=== PATIENT | male | born 1990 | race Caucasian/White ===

== ENCOUNTER 2022-08-09 17:45 | Inpatient (IN) | payer OTHER, SELFPAY ==
[2022-08-09 18:00] VITALS: BP 131/84; PULSE 97; TEMP 36.2
--- NOTE | 2022-08-09 18:48 | PC.ADMIT ---
Pt is a 32 year old male transferring from at [facility] to [facility] for ECT treatments. Pt is COIVD negative. Pt has persistent depression, pt's mother in 2013 and has been depressed since. Pt was brought to [facility] secondary to being found unresponsive by his landlord in his apartment. Pt had intentionally OD on prescribed medications. Reports improved SI, doesn't want to hurt his family by killing himself. Pt transferred from [facility] for [place]CT [place] [facility] Pt was at [facility] for 38 days prior to arriving to . Pt is calm and cooperative with a flat/sad affect. Pt rates anxiety 8/10 and depression 7/10. Pt reports having chronic pain in his bilateral wrists, bilateral ankles, neck and back from playing contact sports growing up. Pt denies SI/HI/AH/VH at this time and can come to staff if feeling unsafe. Pt reports feeling safe on the unit. MD made aware of admission. Orders are placed, begin treatment plan and monitor for safety.
[2022-08-09] MEDS: Nortriptyline HCl 25 MG CAPSULE 50 MG PO (20:26)
[2022-08-09] MEDS: LORazepam 0.5 MG TABLET 1.5 MG PO (20:26)
[2022-08-09] MEDS: QUEtiapine Fumarate 200 MG TABLET PO (20:26)
[2022-08-09] MEDS: traZODone HCL 50 MG TABLET PO ×2 (20:30→21:41)
[2022-08-10 07:26] LABS: MANUAL DIFF FLAG NO
[2022-08-10 07:29] LABS: Basophils Percent Auto 0.4 % (0-2); Eosinophils Absolute Auto 0.2 X10*3/uL (0.0-0.4); Eosinophils Percent Auto 2.6 % (0-4); Hematocrit 43.8 % (42.0-52.0); Hemoglobin 14.5 g/dl (14.0-18.0); Imm Gran Abs Auto 0.03 X10*3/uL (0.00-0.03); Imm Gran Pct Auto 0.4 % (0.0-0.4); Lymphocytes Absolute Auto 1.8 X10*3/uL (1.2-4.9); Lymphocytes Percent Auto 25.1 % (20-40); Mean Corpuscular HGB Conc 33.1 g/dl (31.0-36.0); Mean Corpuscular Hemoglobin 28.7 pg (27.0-33.0); Mean Corpuscular Volume 86.7 fL (80.0-98.0); Mean Platelet Volume 8.4 fL (9.4-12.4); Monocytes Absolute Auto 0.7 X10*3/uL (0.1-1.2); Monocytes Percent Auto 10.1 % (2-11); Neutrophils Absolute Auto 4.5 x10*3/uL (2.0-8.3); Neutrophils Percent Auto 61.4 % (45-73); Platelet Count 236 X10*3/uL (160-400); Red Blood Count 5.05 X10*6/uL (4.60-5.80); Red Cell Distribution Width 13.5 % (11.0-16.0); White Blood Count 7.3 X10*3/uL (4.8-10.8)
[2022-08-10 07:44] LABS: Estimated Average Glucose 103 mg/dL; Hemoglobin A1c % 5.2 %
[2022-08-10 08:01] LABS: Alanine Aminotransferase 37 U/L (0-40); Alkaline Phosphatase 79 U/L (39-117); Anion Gap 13 (12-20); Aspartate Amino Transferase 32 U/L (5-37); Bilirubin Total 0.5 mg/dL (0.0-1.0); Blood Urea Nitrogen 13 mg/dL (9-16); Carbon Dioxide 25 mmol/L (22-29); Chloride 106 mmol/L (96-108); Cholesterol 212 mg/dL; Estimated Glomerular Filt Rate > 60; Glucose Fasting 85 mg/dL (60-99); HDL Cholesterol 37 mg/dL; LDL Cholesterol Calculated 141 mg/dl; Magnesium 2.1 mg/dL (1.6-2.6); Potassium 4.3 mmol/L (3.3-5.1); Sodium 140 mmol/L (135-145); Total Protein 6.4 g/dL (6.5-8.0); Triglycerides 171 mg/dL
[2022-08-10 08:32] LABS: Free T4 (Free Thyroxine) 0.82 ng/dL (0.71-1.85); Thyroid Stimulating Hormone 2.97 uIU/mL (0.32-4.0); Vitamin B12 331 pg/mL (200-900)
[2022-08-10] MEDS: LORazepam 0.5 MG TABLET 1.5 MG PO ×2 (08:45→21:31)
[2022-08-10] MEDS: QUEtiapine Fumarate 200 MG TABLET PO ×2 (08:45→21:32)
--- NOTE | 2022-08-10 08:54 | P.HPPS_ITS ---
HPI Date of Service: 08/10/22 Chief Complaint: Rec. Major Depression, Complex Bereavement Reacti Sources of Information: patient interviewed, chart reviewed and crisis/core team assessment reviewed HPI Subjective Notes: Pyle Warning and Conditional Voluntary Narrative: 32 yo male, transfer from [facility] for ECT. First [facility] admit reported. TO [facility] after an intentional overdose in a suicide attempt. Found by zaida, surrouned by empty pill bottles and a note- took approx 80 klonopin, 42 seroquel, 28 Ambien 37 Lamictal. CCU admit for intubation and stabilization. Reported to their team feeling depressed for a significant amount of time with participation in therapy and med trials without benefit. Identified prolonged bereavement over mother who in 2013. Also reported chronic pain. Pt on SSI since Oct 2021. He has not worked since 2019. Supports are an aunt and uncle who live in [place]. No friends. Hx of TMS without benefit. Identifies memory issues due to several concussions. Occasional THC use. Reports several medication trials which have not been too helpful at this time. Past Psychiatric History: IP: [facility] Transfer s/p suicide attempt Medical Evaluation Reviewed: Yes [facility] Medical History (Updated 08/11/22 @ 15:37 by Sandy Christian, LABORATORY MECH[employer]IC HELPER) Complicated bereavement Severe recurrent major depression Narrative: Hx of concussions Family History: Per [facility] record Social History: Per [facility] record Substance History: Per [facility] record Trauma History: Per [facility] record Diagnostics Vital Signs (24Hr): Vital Signs - 24 hr 08/09/22 18:00 Temperature 97.1 F Pulse Rate 97 Blood Pressure 131/84 Labs 08/10/22 07:04 08/10/22 07:04 Labs: Laboratory Results - last 48 hr 08/10/22 08/10/22 08/10/22 07:04 07:04 07:04 WBC 7.3 RBC 5.05 Hgb 14.5 Hct 43.8 MCV 86.7 MCH 28.7 MCHC 33.1 RDW 13.5 Plt Count 236 MPV 8.4 L Immature Gran % (Auto) 0.4 Neut % (Auto) 61.4 Lymph % (Auto) 25.1 Lamb % (Auto) 10.1 Eos % (Auto) 2.6 Baso % (Auto) 0.4 Lymph # (Auto) 1.8 Lamb # (Auto) 0.7 Eos # (Auto) 0.2 Baso # (Auto) 0.0 Abs Immat Gran (auto) 0.03 Absolute Neuts (auto) 4.5 Absolute Nucleated RBC 0.000 Nucleated RBC % (auto) 0.0 Sodium 140 Potassium 4.3 Chloride 106 Carbon Dioxide 25 Anion Gap 13 BUN 13 Creatinine 0.86 Estim Creat Clear Calc TNP Estimated GFR > 60 Fasting Glucose 85 Estimat Average Glucose 103 Hemoglobin A1c % 5.2 Calcium 9.0 Magnesium 2.1 Total Bilirubin 0.5 AST 32 ALT 37 Alkaline Phosphatase 79 Total Protein 6.4 L Albumin 4.0 Triglycerides 171 Cholesterol 212 LDL Cholesterol, Calc 141 HDL Cholesterol 37 Vitamin B12 331 Folate 9.0 TSH 2.97 Free T4 0.82 Meds/Allergies Meds Home Medications Medication Instructions Recorded Confirmed Type ibuprofen 600 mg PO Q6H PRN Pain 08/10/22 08/10/22 History lorazepam 0.5 mg tablet 1.5 mg PO BID 08/10/22 08/10/22 History nortriptyline 150 mg PO BEDTIME 08/10/22 08/10/22 History propranolol 20 mg tablet 20 mg PO DAILY 08/10/22 08/10/22 History propranolol 20 mg tablet 20 mg PO DAILY PRN Anxiety 08/10/22 08/10/22 History quetiapine 200 mg PO BID 08/10/22 08/10/22 History zolpidem 10 mg PO BEDTIME PRN Sleep 08/10/22 08/10/22 History Allergies Allergies Allergy/AdvReac Type Severity Reaction Status Date / Time No Known Allergies Allergy Verified 08/09/22 16:14 Mental Status Exam Mental Status Exam Patient Appearance: Fatigued Patient Orientation: Person, Place, Time and Situation Level of Consciousness: Alert Patient Behavior: Talkative and Cooperative Mood Description: Depressed Affect Description: Flat Patient Cognition Impaired: No Ability to Follow Directions: Good Speech Pattern: Spontaneous Speech Memory Description: Intact Hallucinations: None Delusions: Not Present Perceptual Disturbances: Derealization Thought Process: Rumination Thought Content: positive for Circumstantial and positive for Suicidal Ideation Depressive Symptoms: Increased Anxiety, Hopelessness, Unhappiness, Thoughts of /Suicide and Low Self Esteem Judgement: Fair Assessment & Plan Assessment & Plan (1) Severe recurrent major depression: Status: Acute Code(s): F33.2 - Major depressive disorder, recurrent severe without psychotic features (2) Complicated bereavement: Status: Acute Code(s): F43.21 - Adjustment disorder with depressed mood Plan 32 yo male, scheduled transfer from [facility] for ECT consult and treatment s/p suicide attempt with complex breavement issues. Plan: Diagnostics Continue current regime Collateral Contact Patient educated on: therapeutic strategies Informed Consent: understands Reason for continued inpatient stay Substantial Risk for: harm to self and rapid decompensation Statement Statement: I have reviewed the history and physical and performed a pertinent examination on my patient. No changes have occurred unless specified. If the History and Physical was not performed prior to admission, the Hospitalist's service will be consulted for completing the admission physical. Time Spent With Patient Time: Total time managing care of this patient today ____ minutes.
--- NOTE | 2022-08-10 09:00 | ECG_ITS ---
Test Reason : New Admit Blood Pressure : / mmHG Vent. Rate : 087 BPM Atrial Rate : 087 BPM P-R Int : 166 ms QRS Dur : 122 ms QT Int : 362 ms P-R-T Axes : 051 064 035 degrees QTc Int : 435 ms Normal sinus rhythm Non-specific intra-ventricular conduction delay Borderline ECG No previous ECGs available Referred By: Sandy Christian Electronically Signed By:Pancho Mo
[2022-08-10 09:08] VITALS: BP 147/91; PULSE 95; RESP 16; TEMP 36.8; O2SAT 95
--- NOTE | 2022-08-10 11:26 | P.CONHOSP_ITS ---
History of Present Illness Data of Consult Service Date: 08/10/22 Primary Care Provider: Unknown Physician HPI Reason for consult: Admission H&P Pt is a 32-year-old male with a PMH significant for anxiety, depression, and hx of concussions who is admitted to psychiatry for ECT treatment. Pt was originally admitted on 06/21/2022 to the ICU at [facility] for intubation and stabilization after being found unresponsive in his apartment by his landlord after an intentional overdose. Patient then was transferred on 07/02 to the inpatient psychiatric unit at [facility] and [place] [facility] [place]. Medical consult for admission H&P and ECT clearance. Pt denies a PMH of cerebral hemorrhage or stroke, CAD, space- occupying intracranial lesion, bleeding or otherwise unstable vascular aneurysm. No hx of seizure or severe pulmonary condition. Pt experienced concussions from playing lacrosse 10+ years ago, but denies any lingering effects such as headaches, vision changes, or memory loss. Pt with denies any past problems with anesthesia. EKG negative for acute ischemia or prolonged QTc. Pt denies chest pain/pressure, SOB, dizziness or lightheadedness. No abdominal pain, hematachezia, melena. Pt does complain of chronic pain in wrists, ankles, neck, and back. Labs reviewed, unremarkable. EKG showed sinus rhythm with a QTc of 435 and nonspecific intraventricular conduction and no evidence of ST elevations or depressions. There are no obvious contraindications to the planned procedure. Review of Systems Review of Systems: Chronic musculoskeletal pain Pt otherwise has no acute medical complaints Yes all other systems are reviewed and are negative [facility] Social History Household Members: None Housing: Homeless Patient Tobacco Use Status: Never used Tobacco Smoked in Last 30 Days: No Patient Interested in Nicotine Replacement: No Patient Given Instructions on How to Stop Smoking: No Use of substances other than those prescribed or required for medical reasons: No Have you been hit, kicked, punched, or otherwise hurt by someone within the past year? If so, by whom?: No Do you feel safe in your current relationship?: No Current Relationship Is there a partner from a previous relationship who is making you feel unsafe now?: No Are you made to feel afraid or neglected: No Advance Directives: No Advance Directives Information Provided: Yes Do you have thoughts of harming others: None Do you have a plan to hurt others: No Plan Recently lost weight without trying: No Nutrition Risks: No Nutritional Risk Poor oral hygiene: No Meds Allergies Allergy/AdvReac Type Severity Reaction Status Date / Time No Known Allergies Allergy Verified 08/09/22 16:14 Active Medications: Current Medications Acetaminophen (Acetaminophen 325 Mg Tablet) 650 mg PO Q6H PRN PRN Reason: Headache/Pain Mild Scale (1-3) Al Hydroxide/Mg Hydroxide (Magnesium Hydrox/Alum Hydrox 30 Ml Oral.Susp) 30 ml PO Q6H PRN PRN Reason: Heartburn/Nausea Hydroxyzine HCl (Hydroxyzine Hcl 25 Mg Tablet) 25 mg PO Q6H PRN PRN Reason: Anxiety Lorazepam (Lorazepam 0.5 Mg Tablet) 1.5 mg PO BID [facility] Last Admin: 08/10/22 08:45 Dose: 1.5 mg Magnesium Hydroxide (Milk Of Magnesia 30 Ml Oral.Susp) 30 ml PO DAILY PRN PRN Reason: Constipation Nortriptyline HCl (Nortriptyline Hcl 25 Mg Capsule) 50 mg PO BEDTIME [facility] Last Admin: 08/09/22 20:26 Dose: 50 mg Quetiapine Fumarate (Quetiapine Fumarate 200 Mg Tablet) 200 mg PO BID [facility] Last Admin: 08/10/22 08:45 Dose: 200 mg Trazodone HCl (Trazodone Hcl 50 Mg Tablet) 50 mg PO BEDTIME MRX1 PRN PRN Reason: Insomnia Last Admin: 08/09/22 21:41 Dose: 50 mg Home Medications Medication Instructions Recorded Confirmed Last Taken Type ibuprofen 600 mg PO Q6H PRN Pain 08/10/22 08/10/22 Unknown History lorazepam 0.5 mg tablet 1.5 mg PO BID 08/10/22 08/10/22 08/09/22 12:15 History nortriptyline 150 mg PO BEDTIME 08/10/22 08/10/22 08/08/22 19:24 History propranolol 20 mg tablet 20 mg PO DAILY 08/10/22 08/10/22 Unknown History propranolol 20 mg tablet 20 mg PO DAILY PRN Anxiety 08/10/22 08/10/22 Unknown History quetiapine 200 mg PO BID 08/10/22 08/10/22 08/09/22 16:06 History zolpidem 10 mg PO BEDTIME PRN Sleep 08/10/22 08/10/22 08/08/22 19:25 History Physical Exam Vital Signs and Narrative: Vital Signs: Last Vital Signs Temp 98.2 F 08/10/22 09:08 Pulse 95 08/10/22 09:08 Resp 16 08/10/22 09:08 BP 147/91 H 08/10/22 09:08 Pulse Ox 95 08/10/22 09:08 O2 Del Method Room Air 08/10/22 09:08 Constitutional: Alert, in no acute distress. Mental Status: Oriented to person, place and time. Eyes: Pupils are equal, round, and reactive to light. Ear, Nose, and Throat: Oropharynx clear, mucous membranes moist. Ears and nose without deformities. Trachea midline. Respiratory: Clear to auscultation bilaterally. No wheezing, rales, or rhonchi. Cardiovascular: S1, S2 regular. No murmurs, rubs, or gallops. Gastrointestinal: Abdomen soft, non-tender, non-distended. Normal bowel sounds. Neurologic: Cranial nerves II-XII are grossly intact bilaterally. No focal neurological deficits. Moves all extremities spontaneously. Skin: No rashes or lesions noted. Musculoskeletal: No cyanosis or clubbing. Extremities: No edema. Psychiatric: Normal mood and affect. Results Labs 08/10/22 07:04 08/10/22 07:04 Labs: Laboratory Results - last 24 hr 08/10/22 08/10/22 08/10/22 07:04 07:04 07:04 MCV 86.7 MCH 28.7 MCHC 33.1 RDW 13.5 Plt Count 236 MPV 8.4 L Immature Gran % (Auto) 0.4 Neut % (Auto) 61.4 Lymph % (Auto) 25.1 [place] % (Auto) 10.1 Eos % (Auto) 2.6 Baso % (Auto) 0.4 Lymph # (Auto) 1.8 [place] # (Auto) 0.7 Eos # (Auto) 0.2 Baso # (Auto) 0.0 Abs Immat Gran (auto) 0.03 Absolute Neuts (auto) 4.5 Absolute Nucleated RBC 0.000 Nucleated RBC % (auto) 0.0 Anion Gap 13 Estim Creat Clear Calc TNP Estimated GFR > 60 Fasting Glucose 85 Estimat Average Glucose 103 Hemoglobin A1c % 5.2 Calcium 9.0 Magnesium 2.1 Total Bilirubin 0.5 AST 32 ALT 37 Alkaline Phosphatase 79 Total Protein 6.4 L Albumin 4.0 Triglycerides 171 Cholesterol 212 LDL Cholesterol, Calc 141 HDL Cholesterol 37 Vitamin B12 331 Folate 9.0 TSH 2.97 Free T4 0.82 Assessment and Plan (1) Routine history and physical examination of adult: Status: Acute (2) Pre-op evaluation: Status: Acute Plan Pt is a 32-year-old male with a PMH significant for anxiety, depression, and hx of concussions who is admitted to psychiatry for ECT treatment. Pt was originally admitted on 06/21/2022 to the ICU at [facility] for intubation and stabilization after being found unresponsive in his apartment by his landlord after an intentional overdose. Patient then was transferred on 07/02 to the inpatient psychiatric unit at [facility] and [place] [facility] [place]. Medical consult for admission H&P and ECT rm arance. Mood disorder Plan as per psychiatry ECT Pt denies a PMH of cerebral hemorrhage or stroke, CAD, space-occupying intracranial lesion, bleeding or otherwise unstable vascular aneurysm. No hx of seizure or severe pulmonary condition. Pt experienced concussions from playing lacrosse 10+ years ago, but denies any lingering effects such as headaches, vision changes, or memory loss. Pt with denies any past problems with anesthesia. EKG negative for acute ischemia or prolonged QTc. There are no obvious contraindications for the planned procedure Chronic musculoskeletal pain Continue home analgesics Thank you for allowing us to participate in the care of this patient. Signing off at this time. Please let us know if there are any acute complaints or questions. Time Spent With Patient Time: Total time managing care of this patient today ____ minutes.
[2022-08-10 18:00] VITALS: BP 144/97; PULSE 100; RESP 20; TEMP 37.7; O2SAT 97
[2022-08-10] MEDS: Nortriptyline HCl 25 MG CAPSULE 50 MG PO (21:31)
[2022-08-10] MEDS: hydrOXYzine HCL 25 MG TABLET PO (21:32)
[2022-08-10] MEDS: Propranolol HCL 20 MG TABLET PO (21:35)
[2022-08-10] MEDS: traZODone HCL 50 MG TABLET PO (21:37)
[2022-08-10] MEDS: Zolpidem Tartrate 5 MG TABLET PO (21:37)
[2022-08-11 06:00] VITALS: BP 143/96; PULSE 80; RESP 18; O2SAT 98
[2022-08-11] MEDS: QUEtiapine Fumarate 200 MG TABLET PO ×2 (08:09→20:29)
[2022-08-11] MEDS: Propranolol HCL 20 MG TABLET PO ×2 (08:09→20:29)
[2022-08-11] MEDS: LORazepam 0.5 MG TABLET 1.5 MG PO ×2 (08:09→20:29)
[2022-08-11 18:00] VITALS: BP 128/75; PULSE 96; TEMP 36.6; O2SAT 96
--- NOTE | 2022-08-11 18:58 | HO.PSYCHPN ---
Subjective Subjective Date of Service: 08/11/22 Reason For Visit: Rec. Major Depression, Complex Bereavement Reacti Subjective Notes: Conditional Voluntary Interim History: Pt seen, reviewed with team. Settling in to the unit. Discussed with pt if he would be interested in reviewing ECT literature. He agreed, stating he had been given a significant amount of literature at [facility] prior to transfer. Currently no questions about the process. Regime is correct he reports, asks if he will have a treatment tomorrow and we discussed that he most likely will not have it that quickly. Medication Compliance: Yes Side effects from medications: No Attending Groups: No Review of Systems Acute medical concerns: No Medical Review of Systems: unchanged Mental Status Exam Mental Status Exam Patient Appearance: Fatigued Patient Orientation: Person, Place, Time and Situation Level of Consciousness: Alert Patient Behavior: Talkative and Cooperative Mood Description: Depressed Affect Description: Flat Patient Cognition Impaired: No Ability to Follow Directions: Good Speech Pattern: Spontaneous Speech Memory Description: Intact Hallucinations: None Delusions: Not Present Perceptual Disturbances: Derealization Thought Process: Rumination Thought Content: positive for Circumstantial and positive for Suicidal Ideation Depressive Symptoms: Increased Anxiety, Hopelessness, Unhappiness, Thoughts of /Suicide and Low Self Esteem Judgement: Fair Diagnostics Vital Signs (24Hr): Vital Signs - 24 hr 08/11/22 06:00 08/11/22 18:00 Temperature 97.9 F Pulse Rate 80 96 Respiratory Rate 18 Blood Pressure 143/96 H 128/75 Pulse Oximetry 98 96 Oxygen Delivery Method Room Air Room Air Labs 08/10/22 07:04 08/10/22 07:04 Labs: Laboratory Results - last 48 hr 08/10/22 08/10/22 08/10/22 07:04 07:04 07:04 WBC 7.3 RBC 5.05 Hgb 14.5 Hct 43.8 MCV 86.7 MCH 28.7 MCHC 33.1 RDW 13.5 Plt Count 236 MPV 8.4 L Immature Gran % (Auto) 0.4 Neut % (Auto) 61.4 Lymph % (Auto) 25.1 [place] % (Auto) 10.1 Eos % (Auto) 2.6 Baso % (Auto) 0.4 Lymph # (Auto) 1.8 [place] # (Auto) 0.7 Eos # (Auto) 0.2 Baso # (Auto) 0.0 Abs Immat Gran (auto) 0.03 Absolute Neuts (auto) 4.5 Absolute Nucleated RBC 0.000 Nucleated RBC % (auto) 0.0 Sodium 140 Potassium 4.3 Chloride 106 Carbon Dioxide 25 Anion Gap 13 BUN 13 Creatinine 0.86 Estim Creat Clear Calc TNP Estimated GFR > 60 Fasting Glucose 85 Estimat Average Glucose 103 Hemoglobin A1c % 5.2 Calcium 9.0 Magnesium 2.1 Total Bilirubin 0.5 AST 32 ALT 37 Alkaline Phosphatase 79 Total Protein 6.4 L Albumin 4.0 Triglycerides 171 Cholesterol 212 LDL Cholesterol, Calc 141 HDL Cholesterol 37 Vitamin B12 331 Folate 9.0 TSH 2.97 Free T4 0.82 Medications Medications Current Medications Acetaminophen (Acetaminophen 325 Mg Tablet) 650 mg PO Q6H PRN PRN Reason: Headache/Pain Mild Scale (1-3) Al Hydroxide/Mg Hydroxide (Magnesium Hydrox/Alum Hydrox 30 Ml Oral.Susp) 30 ml PO Q6H PRN PRN Reason: Heartburn/Nausea Hydroxyzine HCl (Hydroxyzine Hcl 25 Mg Tablet) 25 mg PO Q6H PRN PRN Reason: Anxiety Last Admin: 08/10/22 21:32 Dose: 25 mg Lorazepam (Lorazepam 0.5 Mg Tablet) 1.5 mg PO BID JUAN Last Admin: 08/11/22 08:09 Dose: 1.5 mg Magnesium Hydroxide (Milk Of Magnesia 30 Ml Oral.Susp) 30 ml PO DAILY PRN PRN Reason: Constipation Nortriptyline HCl (Nortriptyline Hcl 25 Mg Capsule) 150 mg PO BEDTIME [facility] Propranolol HCl (Propranolol Hcl 20 Mg Tablet) 20 mg PO DAILY PRN; Protocol PRN Reason: anxiety Propranolol HCl (Propranolol Hcl 20 Mg Tablet) 20 mg PO DAILY JUAN; Protocol Last Admin: 08/11/22 08:09 Dose: 20 mg Quetiapine Fumarate (Quetiapine Fumarate 200 Mg Tablet) 200 mg PO BID [facility] Last Admin: 08/11/22 08:09 Dose: 200 mg Trazodone HCl (Trazodone Hcl 50 Mg Tablet) 50 mg PO BEDTIME MRX1 PRN PRN Reason: Insomnia Last Admin: 08/10/22 21:37 Dose: 50 mg Zolpidem Tartrate (Zolpidem Tartrate 5 Mg Tablet) 5 mg PO BEDTIME PRN PRN Reason: Insomnia Last Admin: 08/10/22 21:37 Dose: 5 mg Allergies Allergies Allergy/AdvReac Type Severity Reaction Status Date / Time No Known Allergies Allergy Verified 08/09/22 16:14 Assessment & Plan Assessment & Plan (1) Severe recurrent major depression: Status: Acute Code(s): F33.2 - Major depressive disorder, recurrent severe without psychotic features (2) Complicated bereavement: Status: Acute Code(s): F43.21 - Adjustment disorder with depressed mood Plan 32 yo male, scheduled transfer from [facility] for ECT consult and treatment s/p suicide attempt with complex breavement issues. Plan: Diagnostics Continue current regime Collateral Contact 08/11/20- Continue regime, ECT Consultation 08/12. Patient educated on: therapeutic strategies Informed Consent: understands Reason for continued inpatient stay Substantial Risk for: rapid decompensation Time Spent With Patient Time: Total time managing care of this patient today ____ minutes.
[2022-08-11] MEDS: Nortriptyline HCl 25 MG CAPSULE 150 MG PO (20:29)
[2022-08-11] MEDS: Zolpidem Tartrate 5 MG TABLET PO (20:30)
[2022-08-11] MEDS: traZODone HCL 50 MG TABLET PO (20:30)
[2022-08-12 08:30] VITALS: BP 132/93; PULSE 90; RESP 16; TEMP 36.1; O2SAT 99
[2022-08-12] MEDS: QUEtiapine Fumarate 200 MG TABLET PO ×2 (08:32→20:31)
[2022-08-12] MEDS: LORazepam 0.5 MG TABLET 1.5 MG PO ×2 (08:32→20:31)
[2022-08-12] MEDS: Propranolol HCL 20 MG TABLET PO ×2 (08:32→20:38)
[2022-08-12 17:19] VITALS: BP 164/90; PULSE 97; TEMP 36.2
[2022-08-12] MEDS: Nortriptyline HCl 25 MG CAPSULE 150 MG PO (20:31)
[2022-08-12] MEDS: Zolpidem Tartrate 5 MG TABLET PO (20:32)
[2022-08-12] MEDS: traZODone HCL 50 MG TABLET PO (20:40)
--- NOTE | 2022-08-12 21:57 | HO.PSYCHPN ---
Subjective Subjective Date of Service: 08/12/22 Reason For Visit: Rec. Major Depression, Complex Bereavement Reacti Subjective Notes: Conditional Voluntary Guardianship: No Interim History: PT with long hx of depression tx resistant was able to give hx take in information regarding ect Medication Compliance: Yes Mental Status Exam Mental Status Exam Patient Appearance: Fatigued Patient Orientation: Person, Place, Time and Situation Level of Consciousness: Alert Patient Behavior: Talkative and Cooperative Mood Description: Constricted and Depressed Affect Description: Constricted, Depressed, Blunted and Flat Patient Cognition Impaired: No Ability to Follow Directions: Good Speech Pattern: Spontaneous Speech Memory Description: Intact Hallucinations: None Delusions: Not Present Perceptual Disturbances: Derealization Thought Process: Rumination Thought Content: positive for Circumstantial and positive for Suicidal Ideation Depressive Symptoms: Increased Anxiety, Hopelessness, Unhappiness, Thoughts of /Suicide and Low Self Esteem Judgement: Fair Diagnostics Vital Signs (24Hr): Vital Signs - 24 hr 08/12/22 08:30 08/12/22 17:19 Temperature 97 F 97.2 F Pulse Rate 90 97 Respiratory Rate 16 Blood Pressure 132/93 H 164/90 H Pulse Oximetry 99 Oxygen Delivery Method Room Air Labs 08/10/22 07:04 08/10/22 07:04 Medications Medications Current Medications Acetaminophen (Acetaminophen 325 Mg Tablet) 650 mg PO Q6H PRN PRN Reason: Headache/Pain Mild Scale (1-3) Al Hydroxide/Mg Hydroxide (Magnesium Hydrox/Alum Hydrox 30 Ml Oral.Susp) 30 ml PO Q6H PRN PRN Reason: Heartburn/Nausea Hydroxyzine HCl (Hydroxyzine Hcl 25 Mg Tablet) 25 mg PO Q6H PRN PRN Reason: Anxiety Last Admin: 08/10/22 21:32 Dose: 25 mg Lorazepam (Lorazepam 0.5 Mg Tablet) 1.5 mg PO BID [facility] Last Admin: 08/12/22 20:31 Dose: 1.5 mg Magnesium Hydroxide (Milk Of Magnesia 30 Ml Oral.Susp) 30 ml PO DAILY PRN PRN Reason: Constipation Nortriptyline HCl (Nortriptyline Hcl 25 Mg Capsule) 150 mg PO BEDTIME [facility] Last Admin: 08/12/22 20:31 Dose: 150 mg Propranolol HCl (Propranolol Hcl 20 Mg Tablet) 20 mg PO DAILY PRN; Protocol PRN Reason: anxiety Last Admin: 08/12/22 20:38 Dose: 20 mg Propranolol HCl (Propranolol Hcl 20 Mg Tablet) 20 mg PO DAILY JUAN; Protocol Last Admin: 08/12/22 08:32 Dose: 20 mg Quetiapine Fumarate (Quetiapine Fumarate 200 Mg Tablet) 200 mg PO BID [facility] Last Admin: 08/12/22 20:31 Dose: 200 mg Trazodone HCl (Trazodone Hcl 50 Mg Tablet) 50 mg PO BEDTIME MRX1 PRN PRN Reason: Insomnia Last Admin: 08/12/22 20:40 Dose: 50 mg Zolpidem Tartrate (Zolpidem Tartrate 5 Mg Tablet) 5 mg PO BEDTIME PRN PRN Reason: Insomnia Last Admin: 08/12/22 20:32 Dose: 5 mg Allergies Allergies Allergy/AdvReac Type Severity Reaction Status Date / Time No Known Allergies Allergy Verified 08/09/22 16:14 Assessment & Plan Assessment & Plan (1) Severe recurrent major depression: Status: Acute Code(s): F33.2 - Major depressive disorder, recurrent severe without psychotic features (2) Complicated bereavement: Status: Acute Code(s): F43.21 - Adjustment disorder with depressed mood Plan 32 yo male, scheduled transfer from [facility] for ECT consult and treatment s/p suicide attempt with complex breavement issues. Plan: Diagnostics Continue current regime Collateral Contact 08/12/22 cont enrrique vasquez reviwed ect scheduled for 08/14/22 s/p suicide attempt denies active si now Patient educated on: diagnosis, medication risk/benefits and ECT Informed Consent: understands Reason for continued inpatient stay Substantial Risk for: harm to self Time Spent With Patient Time: Total time managing care of this patient today ____ minutes.
[2022-08-13 08:05] VITALS: BP 134/98; PULSE 88; RESP 16; TEMP 36.4; O2SAT 96
[2022-08-13] MEDS: Propranolol HCL 20 MG TABLET PO ×2 (08:41→18:43)
[2022-08-13] MEDS: LORazepam 0.5 MG TABLET 1.5 MG PO ×2 (08:41→18:39)
[2022-08-13] MEDS: QUEtiapine Fumarate 200 MG TABLET PO ×2 (08:41→18:39)
--- NOTE | 2022-08-13 10:24 | P.PNPSI_ITS ---
Subjective Subjective Date of Service: 08/13/22 Reason For Visit: Rec. Major Depression, Complex Bereavement Reacti Interim History: met with pt; discussed with team; reviewed notes -pt reports continued depression but SI has diminished back to it's minimal baseline. Discussed ECT and pt is anxious but hopeful that it will helpful; discussed medications hx of failed trials (lithium, depakote, lamictal, SSRI's not does not think TCA's; not sure if MAOi's). -sleeping well Discussed some hx; lives in [place] w/ roommates, but thinks he's worn out his welcome so unlikely to return. Originally from [place]. depression since child; in therapy since childhood Likes current Therapist Mental Status Exam Mental Status Exam Narrative: Pt is alert and oriented; behavior is moderately cooperative, calm; patient is not in distress; dressed in casual attire, balding; adequate hygiene; mood is described as depressed and affect blunted; eye contact appropriate; Speech is normal rate, volume and prosody and not pressured; psychomotor retardation present; thought process is organized and goal directed; Thought content is on tx; mothers ; otherwise pertinent to relevant topics and without any delusional content, paranoid ideations or grandiosity; intermittent, passive SI/no HI. There is no evidence of perceptual disturbance. Patients insight and judgment are impaired. Diagnostics Vital Signs (24Hr): Vital Signs - 24 hr 08/12/22 17:19 08/13/22 08:05 Temperature 97.2 F 97.6 F Pulse Rate 97 88 Respiratory Rate 16 Blood Pressure 164/90 H 134/98 H Pulse Oximetry 96 Oxygen Delivery Method Room Air Labs 08/10/22 07:04 08/10/22 07:04 Medications Medications Current Medications Acetaminophen (Acetaminophen 325 Mg Tablet) 650 mg PO Q6H PRN PRN Reason: Headache/Pain Mild Scale (1-3) Al Hydroxide/Mg Hydroxide (Magnesium Hydrox/Alum Hydrox 30 Ml Oral.Susp) 30 ml PO Q6H PRN PRN Reason: Heartburn/Nausea Hydroxyzine HCl (Hydroxyzine Hcl 25 Mg Tablet) 25 mg PO Q6H PRN PRN Reason: Anxiety Last Admin: 08/10/22 21:32 Dose: 25 mg Lorazepam (Lorazepam 0.5 Mg Tablet) 1.5 mg PO BID JUAN Last Admin: 08/13/22 08:41 Dose: 1.5 mg Magnesium Hydroxide (Milk Of Magnesia 30 Ml Oral.Susp) 30 ml PO DAILY PRN PRN Reason: Constipation Nortriptyline HCl (Nortriptyline Hcl 25 Mg Capsule) 150 mg PO BEDTIME JUAN Last Admin: 08/12/22 20:31 Dose: 150 mg Propranolol HCl (Propranolol Hcl 20 Mg Tablet) 20 mg PO DAILY PRN; Protocol PRN Reason: anxiety Last Admin: 08/12/22 20:38 Dose: 20 mg Propranolol HCl (Propranolol Hcl 20 Mg Tablet) 20 mg PO DAILY JUAN; Protocol Last Admin: 08/13/22 08:41 Dose: 20 mg Quetiapine Fumarate (Quetiapine Fumarate 200 Mg Tablet) 200 mg PO BID JUAN Last Admin: 08/13/22 08:41 Dose: 200 mg Trazodone HCl (Trazodone Hcl 50 Mg Tablet) 50 mg PO BEDTIME MRX1 PRN PRN Reason: Insomnia Last Admin: 08/12/22 20:40 Dose: 50 mg Zolpidem Tartrate (Zolpidem Tartrate 5 Mg Tablet) 5 mg PO BEDTIME PRN PRN Reason: Insomnia Last Admin: 08/12/22 20:32 Dose: 5 mg Allergies Allergies Allergy/AdvReac Type Severity Reaction Status Date / Time No Known Allergies Allergy Verified 08/09/22 16:14 Assessment & Plan Assessment & Plan (1) Severe recurrent major depression: Status: Acute Code(s): F33.2 - Major depressive disorder, recurrent severe without psychotic features (2) Complicated bereavement: Status: Acute Code(s): F43.21 - Adjustment disorder with depressed mood Plan 32 yo male, scheduled transfer from [facility] for ECT consult and treatment s/p suicide attempt with complex breavement issues. Plan: Diagnostics Continue current regime HOSPITAL Course: 08/12/22 cont nortrip seroquel reviwed ect scheduled for 08/14/22 s/p suicide attempt denies active si now 08/13 pt cleared for ECT by hospitalist WILL; depressed but SI back to chronic, low level at baseline. ECT #1 pending for 08/14 NPO after midnight Patient educated on: diagnosis, medication risk/benefits and ECT Informed Consent: understands Reason for continued inpatient stay Substantial Risk for: harm to self Time Spent With Patient Time: Total time managing care of this patient today ____ minutes.
[2022-08-13 16:09] VITALS: BP 133/87; PULSE 103
[2022-08-13] MEDS: Nortriptyline HCl 25 MG CAPSULE 150 MG PO (18:38)
[2022-08-13] MEDS: Zolpidem Tartrate 5 MG TABLET PO (18:39)
[2022-08-13] MEDS: traZODone HCL 50 MG TABLET PO (18:43)
[2022-08-14] VITALS (9 sets, daily range): BP systolic 117–143; BP diastolic 73–97; PULSE 85–114; RESP 16–20; TEMP 36.2–36.8; O2SAT 93–99; BMI 35.9
--- NOTE | 2022-08-14 06:43 | P.CONAN_ITS ---
[facility] Active Problems Active Problems: All Active Problems (Updated 08/11/22 @ 15:37 by Sandy Christian APRN) Complicated bereavement (Acute) Severe recurrent major depression (Acute) Pre-op evaluation (Acute) Routine history and physical examination of adult (Acute) Past Medical History Medical History (Updated 08/11/22 @ 15:37 by Sandy Christian APRN) Complicated bereavement Severe recurrent major depression Family History Family history of problems with anesthesia: No Surgical History History of Problems with Anesthesia: No Social History Social History Household Members: None Housing: Homeless Patient Tobacco Use Status: Never used Tobacco service: No Sexual orientation: Straight/Heterosexual Meds Allergies Allergy/AdvReac Type Severity Reaction Status Date / Time No Known Allergies Allergy Verified 08/09/22 16:14 Active Medications: Current Medications Acetaminophen (Acetaminophen 325 Mg Tablet) 650 mg PO Q6H PRN PRN Reason: Headache/Pain Mild Scale (1-3) Al Hydroxide/Mg Hydroxide (Magnesium Hydrox/Alum Hydrox 30 Ml Oral.Susp) 30 ml PO Q6H PRN PRN Reason: Heartburn/Nausea Hydroxyzine HCl (Hydroxyzine Hcl 25 Mg Tablet) 25 mg PO Q6H PRN PRN Reason: Anxiety Last Admin: 08/10/22 21:32 Dose: 25 mg Lorazepam (Lorazepam 0.5 Mg Tablet) 1.5 mg PO BID [facility] Last Admin: 08/13/22 18:39 Dose: 1.5 mg Magnesium Hydroxide (Milk Of Magnesia 30 Ml Oral.Susp) 30 ml PO DAILY PRN PRN Reason: Constipation Nortriptyline HCl (Nortriptyline Hcl 25 Mg Capsule) 150 mg PO BEDTIME JUAN Last Admin: 08/13/22 18:38 Dose: 150 mg Propranolol HCl (Propranolol Hcl 20 Mg Tablet) 20 mg PO DAILY PRN; Protocol PRN Reason: anxiety Last Admin: 08/13/22 18:43 Dose: 20 mg Propranolol HCl (Propranolol Hcl 20 Mg Tablet) 20 mg PO DAILY JUAN; Protocol Last Admin: 08/13/22 08:41 Dose: 20 mg Quetiapine Fumarate (Quetiapine Fumarate 200 Mg Tablet) 200 mg PO BID JUAN Last Admin: 08/13/22 18:39 Dose: 200 mg Trazodone HCl (Trazodone Hcl 50 Mg Tablet) 50 mg PO BEDTIME MRX1 PRN PRN Reason: Insomnia Last Admin: 08/13/22 18:43 Dose: 50 mg Zolpidem Tartrate (Zolpidem Tartrate 5 Mg Tablet) 5 mg PO BEDTIME PRN PRN Reason: Insomnia Last Admin: 08/13/22 18:39 Dose: 5 mg Home Medications Medication Instructions Recorded Confirmed Last Taken Type ibuprofen 600 mg PO Q6H PRN Pain 08/10/22 08/10/22 Unknown History lorazepam 0.5 mg tablet 1.5 mg PO BID 08/10/22 08/10/22 08/09/22 12:15 History nortriptyline 150 mg PO BEDTIME 08/10/22 08/10/22 08/08/22 19:24 History propranolol 20 mg tablet 20 mg PO DAILY 08/10/22 08/10/22 Unknown History propranolol 20 mg tablet 20 mg PO DAILY PRN Anxiety 08/10/22 08/10/22 Unknown History quetiapine 200 mg PO BID 08/10/22 08/10/22 08/09/22 16:06 History zolpidem 10 mg PO BEDTIME PRN Sleep 08/10/22 08/10/22 08/08/22 19:25 History Exam Exam Date and Time: August 14, 2022 0643 Height,Weight and Vital Signs: Height 5 ft 10 in Weight 113.398 kg Last Vital Signs Temp 97.1 F 08/14/22 06:32 Pulse 91 08/14/22 06:32 Resp 20 08/14/22 06:32 BP 131/92 H 08/14/22 06:32 Pulse Ox 98 08/14/22 06:32 O2 Del Method Room Air 08/14/22 06:32 Pertinent Lab Results Pertinent Lab Results: Laboratory Tests 08/10/22 08/10/22 08/10/22 07:04 07:04 07:04 WBC 7.3 RBC 5.05 Hgb 14.5 Hct 43.8 MCV 86.7 MCH 28.7 MCHC 33.1 RDW 13.5 Plt Count 236 MPV 8.4 L Immature Gran % (Auto) 0.4 Neut % (Auto) 61.4 Lymph % (Auto) 25.1 [place] % (Auto) 10.1 Eos % (Auto) 2.6 Baso % (Auto) 0.4 Lymph # (Auto) 1.8 [place] # (Auto) 0.7 Eos # (Auto) 0.2 Baso # (Auto) 0.0 Abs Immat Gran (auto) 0.03 Absolute Neuts (auto) 4.5 Absolute Nucleated RBC 0.000 Nucleated RBC % (auto) 0.0 Sodium 140 Potassium 4.3 Chloride 106 Carbon Dioxide 25 Anion Gap 13 BUN 13 Creatinine 0.86 Estim Creat Clear Calc TNP Estimated GFR > 60 Fasting Glucose 85 Estimat Average Glucose 103 Hemoglobin A1c % 5.2 Calcium 9.0 Magnesium 2.1 Total Bilirubin 0.5 AST 32 ALT 37 Alkaline Phosphatase 79 Total Protein 6.4 L Albumin 4.0 Triglycerides 171 Cholesterol 212 LDL Cholesterol, Calc 141 HDL Cholesterol 37 Vitamin B12 331 Folate 9.0 TSH 2.97 Free T4 0.82 Airway Mallampati Class: II TM Dist: >3cm Neck ROM: Full Heart: rrr Lungs: cta Assessment and Plan Assessment Anesthesia Assessment: Anesthesia Plan Discussed and Chart Reviewed Final Anesthetic Review Family History of Problems with Anesthesia: No History of Problems with Anesthesia: No NPO: Yes ASA Class: III Final Preanesthetic Review: No Changes in Pt Med Stat, Meds/Allgs Chart Reviewed and Consent Obtained/Reviewed Patient Risk: Intermediate Procedure Risk: Intermediate Anesthetic Plan Anesthetic Plan: GA Disposition: Standard PACU
--- NOTE | 2022-08-14 07:10 | MHC.SHP ---
Pre-Procedural Eval Section A Date of Service: 08/14/22 The patient is an INPATIENT: Yes Changes since office visit: Yes Changes in Medication and Yes Patient answered all questions; No Cold of Flu in the past 2 weeks and No New Medical Problems Section B Chief Complaint: Rec. Major Depression, Complex Bereavement Reacti Allergies: Allergies Allergy/AdvReac Type Severity Reaction Status Date / Time No Known Allergies Allergy Verified 08/09/22 16:14 Plan I have reviewed the history and physical and performed a pertinent physical examination on my patient. No changes have occurred unless specified. Time Spent With Patient Time: Total time managing care of this patient today ____ minutes.
--- NOTE | 2022-08-14 07:11 | HO.ECTPROC ---
ECT Procedure Note Diagnosis/Treatment Date of Service: 08/14/22 Diagnosis: Major Depressive Disorder Current Treatment Number: 1 Treatment: Series Interval Clinical Notes: pt hopeful re ect given flumazenil pretx Time: Total time managing care of this patient today ____ minutes. ECT Settings Device: THYMATRON DGx Electrode Placement: Right Unilateral Program/Pulse Width: 0.50 Energy Percent: 100 Seizure Duration By EEG (in seconds): 67 Medications Administration General Anesthetic: Etomidate (14 plus 2) Muscle Relaxant: Succinylcholine (100) Ancillary Medications Analgesics: Torodol - Pre ECT (15) Anti-emetics: Zofran - Pre ECT (4) Miscillaneous Medications: Propofol (30 mg) and Flumazenil Airway Management Airway Management: Bag Mask Ventilation Treatment Recommendations Electrode Placement: Right Unilateral Program/Pulse Width: 0.50 Energy Percent: 100 Notes: hold ativan prior should not need flumazenil next tx Pt Tolerated Procedure w/o Issue: Yes
[2022-08-14] MEDS: QUEtiapine Fumarate 200 MG TABLET PO ×2 (08:30→20:01)
[2022-08-14] MEDS: Propranolol HCL 20 MG TABLET PO (08:30)
[2022-08-14] MEDS: LORazepam 0.5 MG TABLET 1.5 MG PO ×2 (08:30→20:01)
[2022-08-14] MEDS: Acetaminophen 325 MG TABLET 650 MG PO ×2 (08:30→16:21)
--- NOTE | 2022-08-14 10:16 | P.PNPSI_ITS ---
Subjective Subjective Date of Service: 08/14/22 Reason For Visit: Rec. Major Depression, Complex Bereavement Reacti Interim History: met with patient; discussed with team Patient had ECT today. He said it went well and only has a slight headache. Patient wants to continue. Patient shared that anxiety is a significant issue for him however he did not supply details. Discussed medication history and patient says he was only recently started on nortriptyline a few weeks ago. Patient says that he has been on Seroquel for years and he used to be on 800 mg total daily dose; he said it was lowered to 200 mg b.i.d. and he thinks this was for anxiety which he says helps. Patient was also started on clonazepam 1 mg t.i.d. few months ago; he is not sure why but the emergency room following overdose changed to Ativan. Discussed propranolol and he agrees to switch to long-acting. Diagnostics Vital Signs (24Hr): Vital Signs - 24 hr 08/13/22 16:09 08/14/22 06:22 08/14/22 06:22 Temperature 97.8 F 97.8 F Pulse Rate 103 H 85 85 Respiratory Rate 16 16 Blood Pressure 133/87 135/90 H 135/90 H Pulse Oximetry 97 97 Oxygen Delivery Method Room Air Oxygen Flow Rate 08/14/22 06:32 08/14/22 07:39 08/14/22 07:44 Temperature 97.1 F 98.1 F Pulse Rate 91 102 H 110 H Respiratory Rate 20 16 16 Blood Pressure 131/92 H 143/84 H 118/73 Pulse Oximetry 98 93 97 Oxygen Delivery Method Room Air Room Air Room Air Oxygen Flow Rate 08/14/22 07:49 08/14/22 07:54 08/14/22 08:09 Temperature 97.5 F Pulse Rate 111 H 114 H 87 Respiratory Rate 16 17 17 Blood Pressure 121/75 117/73 119/81 Pulse Oximetry 97 97 96 Oxygen Delivery Method Nasal Cannula Nasal Cannula Room Air Oxygen Flow Rate 2 2 08/14/22 08:34 Temperature 98.3 F Pulse Rate 104 H Respiratory Rate 18 Blood Pressure 126/97 H Pulse Oximetry 99 Oxygen Delivery Method Oxygen Flow Rate BMI result Body Mass Index 35.9 Labs 08/10/22 07:04 08/10/22 07:04 Medications Medications Current Medications Acetaminophen (Acetaminophen 325 Mg Tablet) 650 mg PO Q6H PRN PRN Reason: Headache/Pain Mild Scale (1-3) Last Admin: 08/14/22 08:30 Dose: 650 mg Al Hydroxide/Mg Hydroxide (Magnesium Hydrox/Alum Hydrox 30 Ml Oral.Susp) 30 ml PO Q6H PRN PRN Reason: Heartburn/Nausea Hydroxyzine HCl (Hydroxyzine Hcl 25 Mg Tablet) 25 mg PO Q6H PRN PRN Reason: Anxiety Last Admin: 08/10/22 21:32 Dose: 25 mg Lorazepam (Lorazepam 0.5 Mg Tablet) 1.5 mg PO BID JUAN Last Admin: 08/14/22 08:30 Dose: 1.5 mg Magnesium Hydroxide (Milk Of Magnesia 30 Ml Oral.Susp) 30 ml PO DAILY PRN PRN Reason: Constipation Nortriptyline HCl (Nortriptyline Hcl 25 Mg Capsule) 150 mg PO BEDTIME JUAN Last Admin: 08/13/22 18:38 Dose: 150 mg Propranolol HCl (Propranolol Hcl 20 Mg Tablet) 20 mg PO DAILY PRN; Protocol PRN Reason: anxiety Last Admin: 08/13/22 18:43 Dose: 20 mg Propranolol HCl (Propranolol Hcl 20 Mg Tablet) 20 mg PO DAILY JUAN; Protocol Last Admin: 08/14/22 08:30 Dose: 20 mg Quetiapine Fumarate (Quetiapine Fumarate 200 Mg Tablet) 200 mg PO BID [facility] Last Admin: 08/14/22 08:30 Dose: 200 mg Trazodone HCl (Trazodone Hcl 50 Mg Tablet) 50 mg PO BEDTIME MRX1 PRN PRN Reason: Insomnia Last Admin: 08/13/22 18:43 Dose: 50 mg Zolpidem Tartrate (Zolpidem Tartrate 5 Mg Tablet) 5 mg PO BEDTIME PRN PRN Reason: Insomnia Last Admin: 08/13/22 18:39 Dose: 5 mg Allergies Allergies Allergy/AdvReac Type Severity Reaction Status Date / Time No Known Allergies Allergy Verified 08/09/22 16:14 Assessment & Plan Assessment & Plan (1) Severe recurrent major depression: Status: Acute Code(s): F33.2 - Major depressive disorder, recurrent severe without psychotic features (2) Complicated bereavement: Status: Acute Code(s): F43.21 - Adjustment disorder with depressed mood Plan 32 yo male, scheduled transfer from [facility] for ECT consult and treatment s/p suicide attempt with complex breavement issues. Patient reports numerous medication trials over many years without much effect Plan: CV Q 15 minute checks CHANGE to Propranolol LA 60mg (and dc IR) Continue nortriptyline 150 mg q.h.s. Nortriptyline level pending Continue Seroquel 200 mg b.i.d.; patient says for anxiety Continue Ativan 1.5 mg b.i.d.; patient recently started on clonazepam 1 mg t.i.d. but it was switched in the ED just prior to this admission Ambien 5 mg q.h.s. HOSPITAL Course: 08/12/22 cont nortrip seroquel reviwed ect scheduled for 08/14/22 s/p suicide attempt denies active si now 08/13 pt cleared for ECT by hospitalist WILL; depressed but SI back to chronic, low level at baseline. 08/14 tolerating ECT; wants to continue. Discussed medication management and will continue current regimen for now other than switching to longer acting propranolol; no known history of MAO'I which could be a possible option; discussed hypertension which patient says he has a history of; will see if BP response to propranolol adjustment ECT #1 on 08/14 ECT #2 Pending on 08/16; NPO after midnight Patient educated on: diagnosis, medication risk/benefits, ECT and medical condition Informed Consent: understands Reason for continued inpatient stay Substantial Risk for: rapid decompensation Time Spent With Patient Time: Total time managing care of this patient today ____ minutes.
[2022-08-14] MEDS: Nortriptyline HCl 25 MG CAPSULE 150 MG PO (20:00)
[2022-08-14] MEDS: Zolpidem Tartrate 5 MG TABLET PO (20:01)
[2022-08-14] MEDS: traZODone HCL 50 MG TABLET PO (20:01)
[2022-08-15 07:00] VITALS: BMI 41.4
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
[2022-08-15 09:00] VITALS: BP 132/89; PULSE 118; RESP 18; TEMP 36.2; O2SAT 95
[2022-08-15] MEDS: Propranolol HCL LA 60 MG CAP.SA.24H PO (09:01)
[2022-08-15] MEDS: LORazepam 0.5 MG TABLET 1.5 MG PO (09:01)
[2022-08-15] MEDS: QUEtiapine Fumarate 200 MG TABLET PO ×2 (09:01→20:06)
[2022-08-15] MEDS: Milk of Magnesia 30 ML ORAL.SUSP PO (15:32)
[2022-08-15 16:14] LABS: Nortriptyline 102 mcg/L (50-150)
[2022-08-15 16:31] VITALS: BP 135/87; PULSE 92; TEMP 36.4
[2022-08-15] MEDS: Nortriptyline HCl 25 MG CAPSULE 150 MG PO (20:05)
[2022-08-15] MEDS: traZODone HCL 50 MG TABLET PO ×2 (20:05→22:30)
[2022-08-16] VITALS (10 sets, daily range): BP systolic 112–138; BP diastolic 75–97; PULSE 80–102; RESP 14–18; TEMP 36.4–37.2; O2SAT 94–96
--- NOTE | 2022-08-16 06:59 | HO.ANESPROP2 ---
[facility] Active Problems Active Problems: All Active Problems (Updated 08/15/22 @ 13:54 by Gerhard Jordan MD) Social anxiety disorder (Acute) Complicated bereavement (Acute) Severe recurrent major depression (Acute) Pre-op evaluation (Acute) Routine history and physical examination of adult (Acute) Past Medical History Medical History (Updated 08/15/22 @ 13:54 by Gerhard Jordan MD) Complicated bereavement Severe recurrent major depression Social anxiety disorder Family History Family history of problems with anesthesia: No Surgical History History of Problems with Anesthesia: No Social History Social History Household Members: None Housing: Homeless Patient Tobacco Use Status: Never used Tobacco service: No Sexual orientation: Straight/Heterosexual Meds Allergies Allergy/AdvReac Type Severity Reaction Status Date / Time No Known Allergies Allergy Verified 08/09/22 16:14 Active Medications: Current Medications Acetaminophen (Acetaminophen 325 Mg Tablet) 650 mg PO Q6H PRN PRN Reason: Headache/Pain Mild Scale (1-3) Last Admin: 08/14/22 16:21 Dose: 650 mg Al Hydroxide/Mg Hydroxide (Magnesium Hydrox/Alum Hydrox 30 Ml Oral.Susp) 30 ml PO Q6H PRN PRN Reason: Heartburn/Nausea Hydroxyzine HCl (Hydroxyzine Hcl 25 Mg Tablet) 25 mg PO Q6H PRN PRN Reason: Anxiety Last Admin: 08/10/22 21:32 Dose: 25 mg Lorazepam (Lorazepam 0.5 Mg Tablet) 1.5 mg PO BID JUAN Last Admin: 08/15/22 20:11 Dose: Not Given Magnesium Hydroxide (Milk Of Magnesia 30 Ml Oral.Susp) 30 ml PO DAILY PRN PRN Reason: Constipation Last Admin: 08/15/22 15:32 Dose: 30 ml Nortriptyline HCl (Nortriptyline Hcl 25 Mg Capsule) 150 mg PO BEDTIME JUAN Last Admin: 08/15/22 20:05 Dose: 150 mg Propranolol HCl (Propranolol Hcl La 60 Mg Cap.Sa.24h) 60 mg PO DAILY JUAN; Protocol Last Admin: 08/15/22 09:01 Dose: 60 mg Quetiapine Fumarate (Quetiapine Fumarate 200 Mg Tablet) 200 mg PO BID JUAN Last Admin: 08/15/22 20:06 Dose: 200 mg Trazodone HCl (Trazodone Hcl 50 Mg Tablet) 50 mg PO BEDTIME MRX1 PRN PRN Reason: Insomnia Last Admin: 08/15/22 22:30 Dose: 50 mg Zolpidem Tartrate (Zolpidem Tartrate 5 Mg Tablet) 5 mg PO BEDTIME PRN PRN Reason: Insomnia Last Admin: 08/14/22 20:01 Dose: 5 mg Home Medications Medication Instructions Recorded Confirmed Last Taken Type ibuprofen 600 mg PO Q6H PRN Pain 08/10/22 08/10/22 Unknown History lorazepam 0.5 mg tablet 1.5 mg PO BID 08/10/22 08/10/22 08/09/22 12:15 History nortriptyline 150 mg PO BEDTIME 08/10/22 08/10/22 08/08/22 19:24 History propranolol 20 mg tablet 20 mg PO DAILY 08/10/22 08/10/22 Unknown History propranolol 20 mg tablet 20 mg PO DAILY PRN Anxiety 08/10/22 08/10/22 Unknown History quetiapine 200 mg PO BID 08/10/22 08/10/22 08/09/22 16:06 History zolpidem 10 mg PO BEDTIME PRN Sleep 08/10/22 08/10/22 08/08/22 19:25 History Exam Exam Date and Time: August 16, 2022 0659 Height,Weight and Vital Signs: Height 5 ft 10 in Weight 130.8 kg Last Vital Signs Temp 98.2 F 08/16/22 06:40 Pulse 89 08/16/22 06:40 Resp 16 08/16/22 06:40 BP 112/76 08/16/22 06:40 Pulse Ox 94 08/16/22 06:40 O2 Del Method Room Air 08/16/22 06:40 O2 Flow Rate 2 08/14/22 07:54 Pertinent Lab Results Pertinent Lab Results: Laboratory Tests 08/10/22 08/10/22 08/10/22 07:04 07:04 07:04 WBC 7.3 RBC 5.05 Hgb 14.5 Hct 43.8 MCV 86.7 MCH 28.7 MCHC 33.1 RDW 13.5 Plt Count 236 MPV 8.4 L Immature Gran % (Auto) 0.4 Neut % (Auto) 61.4 Lymph % (Auto) 25.1 [place] % (Auto) 10.1 Eos % (Auto) 2.6 Baso % (Auto) 0.4 Lymph # (Auto) 1.8 [place] # (Auto) 0.7 Eos # (Auto) 0.2 Baso # (Auto) 0.0 Abs Immat Gran (auto) 0.03 Absolute Neuts (auto) 4.5 Absolute Nucleated RBC 0.000 Nucleated RBC % (auto) 0.0 Sodium 140 Potassium 4.3 Chloride 106 Carbon Dioxide 25 Anion Gap 13 BUN 13 Creatinine 0.86 Estim Creat Clear Calc TNP Estimated GFR > 60 Fasting Glucose 85 Estimat Average Glucose 103 Hemoglobin A1c % 5.2 Calcium 9.0 Magnesium 2.1 Total Bilirubin 0.5 AST 32 ALT 37 Alkaline Phosphatase 79 Total Protein 6.4 L Albumin 4.0 Triglycerides 171 Cholesterol 212 LDL Cholesterol, Calc 141 HDL Cholesterol 37 Vitamin B12 331 Folate 9.0 TSH 2.97 Free T4 0.82 Nortriptyline 08/10/22 07:04 WBC RBC Hgb Hct MCV MCH MCHC RDW Plt Count MPV Immature Gran % (Auto) Neut % (Auto) Lymph % (Auto) [place] % (Auto) Eos % (Auto) Baso % (Auto) Lymph # (Auto) [place] # (Auto) Eos # (Auto) Baso # (Auto) Abs Immat Gran (auto) Absolute Neuts (auto) Absolute Nucleated RBC Nucleated RBC % (auto) Sodium Potassium Chloride Carbon Dioxide Anion Gap BUN Creatinine Estim Creat Clear Calc Estimated GFR Fasting Glucose Estimat Average Glucose Hemoglobin A1c % Calcium Magnesium Total Bilirubin AST ALT Alkaline Phosphatase Total Protein Albumin Triglycerides Cholesterol LDL Cholesterol, Calc HDL Cholesterol Vitamin B12 Folate TSH Free T4 Nortriptyline 102 Airway Mallampati Class: II TM Dist: >3cm Neck ROM: Full Heart: rrr Lungs: cta Assessment and Plan Assessment Anesthesia Assessment: Anesthesia Plan Discussed and Chart Reviewed Final Anesthetic Review Family History of Problems with Anesthesia: No History of Problems with Anesthesia: No NPO: Yes ASA Class: III Final Preanesthetic Review: No Changes in Pt Med Stat, Meds/Allgs Chart Reviewed and Consent Obtained/Reviewed Patient Risk: Intermediate Procedure Risk: Intermediate Anesthetic Plan Anesthetic Plan: GA Disposition: Standard PACU
--- NOTE | 2022-08-16 07:02 | MHC.SHP ---
Pre-Procedural Eval Section A Date of Service: 08/16/22 The patient is an INPATIENT: No Changes since office visit: No Cold of Flu in the past 2 weeks, No New Medical Problems, No Changes in Medication and No Patient answered all questions The History & Physical has been completed within 30 days and I have reviewed it.: Yes Section B Chief Complaint: Rec. Major Depression, Complex Bereavement Reacti Allergies: Allergies Allergy/AdvReac Type Severity Reaction Status Date / Time No Known Allergies Allergy Verified 08/09/22 16:14 Plan I have reviewed the history and physical and performed a pertinent physical examination on my patient. No changes have occurred unless specified. Time Spent With Patient Time: Total time managing care of this patient today ____ minutes.
--- NOTE | 2022-08-16 08:04 | HO.ECTPROC ---
ECT Procedure Note Diagnosis/Treatment Date of Service: 08/16/22 Diagnosis: Major Depressive Disorder Previous ECT Date: 08/14/22 Current Treatment Number: 2 Treatment: Series Interval Clinical Notes: The patient reports dysphoria, no changes on his depression with the first procedure. He complained of headaches with the first ECT. We discussed options and agreed to lower energy to 95% Time: Total time managing care of this patient today __30__ minutes. ECT Settings Device: THYMATRON DGx Electrode Placement: Right Unilateral Program/Pulse Width: 0.50 Energy Percent: 95 Seizure Duration By EEG (in seconds): 38 By Motor Observation (in seconds): 38 Medications Administration General Anesthetic: Etomidate (16) Muscle Relaxant: Succinylcholine (100) Ancillary Medications Analgesics: Torodol - Pre ECT Anti-emetics: Zofran - Pre ECT Miscillaneous Medications: Propofol and Flumazenil Airway Management Airway Management: Bag Mask Ventilation Treatment Recommendations Electrode Placement: Right Unilateral Program/Pulse Width: 0.50 Energy Percent: 95 Notes: Patient had limited paralisis with Succinyl 100, probably he would need a higher dose for total paralization Pt Tolerated Procedure w/o Issue: Yes
[2022-08-16] MEDS: oxyCODONE HCl Immed Release 5 MG TABLET 10 MG PO (08:50)
[2022-08-16] MEDS: Acetaminophen 325 MG TABLET 650 MG PO ×2 (08:50→19:27)
--- NOTE | 2022-08-16 09:15 | P.PNPSI_ITS ---
Subjective Subjective Date of Service: 08/16/22 Reason For Visit: Rec. Major Depression, Complex Bereavement Reacti Interim History: Met with patient; discussed with team Patient had severe headache after ECT today. Dr. Asencio said that he woke up agitated. Due to headache he was given oxycodone 10 mg however this had no effect. Staff Sonographer tried Tylenol and aspirin however still no affect. Staff Sonographer then gave sumatriptan 25 mg which helped resolve headache and patient was able to res t. Patient did not feel up to 1 on 1 session Mental Status Exam Mental Status Exam Narrative: Pt is alert and oriented; behavior is cooperative, calm; patient is not in distress; dressed in hospital pants, casual shirt, balding; adequate hygiene; mood is described as depressed...anxious and affect constricted; eye contact appropriate; Speech is normal rate, volume and prosody and not pressured; psychomotor retardation present; thought process is organized and goal directed; Thought content is on tx; mothers ; otherwise pertinent to relevant topics and without any delusional content, paranoid ideations or grandiosity; intermittent, passive SI/no HI. There is no evidence of perceptual disturbance. Patients insight and judgment are impaired. Diagnostics Vital Signs (24Hr): Vital Signs - 24 hr 08/15/22 16:31 08/16/22 05:41 08/16/22 06:40 Temperature 97.6 F 97.6 F 98.2 F Pulse Rate 92 90 89 Respiratory Rate 16 16 Blood Pressure 135/87 133/90 H 112/76 Pulse Oximetry 96 94 Oxygen Delivery Method Room Air Oxygen Flow Rate 08/16/22 08:18 08/16/22 08:23 08/16/22 08:28 Temperature 99.0 F Pulse Rate 97 98 100 Respiratory Rate 14 14 16 Blood Pressure 138/97 H 134/90 H 130/90 H Pulse Oximetry 96 96 96 Oxygen Delivery Method Nasal Cannula with ETCO2 Nasal Cannula with ETCO2 Nasal Cannula with ETCO2 Oxygen Flow Rate 3 3 3 08/16/22 08:33 08/16/22 08:49 08/16/22 09:07 Temperature 98.0 F Pulse Rate 102 H 98 97 Respiratory Rate 17 18 17 Blood Pressure 131/92 H 127/87 127/84 Pulse Oximetry 94 95 95 Oxygen Delivery Method Room Air Room Air Room Air Oxygen Flow Rate BMI result Body Mass Index 41.4 Labs 08/10/22 07:04 08/10/22 07:04 Labs: Laboratory Results - last 48 hr 08/10/22 07:04 Nortriptyline 102 Medications Medications Current Medications Acetaminophen (Acetaminophen 325 Mg Tablet) 650 mg PO Q6H PRN PRN Reason: Headache/Pain Mild Scale (1-3) Last Admin: 08/16/22 08:50 Dose: 650 mg Al Hydroxide/Mg Hydroxide (Magnesium Hydrox/Alum Hydrox 30 Ml Oral.Susp) 30 ml PO Q6H PRN PRN Reason: Heartburn/Nausea Hydroxyzine HCl (Hydroxyzine Hcl 25 Mg Tablet) 25 mg PO Q6H PRN PRN Reason: Anxiety Last Admin: 08/10/22 21:32 Dose: 25 mg Lactated Ringer's (Lr) 1,000 mls @ 50 mls/hr IVCONT .Q20H JUAN Lorazepam (Lorazepam 0.5 Mg Tablet) 1.5 mg PO BID JUAN Last Admin: 08/15/22 20:11 Dose: Not Given Magnesium Hydroxide (Milk Of Magnesia 30 Ml Oral.Susp) 30 ml PO DAILY PRN PRN Reason: Constipation Last Admin: 08/15/22 15:32 Dose: 30 ml Nortriptyline HCl (Nortriptyline Hcl 25 Mg Capsule) 150 mg PO BEDTIME JUAN Last Admin: 08/15/22 20:05 Dose: 150 mg Propranolol HCl (Propranolol Hcl La 60 Mg Cap.Sa.24h) 60 mg PO DAILY JUAN; Protocol Last Admin: 08/15/22 09:01 Dose: 60 mg Quetiapine Fumarate (Quetiapine Fumarate 200 Mg Tablet) 200 mg PO BID JUAN Last Admin: 08/15/22 20:06 Dose: 200 mg Trazodone HCl (Trazodone Hcl 50 Mg Tablet) 50 mg PO BEDTIME MRX1 PRN PRN Reason: Insomnia Last Admin: 08/15/22 22:30 Dose: 50 mg Zolpidem Tartrate (Zolpidem Tartrate 5 Mg Tablet) 5 mg PO BEDTIME PRN PRN Reason: Insomnia Last Admin: 08/14/22 20:01 Dose: 5 mg Allergies Allergies Allergy/AdvReac Type Severity Reaction Status Date / Time No Known Allergies Allergy Verified 08/09/22 16:14 Assessment & Plan Assessment & Plan (1) Severe recurrent major depression: Status: Acute Code(s): F33.2 - Major depressive disorder, recurrent severe without psychotic features (2) Complicated bereavement: Status: Acute Code(s): F43.21 - Adjustment disorder with depressed mood (3) Social anxiety disorder: Status: Acute Code(s): F40.10 - Social phobia, unspecified Plan 32 yo male, scheduled transfer from [facility] for ECT consult and treatment s/p suicide attempt with complex breavement issues. Patient reports numerous medication trials over many years without much effect Plan: CV Q 15 minute checks ECT #1 on 08/14 ECT #2 on 08/16 ECT #3 PENDING on 08/21; NPO after midnight Continue Propranolol LA 60mg (and dc IR) Continue nortriptyline 150 mg q.h.s. -Nortriptyline level: 102 Continue Seroquel 200 mg b.i.d.; patient says for anxiety Continue Ativan 1.5 mg b.i.d.; patient recently started on clonazepam 1 mg t.i.d. but it was switched in the ED just prior to this admission Ambien 5 mg q.h.s. HOSPITAL Course: 08/12/22 cont nortrip seroquel reviwed ect scheduled for 08/14/22 s/p suicide attempt denies active si now 08/13 pt cleared for ECT by hospitalist WILL; depressed but SI back to chronic, low level at baseline. 08/14 tolerating ECT; wants to continue. Discussed medication management and will continue current regimen for now other than switching to longer acting propranolol; no known history of MAO'I which could be a possible option; discussed hypertension which patient says he has a history of; will see if BP response to propranolol adjustment 08/15 will add social anxiety order to diagnosis; interactions with parents growing up were emotionally traumatic have significantly effected his ability to have interpersonal relationships in his adult life. Started CBT exercise which resonate with patient. Waiting for nortriptyline level. BP a little better perhaps since starting long-acting propranolol; will leave for now 08/16 severe headache after ECT; sumatriptan 25 mg seem to help resolve Patient educated on: medication risk/benefits and ECT Informed Consent: understands Reason for continued inpatient stay Substantial Risk for: rapid decompensation Time Spent With Patient Time: Total time managing care of this patient today ____ minutes.
[2022-08-16] MEDS: LORazepam 0.5 MG TABLET 1.5 MG PO ×2 (09:24→19:24)
[2022-08-16] MEDS: Propranolol HCL LA 60 MG CAP.SA.24H PO (09:25)
[2022-08-16] MEDS: QUEtiapine Fumarate 200 MG TABLET PO ×2 (09:25→19:24)
[2022-08-16] MEDS: Acetaminophen 325 MG TABLET PO (09:34)
[2022-08-16] MEDS: Aspirin Enteric Coated 325 MG TABLET.DR PO (09:34)
[2022-08-16] MEDS: SUMAtriptan succinate 25 MG TABLET PO (10:38)
[2022-08-16] MEDS: Nortriptyline HCl 25 MG CAPSULE 150 MG PO (19:24)
[2022-08-16] MEDS: traZODone HCL 50 MG TABLET PO ×2 (19:24→23:02)
[2022-08-16] MEDS: Zolpidem Tartrate 5 MG TABLET PO (19:24)
[2022-08-17] MEDS: LORazepam 0.5 MG TABLET 1.5 MG PO ×2 (08:23→20:04)
[2022-08-17] MEDS: Propranolol HCL LA 60 MG CAP.SA.24H PO (08:23)
[2022-08-17] MEDS: QUEtiapine Fumarate 200 MG TABLET PO ×2 (08:23→20:04)
[2022-08-17 08:26] VITALS: BP 133/92; PULSE 82; RESP 18; TEMP 36.4; O2SAT 98
--- NOTE | 2022-08-17 10:57 | HO.PSYCHPN ---
Subjective Subjective Date of Service: 08/17/22 Reason For Visit: Rec. Major Depression, Complex Bereavement Reacti Interim History: Met with patient; discussed with team patient reported headache is gone post yesterday's ECT. Patient reported no change in mood yet and education provided about usual ECT course of treatment and expectations. Denies SI. Hopeful about ECT helping. Review of Systems Review of Systems Chronic musculoskeletal pain Pt otherwise has no acute medical complaints Yes all other systems are reviewed and are negative Psychiatric: Reports depression, Reports hopelessness, Reports irritability, Reports anhedonia and Reports suicidal ideation Mental Status Exam Mental Status Exam Narrative: Pt is alert and oriented; behavior is cooperative, calm; patient is not in distress; dressed in hospital pants, casual shirt, balding; adequate hygiene; mood is described as depressed...anxious and affect constricted; eye contact appropriate; Speech is normal rate, volume and prosody and not pressured; psychomotor retardation present; thought process is organized and goal directed; Thought content is on tx; mothers ; otherwise pertinent to relevant topics and without any delusional content, paranoid ideations or grandiosity; intermittent, passive SI/no HI. There is no evidence of perceptual disturbance. Patients insight and judgment are impaired. Patient Appearance: Fatigued Patient Orientation: Person, Place, Time and Situation Level of Consciousness: Alert Patient Behavior: Talkative and Cooperative Mood Description: Constricted and Depressed Affect Description: Constricted, Depressed, Blunted and Flat Patient Cognition Impaired: No Ability to Follow Directions: Good Speech Pattern: Spontaneous Speech Memory Description: Intact Diagnostics Vital Signs (24Hr): Vital Signs - 24 hr 08/16/22 19:38 08/17/22 08:26 Temperature 97.6 F Pulse Rate 80 82 Respiratory Rate 18 Blood Pressure 130/75 133/92 H Pulse Oximetry 98 Oxygen Delivery Method Room Air BMI result Body Mass Index 41.4 Labs 08/10/22 07:04 08/10/22 07:04 Labs: Laboratory Results - last 48 hr 08/10/22 07:04 Nortriptyline 102 Medications Medications Current Medications Acetaminophen (Acetaminophen 325 Mg Tablet) 650 mg PO Q6H PRN PRN Reason: Headache/Pain Mild Scale (1-3) Last Admin: 08/16/22 19:27 Dose: 650 mg Al Hydroxide/Mg Hydroxide (Magnesium Hydrox/Alum Hydrox 30 Ml Oral.Susp) 30 ml PO Q6H PRN PRN Reason: Heartburn/Nausea Hydroxyzine HCl (Hydroxyzine Hcl 25 Mg Tablet) 25 mg PO Q6H PRN PRN Reason: Anxiety Last Admin: 08/10/22 21:32 Dose: 25 mg Lorazepam (Lorazepam 0.5 Mg Tablet) 1.5 mg PO BID [facility] Last Admin: 08/17/22 08:23 Dose: 1.5 mg Magnesium Hydroxide (Milk Of Magnesia 30 Ml Oral.Susp) 30 ml PO DAILY PRN PRN Reason: Constipation Last Admin: 08/15/22 15:32 Dose: 30 ml Nortriptyline HCl (Nortriptyline Hcl 25 Mg Capsule) 150 mg PO BEDTIME JUAN Last Admin: 08/16/22 19:24 Dose: 150 mg Propranolol HCl (Propranolol Hcl La 60 Mg Cap.Sa.24h) 60 mg PO DAILY [facility]; Protocol Last Admin: 08/17/22 08:23 Dose: 60 mg Quetiapine Fumarate (Quetiapine Fumarate 200 Mg Tablet) 200 mg PO BID [facility] Last Admin: 08/17/22 08:23 Dose: 200 mg Trazodone HCl (Trazodone Hcl 50 Mg Tablet) 50 mg PO BEDTIME MRX1 PRN PRN Reason: Insomnia Last Admin: 08/16/22 23:02 Dose: 50 mg Zolpidem Tartrate (Zolpidem Tartrate 5 Mg Tablet) 5 mg PO BEDTIME PRN PRN Reason: Insomnia Last Admin: 08/16/22 19:24 Dose: 5 mg Allergies Allergies Allergy/AdvReac Type Severity Reaction Status Date / Time No Known Allergies Allergy Verified 08/09/22 16:14 Assessment & Plan Assessment & Plan (1) Severe recurrent major depression: Status: Acute Code(s): F33.2 - Major depressive disorder, recurrent severe without psychotic features (2) Complicated bereavement: Status: Acute Code(s): F43.21 - Adjustment disorder with depressed mood (3) Social anxiety disorder: Status: Acute Code(s): F40.10 - Social phobia, unspecified Plan 32 yo male, scheduled transfer from [facility] for ECT consult and treatment s/p suicide attempt with complex breavement issues. Patient reports numerous medication trials over many years without much effect Plan: CV Q 15 minute checks ECT #1 on 08/14 ECT #2 on 08/16 ECT #3 PENDING on 08/21; NPO after midnight Continue Propranolol LA 60mg (and dc IR) Continue nortriptyline 150 mg q.h.s. -Nortriptyline level: 102 Continue Seroquel 200 mg b.i.d.; patient says for anxiety Continue Ativan 1.5 mg b.i.d.; patient recently started on clonazepam 1 mg t.i.d. but it was switched in the ED just prior to this admission Ambien 5 mg q.h.s. HOSPITAL Course: 08/12/22 cont nortrip seroquel reviwed ect scheduled for 08/14/22 s/p suicide attempt denies active si now 08/13 pt cleared for ECT by hospitalist WILL; depressed but SI back to chronic, low level at baseline. 08/14 tolerating ECT; wants to continue. Discussed medication management and will continue current regimen for now other than switching to longer acting propranolol; no known history of MAO'I which could be a possible option; discussed hypertension which patient says he has a history of; will see if BP response to propranolol adjustment 08/15 will add social anxiety order to diagnosis; interactions with parents growing up were emotionally traumatic have significantly effected his ability to have interpersonal relationships in his adult life. Started CBT exercise which resonate with patient. Waiting for nortriptyline level. BP a little better perhaps since starting long-acting propranolol; will leave for now 08/16 severe headache after ECT; sumatriptan 25 mg seem to help resolve 08/17: Headache resolved. Continue current plan. Patient educated on: ECT Reason for continued inpatient stay Substantial Risk for: harm to self and rapid decompensation Time Spent With Patient Time: Total time managing care of this patient today ____ minutes.
[2022-08-17 18:48] VITALS: BP 140/84; PULSE 88; TEMP 36.6
[2022-08-17] MEDS: Nortriptyline HCl 25 MG CAPSULE 150 MG PO (20:03)
[2022-08-17] MEDS: Zolpidem Tartrate 5 MG TABLET PO (20:04)
[2022-08-17] MEDS: traZODone HCL 50 MG TABLET PO (20:04)
[2022-08-18] MEDS: QUEtiapine Fumarate 200 MG TABLET PO ×2 (09:18→20:09)
[2022-08-18] MEDS: Propranolol HCL LA 60 MG CAP.SA.24H PO (09:18)
[2022-08-18] MEDS: LORazepam 0.5 MG TABLET 1.5 MG PO ×2 (09:18→20:08)
[2022-08-18 09:20] VITALS: BP 137/82; PULSE 104; RESP 16; TEMP 36.4; O2SAT 97
[2022-08-18 15:58] VITALS: BP 130/83; PULSE 80; TEMP 36.3
--- NOTE | 2022-08-18 18:23 | P.PNPSI_ITS ---
Subjective Subjective Date of Service: 08/18/22 Reason For Visit: Rec. Major Depression, Complex Bereavement Reacti Interim History: Met with patient; discussed with team. Continues with depression and anxiety. Some increase in unit and milieu engagement. He is more visible. Showered. Appetite and sleep are good. No headaches. Patient reported no change in mood yet and education provided about usual ECT course of treatment and expectations. Denies SI. Hopeful about ECT helping. Review of Systems Review of Systems Chronic musculoskeletal pain Pt otherwise has no acute medical complaints Yes all other systems are reviewed and are negative Psychiatric: Reports depression, Reports hopelessness, Reports irritability, Reports anhedonia and Reports suicidal ideation Mental Status Exam Mental Status Exam Narrative: Pt is alert and oriented; behavior is cooperative, calm; patient is not in distress; dressed in hospital pants, casual shirt, balding; adequate hygiene; mood is described as depressed...anxious and affect constricted; eye contact appropriate; Speech is normal rate, volume and prosody and not pressured; psychomotor retardation present; thought process is organized and goal directed; Thought content is on tx; mothers ; otherwise pertinent to relevant topics and without any delusional content, paranoid ideations or grandiosity; intermittent, passive SI/no HI. There is no evidence of perceptual disturbance. Patients insight and judgment are impaired. Patient Appearance: Fatigued Patient Orientation: Person, Place, Time and Situation Level of Consciousness: Alert Patient Behavior: Talkative and Cooperative Mood Description: Constricted and Depressed Affect Description: Constricted, Depressed, Blunted and Flat Patient Cognition Impaired: No Ability to Follow Directions: Good Speech Pattern: Spontaneous Speech Memory Description: Intact Diagnostics Vital Signs (24Hr): Vital Signs - 24 hr 08/17/22 18:48 08/18/22 09:20 08/18/22 15:58 Temperature 97.8 F 97.6 F 97.4 F Pulse Rate 88 104 H 80 Respiratory Rate 16 Blood Pressure 140/84 H 137/82 130/83 Pulse Oximetry 97 Oxygen Delivery Method Room Air BMI result Body Mass Index 41.4 Labs 08/10/22 07:04 08/10/22 07:04 Medications Medications Current Medications Acetaminophen (Acetaminophen 325 Mg Tablet) 650 mg PO Q6H PRN PRN Reason: Headache/Pain Mild Scale (1-3) Last Admin: 08/16/22 19:27 Dose: 650 mg Al Hydroxide/Mg Hydroxide (Magnesium Hydrox/Alum Hydrox 30 Ml Oral.Susp) 30 ml PO Q6H PRN PRN Reason: Heartburn/Nausea Hydroxyzine HCl (Hydroxyzine Hcl 25 Mg Tablet) 25 mg PO Q6H PRN PRN Reason: Anxiety Last Admin: 08/10/22 21:32 Dose: 25 mg Lorazepam (Lorazepam 0.5 Mg Tablet) 1.5 mg PO BID [facility] Last Admin: 08/18/22 09:18 Dose: 1.5 mg Magnesium Hydroxide (Milk Of Magnesia 30 Ml Oral.Susp) 30 ml PO DAILY PRN PRN Reason: Constipation Last Admin: 08/15/22 15:32 Dose: 30 ml Nortriptyline HCl (Nortriptyline Hcl 25 Mg Capsule) 150 mg PO BEDTIME [facility]UAN Last Admin: 08/17/22 20:03 Dose: 150 mg Propranolol HCl (Propranolol Hcl La 60 Mg Cap.Sa.24h) 60 mg PO DAILY [facility]; Protocol Last Admin: 08/18/22 09:18 Dose: 60 mg Quetiapine Fumarate (Quetiapine Fumarate 200 Mg Tablet) 200 mg PO BID [facility] Last Admin: 08/18/22 09:18 Dose: 200 mg Trazodone HCl (Trazodone Hcl 50 Mg Tablet) 50 mg PO BEDTIME MRX1 PRN PRN Reason: Insomnia Last Admin: 08/17/22 20:04 Dose: 50 mg Zolpidem Tartrate (Zolpidem Tartrate 5 Mg Tablet) 5 mg PO BEDTIME PRN PRN Reason: Insomnia Last Admin: 08/17/22 20:04 Dose: 5 mg Allergies Allergies Allergy/AdvReac Type Severity Reaction Status Date / Time No Known Allergies Allergy Verified 08/09/22 16:14 Assessment & Plan Assessment & Plan (1) Severe recurrent major depression: Status: Acute Code(s): F33.2 - Major depressive disorder, recurrent severe without psychotic features (2) Complicated bereavement: Status: Acute Code(s): F43.21 - Adjustment disorder with depressed mood (3) Social anxiety disorder: Status: Acute Code(s): F40.10 - Social phobia, unspecified Plan 32 yo male, scheduled transfer from [facility] for ECT consult and treatment s/p suicide attempt with complex breavement issues. Patient reports numerous medication trials over many years without much effect Plan: CV Q 15 minute checks ECT #1 on 08/14 ECT #2 on 08/16 ECT #3 PENDING on 08/21; NPO after midnight Continue Propranolol LA 60mg (and dc IR) Continue nortriptyline 150 mg q.h.s. -Nortriptyline level: 102 Continue Seroquel 200 mg b.i.d.; patient says for anxiety Continue Ativan 1.5 mg b.i.d.; patient recently started on clonazepam 1 mg t.i.d. but it was switched in the ED just prior to this admission Ambien 5 mg q.h.s. HOSPITAL Course: 08/12/22 cont nortrip seroquel reviwed ect scheduled for 08/14/22 s/p suicide attempt denies active si now 08/13 pt cleared for ECT by hospitalist WILL; depressed but SI back to chronic, low level at baseline. 08/14 tolerating ECT; wants to continue. Discussed medication management and will continue current regimen for now other than switching to longer acting propranolol; no known history of MAO'I which could be a possible option; discussed hypertension which patient says he has a history of; will see if BP response to propranolol adjustment 08/15 will add social anxiety order to diagnosis; interactions with parents growing up were emotionally traumatic have significantly effected his ability to have interpersonal relationships in his adult life. Started CBT exercise which resonate with patient. Waiting for nortriptyline level. BP a little better perhaps since starting long-acting propranolol; will leave for now 08/16 severe headache after ECT; sumatriptan 25 mg seem to help resolve 08/17: Headache resolved. Continue current plan. 08/18: ECT #3 on 08/21/22 Reason for continued inpatient stay Substantial Risk for: harm to self and rapid decompensation Time Spent With Patient Time: Total time managing care of this patient today ____ minutes.
[2022-08-18] MEDS: Nortriptyline HCl 25 MG CAPSULE 150 MG PO (20:08)
[2022-08-18] MEDS: traZODone HCL 50 MG TABLET PO (20:08)
[2022-08-18] MEDS: Zolpidem Tartrate 5 MG TABLET PO (20:09)
[2022-08-19] MEDS: QUEtiapine Fumarate 200 MG TABLET PO ×2 (09:13→20:20)
[2022-08-19] MEDS: LORazepam 0.5 MG TABLET 1.5 MG PO ×2 (09:13→20:20)
[2022-08-19] MEDS: Propranolol HCL LA 60 MG CAP.SA.24H PO (09:13)
[2022-08-19 09:15] VITALS: BP 137/90; PULSE 105; RESP 16; TEMP 36.1; O2SAT 95
--- NOTE | 2022-08-19 09:56 | P.PNPSI_ITS ---
Subjective Subjective Date of Service: 08/19/22 Reason For Visit: Rec. Major Depression, Complex Bereavement Reacti Interim History: Met with patient; discussed with team. Continues with depression and anxiety. Some increase in milieu engagement but says groups and listening to others is triggering for hime. .Slept better. Appetite and sleep are good. No headaches. Patient will have ECT 08/21/22. He slept well which is a change for him. Denies SI. Hopeful about ECT helping. Review of Systems Review of Systems Chronic musculoskeletal pain Pt otherwise has no acute medical complaints Yes all other systems are reviewed and are negative Psychiatric: Reports depression, Reports hopelessness, Reports irritability, Reports anhedonia and Reports suicidal ideation Mental Status Exam Mental Status Exam Narrative: Pt is alert and oriented; behavior is cooperative, calm; patient is not in distress; dressed in hospital pants, casual shirt, balding; adequate hygiene; mood is described as depressed...anxious and affect constricted; eye contact appropriate; Speech is normal rate, volume and prosody and not pressured; psychomotor retardation present; thought process is organized and goal directed; Thought content is on tx; mothers ; otherwise pertinent to relevant topics and without any delusional content, paranoid ideations or grandiosity; intermittent, passive SI/no HI. There is no evidence of perceptual disturbance. Patients insight and judgment are impaired. Patient Appearance: Fatigued Patient Orientation: Person, Place, Time and Situation Level of Consciousness: Alert Patient Behavior: Talkative and Cooperative Mood Description: Constricted and Depressed Affect Description: Constricted, Depressed, Blunted and Flat Patient Cognition Impaired: No Ability to Follow Directions: Good Speech Pattern: Spontaneous Speech Memory Description: Intact Diagnostics Vital Signs (24Hr): Vital Signs - 24 hr 08/18/22 15:58 08/19/22 09:15 Temperature 97.4 F 97.0 F Pulse Rate 80 105 H Respiratory Rate 16 Blood Pressure 130/83 137/90 H Pulse Oximetry 95 Oxygen Delivery Method Room Air BMI result Body Mass Index 41.4 Labs 08/10/22 07:04 08/10/22 07:04 Medications Medications Current Medications Acetaminophen (Acetaminophen 325 Mg Tablet) 650 mg PO Q6H PRN PRN Reason: Headache/Pain Mild Scale (1-3) Last Admin: 08/16/22 19:27 Dose: 650 mg Al Hydroxide/Mg Hydroxide (Magnesium Hydrox/Alum Hydrox 30 Ml Oral.Susp) 30 ml PO Q6H PRN PRN Reason: Heartburn/Nausea Hydroxyzine HCl (Hydroxyzine Hcl 25 Mg Tablet) 25 mg PO Q6H PRN PRN Reason: Anxiety Last Admin: 08/10/22 21:32 Dose: 25 mg Lorazepam (Lorazepam 0.5 Mg Tablet) 1.5 mg PO BID [facility] Last Admin: 08/19/22 09:13 Dose: 1.5 mg Magnesium Hydroxide (Milk Of Magnesia 30 Ml Oral.Susp) 30 ml PO DAILY PRN PRN Reason: Constipation Last Admin: 08/15/22 15:32 Dose: 30 ml Nortriptyline HCl (Nortriptyline Hcl 25 Mg Capsule) 150 mg PO BEDTIME [facility]UAN Last Admin: 08/18/22 20:08 Dose: 150 mg Propranolol HCl (Propranolol Hcl La 60 Mg Cap.Sa.24h) 60 mg PO DAILY [facility]; Protocol Last Admin: 08/19/22 09:13 Dose: 60 mg Quetiapine Fumarate (Quetiapine Fumarate 200 Mg Tablet) 200 mg PO BID [facility] Last Admin: 08/19/22 09:13 Dose: 200 mg Trazodone HCl (Trazodone Hcl 50 Mg Tablet) 50 mg PO BEDTIME MRX1 PRN PRN Reason: Insomnia Last Admin: 08/18/22 20:08 Dose: 50 mg Zolpidem Tartrate (Zolpidem Tartrate 5 Mg Tablet) 5 mg PO BEDTIME PRN PRN Reason: Insomnia Last Admin: 08/18/22 20:09 Dose: 5 mg Allergies Allergies Allergy/AdvReac Type Severity Reaction Status Date / Time No Known Allergies Allergy Verified 08/09/22 16:14 Assessment & Plan Assessment & Plan (1) Severe recurrent major depression: Status: Acute Code(s): F33.2 - Major depressive disorder, recurrent severe without psychotic features (2) Complicated bereavement: Status: Acute Code(s): F43.21 - Adjustment disorder with depressed mood (3) Social anxiety disorder: Status: Acute Code(s): F40.10 - Social phobia, unspecified Plan 32 yo male, scheduled transfer from [facility] for ECT consult and treatment s/p suicide attempt with complex breavement issues. Patient reports numerous medication trials over many years without much effect Plan: CV Q 15 minute checks ECT #1 on 08/14 ECT #2 on 08/16 ECT #3 PENDING on 08/21; NPO after midnight Continue Propranolol LA 60mg (and dc IR) Continue nortriptyline 150 mg q.h.s. -Nortriptyline level: 102 Continue Seroquel 200 mg b.i.d.; patient says for anxiety Continue Ativan 1.5 mg b.i.d.; patient recently started on clonazepam 1 mg t.i.d. but it was switched in the ED just prior to this admission Ambien 5 mg q.h.s. HOSPITAL Course: 08/12/22 cont nortrip seroquel reviwed ect scheduled for 08/14/22 s/p suicide attempt denies active si now 08/13 pt cleared for ECT by hospitalist WILL; depressed but SI back to chronic, low level at baseline. 08/14 tolerating ECT; wants to continue. Discussed medication management and will continue current regimen for now other than switching to longer acting propranolol; no known history of MAO'I which could be a possible option; discussed hypertension which patient says he has a history of; will see if BP response to propranolol adjustment 08/15 will add social anxiety order to diagnosis; interactions with parents growing up were emotionally traumatic have significantly effected his ability to have interpersonal relationships in his adult life. Started CBT exercise which resonate with patient. Waiting for nortriptyline level. BP a little better perhaps since starting long-acting propranolol; will leave for now 08/16 severe headache after ECT; sumatriptan 25 mg seem to help resolve 08/17: Headache resolved. Continue current plan. 08/18: ECT #3 on 08/21/2208/19: ECT #3 on 08/21/22 Reason for continued inpatient stay Substantial Risk for: harm to self Time Spent With Patient Time: Total time managing care of this patient today ____ minutes.
[2022-08-19 18:12] VITALS: BP 133/87; PULSE 92; TEMP 36.3
[2022-08-19] MEDS: Nortriptyline HCl 25 MG CAPSULE 150 MG PO (20:20)
[2022-08-19] MEDS: traZODone HCL 50 MG TABLET PO (20:21)
[2022-08-19] MEDS: Zolpidem Tartrate 5 MG TABLET PO (20:21)
[2022-08-20 08:10] VITALS: BP 133/86; PULSE 92; RESP 16; TEMP 37.1; O2SAT 96
[2022-08-20] MEDS: Propranolol HCL LA 60 MG CAP.SA.24H PO (08:17)
[2022-08-20] MEDS: LORazepam 0.5 MG TABLET 1.5 MG PO ×2 (08:17→18:26)
[2022-08-20] MEDS: QUEtiapine Fumarate 200 MG TABLET PO ×2 (08:17→18:25)
--- NOTE | 2022-08-20 10:13 | P.PNPSI_ITS ---
Subjective Subjective Date of Service: 08/20/22 Reason For Visit: Rec. Major Depression, Complex Bereavement Reacti Interim History: Met with patient; discussed with team Patient reports depression remains about the same as does anxiety. He remains focused on ECT as a treatment despite headache. Briefly discussed CBT exercise and patient says he has not thought about it much but remains open to continuing. Discussed medication and patient asked if propranolol can be increased to which pattern chart writer agreed. Discussed nortriptyline; level is therapeutic so will leave as is Boot Maker communicated with providers that administer ECT who will prophylactically administer medication to prevent headache. Mental Status Exam Mental Status Exam Narrative: Pt is alert and oriented; behavior is cooperative, calm; patient is not in distress; dressed in hospital pants, casual shirt, balding; adequate hygiene; mood is described as depressed...anxious and affect constricted; eye contact appropriate; Speech is normal rate, volume and prosody and not pressured; psychomotor retardation present; thought process is organized and goal directed; Thought content is on tx; mothers ; otherwise pertinent to relevant topics and without any delusional content, paranoid ideations or grandiosity; intermittent, passive SI/no HI. There is no evidence of perceptual disturbance. Patients insight and judgment are impaired. Diagnostics Vital Signs (24Hr): Vital Signs - 24 hr 08/19/22 18:12 08/20/22 08:10 Temperature 97.4 F 98.7 F Pulse Rate 92 92 Respiratory Rate 16 Blood Pressure 133/87 133/86 Pulse Oximetry 96 Oxygen Delivery Method Room Air BMI result Body Mass Index 41.4 Labs 08/10/22 07:04 08/10/22 07:04 Medications Medications Current Medications Acetaminophen (Acetaminophen 325 Mg Tablet) 650 mg PO Q6H PRN PRN Reason: Headache/Pain Mild Scale (1-3) Last Admin: 08/16/22 19:27 Dose: 650 mg Al Hydroxide/Mg Hydroxide (Magnesium Hydrox/Alum Hydrox 30 Ml Oral.Susp) 30 ml PO Q6H PRN PRN Reason: Heartburn/Nausea Hydroxyzine HCl (Hydroxyzine Hcl 25 Mg Tablet) 25 mg PO Q6H PRN PRN Reason: Anxiety Last Admin: 08/10/22 21:32 Dose: 25 mg Lorazepam (Lorazepam 0.5 Mg Tablet) 1.5 mg PO BID [facility] Last Admin: 08/20/22 08:17 Dose: 1.5 mg Magnesium Hydroxide (Milk Of Magnesia 30 Ml Oral.Susp) 30 ml PO DAILY PRN PRN Reason: Constipation Last Admin: 08/15/22 15:32 Dose: 30 ml Nortriptyline HCl (Nortriptyline Hcl 25 Mg Capsule) 150 mg PO BEDTIME JUAN Last Admin: 08/19/22 20:20 Dose: 150 mg Propranolol HCl (Propranolol Hcl La 60 Mg Cap.Sa.24h) 60 mg PO DAILY [facility]; Protocol Last Admin: 08/20/22 08:17 Dose: 60 mg Quetiapine Fumarate (Quetiapine Fumarate 200 Mg Tablet) 200 mg PO BID [facility] Last Admin: 08/20/22 08:17 Dose: 200 mg Trazodone HCl (Trazodone Hcl 50 Mg Tablet) 50 mg PO BEDTIME MRX1 PRN PRN Reason: Insomnia Last Admin: 08/19/22 20:21 Dose: 50 mg Zolpidem Tartrate (Zolpidem Tartrate 5 Mg Tablet) 5 mg PO BEDTIME PRN PRN Reason: Insomnia Last Admin: 08/19/22 20:21 Dose: 5 mg Allergies Allergies Allergy/AdvReac Type Severity Reaction Status Date / Time No Known Allergies Allergy Verified 08/09/22 16:14 Assessment & Plan Assessment & Plan (1) Severe recurrent major depression: Status: Acute Code(s): F33.2 - Major depressive disorder, recurrent severe without psychotic features (2) Complicated bereavement: Status: Acute Code(s): F43.21 - Adjustment disorder with depressed mood (3) Social anxiety disorder: Status: Acute Code(s): F40.10 - Social phobia, unspecified Plan 32 yo male, scheduled transfer from [facility] for ECT consult and treatment s/p suicide attempt with complex breavement issues. Patient reports numerous medication trials over many years without much effect Plan: CV Q 15 minute checks ECT #1 on 08/14 ECT #2 on 08/16 ECT #3 PENDING on 08/21; NPO after midnight Increased to Propranolol LA 80mg (and dc IR) Continue nortriptyline 150 mg q.h.s.; -Nortriptyline level therapeutic: 102 Continue Seroquel 200 mg b.i.d.; patient says for anxiety Continue Ativan 1.5 mg b.i.d.; patient recently started on clonazepam 1 mg t.i.d. but it was switched in the ED just prior to this admission Ambien 5 mg q.h.s. HOSPITAL Course: 08/12/22 cont enrrique vasquez reviwed ect scheduled for 08/14/22 s/p suicide attempt denies active si now 08/13 pt cleared for ECT by hospitalist WILL; depressed but SI back to chronic, low level at baseline. 08/14 tolerating ECT; wants to continue. Discussed medication management and will continue current regimen for now other than switching to longer acting propranolol; no known history of MAO'I which could be a possible option; discussed hypertension which patient says he has a history of; will see if BP response to propranolol adjustment 08/15 will add social anxiety order to diagnosis; interactions with parents growing up were emotionally traumatic have significantly effected his ability to have interpersonal relationships in his adult life. Started CBT exercise which resonate with patient. Waiting for nortriptyline level. BP a little better perhaps since starting long-acting propranolol; will leave for now 08/16 severe headache after ECT; sumatriptan 25 mg seem to help resolve 08/17: Headache resolved. Continue current plan. 08/18: ECT #3 on 08/21/2208/19: ECT #3 on 08/21/2208/20 remains depressed and anxious; will increase propranolol; continue with ECT Patient educated on: diagnosis, medication risk/benefits, ECT and therapeutic strategies Informed Consent: understands Reason for continued inpatient stay Substantial Risk for: harm to self and rapid decompensation Time Spent With Patient Time: Total time managing care of this patient today ____ minutes.
[2022-08-20 15:57] VITALS: BP 132/87; PULSE 84
[2022-08-20] MEDS: traZODone HCL 50 MG TABLET PO (18:25)
[2022-08-20] MEDS: Zolpidem Tartrate 5 MG TABLET PO (18:25)
[2022-08-20] MEDS: Nortriptyline HCl 25 MG CAPSULE 150 MG PO (18:25)
[2022-08-21] VITALS (9 sets, daily range): BP systolic 123–149; BP diastolic 84–99; PULSE 78–107; RESP 16–18; TEMP 36.2–36.9; O2SAT 92–98
--- NOTE | 2022-08-21 08:07 | MHC.SHP ---
Pre-Procedural Eval Section A Date of Service: 08/21/22 The patient is an INPATIENT: Yes Changes since office visit: Yes Changes in Medication and Yes Patient answered all questions; No Cold of Flu in the past 2 weeks and No New Medical Problems The History & Physical has been completed within 30 days and I have reviewed it.: Yes Section B Chief Complaint: Rec. Major Depression, Complex Bereavement Reacti Allergies: Allergies Allergy/AdvReac Type Severity Reaction Status Date / Time No Known Allergies Allergy Verified 08/09/22 16:14 Plan I have reviewed the history and physical and performed a pertinent physical examination on my patient. No changes have occurred unless specified. Time Spent With Patient Time: Total time managing care of this patient today ____ minutes.
--- NOTE | 2022-08-21 08:12 | HO.ECTPROC ---
ECT Procedure Note Diagnosis/Treatment Date of Service: 08/21/22 Diagnosis: Major Depressive Disorder Previous ECT Date: 08/14/22 Current Treatment Number: 3 Treatment: Series Interval Clinical Notes: continued depression use lma Time: Total time managing care of this patient today ____ minutes. ECT Settings Device: THYMATRON DGx Electrode Placement: Right Unilateral Program/Pulse Width: 0.50 Energy Percent: 100 Seizure Duration By EEG (in seconds): 97 Medications Administration General Anesthetic: Etomidate (16) Muscle Relaxant: Succinylcholine (100) Ancillary Medications Analgesics: Torodol - Pre ECT Anti-emetics: Zofran - Pre ECT Miscillaneous Medications: Propofol and Flumazenil Airway Management Airway Management: LMA Treatment Recommendations Electrode Placement: Right Unilateral Program/Pulse Width: 0.25 Energy Percent: 100 Notes: had confusion agitation lower nortrip avoid flumazenil Pt Tolerated Procedure w/o Issue: No
--- NOTE | 2022-08-21 08:14 | HO.ANESPROP2 ---
FORMERLY [facility], [facility] Active Problems Active Problems: All Active Problems (Updated 08/15/22 @ 13:54 by Gerhard Jordan MD) Social anxiety disorder (Acute) Complicated bereavement (Acute) Severe recurrent major depression (Acute) Pre-op evaluation (Acute) Routine history and physical examination of adult (Acute) Past Medical History Medical History (Updated 08/15/22 @ 13:54 by Gerhard Jordan MD) Complicated bereavement Severe recurrent major depression Social anxiety disorder Family History Family history of problems with anesthesia: No Surgical History History of Problems with Anesthesia: No Social History Social History Household Members: None Housing: Homeless Patient Tobacco Use Status: Never used Tobacco service: No Sexual orientation: Straight/Heterosexual Meds Allergies Allergy/AdvReac Type Severity Reaction Status Date / Time No Known Allergies Allergy Verified 08/09/22 16:14 Active Medications: Current Medications Acetaminophen (Acetaminophen 325 Mg Tablet) 650 mg PO Q6H PRN PRN Reason: Headache/Pain Mild Scale (1-3) Last Admin: 08/16/22 19:27 Dose: 650 mg Al Hydroxide/Mg Hydroxide (Magnesium Hydrox/Alum Hydrox 30 Ml Oral.Susp) 30 ml PO Q6H PRN PRN Reason: Heartburn/Nausea Hydroxyzine HCl (Hydroxyzine Hcl 25 Mg Tablet) 25 mg PO Q6H PRN PRN Reason: Anxiety Last Admin: 08/10/22 21:32 Dose: 25 mg Lactated Ringer's (Lr) 1,000 mls @ 50 mls/hr IVCONT .Q20H JUAN Lactated Ringer's (Lr) 1,000 mls @ 50 mls/hr IVCONT .Q20H JUAN Lorazepam (Lorazepam 0.5 Mg Tablet) 1.5 mg PO BID JUAN Last Admin: 08/20/22 18:26 Dose: 1.5 mg Magnesium Hydroxide (Milk Of Magnesia 30 Ml Oral.Susp) 30 ml PO DAILY PRN PRN Reason: Constipation Last Admin: 08/15/22 15:32 Dose: 30 ml Nortriptyline HCl (Nortriptyline Hcl 25 Mg Capsule) 150 mg PO BEDTIME JUAN Last Admin: 08/20/22 18:25 Dose: 150 mg Propranolol HCl (Propranolol Hcl La 80 Mg Cap.Sa.24h) 80 mg PO DAILY JUAN; Protocol Quetiapine Fumarate (Quetiapine Fumarate 200 Mg Tablet) 200 mg PO BID JUAN Last Admin: 08/20/22 18:25 Dose: 200 mg Sumatriptan Succinate (Sumatriptan Succinate 25 Mg Tablet) 25 mg PO DAILY PRN PRN Reason: severe headache Trazodone HCl (Trazodone Hcl 50 Mg Tablet) 50 mg PO BEDTIME MRX1 PRN PRN Reason: Insomnia Last Admin: 08/20/22 18:25 Dose: 50 mg Zolpidem Tartrate (Zolpidem Tartrate 5 Mg Tablet) 5 mg PO BEDTIME PRN PRN Reason: Insomnia Last Admin: 08/20/22 18:25 Dose: 5 mg Home Medications Medication Instructions Recorded Confirmed Last Taken Type ibuprofen 600 mg PO Q6H PRN Pain 08/10/22 08/10/22 Unknown History lorazepam 0.5 mg tablet 1.5 mg PO BID 08/10/22 08/10/22 08/09/22 12:15 History nortriptyline 150 mg PO BEDTIME 08/10/22 08/10/22 08/08/22 19:24 History propranolol 20 mg tablet 20 mg PO DAILY 08/10/22 08/10/22 Unknown History propranolol 20 mg tablet 20 mg PO DAILY PRN Anxiety 08/10/22 08/10/22 Unknown History quetiapine 200 mg PO BID 08/10/22 08/10/22 08/09/22 16:06 History zolpidem 10 mg PO BEDTIME PRN Sleep 08/10/22 08/10/22 08/08/22 19:25 History Exam Exam Date and Time: August 21, 2022 0814 Height,Weight and Vital Signs: Height 5 ft 10 in Weight 130.8 kg Last Vital Signs Temp 98.1 F 08/21/22 08:10 Pulse 83 08/21/22 08:10 Resp 16 08/21/22 08:10 BP 188/99 H 08/21/22 08:10 Pulse Ox 98 08/21/22 08:10 O2 Del Method Nasal Cannula 08/21/22 08:10 O2 Flow Rate 2 08/21/22 08:10 Pertinent Lab Results Pertinent Lab Results: Laboratory Tests 08/10/22 08/10/22 08/10/22 07:04 07:04 07:04 WBC 7.3 RBC 5.05 Hgb 14.5 Hct 43.8 MCV 86.7 MCH 28.7 MCHC 33.1 RDW 13.5 Plt Count 236 MPV 8.4 L Immature Gran % (Auto) 0.4 Neut % (Auto) 61.4 Lymph % (Auto) 25.1 [place] % (Auto) 10.1 Eos % (Auto) 2.6 Baso % (Auto) 0.4 Lymph # (Auto) 1.8 [place] # (Auto) 0.7 Eos # (Auto) 0.2 Baso # (Auto) 0.0 Abs Immat Gran (auto) 0.03 Absolute Neuts (auto) 4.5 Absolute Nucleated RBC 0.000 Nucleated RBC % (auto) 0.0 Sodium 140 Potassium 4.3 Chloride 106 Carbon Dioxide 25 Anion Gap 13 BUN 13 Creatinine 0.86 Estim Creat Clear Calc TNP Estimated GFR > 60 Fasting Glucose 85 Estimat Average Glucose 103 Hemoglobin A1c % 5.2 Calcium 9.0 Magnesium 2.1 Total Bilirubin 0.5 AST 32 ALT 37 Alkaline Phosphatase 79 Total Protein 6.4 L Albumin 4.0 Triglycerides 171 Cholesterol 212 LDL Cholesterol, Calc 141 HDL Cholesterol 37 Vitamin B12 331 Folate 9.0 TSH 2.97 Free T4 0.82 Nortriptyline 08/10/22 07:04 WBC RBC Hgb Hct MCV MCH MCHC RDW Plt Count MPV Immature Gran % (Auto) Neut % (Auto) Lymph % (Auto) [place] % (Auto) Eos % (Auto) Baso % (Auto) Lymph # (Auto) [place] # (Auto) Eos # (Auto) Baso # (Auto) Abs Immat Gran (auto) Absolute Neuts (auto) Absolute Nucleated RBC Nucleated RBC % (auto) Sodium Potassium Chloride Carbon Dioxide Anion Gap BUN Creatinine Estim Creat Clear Calc Estimated GFR Fasting Glucose Estimat Average Glucose Hemoglobin A1c % Calcium Magnesium Total Bilirubin AST ALT Alkaline Phosphatase Total Protein Albumin Triglycerides Cholesterol LDL Cholesterol, Calc HDL Cholesterol Vitamin B12 Folate TSH Free T4 Nortriptyline 102 Airway Mallampati Class: III TM Dist: >3cm Neck ROM: Full Heart: rrr Lungs: cta Assessment and Plan Assessment Anesthesia Assessment: Anesthesia Plan Discussed and Chart Reviewed Final Anesthetic Review Family History of Problems with Anesthesia: No History of Problems with Anesthesia: No NPO: Yes ASA Class: III Final Preanesthetic Review: No Changes in Pt Med Stat, Meds/Allgs Chart Reviewed and Consent Obtained/Reviewed Patient Risk: Intermediate Procedure Risk: Intermediate Anesthetic Plan Anesthetic Plan: GA Disposition: Standard PACU
[2022-08-21] MEDS: oxyCODONE HCl Immed Release 5 MG TABLET PO (09:40)
[2022-08-21] MEDS: Acetaminophen 325 MG TABLET 650 MG PO ×2 (09:40→17:03)
--- NOTE | 2022-08-21 09:44 | P.PNPSI_ITS ---
Subjective Subjective Date of Service: 08/21/22 Reason For Visit: Rec. Major Depression, Complex Bereavement Reacti Interim History: Met with patient; discussed with team Patient reports feeling out of it today after ECT; discussed with Dr. Terrell who was also present and thought perhaps nortriptyline could be a contributing factor and all agreed to lower it. Patient reports continued depression and anxiety but is still hopeful ECT will work. Does not feel up to discussing CBT at the moment but would like to do it on days when he is not having ECT. Mental Status Exam Mental Status Exam Narrative: Pt is alert and oriented; behavior is cooperative, calm; patient is not in distr ess; dressed in hospital pants, casual shirt, balding; adequate hygiene; mood is described as depressed...anxious and affect constricted; eye contact appropriate; Speech is normal rate, volume and prosody and not pressured; psychomotor retardation present; thought process is organized and goal directed; Thought content is on tx; mothers ; otherwise pertinent to relevant topics and without any delusional content, paranoid ideations or grandiosity; intermittent, passive SI/no HI. There is no evidence of perceptual disturbance. Patients insight and judgment are impaired. Diagnostics Vital Signs (24Hr): Vital Signs - 24 hr 08/20/22 15:57 08/21/22 06:14 08/21/22 06:38 Temperature 97.6 F 98.4 F Pulse Rate 84 78 90 Respiratory Rate 18 17 Blood Pressure 132/87 136/84 127/96 H Pulse Oximetry 98 94 Oxygen Delivery Method Room Air Oxygen Flow Rate 08/21/22 08:45 08/21/22 08:50 08/21/22 08:55 Temperature 97.5 F Pulse Rate 100 103 H 107 H Respiratory Rate 16 16 17 Blood Pressure 134/85 149/99 H 123/96 H Pulse Oximetry 94 92 94 Oxygen Delivery Method Nasal Cannula with ETCO2 Room Air Room Air Oxygen Flow Rate 3 08/21/22 09:00 08/21/22 09:15 Temperature 97.5 F Pulse Rate 106 H 102 H Respiratory Rate 16 16 Blood Pressure 128/92 H 136/91 H Pulse Oximetry 94 94 Oxygen Delivery Method Room Air Room Air Oxygen Flow Rate BMI result Body Mass Index 41.4 Labs 08/10/22 07:04 08/10/22 07:04 Medications Medications Current Medications Acetaminophen (Acetaminophen 325 Mg Tablet) 650 mg PO Q6H PRN PRN Reason: Headache/Pain Mild Scale (1-3) Last Admin: 08/21/22 09:40 Dose: 650 mg Al Hydroxide/Mg Hydroxide (Magnesium Hydrox/Alum Hydrox 30 Ml Oral.Susp) 30 ml PO Q6H PRN PRN Reason: Heartburn/Nausea Hydroxyzine HCl (Hydroxyzine Hcl 25 Mg Tablet) 25 mg PO Q6H PRN PRN Reason: Anxiety Last Admin: 08/10/22 21:32 Dose: 25 mg Lactated Ringer's (Lr) 1,000 mls @ 50 mls/hr IVCONT .Q20H JUAN Lactated Ringer's (Lr) 1,000 mls @ 50 mls/hr IVCONT .Q20H JUAN Lorazepam (Lorazepam 1 Mg Tablet) 1 mg PO BID JUAN Magnesium Hydroxide (Milk Of Magnesia 30 Ml Oral.Susp) 30 ml PO DAILY PRN PRN Reason: Constipation Last Admin: 08/15/22 15:32 Dose: 30 ml Nortriptyline HCl (Nortriptyline Hcl 25 Mg Capsule) 150 mg PO BEDTIME JUAN Last Admin: 08/20/22 18:25 Dose: 150 mg Propranolol HCl (Propranolol Hcl La 80 Mg Cap.Sa.24h) 80 mg PO DAILY JUAN; Protocol Quetiapine Fumarate (Quetiapine Fumarate 200 Mg Tablet) 200 mg PO BID JUAN Last Admin: 08/20/22 18:25 Dose: 200 mg Sumatriptan Succinate (Sumatriptan Succinate 25 Mg Tablet) 25 mg PO DAILY PRN PRN Reason: severe headache Trazodone HCl (Trazodone Hcl 50 Mg Tablet) 50 mg PO BEDTIME MRX1 PRN PRN Reason: Insomnia Last Admin: 08/20/22 18:25 Dose: 50 mg Zolpidem Tartrate (Zolpidem Tartrate 5 Mg Tablet) 5 mg PO BEDTIME PRN PRN Reason: Insomnia Last Admin: 08/20/22 18:25 Dose: 5 mg Allergies Allergies Allergy/AdvReac Type Severity Reaction Status Date / Time No Known Allergies Allergy Verified 08/09/22 16:14 Assessment & Plan Assessment & Plan (1) Severe recurrent major depression: Status: Acute Code(s): F33.2 - Major depressive disorder, recurrent severe without psychotic features (2) Complicated bereavement: Status: Acute Code(s): F43.21 - Adjustment disorder with depressed mood (3) Social anxiety disorder: Status: Acute Code(s): F40.10 - Social phobia, unspecified Plan 32 yo male, scheduled transfer from [facility] for ECT consult and treatment s/p suicide attempt with complex breavement issues. Patient reports numerous medication trials over many years without much effect Plan: CV Q 15 minute checks ECT #1 on 08/14 ECT #2 on 08/16 ECT #3 on 08/21; ECT #4 PENDING 07/23 NPO after midnight Increased to Propranolol LA 80mg (and dc IR) LOWERING to nortriptyline 100 mg q.h.s. out of some concern that medication could interfere with ECT side effects; (at 150mg, -Nortriptyline level therapeutic: 102) Continue Seroquel 200 mg b.i.d.; patient says for anxiety Continue Ativan 1.5 mg b.i.d.; patient recently started on clonazepam 1 mg t.i.d. but it was switched in the ED just prior to this admission Ambien 5 mg q.h.s. HOSPITAL Course: 08/12/22 cont nortrip seroquel reviwed ect scheduled for 08/14/22 s/p suicide attempt denies active si now 08/13 pt cleared for ECT by hospitalist WILL; depressed but SI back to chronic, low level at baseline. 08/14 tolerating ECT; wants to continue. Discussed medication management and will continue current regimen for now other than switching to longer acting propranolol; no known history of MAO'I which could be a possible option; discussed hypertension which patient says he has a history of; will see if BP response to propranolol adjustment 08/15 will add social anxiety order to diagnosis; interactions with parents growing up were emotionally traumatic have significantly effected his ability to have interpersonal relationships in his adult life. Started CBT exercise which resonate with patient. Waiting for nortriptyline level. BP a little better perhaps since starting long-acting propranolol; will leave for now 08/16 severe headache after ECT; sumatriptan 25 mg seem to help resolve 08/17: Headache resolved. Continue current plan. 08/18: ECT #3 on 08/21/2208/19: ECT #3 on 08/21/2208/20 remains depressed and anxious; will increase propranolol; continue with ECT Patient educated on: diagnosis, medication risk/benefits and ECT Informed Consent: understands Reason for continued inpatient stay Substantial Risk for: rapid decompensation and med/psych decompensation Time Spent With Patient Time: Total time managing care of this patient today ____ minutes.
[2022-08-21] MEDS: Propranolol HCL LA 80 MG CAP.SA.24H PO (10:00)
[2022-08-21] MEDS: LORazepam 1 MG TABLET PO ×2 (10:00→20:23)
[2022-08-21] MEDS: QUEtiapine Fumarate 200 MG TABLET PO ×2 (10:00→20:23)
[2022-08-21] MEDS: Milk of Magnesia 30 ML ORAL.SUSP PO (14:12)
[2022-08-21] MEDS: Nortriptyline HCl 25 MG CAPSULE 100 MG PO (20:22)
[2022-08-21] MEDS: traZODone HCL 50 MG TABLET PO (20:23)
[2022-08-21] MEDS: Zolpidem Tartrate 5 MG TABLET PO (20:23)
[2022-08-21] MEDS: SUMAtriptan succinate 25 MG TABLET PO (20:25)
[2022-08-22 07:00] VITALS: BMI 41.6
[2022-08-22 09:10] VITALS: BP 141/89; PULSE 110; RESP 18; TEMP 36.2; O2SAT 95
[2022-08-22] MEDS: QUEtiapine Fumarate 200 MG TABLET PO ×2 (09:13→20:06)
[2022-08-22] MEDS: Propranolol HCL LA 80 MG CAP.SA.24H PO (09:13)
[2022-08-22] MEDS: LORazepam 1 MG TABLET PO ×2 (09:13→20:06)
--- NOTE | 2022-08-22 09:32 | HO.PSYCHPN ---
Subjective Subjective Date of Service: 08/22/22 Reason For Visit: Rec. Major Depression, Complex Bereavement Reacti Interim History: Met with patient; discussed with team Patient says he remains the same with depression and anxiety. He says he has continues to avoid people due to anxiety. Shared about how he wanted to have a shower today and had to push himself through his anxiety in order to get access and ask a nurse. Patient assumes that he comes across awkwardly. [employer] and patient engaged in CBT exercise and patient said he will work on homework. Mental Status Exam Mental Status Exam Narrative: Pt is alert and oriented; behavior is cooperative, calm; patient is not in distress; dressed in casual attire, balding; adequate hygiene; mood is described as saying and affect little constricted eye contact appropriate; Speech is normal rate, volume and prosody and not pressured; psychomotor retardation present; thought process is organized and goal directed; Thought content is on tx; mothers ; otherwise pertinent to relevant topics and without any delusional content, paranoid ideations or grandiosity; intermittent, passive SI/no HI. There is no evidence of perceptual disturbance. Patients insight and judgment are impaired. Diagnostics Vital Signs (24Hr): Vital Signs - 24 hr 08/21/22 09:48 08/21/22 18:52 08/22/22 09:10 Temperature 97.6 F 97.2 F 97.2 F Pulse Rate 91 90 110 H Respiratory Rate 18 Blood Pressure 129/91 H 134/87 141/89 H Pulse Oximetry 96 95 Oxygen Delivery Method Room Air BMI result Body Mass Index 41.4 Labs 08/10/22 07:04 08/10/22 07:04 Medications Medications Current Medications Acetaminophen (Acetaminophen 325 Mg Tablet) 650 mg PO Q6H PRN PRN Reason: Headache/Pain Mild Scale (1-3) Last Admin: 08/21/22 17:03 Dose: 650 mg Al Hydroxide/Mg Hydroxide (Magnesium Hydrox/Alum Hydrox 30 Ml Oral.Susp) 30 ml PO Q6H PRN PRN Reason: Heartburn/Nausea Hydroxyzine HCl (Hydroxyzine Hcl 25 Mg Tablet) 25 mg PO Q6H PRN PRN Reason: Anxiety Last Admin: 08/10/22 21:32 Dose: 25 mg Lorazepam (Lorazepam 1 Mg Tablet) 1 mg PO BID JUAN Last Admin: 08/22/22 09:13 Dose: 1 mg Magnesium Hydroxide (Milk Of Magnesia 30 Ml Oral.Susp) 30 ml PO DAILY PRN PRN Reason: Constipation Last Admin: 08/21/22 14:12 Dose: 30 ml Nortriptyline HCl (Nortriptyline Hcl 25 Mg Capsule) 100 mg PO BEDTIME JUAN Last Admin: 08/21/22 20:22 Dose: 100 mg Propranolol HCl (Propranolol Hcl La 80 Mg Cap.Sa.24h) 80 mg PO DAILY JUAN; Protocol Last Admin: 08/22/22 09:13 Dose: 80 mg Quetiapine Fumarate (Quetiapine Fumarate 200 Mg Tablet) 200 mg PO BID JUAN Last Admin: 08/22/22 09:13 Dose: 200 mg Sumatriptan Succinate (Sumatriptan Succinate 25 Mg Tablet) 25 mg PO DAILY PRN PRN Reason: severe headache Last Admin: 08/21/22 20:25 Dose: 25 mg Trazodone HCl (Trazodone Hcl 50 Mg Tablet) 50 mg PO BEDTIME MRX1 PRN PRN Reason: Insomnia Last Admin: 08/21/22 20:23 Dose: 50 mg Zolpidem Tartrate (Zolpidem Tartrate 5 Mg Tablet) 5 mg PO BEDTIME PRN PRN Reason: Insomnia Last Admin: 08/21/22 20:23 Dose: 5 mg Allergies Allergies Allergy/AdvReac Type Severity Reaction Status Date / Time No Known Allergies Allergy Verified 08/09/22 16:14 Assessment & Plan Assessment & Plan (1) Severe recurrent major depression: Status: Acute Code(s): F33.2 - Major depressive disorder, recurrent severe without psychotic features (2) Complicated bereavement: Status: Acute Code(s): F43.21 - Adjustment disorder with depressed mood (3) Social anxiety disorder: Status: Acute Code(s): F40.10 - Social phobia, unspecified Plan 32 yo male, scheduled transfer from [facility] for ECT consult and treatment s/p suicide attempt with complex breavement issues. Patient reports numerous medication trials over many years without much effect Plan: CV Q 15 minute checks ECT #1 on 08/14 ECT #2 on 08/16 ECT #3 on 08/21; ECT #4 PENDING 08/23 NPO after midnight Increased to Propranolol LA 80mg (and dc IR) LOWERING to nortriptyline 100 mg q.h.s. out of some concern that medication could interfere with ECT side effects; (at 150mg, -Nortriptyline level therapeutic: 102) Continue Seroquel 200 mg b.i.d.; patient says for anxiety Continue Ativan 1.5 mg b.i.d.; patient recently started on clonazepam 1 mg t.i.d. but it was switched in the ED just prior to this admission Ambien 5 mg q.h.s. HOSPITAL Course: 08/12/22 cont nortrip seroquel reviwed ect scheduled for 08/14/22 s/p suicide attempt denies active si now 08/13 pt cleared for ECT by hospitalist WILL; depressed but SI back to chronic, low level at baseline. 08/14 tolerating ECT; wants to continue. Discussed medication management and will continue current regimen for now other than switching to longer acting propranolol; no known history of MAO'I which could be a possible option; discussed hypertension which patient says he has a history of; will see if BP response to propranolol adjustment 08/15 will add social anxiety order to diagnosis; interactions with parents growing up were emotionally traumatic have significantly effected his ability to have interpersonal relationships in his adult life. Started CBT exercise which resonate with patient. Waiting for nortriptyline level. BP a little better perhaps since starting long-acting propranolol; will leave for now 08/16 severe headache after ECT; sumatriptan 25 mg seem to help resolve 08/17: Headache resolved. Continue current plan. 08/18: ECT #3 on 08/21/2208/19: ECT #3 on 08/21/2208/20 remains depressed and anxious; will increase propranolol; continue with ECT 08/22 depressed, anxious; continue with treatment plan; patient hypertensive. He is ambivalent about starting antihypertensive medication but will inquire further Patient educated on: diagnosis, medication risk/benefits and therapeutic strategies Informed Consent: understands Reason for continued inpatient stay Substantial Risk for: inability to function Time Spent With Patient Time: Total time managing care of this patient today ____ minutes.
[2022-08-22 17:10] VITALS: BP 122/71; PULSE 80; TEMP 36.3
[2022-08-22] MEDS: traZODone HCL 50 MG TABLET PO (20:04)
[2022-08-22] MEDS: Nortriptyline HCl 25 MG CAPSULE 100 MG PO (20:04)
[2022-08-22] MEDS: Zolpidem Tartrate 5 MG TABLET PO (20:06)
[2022-08-23] VITALS (11 sets, daily range): BP systolic 114–148; BP diastolic 79–107; PULSE 81–117; RESP 12–92; TEMP 36.3–37.1; O2SAT 91–97
--- NOTE | 2022-08-23 07:54 | MHC.SHP ---
Pre-Procedural Eval Section A Date of Service: 08/23/22 The patient is an INPATIENT: Yes Changes since office visit: Yes New Medical Problems, Yes Changes in Medication and Yes Patient answered all questions; No Cold of Flu in the past 2 weeks The History & Physical has been completed within 30 days and I have reviewed it.: Yes Section B Chief Complaint: Rec. Major Depression, Complex Bereavement Reacti Allergies: Allergies Allergy/AdvReac Type Severity Reaction Status Date / Time No Known Allergies Allergy Verified 08/09/22 16:14 Plan I have reviewed the history and physical and performed a pertinent physical examination on my patient. No changes have occurred unless specified. Time Spent With Patient Time: Total time managing care of this patient today ____ minutes.
--- NOTE | 2022-08-23 07:56 | HO.ECTPROC ---
ECT Procedure Note Diagnosis/Treatment Date of Service: 08/23/22 Diagnosis: Major Depressive Disorder Previous ECT Date: 08/21/22 Current Treatment Number: 4 Treatment: Series Interval Clinical Notes: no improvement to this point Time: Total time managing care of this patient today ____ minutes. ECT Settings Device: THYMATRON DGx Program/Pulse Width: 0.25 Energy Percent: 100 Seizure Duration By EEG (in seconds): 59 Medications Administration General Anesthetic: Etomidate (16) Muscle Relaxant: Succinylcholine (120) Ancillary Medications Analgesics: Torodol - Pre ECT Anti-emetics: Zofran - Pre ECT Cardiovascular Medications: Glycopyrrolate Miscillaneous Medications: Propofol and Midazolam (2) Airway Management Airway Management: LMA Treatment Recommendations Program/Pulse Width: 0.25 Energy Percent: 60 Notes: still had post op agitation nortrip lowered versed given post op Pt Tolerated Procedure w/o Issue: Yes
--- NOTE | 2022-08-23 08:56 | P.CONAN_ITS ---
REPLACED BY [facility] Active Problems Active Problems: All Active Problems (Updated 08/15/22 @ 13:54 by Gerhard Jordan MD) Social anxiety disorder (Acute) Complicated bereavement (Acute) Severe recurrent major depression (Acute) Pre-op evaluation (Acute) Routine history and physical examination of adult (Acute) Past Medical History Medical History Complicated bereavement Severe recurrent major depression Social anxiety disorder Family History Family history of problems with anesthesia: No Surgical History History of Problems with Anesthesia: No Social History Social History Household Members: None Housing: Homeless Patient Tobacco Use Status: Never used Tobacco service: No Sexual orientation: Straight/Heterosexual Meds Allergies Allergy/AdvReac Type Severity Reaction Status Date / Time No Known Allergies Allergy Verified 08/09/22 16:14 Active Medications: Current Medications Acetaminophen (Acetaminophen 325 Mg Tablet) 650 mg PO Q6H PRN PRN Reason: Headache/Pain Mild Scale (1-3) Last Admin: 08/21/22 17:03 Dose: 650 mg Al Hydroxide/Mg Hydroxide (Magnesium Hydrox/Alum Hydrox 30 Ml Oral.Susp) 30 ml PO Q6H PRN PRN Reason: Heartburn/Nausea Hydroxyzine HCl (Hydroxyzine Hcl 25 Mg Tablet) 25 mg PO Q6H PRN PRN Reason: Anxiety Last Admin: 08/10/22 21:32 Dose: 25 mg Lorazepam (Lorazepam 1 Mg Tablet) 1 mg PO BID JUAN Last Admin: 08/22/22 20:06 Dose: 1 mg Magnesium Hydroxide (Milk Of Magnesia 30 Ml Oral.Susp) 30 ml PO DAILY PRN PRN Reason: Constipation Last Admin: 08/21/22 14:12 Dose: 30 ml Nortriptyline HCl (Nortriptyline Hcl 25 Mg Capsule) 100 mg PO BEDTIME JUAN Last Admin: 08/22/22 20:04 Dose: 100 mg Propranolol HCl (Propranolol Hcl La 80 Mg Cap.Sa.24h) 80 mg PO DAILY JUAN; Protocol Last Admin: 08/22/22 09:13 Dose: 80 mg Quetiapine Fumarate (Quetiapine Fumarate 200 Mg Tablet) 200 mg PO BID JUAN Last Admin: 08/22/22 20:06 Dose: 200 mg Sumatriptan Succinate (Sumatriptan Succinate 25 Mg Tablet) 25 mg PO DAILY PRN PRN Reason: severe headache Last Admin: 08/21/22 20:25 Dose: 25 mg Trazodone HCl (Trazodone Hcl 50 Mg Tablet) 50 mg PO BEDTIME MRX1 PRN PRN Reason: Insomnia Last Admin: 08/22/22 20:04 Dose: 50 mg Zolpidem Tartrate (Zolpidem Tartrate 5 Mg Tablet) 5 mg PO BEDTIME PRN PRN Reason: Insomnia Last Admin: 08/22/22 20:06 Dose: 5 mg Home Medications Medication Instructions Recorded Confirmed Last Taken Type ibuprofen 600 mg PO Q6H PRN Pain 08/10/22 08/10/22 Unknown History lorazepam 0.5 mg tablet 1.5 mg PO BID 08/10/22 08/10/22 08/09/22 12:15 History nortriptyline 150 mg PO BEDTIME 08/10/22 08/10/22 08/08/22 19:24 History propranolol 20 mg tablet 20 mg PO DAILY 08/10/22 08/10/22 Unknown History propranolol 20 mg tablet 20 mg PO DAILY PRN Anxiety 08/10/22 08/10/22 Unknown History quetiapine 200 mg PO BID 08/10/22 08/10/22 08/09/22 16:06 History zolpidem 10 mg PO BEDTIME PRN Sleep 08/10/22 08/10/22 08/08/22 19:25 History Exam Exam Date and Time: August 23, 2022 0856 Height,Weight and Vital Signs: Height 5 ft 10 in Weight 131.4 kg Last Vital Signs Temp 98.1 F 08/23/22 08:22 Pulse 110 H 08/23/22 08:52 Resp 16 08/23/22 08:52 BP 114/87 08/23/22 08:52 Pulse Ox 95 08/23/22 08:52 O2 Del Method Room Air 08/23/22 08:52 O2 Flow Rate 2 08/23/22 08:27 Pertinent Lab Results Pertinent Lab Results: Laboratory Tests 08/10/22 08/10/22 08/10/22 07:04 07:04 07:04 WBC 7.3 RBC 5.05 Hgb 14.5 Hct 43.8 MCV 86.7 MCH 28.7 MCHC 33.1 RDW 13.5 Plt Count 236 MPV 8.4 L Immature Gran % (Auto) 0.4 Neut % (Auto) 61.4 Lymph % (Auto) 25.1 Humphreys % (Auto) 10.1 Eos % (Auto) 2.6 Baso % (Auto) 0.4 Lymph # (Auto) 1.8 Humphreys # (Auto) 0.7 Eos # (Auto) 0.2 Baso # (Auto) 0.0 Abs Immat Gran (auto) 0.03 Absolute Neuts (auto) 4.5 Absolute Nucleated RBC 0.000 Nucleated RBC % (auto) 0.0 Sodium 140 Potassium 4.3 Chloride 106 Carbon Dioxide 25 Anion Gap 13 BUN 13 Creatinine 0.86 Estim Creat Clear Calc TNP Estimated GFR > 60 Fasting Glucose 85 Estimat Average Glucose 103 Hemoglobin A1c % 5.2 Calcium 9.0 Magnesium 2.1 Total Bilirubin 0.5 AST 32 ALT 37 Alkaline Phosphatase 79 Total Protein 6.4 L Albumin 4.0 Triglycerides 171 Cholesterol 212 LDL Cholesterol, Calc 141 HDL Cholesterol 37 Vitamin B12 331 Folate 9.0 TSH 2.97 Free T4 0.82 Nortriptyline 08/10/22 07:04 WBC RBC Hgb Hct MCV MCH MCHC RDW Plt Count MPV Immature Gran % (Auto) Neut % (Auto) Lymph % (Auto) Humphreys % (Auto) Eos % (Auto) Baso % (Auto) Lymph # (Auto) Humphreys # (Auto) Eos # (Auto) Baso # (Auto) Abs Immat Gran (auto) Absolute Neuts (auto) Absolute Nucleated RBC Nucleated RBC % (auto) Sodium Potassium Chloride Carbon Dioxide Anion Gap BUN Creatinine Estim Creat Clear Calc Estimated GFR Fasting Glucose Estimat Average Glucose Hemoglobin A1c % Calcium Magnesium Total Bilirubin AST ALT Alkaline Phosphatase Total Protein Albumin Triglycerides Cholesterol LDL Cholesterol, Calc HDL Cholesterol Vitamin B12 Folate TSH Free T4 Nortriptyline 102 Airway Mallampati Class: III TM Dist: >3cm Neck ROM: Full Heart: RRR Lungs: CTA Assessment and Plan Final Anesthetic Review Family History of Problems with Anesthesia: No History of Problems with Anesthesia: No NPO: Yes ASA Class: III Final Preanesthetic Review: Meds/Allgs Chart Reviewed, Consent Obtained/Reviewed and Anes Risks/Benef Reviewed Patient Risk: Intermediate Procedure Risk: Low Anesthetic Plan Anesthetic Plan: GA Disposition: Standard PACU
--- NOTE | 2022-08-23 08:58 | HO.POSTANES ---
Post Anesthesia Evaluation Post Anesthesia Evaluation Date of Service: 08/23/22 Vital Signs: Vital Signs Temp Pulse Resp BP Pulse Ox O2 Del Method O2 Flow Rate 08/23/22 08:52 110 H 16 114/87 95 Room Air 08/23/22 08:37 108 H 92 H 134/81 92 Room Air 08/23/22 08:32 108 H 16 91 L Room Air 08/23/22 08:27 117 H 16 148/107 H 95 Nasal Cannula 2 08/23/22 08:22 98.1 F 109 H 16 126/85 93 Room Air 08/23/22 06:46 97.5 F 91 12 130/84 94 Room Air 08/23/22 05:56 98.7 F 96 18 123/79 97 08/23/22 05:45 98.7 F 96 18 123/79 97 Room Air Anesthesia: General LMA and General Mental Status: Awake Pain Control: Satisfactory Nausea/Vomiting: None Hydration: Adequate Anesthesia-Related Issues: No Anes. Related Issues
[2022-08-23] MEDS: oxyCODONE HCl Immed Release 5 MG TABLET PO (09:16)
[2022-08-23] MEDS: Propranolol HCL LA 80 MG CAP.SA.24H PO (10:02)
[2022-08-23] MEDS: QUEtiapine Fumarate 200 MG TABLET PO ×2 (10:02→19:35)
[2022-08-23] MEDS: LORazepam 1 MG TABLET PO ×2 (10:02→19:35)
--- NOTE | 2022-08-23 10:32 | HO.PSYCHPN ---
Subjective Subjective Date of Service: 08/23/22 Reason For Visit: Rec. Major Depression, Complex Bereavement Reacti Interim History: met with patient; discussed with team remains depressed; headache post ECT today and feeling out of it... so did not want to engage much. [employer] inquired about CBT homework; pt said he did not do it...and said i just wasted the day away. He says he'll work on it over next few days. AGrees to increase Inderal Mental Status Exam Mental Status Exam Narrative: Pt is alert and oriented; behavior is cooperative, calm; dressed in casual attire, balding; adequate hygiene; mood is described as out of it and affect little constricted eye contact appropriate; Speech is normal rate, volume and prosody and not pressured; psychomotor retardation present; thought process is organized and goal directed; Thought content is on tx; mothers ; otherwise pertinent to relevant topics and without any delusional content, paranoid ideations or grandiosity; intermittent, passive SI/no HI. There is no evidence of perceptual disturbance. Patients insight and judgment are impaired. Diagnostics Vital Signs (24Hr): Vital Signs - 24 hr 08/22/22 17:10 08/23/22 05:45 08/23/22 05:56 Temperature 97.3 F 98.7 F 98.7 F Pulse Rate 80 96 96 Respiratory Rate 18 18 Blood Pressure 122/71 123/79 123/79 Pulse Oximetry 97 97 Oxygen Delivery Method Room Air Oxygen Flow Rate 08/23/22 06:46 08/23/22 08:22 08/23/22 08:27 Temperature 97.5 F 98.1 F Pulse Rate 91 109 H 117 H Respiratory Rate 12 16 16 Blood Pressure 130/84 126/85 148/107 H Pulse Oximetry 94 93 95 Oxygen Delivery Method Room Air Room Air Nasal Cannula Oxygen Flow Rate 2 08/23/22 08:32 08/23/22 08:37 08/23/22 08:52 Temperature Pulse Rate 108 H 108 H 110 H Respiratory Rate 16 92 H 16 Blood Pressure 134/81 114/87 Pulse Oximetry 91 L 92 95 Oxygen Delivery Method Room Air Room Air Room Air Oxygen Flow Rate 08/23/22 09:07 08/23/22 09:36 Temperature 98.1 F 97.6 F Pulse Rate 100 98 Respiratory Rate 16 16 Blood Pressure 132/93 H 145/92 H Pulse Oximetry 94 94 Oxygen Delivery Method Room Air Oxygen Flow Rate BMI result Body Mass Index 41.6 Labs 08/10/22 07:04 08/10/22 07:04 Medications Medications Current Medications Acetaminophen (Acetaminophen 325 Mg Tablet) 650 mg PO Q6H PRN PRN Reason: Headache/Pain Mild Scale (1-3) Last Admin: 08/21/22 17:03 Dose: 650 mg Al Hydroxide/Mg Hydroxide (Magnesium Hydrox/Alum Hydrox 30 Ml Oral.Susp) 30 ml PO Q6H PRN PRN Reason: Heartburn/Nausea Hydroxyzine HCl (Hydroxyzine Hcl 25 Mg Tablet) 25 mg PO Q6H PRN PRN Reason: Anxiety Last Admin: 08/10/22 21:32 Dose: 25 mg Lorazepam (Lorazepam 1 Mg Tablet) 1 mg PO BID JUAN Last Admin: 08/23/22 10:02 Dose: 1 mg Magnesium Hydroxide (Milk Of Magnesia 30 Ml Oral.Susp) 30 ml PO DAILY PRN PRN Reason: Constipation Last Admin: 08/21/22 14:12 Dose: 30 ml Nortriptyline HCl (Nortriptyline Hcl 25 Mg Capsule) 100 mg PO BEDTIME JUAN Last Admin: 08/22/22 20:04 Dose: 100 mg Propranolol HCl (Propranolol Hcl La 80 Mg Cap.Sa.24h) 80 mg PO DAILY JUAN; Protocol Last Admin: 08/23/22 10:02 Dose: 80 mg Quetiapine Fumarate (Quetiapine Fumarate 200 Mg Tablet) 200 mg PO BID JUAN Last Admin: 08/23/22 10:02 Dose: 200 mg Sumatriptan Succinate (Sumatriptan Succinate 25 Mg Tablet) 25 mg PO DAILY PRN PRN Reason: severe headache Last Admin: 08/21/22 20:25 Dose: 25 mg Trazodone HCl (Trazodone Hcl 50 Mg Tablet) 50 mg PO BEDTIME MRX1 PRN PRN Reason: Insomnia Last Admin: 08/22/22 20:04 Dose: 50 mg Zolpidem Tartrate (Zolpidem Tartrate 5 Mg Tablet) 5 mg PO BEDTIME PRN PRN Reason: Insomnia Last Admin: 08/22/22 20:06 Dose: 5 mg Allergies Allergies Allergy/AdvReac Type Severity Reaction Status Date / Time No Known Allergies Allergy Verified 08/09/22 16:14 Assessment & Plan Assessment & Plan (1) Severe recurrent major depression: Status: Acute Code(s): F33.2 - Major depressive disorder, recurrent severe without psychotic features (2) Complicated bereavement: Status: Acute Code(s): F43.21 - Adjustment disorder with depressed mood (3) Social anxiety disorder: Status: Acute Code(s): F40.10 - Social phobia, unspecified Plan 32 yo male, scheduled transfer from [facility] for ECT consult and treatment s/p suicide attempt with complex breavement issues. Patient reports numerous medication trials over many years without much effect Plan: CV Q 15 minute checks ECT #1 on 08/14 ECT #2 on 08/16 ECT #3 on 08/21; ECT #4 on 08/23 ECT #5 PENDING 08/26 -NPO after midnight Increased to Propranolol LA 120mg (and dc IR); pt still anxious and also w/ HTN LOWERed to nortriptyline 100 mg q.h.s. out of some concern that medication could interfere with ECT side effects; (at 150mg, -Nortriptyline level therapeutic: 102) Continue Seroquel 200 mg b.i.d.; patient says for anxiety Continue Ativan 1.5 mg b.i.d.; patient recently started on clonazepam 1 mg t.i.d. but it was switched in the ED just prior to this admission Ambien 5 mg q.h.s. HOSPITAL Course: 08/12/22 cont nortrip seroquel reviwed ect scheduled for 08/14/22 s/p suicide attempt denies active si now 08/13 pt cleared for ECT by hospitalist WILL; depressed but SI back to chronic, low level at baseline. 08/14 tolerating ECT; wants to continue. Discussed medication management and will continue current regimen for now other than switching to longer acting propranolol; no known history of MAO'I which could be a possible option; discussed hypertension which patient says he has a history of; will see if BP response to propranolol adjustment 08/15 will add social anxiety order to diagnosis; interactions with parents growing up were emotionally traumatic have significantly effected his ability to have interpersonal relationships in his adult life. Started CBT exercise which resonate with patient. Waiting for nortriptyline level. BP a little better perhaps since starting long-acting propranolol; will leave for now 08/16 severe headache after ECT; sumatriptan 25 mg seem to help resolve 08/17: Headache resolved. Continue current plan. 08/18: ECT #3 on 08/21/2208/19: ECT #3 on 08/21/2208/20 remains depressed and anxious; will increase propranolol; continue with ECT 08/22 depressed, anxious; continue with treatment plan; patient hypertensive. He is ambivalent about starting antihypertensive medication but will inquire further 08/23 continue tx plan Patient educated on: diagnosis, medication risk/benefits and therapeutic strategies Informed Consent: understands Reason for continued inpatient stay Substantial Risk for: rapid decompensation Time Spent With Patient Time: Total time managing care of this patient today ____ minutes.
[2022-08-23] MEDS: SUMAtriptan succinate 25 MG TABLET PO ×2 (13:49→18:00)
[2022-08-23] MEDS: Nortriptyline HCl 25 MG CAPSULE 50 MG PO (19:35)
[2022-08-23] MEDS: traZODone HCL 50 MG TABLET PO (19:35)
[2022-08-23] MEDS: Zolpidem Tartrate 5 MG TABLET PO (19:35)
[2022-08-24 08:20] VITALS: BP 136/87; PULSE 98; RESP 18; TEMP 36.4; O2SAT 95
[2022-08-24] MEDS: LORazepam 1 MG TABLET PO ×2 (08:40→21:58)
[2022-08-24] MEDS: QUEtiapine Fumarate 200 MG TABLET PO ×2 (08:40→21:58)
[2022-08-24] MEDS: Propranolol HCL LA 60 MG CAP.SA.24H 120 MG PO (08:40)
--- NOTE | 2022-08-24 16:58 | P.PNPSI_ITS ---
Subjective Subjective Date of Service: 08/24/22 Reason For Visit: Rec. Major Depression, Complex Bereavement Reacti Subjective Notes: Conditional Voluntary Interim History: met with patient; reviewed chart; continues feeling depressed; c/o headache post ECT and tired; low energy; laying in bed; did not want to engage much. denies other c/os Medication Compliance: Yes Side effects from medications: No Attending Groups: No Review of Systems Acute medical concerns: No Medical Review of Systems: unchanged Review of Systems Review of Systems Chronic musculoskeletal pain Pt otherwise has no acute medical complaints Yes all other systems are reviewed and are negative Psychiatric: Reports depression, Reports hopelessness, Reports irritability, Reports anhedonia and Reports suicidal ideation Mental Status Exam Mental Status Exam Narrative: Pt is alert and oriented; behavior is cooperative, calm; dressed in casual attire, adequate hygiene; mood is described as tired and affect constricted, minimal eye contact; Speech is normal rate, volume and prosody and not pressured; psychomotor retardation present; thought process is organized and goal directed; Thought content is on tx; mothers ; otherwise pertinent to relevant topics and without any delusional content, paranoid ideations or grandiosity; intermittent, passive SI/no HI. There is no evidence of perceptual disturbance. Patients insight and judgment are impaired. Patient Appearance: Fatigued Patient Orientation: Person, Place, Time and Situation Level of Consciousness: Alert Patient Behavior: Talkative and Cooperative Mood Description: Constricted and Depressed Affect Description: Constricted, Depressed, Blunted and Flat Patient Cognition Impaired: No Ability to Follow Directions: Good Speech Pattern: Spontaneous Speech Memory Description: Intact Diagnostics Vital Signs (24Hr): Vital Signs - 24 hr 08/23/22 18:24 08/24/22 08:20 Temperature 97.3 F 97.6 F Pulse Rate 81 98 Respiratory Rate 18 Blood Pressure 130/81 136/87 Pulse Oximetry 95 Oxygen Delivery Method Room Air BMI result Body Mass Index 41.6 Labs 08/10/22 07:04 08/10/22 07:04 Medications Medications Current Medications Acetaminophen (Acetaminophen 325 Mg Tablet) 650 mg PO Q6H PRN PRN Reason: Headache/Pain Mild Scale (1-3) Last Admin: 08/21/22 17:03 Dose: 650 mg Al Hydroxide/Mg Hydroxide (Magnesium Hydrox/Alum Hydrox 30 Ml Oral.Susp) 30 ml PO Q6H PRN PRN Reason: Heartburn/Nausea Hydroxyzine HCl (Hydroxyzine Hcl 25 Mg Tablet) 25 mg PO Q6H PRN PRN Reason: Anxiety Last Admin: 08/10/22 21:32 Dose: 25 mg Lorazepam (Lorazepam 1 Mg Tablet) 1 mg PO BID [facility] Last Admin: 08/24/22 08:40 Dose: 1 mg Magnesium Hydroxide (Milk Of Magnesia 30 Ml Oral.Susp) 30 ml PO DAILY PRN PRN Reason: Constipation Last Admin: 08/21/22 14:12 Dose: 30 ml Nortriptyline HCl (Nortriptyline Hcl 25 Mg Capsule) 50 mg PO BEDTIME JUAN Last Admin: 08/23/22 19:35 Dose: 50 mg Propranolol HCl (Propranolol Hcl La 60 Mg Cap.Sa.24h) 120 mg PO DAILY [facility]; Protocol Last Admin: 08/24/22 08:40 Dose: 120 mg Quetiapine Fumarate (Quetiapine Fumarate 200 Mg Tablet) 200 mg PO BID [facility] Last Admin: 08/24/22 08:40 Dose: 200 mg Sumatriptan Succinate (Sumatriptan Succinate 25 Mg Tablet) 25 mg PO DAILY PRN PRN Reason: severe headache Last Admin: 08/23/22 18:00 Dose: 25 mg Trazodone HCl (Trazodone Hcl 50 Mg Tablet) 50 mg PO BEDTIME MRX1 PRN PRN Reason: Insomnia Last Admin: 08/23/22 19:35 Dose: 50 mg Allergies Allergies Allergy/AdvReac Type Severity Reaction Status Date / Time No Known Allergies Allergy Verified 08/09/22 16:14 Assessment & Plan Assessment & Plan (1) Severe recurrent major depression: Status: Acute Code(s): F33.2 - Major depressive disorder, recurrent severe without psychotic features (2) Complicated bereavement: Status: Acute Code(s): F43.21 - Adjustment disorder with depressed mood (3) Social anxiety disorder: Status: Acute Code(s): F40.10 - Social phobia, unspecified Plan 32 yo male, scheduled transfer from [facility] for ECT consult and treatment s/p suicide attempt with complex breavement issues. Patient reports numerous medication trials over many years without much effect Plan: CV Q 15 minute checks ECT #1 on 08/14 ECT #2 on 08/16 ECT #3 on 08/21; ECT #4 on 08/23 ECT #5 PENDING 08/26 -NPO after midnight Increased to Propranolol LA 120mg (and dc IR); pt still anxious and also w/ HTN LOWERed to nortriptyline 100 mg q.h.s. out of some concern that medication could interfere with ECT side effects; (at 150mg, -Nortriptyline level therapeutic: 102) Continue Seroquel 200 mg b.i.d.; patient says for anxiety Continue Ativan 1.5 mg b.i.d.; patient recently started on clonazepam 1 mg t.i.d. but it was switched in the ED just prior to this admission Ambien 5 mg q.h.s. HOSPITAL Course: 08/12/22 cont nortrip seroquel reviwed ect scheduled for 08/14/22 s/p suicide attempt denies active si now 08/13 pt cleared for ECT by hospitalist WILL; depressed but SI back to chronic, low level at baseline. 08/14 tolerating ECT; wants to continue. Discussed medication management and wi ll continue current regimen for now other than switching to longer acting propranolol; no known history of MAO'I which could be a possible option; discussed hypertension which patient says he has a history of; will see if BP response to propranolol adjustment 08/15 will add social anxiety order to diagnosis; interactions with parents growing up were emotionally traumatic have significantly effected his ability to have interpersonal relationships in his adult life. Started CBT exercise which resonate with patient. Waiting for nortriptyline level. BP a little better perhaps since starting long-acting propranolol; will leave for now 08/16 severe headache after ECT; sumatriptan 25 mg seem to help resolve 08/17: Headache resolved. Continue current plan. 08/18: ECT #3 on 08/21/2208/19: ECT #3 on 08/21/2208/20 remains depressed and anxious; will increase propranolol; continue with ECT 08/22 depressed, anxious; continue with treatment plan; patient hypertensive. He is ambivalent about starting antihypertensive medication but will inquire further 08/23 continue tx plan 08/24 continue treatment plan Reason for continued inpatient stay Substantial Risk for: harm to self, inability to function and rapid decompensation Time Spent With Patient Time: Total time managing care of this patient today ____ minutes.
[2022-08-24 18:00] VITALS: BP 139/96; PULSE 80; RESP 18; TEMP 36.4; O2SAT 96
[2022-08-24] MEDS: Nortriptyline HCl 25 MG CAPSULE 50 MG PO (21:58)
[2022-08-24] MEDS: traZODone HCL 50 MG TABLET PO (21:58)
[2022-08-25 08:20] VITALS: BP 130/80; PULSE 84; RESP 18; TEMP 36.6; O2SAT 96
[2022-08-25] MEDS: QUEtiapine Fumarate 200 MG TABLET PO ×2 (08:34→22:09)
[2022-08-25] MEDS: Propranolol HCL LA 60 MG CAP.SA.24H 120 MG PO (08:34)
[2022-08-25] MEDS: LORazepam 1 MG TABLET PO ×2 (08:34→22:09)
--- NOTE | 2022-08-25 11:34 | P.PNPSI_ITS ---
Subjective Subjective Date of Service: 08/25/22 Reason For Visit: Rec. Major Depression, Complex Bereavement Reacti Subjective Notes: Conditional Voluntary Interim History: continues feeling depressed; out of bed and in common area today; c/o tired; low energy; Medication Compliance: Yes Side effects from medications: No Attending Groups: Yes Review of Systems Acute medical concerns: No Medical Review of Systems: unchanged Review of Systems Review of Systems Chronic musculoskeletal pain Pt otherwise has no acute medical complaints Yes all other systems are reviewed and are negative Psychiatric: Reports depression, Reports hopelessness, Reports irritability, Reports anhedonia and Reports suicidal ideation Mental Status Exam Mental Status Exam Narrative: Pt is alert and oriented; behavior is cooperative, calm; dressed in casual attire, adequate hygiene; mood is described as tired and affect constricted, minimal eye contact; Speech is normal rate, volume and prosody and not pressured; psychomotor retardation present; thought process is organized and goal directed; Thought content is on tx; mothers ; otherwise pertinent to relevant topics and without any delusional content, paranoid ideations or gra ndiosity; intermittent, passive SI/no HI. There is no evidence of perceptual disturbance. Patients insight and judgment are impaired. Patient Appearance: Fatigued Patient Orientation: Person, Place, Time and Situation Level of Consciousness: Alert Patient Behavior: Talkative and Cooperative Mood Description: Constricted and Depressed Affect Description: Constricted, Depressed, Blunted and Flat Patient Cognition Impaired: No Ability to Follow Directions: Good Speech Pattern: Spontaneous Speech Memory Description: Intact Diagnostics Vital Signs (24Hr): Vital Signs - 24 hr 08/24/22 18:00 08/25/22 08:20 Temperature 97.6 F 97.9 F Pulse Rate 80 84 Respiratory Rate 18 18 Blood Pressure 139/96 H 130/80 Pulse Oximetry 96 96 Oxygen Delivery Method Room Air Room Air BMI result Body Mass Index 41.6 Labs 08/10/22 07:04 08/10/22 07:04 Medications Medications Current Medications Acetaminophen (Acetaminophen 325 Mg Tablet) 650 mg PO Q6H PRN PRN Reason: Headache/Pain Mild Scale (1-3) Last Admin: 08/21/22 17:03 Dose: 650 mg Al Hydroxide/Mg Hydroxide (Magnesium Hydrox/Alum Hydrox 30 Ml Oral.Susp) 30 ml PO Q6H PRN PRN Reason: Heartburn/Nausea Hydroxyzine HCl (Hydroxyzine Hcl 25 Mg Tablet) 25 mg PO Q6H PRN PRN Reason: Anxiety Last Admin: 08/10/22 21:32 Dose: 25 mg Lorazepam (Lorazepam 1 Mg Tablet) 1 mg PO BID JUAN Last Admin: 08/25/22 08:34 Dose: 1 mg Magnesium Hydroxide (Milk Of Magnesia 30 Ml Oral.Susp) 30 ml PO DAILY PRN PRN Reason: Constipation Last Admin: 08/21/22 14:12 Dose: 30 ml Nortriptyline HCl (Nortriptyline Hcl 25 Mg Capsule) 50 mg PO BEDTIME JUAN Last Admin: 08/24/22 21:58 Dose: 50 mg Propranolol HCl (Propranolol Hcl La 60 Mg Cap.Sa.24h) 120 mg PO DAILY JUAN; Protocol Last Admin: 08/25/22 08:34 Dose: 120 mg Quetiapine Fumarate (Quetiapine Fumarate 200 Mg Tablet) 200 mg PO BID JUAN Last Admin: 08/25/22 08:34 Dose: 200 mg Sumatriptan Succinate (Sumatriptan Succinate 25 Mg Tablet) 25 mg PO DAILY PRN PRN Reason: severe headache Last Admin: 08/23/22 18:00 Dose: 25 mg Trazodone HCl (Trazodone Hcl 50 Mg Tablet) 50 mg PO BEDTIME MRX1 PRN PRN Reason: Insomnia Last Admin: 08/24/22 21:58 Dose: 50 mg Allergies Allergies Allergy/AdvReac Type Severity Reaction Status Date / Time No Known Allergies Allergy Verified 08/09/22 16:14 Assessment & Plan Assessment & Plan (1) Severe recurrent major depression: Status: Acute Code(s): F33.2 - Major depressive disorder, recurrent severe without psychotic features (2) Complicated bereavement: Status: Acute Code(s): F43.21 - Adjustment disorder with depressed mood (3) Social anxiety disorder: Status: Acute Code(s): F40.10 - Social phobia, unspecified Plan 32 yo male, scheduled transfer from [facility] for ECT consult and treatment s/p suicide attempt with complex breavement issues. Patient reports numerous medication trials over many years without much effect Plan: CV Q 15 minute checks ECT #1 on 08/14 ECT #2 on 08/16 ECT #3 on 08/21; ECT #4 on 08/23 ECT #5 PENDING 08/26 -NPO after midnight Increased to Propranolol LA 120mg (and dc IR); pt still anxious and also w/ HTN LOWERed to nortriptyline 100 mg q.h.s. out of some concern that medication could interfere with ECT side effects; (at 150mg, -Nortriptyline level therapeutic: 102) Continue Seroquel 200 mg b.i.d.; patient says for anxiety Continue Ativan 1.5 mg b.i.d.; patient recently started on clonazepam 1 mg t.i.d. but it was switched in the ED just prior to this admission Ambien 5 mg q.h.s. HOSPITAL Course: 08/12/22 cont nortrip seroquel reviwed ect scheduled for 08/14/22 s/p suicide attempt denies active si now 08/13 pt cleared for ECT by hospitalist WILL; depressed but SI back to chronic, low level at baseline. 08/14 tolerating ECT; wants to continue. Discussed medication management and will continue current regimen for now other than switching to longer acting propranolol; no known history of MAO'I which could be a possible option; discussed hypertension which patient says he has a history of; will see if BP response to propranolol adjustment 08/15 will add social anxiety order to diagnosis; interactions with parents growing up were emotionally traumatic have significantly effected his ability to have interpersonal relationships in his adult life. Started CBT exercise which resonate with patient. Waiting for nortriptyline level. BP a little better perhaps since starting long-acting propranolol; will leave for now 08/16 severe headache after ECT; sumatriptan 25 mg seem to help resolve 08/17: Headache resolved. Continue current plan. 08/18: ECT #3 on 08/21/2208/19: ECT #3 on 08/21/2208/20 remains depressed and anxious; will increase propranolol; continue with ECT 08/22 depressed, anxious; continue with treatment plan; patient hypertensive. He is ambivalent about starting antihypertensive medication but will inquire further 08/23 continue tx plan 08/24 continue treatment plan 08/25 continue treatment plan Reason for continued inpatient stay Substantial Risk for: harm to self, inability to function and rapid decompensation Time Spent With Patient Time: Total time managing care of this patient today ____ minutes.
[2022-08-25 18:00] VITALS: BP 144/92; PULSE 83; RESP 18; TEMP 37.4; O2SAT 96
[2022-08-25] MEDS: traZODone HCL 50 MG TABLET PO (22:09)
[2022-08-26] VITALS (11 sets, daily range): BP systolic 115–149; BP diastolic 75–91; PULSE 82–94; RESP 11–18; TEMP 36–36.6; O2SAT 94–99
--- NOTE | 2022-08-26 06:59 | HO.ECTPROC ---
ECT Procedure Note Diagnosis/Treatment Date of Service: 08/26/22 Diagnosis: Major Depressive Disorder Previous ECT Date: 08/23/22 Current Treatment Number: 5 Treatment: Series Interval Clinical Notes: The patient reported mild headache with the last ECT. He reports some improvement of dysphoria. He took a few minutes to fall sleep with Etomidate. Usually, he awakes agitated so Propofol is given before he awakes. He received Propofol 30, then 30 and 40, very restless when he was awaking, trying to climb off the bed. Time: Total time managing care of this patient today __45__ minutes. ECT Settings Device: THYMATRON DGx Electrode Placement: Right Unilateral Program/Pulse Width: 0.25 Energy Percent: 100 Seizure Duration By EEG (in seconds): 59 By Motor Observation (in seconds): 51 Medications Administration General Anesthetic: Etomidate (16) Muscle Relaxant: Succinylcholine (120) Ancillary Medications Analgesics: Torodol - Pre ECT Anti-emetics: Zofran - Pre ECT Cardiovascular Medications: Glycopyrrolate Miscillaneous Medications: Propofol (30 mg, later 30 mg and 40 mg) and Midazolam (2 mg post ECT) Airway Management Airway Management: LMA Treatment Recommendations No Changes Recommended: No change Notes: Patient woke up slightly agitated so Propofol and Midazolam was given. When he awakes from Propofol, he usuallly is OK. He received a total of Propofol 100 mg (30, 30 and 40) Pt Tolerated Procedure w/o Issue: Yes
--- NOTE | 2022-08-26 07:01 | MHC.SHP ---
Pre-Procedural Eval Section A Date of Service: 08/26/22 The patient is an INPATIENT: Yes Changes since office visit: No Cold of Flu in the past 2 weeks, No New Medical Problems, No Changes in Medication and No Patient answered all questions The History & Physical has been completed within 30 days and I have reviewed it.: Yes Section B Chief Complaint: Rec. Major Depression, Complex Bereavement Reacti Allergies: Allergies Allergy/AdvReac Type Severity Reaction Status Date / Time No Known Allergies Allergy Verified 08/09/22 16:14 Plan I have reviewed the history and physical and performed a pertinent physical examination on my patient. No changes have occurred unless specified. Time Spent With Patient Time: Total time managing care of this patient today ____ minutes.
[2022-08-26] MEDS: Acetaminophen 325 MG TABLET 650 MG PO (08:03)
[2022-08-26] MEDS: oxyCODONE HCl Immed Release 5 MG TABLET PO (08:03)
--- NOTE | 2022-08-26 08:09 | P.CONAN_ITS ---
HPI - Anesthesia Eval Consult details Narrative: 32 yo male patient for ECT. H/o waking up agitated post ECT PMFSH Active Problems Active Problems: All Active Problems (Updated 08/15/22 @ 13:54 by Gerhard Jordan MD) Social anxiety disorder (Acute) Complicated bereavement (Acute) Severe recurrent major depression (Acute) Pre-op evaluation (Acute) Routine history and physical examination of adult (Acute) Past Medical History Medical History Complicated bereavement Severe recurrent major depression Social anxiety disorder Family History Family history of problems with anesthesia: No Surgical History History of Problems with Anesthesia: No Social History Social History Household Members: None Housing: Homeless Patient Tobacco Use Status: Never used Tobacco service: No Sexual orientation: Straight/Heterosexual Meds Allergies Allergy/AdvReac Type Severity Reaction Status Date / Time No Known Allergies Allergy Verified 08/09/22 16:14 Active Medications: Current Medications Acetaminophen (Acetaminophen 325 Mg Tablet) 650 mg PO Q6H PRN PRN Reason: Headache/Pain Mild Scale (1-3) Last Admin: 08/26/22 08:03 Dose: 650 mg Al Hydroxide/Mg Hydroxide (Magnesium Hydrox/Alum Hydrox 30 Ml Oral.Susp) 30 ml PO Q6H PRN PRN Reason: Heartburn/Nausea Hydroxyzine HCl (Hydroxyzine Hcl 25 Mg Tablet) 25 mg PO Q6H PRN PRN Reason: Anxiety Last Admin: 08/10/22 21:32 Dose: 25 mg Lorazepam (Lorazepam 1 Mg Tablet) 1 mg PO BID [facility] Last Admin: 08/25/22 22:09 Dose: 1 mg Magnesium Hydroxide (Milk Of Magnesia 30 Ml Oral.Susp) 30 ml PO DAILY PRN PRN Reason: Constipation Last Admin: 08/21/22 14:12 Dose: 30 ml Propranolol HCl (Propranolol Hcl La 60 Mg Cap.Sa.24h) 120 mg PO DAILY [facility]; Protocol Last Admin: 08/25/22 08:34 Dose: 120 mg Quetiapine Fumarate (Quetiapine Fumarate 200 Mg Tablet) 200 mg PO BID [facility] Last Admin: 08/25/22 22:09 Dose: 200 mg Sumatriptan Succinate (Sumatriptan Succinate 25 Mg Tablet) 25 mg PO DAILY PRN PRN Reason: severe headache Last Admin: 08/23/22 18:00 Dose: 25 mg Trazodone HCl (Trazodone Hcl 50 Mg Tablet) 50 mg PO BEDTIME MRX1 PRN PRN Reason: Insomnia Last Admin: 08/25/22 22:09 Dose: 50 mg Home Medications Medication Instructions Recorded Confirmed Last Taken Type ibuprofen 600 mg PO Q6H PRN Pain 08/10/22 08/10/22 Unknown History lorazepam 0.5 mg tablet 1.5 mg PO BID 08/10/22 08/10/22 08/09/22 12:15 History nortriptyline 150 mg PO BEDTIME 08/10/22 08/10/22 08/08/22 19:24 History propranolol 20 mg tablet 20 mg PO DAILY 08/10/22 08/10/22 Unknown History propranolol 20 mg tablet 20 mg PO DAILY PRN Anxiety 08/10/22 08/10/22 Unknown History quetiapine 200 mg PO BID 08/10/22 08/10/22 08/09/22 16:06 History zolpidem 10 mg PO BEDTIME PRN Sleep 08/10/22 08/10/22 08/08/22 19:25 History Exam Exam Date and Time: August 26, 2022 0809 Height,Weight and Vital Signs: Height 5 ft 10 in Weight 131.4 kg Vital Signs Temp 97.4 F 08/26/22 06:35 Pulse 87 08/26/22 06:35 Resp 16 08/26/22 06:35 BP 136/91 H 08/26/22 06:35 Pulse Ox 94 08/26/22 06:35 O2 Del Method Room Air 08/26/22 06:35 O2 Flow Rate 21% 08/26/22 06:35 Pertinent Lab Results Pertinent Lab Results: Laboratory Tests 08/10/22 08/10/22 08/10/22 07:04 07:04 07:04 WBC 7.3 RBC 5.05 Hgb 14.5 Hct 43.8 MCV 86.7 MCH 28.7 MCHC 33.1 RDW 13.5 Plt Count 236 MPV 8.4 L Immature Gran % (Auto) 0.4 Neut % (Auto) 61.4 Lymph % (Auto) 25.1 [place] % (Auto) 10.1 Eos % (Auto) 2.6 Baso % (Auto) 0.4 Lymph # (Auto) 1.8 [place] # (Auto) 0.7 Eos # (Auto) 0.2 Baso # (Auto) 0.0 Abs Immat Gran (auto) 0.03 Absolute Neuts (auto) 4.5 Absolute Nucleated RBC 0.000 Nucleated RBC % (auto) 0.0 Sodium 140 Potassium 4.3 Chloride 106 Carbon Dioxide 25 Anion Gap 13 BUN 13 Creatinine 0.86 Estim Creat Clear Calc TNP Estimated GFR > 60 Fasting Glucose 85 Estimat Average Glucose 103 Hemoglobin A1c % 5.2 Calcium 9.0 Magnesium 2.1 Total Bilirubin 0.5 AST 32 ALT 37 Alkaline Phosphatase 79 Total Protein 6.4 L Albumin 4.0 Triglycerides 171 Cholesterol 212 LDL Cholesterol, Calc 141 HDL Cholesterol 37 Vitamin B12 331 Folate 9.0 TSH 2.97 Free T4 0.82 Nortriptyline 08/10/22 07:04 WBC RBC Hgb Hct MCV MCH MCHC RDW Plt Count MPV Immature Gran % (Auto) Neut % (Auto) Lymph % (Auto) [place] % (Auto) Eos % (Auto) Baso % (Auto) Lymph # (Auto) [place] # (Auto) Eos # (Auto) Baso # (Auto) Abs Immat Gran (auto) Absolute Neuts (auto) Absolute Nucleated RBC Nucleated RBC % (auto) Sodium Potassium Chloride Carbon Dioxide Anion Gap BUN Creatinine Estim Creat Clear Calc Estimated GFR Fasting Glucose Estimat Average Glucose Hemoglobin A1c % Calcium Magnesium Total Bilirubin AST ALT Alkaline Phosphatase Total Protein Albumin Triglycerides Cholesterol LDL Cholesterol, Calc HDL Cholesterol Vitamin B12 Folate TSH Free T4 Nortriptyline 102 Airway Mallampati Class: III TM Dist: >3cm Neck ROM: Full Loose/Missing/Broken Teeth: No Heart: RRR Lungs: CTAB Assessment and Plan Assessment Anesthesia Assessment: Anesthesia Plan Discussed and Chart Reviewed Final Anesthetic Review Family History of Problems with Anesthesia: No History of Problems with Anesthesia: No NPO: Yes ASA Class: III Final Preanesthetic Review: No Changes in Pt Med Stat, Meds/Allgs Chart Reviewed, Consent Obtained/Reviewed and Anes Risks/Benef Reviewed Patient Risk: Intermediate Procedure Risk: Intermediate Assessment/Block/Sedation in SS: Assess/Block/Sedation-SS Anesthetic Plan Anesthetic Plan: GA Disposition: Standard PACU and Inp. Admit - Standard Bed
[2022-08-26] MEDS: QUEtiapine Fumarate 200 MG TABLET PO ×2 (08:39→20:34)
[2022-08-26] MEDS: Propranolol HCL LA 60 MG CAP.SA.24H 120 MG PO (08:39)
[2022-08-26] MEDS: LORazepam 1 MG TABLET PO ×2 (08:40→20:35)
--- NOTE | 2022-08-26 10:48 | HO.PSYCHPN ---
Subjective Subjective Date of Service: 08/26/22 Reason For Visit: Rec. Major Depression, Complex Bereavement Reacti Interim History: met w/ patient; discussed with team pt reports continued depression and anxiety; did not do CBT homework. Discussed reasons and pt explained tired of trying; he says he wishes the past did not have such an effect on him. Despite the effort it takes, patient said that he forces himself to shower because it is more anxiety provoking to think that he will come across as a smelly person than it is to push himself to bathe. Discussed the possibilities of the fear of trying to yadav his depression/face his past being greater than the relative comfort of continued depression. Patient said he would consider these things and also expressed the realization that he should expect to get better unless he is going to also engage, saying that he has been sitting around hoping the ECT would do all the work Mental Status Exam Mental Status Exam Narrative: Pt is alert and oriented; behavior is cooperative, calm; dressed in casual attire, balding; adequate hygiene; mood is described as depressed/anxious...tired of trying and affect little constricted eye contact appropriate; Speech is normal rate, volume and prosody and not pressured; psychomotor retardation present; thought process is organized and goal directed; Thought content is on the past, on tx, mothers ; otherwise pertinent to relevant topics and without any delusional content, paranoid ideations or grandiosity; intermittent, passive SI/no HI. There is no evidence of perceptual disturbance. Patients insight and judgment are impaired. Diagnostics Vital Signs (24Hr): Vital Signs - 24 hr 08/25/22 18:00 08/26/22 06:00 08/26/22 06:35 Temperature 99.3 F 97.3 F 97.4 F Pulse Rate 83 94 87 Respiratory Rate 18 16 16 Blood Pressure 144/92 H 138/82 136/91 H Pulse Oximetry 96 96 94 Oxygen Delivery Method Room Air Room Air Oxygen Flow Rate 08/26/22 07:41 08/26/22 07:46 08/26/22 07:51 Temperature 97.9 F Pulse Rate 91 92 93 Respiratory Rate 15 16 14 Blood Pressure 149/84 H 142/75 H 149/75 H Pulse Oximetry 97 97 98 Oxygen Delivery Method Nasal Cannula Nasal Cannula Nasal Cannula Oxygen Flow Rate 2 2 2 08/26/22 07:56 08/26/22 08:11 08/26/22 08:26 Temperature 97.3 F 96.8 F Pulse Rate 86 86 87 Respiratory Rate 11 L 16 18 Blood Pressure 149/75 H 115/83 135/84 Pulse Oximetry 98 94 99 Oxygen Delivery Method Nasal Cannula Room Air Oxygen Flow Rate 2 08/26/22 08:27 08/26/22 08:37 08/26/22 08:37 Temperature 96.8 F 96.8 F Pulse Rate 87 87 Respiratory Rate 18 18 Blood Pressure 135/84 135/84 Pulse Oximetry 99 97 99 Oxygen Delivery Method Room Air Room Air Room Air Oxygen Flow Rate 08/26/22 08:37 Temperature 96.8 F Pulse Rate 87 Respiratory Rate 18 Blood Pressure 135/84 Pulse Oximetry 99 Oxygen Delivery Method Room Air Oxygen Flow Rate BMI result Body Mass Index 41.6 Labs 08/10/22 07:04 08/10/22 07:04 Medications Medications Current Medications Acetaminophen (Acetaminophen 325 Mg Tablet) 650 mg PO Q6H PRN PRN Reason: Headache/Pain Mild Scale (1-3) Last Admin: 08/26/22 08:03 Dose: 650 mg Acetaminophen (Acetaminophen 325 Mg Tablet) 650 mg PO ONCE PRN PRN Reason: Pain, Mild (Pain Scale 1-3) Al Hydroxide/Mg Hydroxide (Magnesium Hydrox/Alum Hydrox 30 Ml Oral.Susp) 30 ml PO Q6H PRN PRN Reason: Heartburn/Nausea Hydroxyzine HCl (Hydroxyzine Hcl 25 Mg Tablet) 25 mg PO Q6H PRN PRN Reason: Anxiety Last Admin: 08/10/22 21:32 Dose: 25 mg Lorazepam (Lorazepam 1 Mg Tablet) 1 mg PO BID [facility]UAN Last Admin: 08/26/22 08:40 Dose: 1 mg Magnesium Hydroxide (Milk Of Magnesia 30 Ml Oral.Susp) 30 ml PO DAILY PRN PRN Reason: Constipation Last Admin: 08/21/22 14:12 Dose: 30 ml Ondansetron HCl (Ondansetron Hcl 4 Mg/2 Ml Vial) 4 mg IVPUSH ONCE PRN PRN Reason: Nausea and Vomiting Oxycodone HCl (Oxycodone Hcl Immed Release 5 Mg Tablet) 5 mg PO ONCE PRN PRN Reason: Pain, Severe (Pain Scale 7-10) Propranolol HCl (Propranolol Hcl La 60 Mg Cap.Sa.24h) 120 mg PO DAILY JUAN; Protocol Last Admin: 08/26/22 08:39 Dose: 120 mg Quetiapine Fumarate (Quetiapine Fumarate 200 Mg Tablet) 200 mg PO BID [facility]UAN Last Admin: 08/26/22 08:39 Dose: 200 mg Sumatriptan Succinate (Sumatriptan Succinate 25 Mg Tablet) 25 mg PO DAILY PRN PRN Reason: severe headache Last Admin: 08/23/22 18:00 Dose: 25 mg Trazodone HCl (Trazodone Hcl 50 Mg Tablet) 50 mg PO BEDTIME MRX1 PRN PRN Reason: Insomnia Last Admin: 08/25/22 22:09 Dose: 50 mg Allergies Allergies Allergy/AdvReac Type Severity Reaction Status Date / Time No Known Allergies Allergy Verified 08/09/22 16:14 Assessment & Plan Assessment & Plan (1) Severe recurrent major depression: Status: Acute Code(s): F33.2 - Major depressive disorder, recurrent severe without psychotic features (2) Complicated bereavement: Status: Acute Code(s): F43.21 - Adjustment disorder with depressed mood (3) Social anxiety disorder: Status: Acute Code(s): F40.10 - Social phobia, unspecified Plan 32 yo male, scheduled transfer from [facility] for ECT consult and treatment s/p suicide attempt with complex breavement issues. Patient reports numerous medication trials over many years without much effect Plan: CV Q 15 minute checks ECT #1 on 08/14 ECT #2 on 08/16 ECT #3 on 08/21; ECT #4 on 08/23 ECT #5 on 08/26 ECT #6 PENDING 08/28 -NPO after midnight Increased to Propranolol LA 120mg (and dc IR); pt still anxious and also w/ HTN LOWERed to nortriptyline 100 mg q.h.s. out of some concern that medication could interfere with ECT side effects; (at 150mg, -Nortriptyline level therapeutic: 102) Continue Seroquel 200 mg b.i.d.; patient says for anxiety Continue Ativan 1.5 mg b.i.d.; patient recently started on clonazepam 1 mg t.i.d. but it was switched in the ED just prior to this admission Ambien 5 mg q.h.s. HOSPITAL Course: 08/12/22 cont nortrip seroquel reviwed ect scheduled for 08/14/22 s/p suicide attempt denies active si now 08/13 pt cleared for ECT by hospitalist WILL; depressed but SI back to chronic, low level at baseline. 08/14 tolerating ECT; wants to continue. Discussed medication management and will continue current regimen for now other than switching to longer acting propranolol; no known history of MAO'I which could be a possible option; discussed hypertension which patient says he has a history of; will see if BP response to propranolol adjustment 08/15 will add social anxiety order to diagnosis; interactions with parents growing up were emotionally traumatic have significantly effected his ability to have interpersonal relationships in his adult life. Started CBT exercise which resonate with patient. Waiting for nortriptyline level. BP a little better perhaps since starting long-acting propranolol; will leave for now 08/16 severe headache after ECT; sumatriptan 25 mg seem to help resolve 08/17: Headache resolved. Continue current plan. 08/18: ECT #3 on 08/21/2208/19: ECT #3 on 08/21/2208/20 remains depressed and anxious; will increase propranolol; continue with ECT 08/22 depressed, anxious; continue with treatment plan; patient hypertensive. He is ambivalent about starting antihypertensive medication but will inquire further 08/23 continue tx plan 08/24 continue treatment plan 08/25 continue treatment plan 08/26 patient remains depressed and anxious; discussed that in order to overcome depression patient has to engage in treatment; that remaining passive, expecting ECT to do all the work is likely part of the problem. Patient seems to agree and consider the reasons he is avoiding engagement. Patient educated on: diagnosis, medication risk/benefits, ECT and therapeutic strategies Informed Consent: understands and further education needed Reason for continued inpatient stay Substantial Risk for: rapid decompensation and med/psych decompensation Time Spent With Patient Time: Total time managing care of this patient today ____ minutes.
[2022-08-26] MEDS: traZODone HCL 50 MG TABLET PO (20:34)
[2022-08-26] MEDS: Nortriptyline HCl 25 MG CAPSULE 50 MG PO (20:34)
[2022-08-26] MEDS: Zolpidem Tartrate 5 MG TABLET PO (20:34)
[2022-08-27 06:00] VITALS: BP 129/86; PULSE 89; RESP 16; TEMP 36.6; O2SAT 94
[2022-08-27] MEDS: Propranolol HCL LA 60 MG CAP.SA.24H 120 MG PO (08:04)
[2022-08-27] MEDS: LORazepam 1 MG TABLET PO ×2 (08:04→20:16)
[2022-08-27] MEDS: QUEtiapine Fumarate 200 MG TABLET PO ×2 (08:04→20:16)
--- NOTE | 2022-08-27 10:29 | P.PNPSI_ITS ---
Subjective Subjective Date of Service: 08/27/22 Reason For Visit: Rec. Major Depression, Complex Bereavement Reacti Subjective Notes: Conditional Voluntary Interim History: Patient flat somewhat isolative no clear improvement continues to be rigid in thinking in a way that accentuates any negative denies active self-harm per remains constricted hopeless helpless difficulty seeing clear future or ambition discussed changing ECT techniques to bilateral Medication Compliance: Yes Attending Groups: Intermittent Mental Status Exam Mental Status Exam Patient Appearance: Fatigued Patient Orientation: Person, Place, Time and Situation Level of Consciousness: Alert Patient Behavior: Talkative and Cooperative Mood Description: Constricted and Depressed Affect Description: Constricted, Depressed, Blunted and Flat Patient Cognition Impaired: No Ability to Follow Directions: Good Speech Pattern: Spontaneous Speech Memory Description: Intact Thought Content: positive for Poverty of Content Depressive Symptoms: Increased Anxiety, Diff. Making Decisions, Hopelessness, Isolating-Friends/Family and Thoughts of /Suicide Abnormal Motor Activity Signs and Symptoms: Psychomotor Retardation Judgement: Fair Diagnostics Vital Signs (24Hr): Vital Signs - 24 hr 08/26/22 18:57 08/27/22 06:00 Temperature 97.7 F 98 F Pulse Rate 82 89 Respiratory Rate 16 Blood Pressure 130/81 129/86 Pulse Oximetry 94 Oxygen Delivery Method Room Air BMI result Body Mass Index 41.6 Labs 08/10/22 07:04 08/10/22 07:04 Medications Medications Current Medications Acetaminophen (Acetaminophen 325 Mg Tablet) 650 mg PO Q6H PRN PRN Reason: Headache/Pain Mild Scale (1-3) Last Admin: 08/26/22 08:03 Dose: 650 mg Acetaminophen (Acetaminophen 325 Mg Tablet) 650 mg PO ONCE PRN PRN Reason: Pain, Mild (Pain Scale 1-3) Al Hydroxide/Mg Hydroxide (Magnesium Hydrox/Alum Hydrox 30 Ml Oral.Susp) 30 ml PO Q6H PRN PRN Reason: Heartburn/Nausea Hydroxyzine HCl (Hydroxyzine Hcl 25 Mg Tablet) 25 mg PO Q6H PRN PRN Reason: Anxiety Last Admin: 08/10/22 21:32 Dose: 25 mg Lorazepam (Lorazepam 1 Mg Tablet) 1 mg PO BID JUAN Last Admin: 08/27/22 08:04 Dose: 1 mg Magnesium Hydroxide (Milk Of Magnesia 30 Ml Oral.Susp) 30 ml PO DAILY PRN PRN Reason: Constipation Last Admin: 08/21/22 14:12 Dose: 30 ml Nortriptyline HCl (Nortriptyline Hcl 25 Mg Capsule) 50 mg PO BEDTIME JUAN Last Admin: 08/26/22 20:34 Dose: 50 mg Oxycodone HCl (Oxycodone Hcl Immed Release 5 Mg Tablet) 5 mg PO ONCE PRN PRN Reason: Pain, Severe (Pain Scale 7-10) Propranolol HCl (Propranolol Hcl La 60 Mg Cap.Sa.24h) 120 mg PO DAILY JUAN; Pr otocol Last Admin: 08/27/22 08:04 Dose: 120 mg Quetiapine Fumarate (Quetiapine Fumarate 200 Mg Tablet) 200 mg PO BID JUAN Last Admin: 08/27/22 08:04 Dose: 200 mg Sumatriptan Succinate (Sumatriptan Succinate 25 Mg Tablet) 25 mg PO DAILY PRN PRN Reason: severe headache Last Admin: 08/23/22 18:00 Dose: 25 mg Trazodone HCl (Trazodone Hcl 50 Mg Tablet) 50 mg PO BEDTIME MRX1 PRN PRN Reason: Insomnia Last Admin: 08/26/22 20:34 Dose: 50 mg Zolpidem Tartrate (Zolpidem Tartrate 5 Mg Tablet) 5 mg PO BEDTIME PRN PRN Reason: Insomnia Last Admin: 08/26/22 20:34 Dose: 5 mg Allergies Allergies Allergy/AdvReac Type Severity Reaction Status Date / Time No Known Allergies Allergy Verified 08/09/22 16:14 Assessment & Plan Assessment & Plan (1) Severe recurrent major depression: Status: Acute Code(s): F33.2 - Major depressive disorder, recurrent severe without psychotic features (2) Complicated bereavement: Status: Acute Code(s): F43.21 - Adjustment disorder with depressed mood (3) Social anxiety disorder: Status: Acute Code(s): F40.10 - Social phobia, unspecified Plan 32 yo male, scheduled transfer from [facility] for ECT consult and treatment s/p suicide attempt with complex breavement issues. Patient reports numerous medication trials over many years without much effect Plan: CV Q 15 minute checks ECT #1 on 08/14 ECT #2 on 08/16 ECT #3 on 08/21; ECT #4 on 08/23 ECT #5 on 08/26 ECT #6 PENDING 08/28 -NPO after midnight Increased to Propranolol LA 120mg (and dc IR); pt still anxious and also w/ HTN LOWERed to nortriptyline 100 mg q.h.s. out of some concern that medication could interfere with ECT side effects; (at 150mg, -Nortriptyline level therapeutic: 102) Continue Seroquel 200 mg b.i.d.; patient says for anxiety Continue Ativan 1.5 mg b.i.d.; patient recently started on clonazepam 1 mg t.i.d. but it was switched in the ED just prior to this admission Ambien 5 mg q.h.s. HOSPITAL Course: 08/12/22 cont nortrip seroquel reviwed ect scheduled for 08/14/22 s/p suicide attempt denies active si now 08/13 pt cleared for ECT by hospitalist WILL; depressed but SI back to chronic, low level at baseline. 08/14 tolerating ECT; wants to continue. Discussed medication management and will continue current regimen for now other than switching to longer acting propranolol; no known history of MAO'I which could be a possible option; discussed hypertension which patient says he has a history of; will see if BP response to propranolol adjustment 08/15 will add social anxiety order to diagnosis; interactions with parents growing up were emotionally traumatic have significantly effected his ability to have interpersonal relationships in his adult life. Started CBT exercise which resonate with patient. Waiting for nortriptyline level. BP a little better perhaps since starting long-acting propranolol; will leave for now 08/16 severe headache after ECT; sumatriptan 25 mg seem to help resolve 08/17: Headache resolved. Continue current plan. 08/18: ECT #3 on 08/21/2208/19: ECT #3 on 08/21/2208/20 remains depressed and anxious; will increase propranolol; continue with ECT 08/22 depressed, anxious; continue with treatment plan; patient hypertensive. He is ambivalent about starting antihypertensive medication but will inquire further 08/23 continue tx plan 08/24 continue treatment plan 08/25 continue treatment plan 08/26 patient remains depressed and anxious; discussed that in order to overcome depression patient has to engage in treatment; that remaining passive, expecting ECT to do all the work is likely part of the problem. Patient seems to agree and consider the reasons he is avoiding engagement. 08/27/2022 Patient would benefit from clear cognitive behavioral strategies. Change ECT to bilateral would consider MAO I Denies active self-harm Reason for continued inpatient stay Substantial Risk for: harm to self and rapid decompensation Time Spent With Patient Time: Total time managing care of this patient today ____ minutes.
[2022-08-27 16:30] VITALS: BP 134/89; PULSE 74; TEMP 36.2
[2022-08-27] MEDS: Zolpidem Tartrate 5 MG TABLET PO (20:16)
[2022-08-27] MEDS: traZODone HCL 50 MG TABLET PO (20:16)
[2022-08-27] MEDS: Nortriptyline HCl 25 MG CAPSULE 50 MG PO (20:17)
[2022-08-28] VITALS (9 sets, daily range): BP systolic 116–143; BP diastolic 68–98; PULSE 8–108; RESP 12–18; TEMP 36.4–36.8; O2SAT 92–99
--- NOTE | 2022-08-28 07:02 | MHC.SHP ---
Pre-Procedural Eval Section A Date of Service: 08/28/22 The patient is an INPATIENT: Yes Changes since office visit: No Cold of Flu in the past 2 weeks, No New Medical Problems, No Changes in Medication and No Patient answered all questions The History & Physical has been completed within 30 days and I have reviewed it.: Yes Section B Chief Complaint: Rec. Major Depression, Complex Bereavement Reacti Allergies: Allergies Allergy/AdvReac Type Severity Reaction Status Date / Time No Known Allergies Allergy Verified 08/09/22 16:14 Plan I have reviewed the history and physical and performed a pertinent physical examination on my patient. No changes have occurred unless specified. Time Spent With Patient Time: Total time managing care of this patient today ____ minutes.
--- NOTE | 2022-08-28 07:02 | HO.ECTPROC ---
ECT Procedure Note Diagnosis/Treatment Date of Service: 08/28/22 Diagnosis: Major Depressive Disorder Previous ECT Date: 08/26/22 Current Treatment Number: 6 Treatment: Series Interval Clinical Notes: The patient reported no satinder ges on his mood yet. Still, he had a headache after the procedure even though that I gave him Oxycodone 5 mg after the procedure; I increased Oxycodone to 10 mg post seizure for headache. We have not used Flumazenil. Usually, he wakes up agitated but easily managed. Time: Total time managing care of this patient today _30___ minutes. ECT Settings Device: THYMATRON DGx Electrode Placement: Right Unilateral Program/Pulse Width: 0.25 Energy Percent: 90 Seizure Duration By EEG (in seconds): 59 By Motor Observation (in seconds): 58 Medications Administration General Anesthetic: Etomidate (16) Muscle Relaxant: Succinylcholine (120) Ancillary Medications Analgesics: Torodol - Pre ECT Anti-emetics: Zofran - Pre ECT Miscillaneous Medications: Propofol, Midazolam and Other (Oxycodone 10 mg po when awaken) Airway Management Airway Management: LMA Treatment Recommendations Electrode Placement: Right Unilateral Program/Pulse Width: 0.25 Energy Percent: 80 Notes: The patient has usually seizures over 50s, he did a good seizure with 90%, probably, he would do better with 80% with less headaches and agitation. Pt Tolerated Procedure w/o Issue: Yes
--- NOTE | 2022-08-28 07:43 | P.CONAN_ITS ---
[facility] Active Problems Active Problems: All Active Problems (Updated 08/15/22 @ 13:54 by Gerhard Jordan MD) Social anxiety disorder (Acute) Complicated bereavement (Acute) Severe recurrent major depression (Acute) Pre-op evaluation (Acute) Routine history and physical examination of adult (Acute) Past Medical History Medical History Complicated bereavement Severe recurrent major depression Social anxiety disorder Family History Family history of problems with anesthesia: No Surgical History History of Problems with Anesthesia: No Social History Social History Household Members: None Housing: Homeless Patient Tobacco Use Status: Never used Tobacco service: No Sexual orientation: Straight/Heterosexual Meds Allergies Allergy/AdvReac Type Severity Reaction Status Date / Time No Known Allergies Allergy Verified 08/09/22 16:14 Active Medications: Current Medications Acetaminophen (Acetaminophen 325 Mg Tablet) 650 mg PO Q6H PRN PRN Reason: Headache/Pain Mild Scale (1-3) Last Admin: 08/26/22 08:03 Dose: 650 mg Acetaminophen (Acetaminophen 325 Mg Tablet) 650 mg PO ONCE PRN PRN Reason: Pain, Mild (Pain Scale 1-3) Al Hydroxide/Mg Hydroxide (Magnesium Hydrox/Alum Hydrox 30 Ml Oral.Susp) 30 ml PO Q6H PRN PRN Reason: Heartburn/Nausea Hydroxyzine HCl (Hydroxyzine Hcl 25 Mg Tablet) 25 mg PO Q6H PRN PRN Reason: Anxiety Last Admin: 08/10/22 21:32 Dose: 25 mg Lactated Ringer's (Lr) 1,000 mls @ 50 mls/hr IVCONT .Q20H JUAN Lorazepam (Lorazepam 1 Mg Tablet) 1 mg PO BID JUAN Last Admin: 08/27/22 20:16 Dose: 1 mg Magnesium Hydroxide (Milk Of Magnesia 30 Ml Oral.Susp) 30 ml PO DAILY PRN PRN Reason: Constipation Last Admin: 08/21/22 14:12 Dose: 30 ml Nortriptyline HCl (Nortriptyline Hcl 25 Mg Capsule) 50 mg PO BEDTIME JUAN Last Admin: 08/27/22 20:17 Dose: 50 mg Oxycodone HCl (Oxycodone Hcl Immed Release 5 Mg Tablet) 5 mg PO ONCE PRN PRN Reason: Pain, Severe (Pain Scale 7-10) Propranolol HCl (Propranolol Hcl La 60 Mg Cap.Sa.24h) 120 mg PO DAILY JUAN; Protocol Last Admin: 08/27/22 08:04 Dose: 120 mg Quetiapine Fumarate (Quetiapine Fumarate 200 Mg Tablet) 200 mg PO BID JUAN Last Admin: 08/27/22 20:16 Dose: 200 mg Sumatriptan Succinate (Sumatriptan Succinate 25 Mg Tablet) 25 mg PO DAILY PRN PRN Reason: severe headache Last Admin: 08/23/22 18:00 Dose: 25 mg Trazodone HCl (Trazodone Hcl 50 Mg Tablet) 50 mg PO BEDTIME MRX1 PRN PRN Reason: Insomnia Last Admin: 08/27/22 20:16 Dose: 50 mg Zolpidem Tartrate (Zolpidem Tartrate 5 Mg Tablet) 5 mg PO BEDTIME PRN PRN Reason: Insomnia Last Admin: 08/27/22 20:16 Dose: 5 mg Home Medications Medication Instructions Recorded Confirmed Last Taken Type ibuprofen 600 mg PO Q6H PRN Pain 08/10/22 08/10/22 Unknown History lorazepam 0.5 mg tablet 1.5 mg PO BID 08/10/22 08/10/22 08/09/22 12:15 History nortriptyline 150 mg PO BEDTIME 08/10/22 08/10/22 08/08/22 19:24 History propranolol 20 mg tablet 20 mg PO DAILY 08/10/22 08/10/22 Unknown History propranolol 20 mg tablet 20 mg PO DAILY PRN Anxiety 08/10/22 08/10/22 Unknown History quetiapine 200 mg PO BID 08/10/22 08/10/22 08/09/22 16:06 History zolpidem 10 mg PO BEDTIME PRN Sleep 08/10/22 08/10/22 08/08/22 19:25 History Exam Exam Date and Time: August 28, 2022 0743 Height,Weight and Vital Signs: Height 5 ft 10 in Weight 131.4 kg Last Vital Signs Temp 98.3 F 08/28/22 07:38 Pulse 96 08/28/22 07:38 Resp 16 08/28/22 07:38 BP 143/98 H 08/28/22 07:38 Pulse Ox 92 08/28/22 07:38 O2 Del Method Room Air 08/28/22 07:38 O2 Flow Rate 2 08/26/22 07:56 Pertinent Lab Results Pertinent Lab Results: Laboratory Tests 08/10/22 08/10/22 08/10/22 07:04 07:04 07:04 WBC 7.3 RBC 5.05 Hgb 14.5 Hct 43.8 MCV 86.7 MCH 28.7 MCHC 33.1 RDW 13.5 Plt Count 236 MPV 8.4 L Immature Gran % (Auto) 0.4 Neut % (Auto) 61.4 Lymph % (Auto) 25.1 [place] % (Auto) 10.1 Eos % (Auto) 2.6 Baso % (Auto) 0.4 Lymph # (Auto) 1.8 [place] # (Auto) 0.7 Eos # (Auto) 0.2 Baso # (Auto) 0.0 Abs Immat Gran (auto) 0.03 Absolute Neuts (auto) 4.5 Absolute Nucleated RBC 0.000 Nucleated RBC % (auto) 0.0 Sodium 140 Potassium 4.3 Chloride 106 Carbon Dioxide 25 Anion Gap 13 BUN 13 Creatinine 0.86 Estim Creat Clear Calc TNP Estimated GFR > 60 Fasting Glucose 85 Estimat Average Glucose 103 Hemoglobin A1c % 5.2 Calcium 9.0 Magnesium 2.1 Total Bilirubin 0.5 AST 32 ALT 37 Alkaline Phosphatase 79 Total Protein 6.4 L Albumin 4.0 Triglycerides 171 Cholesterol 212 LDL Cholesterol, Calc 141 HDL Cholesterol 37 Vitamin B12 331 Folate 9.0 TSH 2.97 Free T4 0.82 Nortriptyline 08/10/22 07:04 WBC RBC Hgb Hct MCV MCH MCHC RDW Plt Count MPV Immature Gran % (Auto) Neut % (Auto) Lymph % (Auto) [place] % (Auto) Eos % (Auto) Baso % (Auto) Lymph # (Auto) [place] # (Auto) Eos # (Auto) Baso # (Auto) Abs Immat Gran (auto) Absolute Neuts (auto) Absolute Nucleated RBC Nucleated RBC % (auto) Sodium Potassium Chloride Carbon Dioxide Anion Gap BUN Creatinine Estim Creat Clear Calc Estimated GFR Fasting Glucose Estimat Average Glucose Hemoglobin A1c % Calcium Magnesium Total Bilirubin AST ALT Alkaline Phosphatase Total Protein Albumin Triglycerides Cholesterol LDL Cholesterol, Calc HDL Cholesterol Vitamin B12 Folate TSH Free T4 Nortriptyline 102 Airway Mallampati Class: III TM Dist: >3cm Neck ROM: Full Heart: rrr Lungs: cta Assessment and Plan Assessment Anesthesia Assessment: Anesthesia Plan Discussed and Chart Reviewed Final Anesthetic Review Family History of Problems with Anesthesia: No History of Problems with Anesthesia: No NPO: Yes ASA Class: III Final Preanesthetic Review: No Changes in Pt Med Stat, Meds/Allgs Chart Reviewed and Consent Obtained/Reviewed Patient Risk: Intermediate Procedure Risk: Intermediate Anesthetic Plan Anesthetic Plan: GA Disposition: Standard PACU
[2022-08-28] MEDS: oxyCODONE HCl Immed Release 5 MG TABLET 10 MG PO (07:59)
[2022-08-28] MEDS: Propranolol HCL LA 60 MG CAP.SA.24H 120 MG PO (08:37)
[2022-08-28] MEDS: QUEtiapine Fumarate 200 MG TABLET PO ×2 (08:38→19:27)
[2022-08-28] MEDS: LORazepam 1 MG TABLET PO ×2 (08:38→19:27)
--- NOTE | 2022-08-28 17:13 | HO.PSYCHPN ---
Subjective Subjective Date of Service: 08/28/22 Reason For Visit: Rec. Major Depression, Complex Bereavement Reacti Subjective Notes: Conditional Voluntary Interim History: Patient remains depressed and flat had ECT 6. Had not been changed to bilateral by Dr. Gonzáles secondary to concerns regarding postop delirium Mental Status Exam Mental Status Exam Patient Appearance: Fatigued Patient Orientation: Person, Place, Time and Situation Level of Consciousness: Alert Patient Behavior: Talkative and Cooperative Mood Description: Constricted and Depressed Affect Description: Constricted, Depressed, Blunted and Flat Patient Cognition Impaired: No Ability to Follow Directions: Good Speech Pattern: Spontaneous Speech Memory Description: Intact Thought Content: positive for Poverty of Content Depressive Symptoms: Increased Anxiety, Diff. Making Decisions, Hopelessness, Isolating-Friends/Family and Thoughts of /Suicide Abnormal Motor Activity Signs and Symptoms: Psychomotor Retardation Judgement: Fair Diagnostics Vital Signs (24Hr): Vital Signs - 24 hr 08/28/22 06:14 08/28/22 06:30 08/28/22 07:38 Temperature 98.1 F 97.5 F 98.3 F Pulse Rate 86 8 L 96 Respiratory Rate 18 16 16 Blood Pressure 132/85 130/96 H 143/98 H Pulse Oximetry 99 95 92 Oxygen Delivery Method Room Air Room Air Oxygen Flow Rate 08/28/22 07:43 08/28/22 07:48 08/28/22 07:53 Temperature Pulse Rate 108 H 89 92 Respiratory Rate 16 17 12 Blood Pressure 116/84 125/78 122/68 Pulse Oximetry 94 96 98 Oxygen Delivery Method Nasal Cannula Nasal Cannula Nasal Cannula Oxygen Flow Rate 2 2 2 08/28/22 08:08 08/28/22 08:35 Temperature 98.3 F 97.8 F Pulse Rate 89 81 Respiratory Rate 16 16 Blood Pressure 123/81 131/97 H Pulse Oximetry 95 94 Oxygen Delivery Method Oxygen Flow Rate BMI result Body Mass Index 41.6 Labs 08/10/22 07:04 08/10/22 07:04 Medications Medications Current Medications Acetaminophen (Acetaminophen 325 Mg Tablet) 650 mg PO Q6H PRN PRN Reason: Headache/Pain Mild Scale (1-3) Last Admin: 08/26/22 08:03 Dose: 650 mg Acetaminophen (Acetaminophen 325 Mg Tablet) 650 mg PO ONCE PRN PRN Reason: Pain, Mild (Pain Scale 1-3) Al Hydroxide/Mg Hydroxide (Magnesium Hydrox/Alum Hydrox 30 Ml Oral.Susp) 30 ml PO Q6H PRN PRN Reason: Heartburn/Nausea Hydroxyzine HCl (Hydroxyzine Hcl 25 Mg Tablet) 25 mg PO Q6H PRN PRN Reason: Anxiety Last Admin: 08/10/22 21:32 Dose: 25 mg Lorazepam (Lorazepam 1 Mg Tablet) 1 mg PO BID JUAN Last Admin: 08/28/22 08:38 Dose: 1 mg Magnesium Hydroxide (Milk Of Magnesia 30 Ml Oral.Susp) 30 ml PO DAILY PRN PRN Reason: Constipation Last Admin: 08/21/22 14:12 Dose: 30 ml Nortriptyline HCl (Nortriptyline Hcl 25 Mg Capsule) 50 mg PO BEDTIME JUAN Last Admin: 08/27/22 20:17 Dose: 50 mg Oxycodone HCl (Oxycodone Hcl Immed Release 5 Mg Tablet) 5 mg PO ONCE PRN PRN Reason: Pain, Severe (Pain Scale 7-10) Propranolol HCl (Propranolol Hcl La 60 Mg Cap.Sa.24h) 120 mg PO DAILY [facility]; Protocol Last Admin: 08/28/22 08:37 Dose: 120 mg Quetiapine Fumarate (Quetiapine Fumarate 200 Mg Tablet) 200 mg PO BID [facility] Last Admin: 08/28/22 08:38 Dose: 200 mg Sumatriptan Succinate (Sumatriptan Succinate 25 Mg Tablet) 25 mg PO DAILY PRN PRN Reason: severe headache Last Admin: 08/23/22 18:00 Dose: 25 mg Trazodone HCl (Trazodone Hcl 50 Mg Tablet) 50 mg PO BEDTIME MRX1 PRN PRN Reason: Insomnia Last Admin: 08/27/22 20:16 Dose: 50 mg Zolpidem Tartrate (Zolpidem Tartrate 5 Mg Tablet) 5 mg PO BEDTIME PRN PRN Reason: Insomnia Last Admin: 08/27/22 20:16 Dose: 5 mg Allergies Allergies Allergy/AdvReac Type Severity Reaction Status Date / Time No Known Allergies Allergy Verified 08/09/22 16:14 Assessment & Plan Assessment & Plan (1) Severe recurrent major depression: Status: Acute Code(s): F33.2 - Major depressive disorder, recurrent severe without psychotic features (2) Complicated bereavement: Status: Acute Code(s): F43.21 - Adjustment disorder with depressed mood (3) Social anxiety disorder: Status: Acute Code(s): F40.10 - Social phobia, unspecified Plan 32 yo male, scheduled transfer from [facility] for ECT consult and treatment s/p suicide attempt with complex breavement issues. Patient reports numerous medication trials over many years without much effect Plan: CV Q 15 minute checks ECT #1 on 08/14 ECT #2 on 08/16 ECT #3 on 08/21; ECT #4 on 08/23 ECT #5 on 08/26 ECT #6 PENDING 08/28 -NPO after midnight Increased to Propranolol LA 120mg (and dc IR); pt still anxious and also w/ HTN LOWERed to nortriptyline 100 mg q.h.s. out of some concern that medication could interfere with ECT side effects; (at 150mg, -Nortriptyline level therapeutic: 102) Continue Seroquel 200 mg b.i.d.; patient says for anxiety Continue Ativan 1.5 mg b.i.d.; patient recently started on clonazepam 1 mg t.i.d. but it was switched in the ED just prior to this admission Ambien 5 mg q.h.s. HOSPITAL Course: 08/12/22 cont nortrip seroquel reviwed ect scheduled for 08/14/22 s/p suicide attempt denies active si now 08/13 pt cleared for ECT by hospitalist WILL; depressed but SI back to chronic, low level at baseline. 08/14 tolerating ECT; wants to continue. Discussed medication management and will continue current regimen for now other than switching to longer acting propranolol; no known history of MAO'I which could be a possible option; discussed hypertension which patient says he has a history of; will see if BP response to propranolol adjustment 08/15 will add social anxiety order to diagnosis; interactions with parents growing up were emotionally traumatic have significantly effected his ability to have interpersonal relationships in his adult life. Started CBT exercise which resonate with patient. Waiting for nortriptyline level. BP a little better perhaps since starting long-acting propranolol; will leave for now 08/16 severe headache after ECT; sumatriptan 25 mg seem to help resolve 08/17: Headache resolved. Continue current plan. 08/18: ECT #3 on 08/21/2208/19: ECT #3 on 08/21/2208/20 remains depressed and anxious; will increase propranolol; continue with ECT 08/22 depressed, anxious; continue with treatment plan; patient hypertensive. He is ambivalent about starting antihypertensive medication but will inquire further 08/23 continue tx plan 08/24 continue treatment plan 08/25 continue treatment plan 08/26 patient remains depressed and anxious; discussed that in order to overcome depression patient has to engage in treatment; that remaining passive, expecting ECT to do all the work is likely part of the problem. Patient seems to agree and consider the reasons he is avoiding engagement. 08/27/2022 Patient would benefit from clear cognitive behavioral strategies. Change ECT to bilateral would consider MAO I Denies active self-harm 08/28/2022 Will change to bifrontal or right temporal left frontal next treatment would benefit from more active engagement in behavioral activation and CBT strategies. Might benefit from alternative to Seroquel such as Abilify Rexulti is something that tending to be somewhat more stimulating and might augment nortriptyline with Trintellix Reason for continued inpatient stay Substantial Risk for: harm to self Time Spent With Patient Time: Total time managing care of this patient today ____ minutes.
[2022-08-28] MEDS: Acetaminophen 325 MG TABLET 650 MG PO (17:54)
[2022-08-28] MEDS: Nortriptyline HCl 25 MG CAPSULE 50 MG PO (19:27)
[2022-08-28] MEDS: Zolpidem Tartrate 5 MG TABLET PO (20:01)
[2022-08-28] MEDS: traZODone HCL 50 MG TABLET PO (20:01)
[2022-08-29 07:00] VITALS: BMI 41.3
[2022-08-29 08:20] VITALS: BP 133/66; PULSE 98; RESP 18; TEMP 36.3; O2SAT 95
[2022-08-29] MEDS: Propranolol HCL LA 60 MG CAP.SA.24H 120 MG PO (08:48)
[2022-08-29] MEDS: LORazepam 1 MG TABLET PO ×2 (08:48→21:03)
[2022-08-29] MEDS: QUEtiapine Fumarate 200 MG TABLET PO ×2 (08:49→21:04)
[2022-08-29] MEDS: Acetaminophen 325 MG TABLET 650 MG PO ×2 (08:51→21:04)
--- NOTE | 2022-08-29 10:41 | HO.PSYCHPN ---
Subjective Subjective Date of Service: 08/29/22 Reason For Visit: Rec. Major Depression, Complex Bereavement Reacti Interim History: met with pt; discussed with team; reviewed notes pt says he's the same; no change in depression or anxiety. Has not done any CBT exercises. Pt says he just did not want to; does not want to think about that stuff. Pt agrees that being depressed is more comfortable rather than discussing issues that bother him. Pt agrees he needs to make a decision on what is worse, the depression or facing unpleasant thoughts. Mental Status Exam Mental Status Exam Narrative: Pt is alert and oriented; behavior is cooperative, calm; dressed in casual attire, balding; adequate hygiene; mood is described as depressed/anxious...tired of trying and affect little constricted eye contact appropriate; Speech is normal rate, volume and prosody and not pressured; psychomotor retardation present; thought process is organized and goal directed; Thought content is on the past, on tx, mothers ; otherwise pertinent to relevant topics and without any delusional content, paranoid ideations or grandiosity; intermittent, passive SI/no HI. There is no evidence of perceptual disturbance. Patients insight and judgment are impaired. Diagnostics Vital Signs (24Hr): Vital Signs - 24 hr 08/28/22 18:00 08/29/22 08:20 Temperature 97.6 F 97.3 F Pulse Rate 82 98 Respiratory Rate 16 18 Blood Pressure 128/81 133/66 Pulse Oximetry 98 95 Oxygen Delivery Method Room Air Room Air BMI result Body Mass Index 41.6 Labs 08/10/22 07:04 08/10/22 07:04 Medications Medications Current Medications Acetaminophen (Acetaminophen 325 Mg Tablet) 650 mg PO Q6H PRN PRN Reason: Headache/Pain Mild Scale (1-3) Last Admin: 08/29/22 08:51 Dose: 650 mg Acetaminophen (Acetaminophen 325 Mg Tablet) 650 mg PO ONCE PRN PRN Reason: Pain, Mild (Pain Scale 1-3) Al Hydroxide/Mg Hydroxide (Magnesium Hydrox/Alum Hydrox 30 Ml Oral.Susp) 30 ml PO Q6H PRN PRN Reason: Heartburn/Nausea Hydroxyzine HCl (Hydroxyzine Hcl 25 Mg Tablet) 25 mg PO Q6H PRN PRN Reason: Anxiety Last Admin: 08/10/22 21:32 Dose: 25 mg Lorazepam (Lorazepam 1 Mg Tablet) 1 mg PO BID [facility] Last Admin: 08/29/22 08:48 Dose: 1 mg Magnesium Hydroxide (Milk Of Magnesia 30 Ml Oral.Susp) 30 ml PO DAILY PRN PRN Reason: Constipation Last Admin: 08/21/22 14:12 Dose: 30 ml Nortriptyline HCl (Nortriptyline Hcl 25 Mg Capsule) 50 mg PO BEDTIME [facility] Last Admin: 08/28/22 19:27 Dose: 50 mg Oxycodone HCl (Oxycodone Hcl Immed Release 5 Mg Tablet) 5 mg PO ONCE PRN PRN Reason: Pain, Severe (Pain Scale 7-10) Propranolol HCl (Propranolol Hcl La 60 Mg Cap.Sa.24h) 120 mg PO DAILY [facility]; Protocol Last Admin: 08/29/22 08:48 Dose: 120 mg Quetiapine Fumarate (Quetiapine Fumarate 200 Mg Tablet) 200 mg PO BID [facility] Last Admin: 08/29/22 08:49 Dose: 200 mg Sumatriptan Succinate (Sumatriptan Succinate 25 Mg Tablet) 25 mg PO DAILY PRN PRN Reason: severe headache Last Admin: 08/23/22 18:00 Dose: 25 mg Trazodone HCl (Trazodone Hcl 50 Mg Tablet) 50 mg PO BEDTIME MRX1 PRN PRN Reason: Insomnia Last Admin: 08/28/22 20:01 Dose: 50 mg Zolpidem Tartrate (Zolpidem Tartrate 5 Mg Tablet) 5 mg PO BEDTIME PRN PRN Reason: Insomnia Last Admin: 08/28/22 20:01 Dose: 5 mg Allergies Allergies Allergy/AdvReac Type Severity Reaction Status Date / Time No Known Allergies Allergy Verified 08/09/22 16:14 Assessment & Plan Assessment & Plan (1) Severe recurrent major depression: Status: Acute Code(s): F33.2 - Major depressive disorder, recurrent severe without psychotic features (2) Complicated bereavement: Status: Acute Code(s): F43.21 - Adjustment disorder with depressed mood (3) Social anxiety disorder: Status: Acute Code(s): F40.10 - Social phobia, unspecified Plan 32 yo male, scheduled transfer from [facility] for ECT consult and treatment s/p suicide attempt with complex breavement issues. Patient reports numerous medication trials over many years without much effect Plan: CV Q 15 minute checks ECT #1 on 08/14 ECT #2 on 08/16 ECT #3 on 08/21; ECT #4 on 08/23 ECT #5 on 08/26 ECT #6 on 08/28 ECT #7 PENDING 08/30 -NPO after midnight Increased to Propranolol LA 120mg (and dc IR); pt still anxious and also w/ HTN LOWERed to nortriptyline 100 mg q.h.s. out of some concern that medication could interfere with ECT side effects; (at 150mg, -Nortriptyline level therapeutic: 102) Continue Seroquel 200 mg b.i.d.; patient says for anxiety Continue Ativan 1.5 mg b.i.d.; patient recently started on clonazepam 1 mg t.i.d. but it was switched in the ED just prior to this admission Ambien 5 mg q.h.s. HOSPITAL Course: 08/12/22 cont nortrip seroquel reviwed ect scheduled for 08/14/22 s/p suicide attempt denies active si now 08/13 pt cleared for ECT by hospitalist WILL; depressed but SI back to chronic, low level at baseline. 08/14 tolerating ECT; wants to continue. Discussed medication management and will continue current regimen for now other than switching to longer acting propranolol; no known history of MAO'I which could be a possible option; discussed hypertension which patient says he has a history of; will see if BP response to propranolol adjustment 08/15 will add social anxiety order to diagnosis; interactions with parents growing up were emotionally traumatic have significantly effected his ability to have interpersonal relationships in his adult life. Started CBT exercise which resonate with patient. Waiting for nortriptyline level. BP a little better perhaps since starting long-acting propranolol; will leave for now 08/16 severe headache after ECT; sumatriptan 25 mg seem to help resolve 08/17: Headache resolved. Continue current plan. 08/18: ECT #3 on 08/21/2208/19: ECT #3 on 08/21/2208/20 remains depressed and anxious; will increase propranolol; continue with ECT 08/22 depressed, anxious; continue with treatment plan; patient hypertensive. He is ambivalent about starting antihypertensive medication but will inquire further 08/23 continue tx plan 08/24 continue treatment plan 08/25 continue treatment plan 08/26 patient remains depressed and anxious; discussed that in order to overcome depression patient has to engage in treatment; that remaining passive, expecting ECT to do all the work is likely part of the problem. Patient seems to agree and consider the reasons he is avoiding engagement. 08/27/2022 Patient would benefit from clear cognitive behavioral strategies. Change ECT to bilateral would consider MAO I Denies active self-harm Patient educated on: diagnosis, ECT and therapeutic strategies Informed Consent: understands Reason for continued inpatient stay Substantial Risk for: med/psych decompensation Time Spent With Patient Time: Total time managing care of this patient today ____ minutes.
[2022-08-29 19:03] VITALS: BP 135/84; PULSE 75; RESP 18; TEMP 36.6; O2SAT 98
[2022-08-29] MEDS: Nortriptyline HCl 25 MG CAPSULE 50 MG PO (21:03)
[2022-08-29] MEDS: traZODone HCL 50 MG TABLET PO (21:04)
[2022-08-29] MEDS: hydrOXYzine HCL 25 MG TABLET PO (21:04)
[2022-08-29] MEDS: Zolpidem Tartrate 5 MG TABLET PO (21:04)
[2022-08-30] VITALS (11 sets, daily range): BP systolic 119–137; BP diastolic 75–95; PULSE 76–110; RESP 15–18; TEMP 34.8–36.9; O2SAT 93–97
--- NOTE | 2022-08-30 07:03 | HO.ANESPROP2 ---
[facility] Active Problems Active Problems: All Active Problems (Updated 08/15/22 @ 13:54 by Gerhard Jordan MD) Routine history and physical examination of adult (Acute) Pre-op evaluation (Acute) Social anxiety disorder (Acute) Complicated bereavement (Acute) Severe recurrent major depression (Acute) Past Medical History Medical History Complicated bereavement Severe recurrent major depression Social anxiety disorder Family History Family history of problems with anesthesia: No Surgical History Surgical History (Updated 08/30/22 @ 06:47 by Anisha Bui RN) H/O wrist surgery History of ankle surgery History of Problems with Anesthesia: No Social History Social History Household Members: None Housing: Homeless Patient Tobacco Use Status: Never used Tobacco service: No Sexual orientation: Straight/Heterosexual Meds Allergies Allergy/AdvReac Type Severity Reaction Status Date / Time No Known Allergies Allergy Verified 08/09/22 16:14 Active Medications: Current Medications Acetaminophen (Acetaminophen 325 Mg Tablet) 650 mg PO Q6H PRN PRN Reason: Headache/Pain Mild Scale (1-3) Last Admin: 08/29/22 21:04 Dose: 650 mg Acetaminophen (Acetaminophen 325 Mg Tablet) 650 mg PO ONCE PRN PRN Reason: Pain, Mild (Pain Scale 1-3) Al Hydroxide/Mg Hydroxide (Magnesium Hydrox/Alum Hydrox 30 Ml Oral.Susp) 30 ml PO Q6H PRN PRN Reason: Heartburn/Nausea Hydroxyzine HCl (Hydroxyzine Hcl 25 Mg Tablet) 25 mg PO Q6H PRN PRN Reason: Anxiety Last Admin: 08/29/22 21:04 Dose: 25 mg Lorazepam (Lorazepam 1 Mg Tablet) 1 mg PO BID [facility] Last Admin: 08/29/22 21:03 Dose: 1 mg Magnesium Hydroxide (Milk Of Magnesia 30 Ml Oral.Susp) 30 ml PO DAILY PRN PRN Reason: Constipation Last Admin: 08/21/22 14:12 Dose: 30 ml Nortriptyline HCl (Nortriptyline Hcl 25 Mg Capsule) 50 mg PO BEDTIME [facility] Last Admin: 08/29/22 21:03 Dose: 50 mg Oxycodone HCl (Oxycodone Hcl Immed Release 5 Mg Tablet) 5 mg PO ONCE PRN PRN Reason: Pain, Severe (Pain Scale 7-10) Propranolol HCl (Propranolol Hcl La 60 Mg Cap.Sa.24h) 120 mg PO DAILY [facility]; Protocol Last Admin: 08/29/22 08:48 Dose: 120 mg Quetiapine Fumarate (Quetiapine Fumarate 200 Mg Tablet) 200 mg PO BID [facility] Last Admin: 08/29/22 21:04 Dose: 200 mg Sumatriptan Succinate (Sumatriptan Succinate 25 Mg Tablet) 25 mg PO DAILY PRN PRN Reason: severe headache Last Admin: 08/23/22 18:00 Dose: 25 mg Trazodone HCl (Trazodone Hcl 50 Mg Tablet) 50 mg PO BEDTIME MRX1 PRN PRN Reason: Insomnia Last Admin: 08/29/22 21:04 Dose: 50 mg Zolpidem Tartrate (Zolpidem Tartrate 5 Mg Tablet) 5 mg PO BEDTIME PRN PRN Reason: Insomnia Last Admin: 08/29/22 21:04 Dose: 5 mg Home Medications Medication Instructions Recorded Confirmed Last Taken Type ibuprofen 600 mg PO Q6H PRN Pain 08/10/22 08/10/22 Unknown History lorazepam 0.5 mg tablet 1.5 mg PO BID 08/10/22 08/10/22 08/09/22 12:15 History nortriptyline 150 mg PO BEDTIME 08/10/22 08/10/22 08/08/22 19:24 History propranolol 20 mg tablet 20 mg PO DAILY 08/10/22 08/10/22 Unknown History propranolol 20 mg tablet 20 mg PO DAILY PRN Anxiety 08/10/22 08/10/22 Unknown History quetiapine 200 mg PO BID 08/10/22 08/10/22 08/09/22 16:06 History zolpidem 10 mg PO BEDTIME PRN Sleep 08/10/22 08/10/22 08/08/22 19:25 History Exam Exam Date and Time: August 30, 2022702 Height,Weight and Vital Signs: Height 5 ft 10 in Weight 130.7 kg Last Vital Signs Temp 97.1 F 08/30/22 06:48 Pulse 87 08/30/22 06:48 Resp 16 08/30/22 06:48 BP 124/87 08/30/22 06:48 Pulse Ox 93 08/30/22 06:48 O2 Del Method Room Air 08/30/22 06:48 O2 Flow Rate 2 08/28/22 07:53 Pertinent Lab Results Pertinent Lab Results: Laboratory Tests 08/10/22 08/10/22 08/10/22 07:04 07:04 07:04 WBC 7.3 RBC 5.05 Hgb 14.5 Hct 43.8 MCV 86.7 MCH 28.7 MCHC 33.1 RDW 13.5 Plt Count 236 MPV 8.4 L Immature Gran % (Auto) 0.4 Neut % (Auto) 61.4 Lymph % (Auto) 25.1 [place] % (Auto) 10.1 Eos % (Auto) 2.6 Baso % (Auto) 0.4 Lymph # (Auto) 1.8 [place] # (Auto) 0.7 Eos # (Auto) 0.2 Baso # (Auto) 0.0 Abs Immat Gran (auto) 0.03 Absolute Neuts (auto) 4.5 Absolute Nucleated RBC 0.000 Nucleated RBC % (auto) 0.0 Sodium 140 Potassium 4.3 Chloride 106 Carbon Dioxide 25 Anion Gap 13 BUN 13 Creatinine 0.86 Estim Creat Clear Calc TNP Estimated GFR > 60 Fasting Glucose 85 Estimat Average Glucose 103 Hemoglobin A1c % 5.2 Calcium 9.0 Magnesium 2.1 Total Bilirubin 0.5 AST 32 ALT 37 Alkaline Phosphatase 79 Total Protein 6.4 L Albumin 4.0 Triglycerides 171 Cholesterol 212 LDL Cholesterol, Calc 141 HDL Cholesterol 37 Vitamin B12 331 Folate 9.0 TSH 2.97 Free T4 0.82 Nortriptyline 08/10/22 07:04 WBC RBC Hgb Hct MCV MCH MCHC RDW Plt Count MPV Immature Gran % (Auto) Neut % (Auto) Lymph % (Auto) [place] % (Auto) Eos % (Auto) Baso % (Auto) Lymph # (Auto) [place] # (Auto) Eos # (Auto) Baso # (Auto) Abs Immat Gran (auto) Absolute Neuts (auto) Absolute Nucleated RBC Nucleated RBC % (auto) Sodium Potassium Chloride Carbon Dioxide Anion Gap BUN Creatinine Estim Creat Clear Calc Estimated GFR Fasting Glucose Estimat Average Glucose Hemoglobin A1c % Calcium Magnesium Total Bilirubin AST ALT Alkaline Phosphatase Total Protein Albumin Triglycerides Cholesterol LDL Cholesterol, Calc HDL Cholesterol Vitamin B12 Folate TSH Free T4 Nortriptyline 102 Airway Mallampati Class: III TM Dist: >3cm Neck ROM: Full Heart: rrr Lungs: cta Assessment and Plan Assessment Anesthesia Assessment: Anesthesia Plan Discussed and Chart Reviewed Final Anesthetic Review Family History of Problems with Anesthesia: No History of Problems with Anesthesia: No NPO: Yes ASA Class: III Final Preanesthetic Review: No Changes in Pt Med Stat, Meds/Allgs Chart Reviewed and Consent Obtained/Reviewed Patient Risk: Intermediate Procedure Risk: Intermediate Anesthetic Plan Anesthetic Plan: GA Disposition: Standard PACU
--- NOTE | 2022-08-30 07:11 | MHC.SHP ---
Pre-Procedural Eval Section A Date of Service: 08/30/22 The patient is an INPATIENT: Yes Changes since office visit: Yes Patient answered all questions; No Cold of Flu in the past 2 weeks, No New Medical Problems and No Changes in Medication The History & Physical has been completed within 30 days and I have reviewed it.: Yes Section B Chief Complaint: Rec. Major Depression, Complex Bereavement Reacti Allergies: Allergies Allergy/AdvReac Type Severity Reaction Status Date / Time No Known Allergies Allergy Verified 08/09/22 16:14 Plan I have reviewed the history and physical and performed a pertinent physical examination on my patient. No changes have occurred unless specified. Time Spent With Patient Time: Total time managing care of this patient today ____ minutes.
[2022-08-30] MEDS: Lactated Ringers 1,000 ML 50 ML IVCONT (07:13)
[2022-08-30] MEDS: oxyCODONE HCl Immed Release 5 MG TABLET PO ×2 (07:30→08:55)
[2022-08-30] MEDS: Haloperidol Lactate 5 MG/ML VIAL IM (08:24)
--- NOTE | 2022-08-30 08:35 | HO.ECTPROC ---
ECT Procedure Note Diagnosis/Treatment Date of Service: 08/30/22 Current Treatment Number: 6 Interval Clinical Notes: pt to this point not changed agreeable to try alternative technique understands could have more cognitive s/e Time: Total time managing care of this patient today ____ minutes. ECT Settings Device: THYMATRON DGx Electrode Placement: Rt temporal/ Lt frontal Program/Pulse Width: 0.25 Energy Percent: 90 Seizure Duration By EEG (in seconds): 72 Medications Administration General Anesthetic: Etomidate (16) Muscle Relaxant: Succinylcholine (100) Ancillary Medications Cardiovascular Medications: Glycopyrrolate Miscillaneous Medications: Propofol (30), Midazolam (2) and Haldol (5) Airway Management Airway Management: LMA Treatment Recommendations Electrode Placement: Rt temporal/ Lt frontal Program/Pulse Width: 0.25 Energy Percent: 60 Notes: pt changed to rtlf did better with haldol 5 mg iv post would give 2.5 immediate post monitor response to change in technique
[2022-08-30] MEDS: Acetaminophen 325 MG TABLET 650 MG PO ×2 (08:55→17:24)
--- NOTE | 2022-08-30 10:46 | P.PNPSI_ITS ---
Subjective Subjective Date of Service: 08/30/22 Reason For Visit: Rec. Major Depression, Complex Bereavement Reacti Interim History: Met with patient; discussed with team patient reports new change in mood or anxiety however has been a little more animated. Said he agrees to start going to groups. Agreed to discontinue nortriptyline at a possible interference with ECT and agrees to start Viibryd Mental Status Exam Mental Status Exam Narrative: Pt is alert and oriented; behavior is cooperative, calm; dressed in casual attire, balding; adequate hygiene; mood is described as depre ssed/anxious...tired of trying and affect little constricted eye contact appropriate; Speech is normal rate, volume and prosody and not pressured; psychomotor retardation present; thought process is organized and goal directed; Thought content is on the past, on tx, mothers ; otherwise pertinent to relevant topics and without any delusional content, paranoid ideations or grandiosity; intermittent, passive SI/no HI. There is no evidence of perceptual disturbance. Patients insight and judgment are impaired. Diagnostics Vital Signs (24Hr): Vital Signs - 24 hr 08/29/22 19:03 08/30/22 06:00 08/30/22 06:00 Temperature 97.9 F 98.5 F 98.5 F Pulse Rate 75 88 88 Respiratory Rate 18 16 Blood Pressure 135/84 125/86 125/86 Pulse Oximetry 98 97 Oxygen Delivery Method Room Air Room Air Oxygen Flow Rate 08/30/22 06:48 08/30/22 08:33 08/30/22 08:38 Temperature 97.1 F 98.3 F Pulse Rate 87 90 94 Respiratory Rate 16 16 16 Blood Pressure 124/87 119/78 122/81 Pulse Oximetry 93 94 95 Oxygen Delivery Method Room Air Nasal Cannula with ETCO2 Nasal Cannula with ETCO2 Oxygen Flow Rate 2 2 08/30/22 08:42 08/30/22 08:48 08/30/22 09:03 Temperature 97.4 F Pulse Rate 95 76 91 Respiratory Rate 15 16 17 Blood Pressure 122/75 119/79 136/95 H Pulse Oximetry 97 97 94 Oxygen Delivery Method Nasal Cannula with ETCO2 Room Air Room Air Oxygen Flow Rate 2 08/30/22 07:02 08/30/22 09:43 Temperature 97.6 F Pulse Rate 77 Respiratory Rate 18 Blood Pressure 134/87 Pulse Oximetry 95 95 Oxygen Delivery Method Room Air Room Air Oxygen Flow Rate BMI result Body Mass Index 41.3 Labs 08/10/22 07:04 08/10/22 07:04 Medications Medications Current Medications Acetaminophen (Acetaminophen 325 Mg Tablet) 650 mg PO Q6H PRN PRN Reason: Headache/Pain Mild Scale (1-3) Last Admin: 08/29/22 21:04 Dose: 650 mg Al Hydroxide/Mg Hydroxide (Magnesium Hydrox/Alum Hydrox 30 Ml Oral.Susp) 30 ml PO Q6H PRN PRN Reason: Heartburn/Nausea Hydroxyzine HCl (Hydroxyzine Hcl 25 Mg Tablet) 25 mg PO Q6H PRN PRN Reason: Anxiety Last Admin: 08/29/22 21:04 Dose: 25 mg Lorazepam (Lorazepam 1 Mg Tablet) 1 mg PO BID [facility] Last Admin: 08/29/22 21:03 Dose: 1 mg Magnesium Hydroxide (Milk Of Magnesia 30 Ml Oral.Susp) 30 ml PO DAILY PRN PRN Reason: Constipation Last Admin: 08/21/22 14:12 Dose: 30 ml Nortriptyline HCl (Nortriptyline Hcl 25 Mg Capsule) 50 mg PO BEDTIME [facility] Last Admin: 08/29/22 21:03 Dose: 50 mg Propranolol HCl (Propranolol Hcl La 60 Mg Cap.Sa.24h) 120 mg PO DAILY [facility]; Protocol Last Admin: 08/29/22 08:48 Dose: 120 mg Quetiapine Fumarate (Quetiapine Fumarate 200 Mg Tablet) 200 mg PO BID [facility] Last Admin: 08/29/22 21:04 Dose: 200 mg Sumatriptan Succinate (Sumatriptan Succinate 25 Mg Tablet) 25 mg PO DAILY PRN PRN Reason: severe headache Last Admin: 08/23/22 18:00 Dose: 25 mg Trazodone HCl (Trazodone Hcl 50 Mg Tablet) 50 mg PO BEDTIME MRX1 PRN PRN Reason: Insomnia Last Admin: 08/29/22 21:04 Dose: 50 mg Zolpidem Tartrate (Zolpidem Tartrate 5 Mg Tablet) 5 mg PO BEDTIME PRN PRN Reason: Insomnia Last Admin: 08/29/22 21:04 Dose: 5 mg Allergies Allergies Allergy/AdvReac Type Severity Reaction Status Date / Time No Known Allergies Allergy Verified 08/09/22 16:14 Assessment & Plan Assessment & Plan (1) Severe recurrent major depression: Status: Acute Code(s): F33.2 - Major depressive disorder, recurrent severe without psychotic features (2) Complicated bereavement: Status: Acute Code(s): F43.21 - Adjustment disorder with depressed mood (3) Social anxiety disorder: Status: Acute Code(s): F40.10 - Social phobia, unspecified Plan 32 yo male, scheduled transfer from [facility] for ECT consult and treatment s/p suicide attempt with complex breavement issues. Patient reports numerous medication trials over many years without much effect Plan: CV Q 15 minute checks ECT #1 on 08/14 ECT #2 on 08/16 ECT #3 on 08/21; ECT #4 on 08/23 ECT #5 on 08/26 ECT #6 on 08/28 ECT #7 on 08/30 ECT #8 on 09/02 -NPO after midnight START Viibryd 10mg daily Increased to Propranolol LA 120mg (and dc IR); pt still anxious and also w/ HTN DC nortriptyline out of some concern that medication could interfere with ECT side effects; (at 150mg, -Nortriptyline level therapeutic: 102) Continue Seroquel 200 mg b.i.d.; patient says for anxiety Continue Ativan 1.5 mg b.i.d.; patient recently started on clonazepam 1 mg t.i.d. but it was switched in the ED just prior to this admission Ambien 5 mg q.h.s. [facility]OSPITAL Course: 08/12/22 cont nortrip seroquel reviwed ect scheduled for 08/14/22 s/p suicide attempt denies active si now 08/13 pt cleared for ECT by hospitalist WILL; depressed but SI back to chronic, low level at baseline. 08/14 tolerating ECT; wants to continue. Discussed medication management and will continue current regimen for now other than switching to longer acting propranolol; no known history of MAO'I which could be a possible option; discussed hypertension which patient says he has a history of; will see if BP response to propranolol adjustment 08/15 will add social anxiety order to diagnosis; interactions with parents growing up were emotionally traumatic have significantly effected his ability to have interpersonal relationships in his adult life. Started CBT exercise which resonate with patient. Waiting for nortriptyline level. BP a little better perhaps since starting long-acting propranolol; will leave for now 08/16 severe headache after ECT; sumatriptan 25 mg seem to help resolve 08/17: Headache resolved. Continue current plan. 08/18: ECT #3 on 08/21/2208/19: ECT #3 on 08/21/2208/20 remains depressed and anxious; will increase propranolol; continue with ECT 08/22 depressed, anxious; continue with treatment plan; patient hypertensive. He is ambivalent about starting antihypertensive medication but will inquire further 08/23 continue tx plan 08/24 continue treatment plan 08/25 continue treatment plan 08/26 patient remains depressed and anxious; discussed that in order to overcome depression patient has to engage in treatment; that remaining passive, expecting ECT to do all the work is likely part of the problem. Patient seems to agree and consider the reasons he is avoiding engagement. 08/27/2022 Patient would benefit from clear cognitive behavioral strategies. Change ECT to bilateral would consider MAO I Denies active self-harm 08/30 reports still depressed; mostly isolating however patient agrees to start pu sh himself to attend groups; starting Viibryd and discontinue nortriptyline Patient educated on: diagnosis and medication risk/benefits Informed Consent: understands Reason for continued inpatient stay Substantial Risk for: rapid decompensation Time Spent With Patient Time: Total time managing care of this patient today ____ minutes.
[2022-08-30] MEDS: LORazepam 1 MG TABLET PO ×2 (11:12→20:12)
[2022-08-30] MEDS: QUEtiapine Fumarate 200 MG TABLET PO ×2 (11:13→20:11)
[2022-08-30] MEDS: Propranolol HCL LA 60 MG CAP.SA.24H 120 MG PO (11:13)
[2022-08-30] MEDS: traZODone HCL 50 MG TABLET PO (20:11)
[2022-08-30] MEDS: Zolpidem Tartrate 5 MG TABLET PO (20:11)
[2022-08-31 08:36] VITALS: BP 135/93; PULSE 86; RESP 16; TEMP 36.7; O2SAT 95
[2022-08-31] MEDS: Vilazodone HCL 10 MG TABLET PO (08:52)
[2022-08-31] MEDS: LORazepam 1 MG TABLET PO ×2 (08:52→20:01)
[2022-08-31] MEDS: QUEtiapine Fumarate 200 MG TABLET PO ×2 (08:52→20:01)
[2022-08-31] MEDS: Propranolol HCL LA 60 MG CAP.SA.24H 120 MG PO (08:52)
--- NOTE | 2022-08-31 15:19 | HO.PSYCHPN ---
Subjective Subjective Date of Service: 08/31/22 Reason For Visit: Rec. Major Depression, Complex Bereavement Reacti Interim History: Met with patient; discussed with team Remains unchanged. No improvement in mood with ECT yet. One BL treatment so far. #8 (#2 BL) Friday. No cognitive side effects reported. No side effects with Viibryd. A little more milieu engagement. Denies active SI or intent. Denies AVH. Review of Systems Review of Systems Chronic musculoskeletal pain Pt otherwise has no acute medical complaints Yes all other systems are reviewed and are negative Psychiatric: Reports depression, Reports hopelessness, Reports irritability, Reports anhedonia and Reports suicidal ideation Mental Status Exam Mental Status Exam Narrative: Pt is alert and oriented; behavior is cooperative, calm; dressed in casual attire, balding; adequate hygiene; mood is described as depressed/anxious...tired of trying and affect little constricted eye contact appropriate; Speech is normal rate, volume and prosody and not pressured; psychomotor retardation present; thought process is organized and goal directed; Thought content is on the past, on tx, mothers ; otherwise pertinent to relevant topics and without any delusional content, paranoid ideations or grandiosity; intermittent, passive SI/no HI. There is no evidence of perceptual disturbance. Patients insight and judgment are impaired. Patient Appearance: Fatigued Patient Orientation: Person, Place, Time and Situation Level of Consciousness: Alert Patient Behavior: Talkative and Cooperative Mood Description: Constricted and Depressed Affect Description: Constricted, Depressed, Blunted and Flat Patient Cognition Impaired: No Ability to Follow Directions: Good Speech Pattern: Spontaneous Speech Memory Description: Intact Diagnostics Vital Signs (24Hr): Vital Signs - 24 hr 08/30/22 17:25 08/31/22 08:36 Temperature 94.6 F L 98.1 F Pulse Rate 110 H 86 Respiratory Rate 16 Blood Pressure 137/77 135/93 H Pulse Oximetry 95 Oxygen Delivery Method Room Air BMI result Body Mass Index 41.3 Labs 08/10/22 07:04 08/10/22 07:04 Medications Medications Current Medications Acetaminophen (Acetaminophen 325 Mg Tablet) 650 mg PO Q6H PRN PRN Reason: Headache/Pain Mild Scale (1-3) Last Admin: 08/30/22 17:24 Dose: 650 mg Al Hydroxide/Mg Hydroxide (Magnesium Hydrox/Alum Hydrox 30 Ml Oral.Susp) 30 ml PO Q6H PRN PRN Reason: Heartburn/Nausea Hydroxyzine HCl (Hydroxyzine Hcl 25 Mg Tablet) 25 mg PO Q6H PRN PRN Reason: Anxiety Last Admin: 08/29/22 21:04 Dose: 25 mg Magnesium Hydroxide (Milk Of Magnesia 30 Ml Oral.Susp) 30 ml PO DAILY PRN PRN Reason: Constipation Last Admin: 08/21/22 14:12 Dose: 30 ml Propranolol HCl (Propranolol Hcl La 60 Mg Cap.Sa.24h) 120 mg PO DAILY [facility]; Protocol Last Admin: 08/31/22 08:52 Dose: 120 mg Quetiapine Fumarate (Quetiapine Fumarate 200 Mg Tablet) 200 mg PO BID [facility] Last Admin: 08/31/22 08:52 Dose: 200 mg Sumatriptan Succinate (Sumatriptan Succinate 25 Mg Tablet) 25 mg PO DAILY PRN PRN Reason: severe headache Last Admin: 08/23/22 18:00 Dose: 25 mg Trazodone HCl (Trazodone Hcl 50 Mg Tablet) 50 mg PO BEDTIME MRX1 PRN PRN Reason: Insomnia Last Admin: 08/30/22 20:11 Dose: 50 mg Vilazodone HCl (Vilazodone Hcl 10 Mg Tablet) 10 mg PO DAILY [facility] Last Admin: 08/31/22 08:52 Dose: 10 mg Zolpidem Tartrate (Zolpidem Tartrate 5 Mg Tablet) 5 mg PO BEDTIME PRN PRN Reason: Insomnia Last Admin: 08/30/22 20:11 Dose: 5 mg Allergies Allergies Allergy/AdvReac Type Severity Reaction Status Date / Time No Known Allergies Allergy Verified 08/09/22 16:14 Assessment & Plan Assessment & Plan (1) Severe recurrent major depression: Status: Acute Code(s): F33.2 - Major depressive disorder, recurrent severe without psychotic features (2) Complicated bereavement: Status: Acute Code(s): F43.21 - Adjustment disorder with depressed mood (3) Social anxiety disorder: Status: Acute Code(s): F40.10 - Social phobia, unspecified Plan 32 yo male, scheduled transfer from [facility] for ECT consult and treatment s/p suicide attempt with complex breavement issues. Patient reports numerous medication trials over many years without much effect Plan: CV Q 15 minute checks ECT #1 on 08/14 ECT #2 on 5/26 ECT #3 on 08/21; ECT #4 on 08/23 ECT #5 on 08/26 ECT #6 on 08/28 ECT #7 on 08/30 ECT #8 on 09/02 -NPO after midnight START Viibryd 10mg daily Increased to Propranolol LA 120mg (and dc IR); pt still anxious and also w/ HTN DC nortriptyline out of some concern that medication could interfere with ECT side effects; (at 150mg, -Nortriptyline level therapeutic: 102) Continue Seroquel 200 mg b.i.d.; patient says for anxiety Continue Ativan 1.5 mg b.i.d.; patient recently started on clonazepam 1 mg t.i.d. but it was switched in the ED just prior to this admission Ambien 5 mg q.h.s. HOSPITAL Course: 08/12/22 cont nortrip seroquel reviwed ect scheduled for 08/14/22 s/p suicide attempt denies active si now 08/13 pt cleared for ECT by hospitalist WILL; depressed but SI back to chronic, low level at baseline. 08/14 tolerating ECT; wants to continue. Discussed medication management and will continue current regimen for now other than switching to longer acting propranolol; no known history of MAO'I which could be a possible option; discussed hypertension which patient says he has a history of; will see if BP response to propranolol adjustment 08/15 will add social anxiety order to diagnosis; interactions with parents growing up were emotionally traumatic have significantly effected his ability to have interpersonal relationships in his adult life. Started CBT exercise which resonate with patient. Waiting for nortriptyline level. BP a little better perhaps since starting long-acting propranolol; will leave for now 08/16 severe headache after ECT; sumatriptan 25 mg seem to help resolve 08/17: Headache resolved. Continue current plan. 08/18: ECT #3 on 08/21/2208/19: ECT #3 on 08/21/2208/20 remains depressed and anxious; will increase propranolol; continue with ECT 08/22 depressed, anxious; continue with treatment plan; patient hypertensive. He is ambivalent about starting antihypertensive medication but will inquire further 08/23 continue tx plan 08/24 continue treatment plan 08/25 continue treatment plan 08/26 patient remains depressed and anxious; discussed that in order to overcome depression patient has to engage in treatment; that remaining passive, expecting ECT to do all the work is likely part of the problem. Patient seems to agree and consider the reasons he is avoiding engagement. 08/27/2022 Patient would benefit from clear cognitive behavioral strategies. Change ECT to bilateral would consider MAO I Denies active self-harm 08/30 reports still depressed; mostly isolating however patient agrees to start push himself to attend groups; starting Viibryd and discontinue nortriptyline 08/31: Continue current tx plan. Reason for continued inpatient stay Substantial Risk for: harm to self, inability to function and rapid decompensation Time Spent With Patient Time: Total time managing care of this patient today ____ minutes.
[2022-08-31 18:01] VITALS: BP 121/84; PULSE 83; TEMP 36.4
[2022-08-31] MEDS: traZODone HCL 50 MG TABLET PO (20:01)
[2022-08-31] MEDS: Zolpidem Tartrate 5 MG TABLET PO (20:01)
[2022-09-01 08:16] VITALS: BP 146/92; PULSE 91; RESP 16; TEMP 36.3; O2SAT 96
[2022-09-01] MEDS: Propranolol HCL LA 60 MG CAP.SA.24H 120 MG PO (09:04)
[2022-09-01] MEDS: QUEtiapine Fumarate 200 MG TABLET PO ×2 (09:04→20:27)
[2022-09-01] MEDS: LORazepam 1 MG TABLET PO ×2 (09:05→20:27)
[2022-09-01] MEDS: Vilazodone HCL 10 MG TABLET PO (09:05)
[2022-09-01 16:13] VITALS: BP 127/83; PULSE 85; TEMP 36.1
--- NOTE | 2022-09-01 19:51 | P.PNPSI_ITS ---
Subjective Subjective Date of Service: 09/01/22 Reason For Visit: Rec. Major Depression, Complex Bereavement Reacti Interim History: Met with patient; discussed with team Remains unchanged. No improvement in mood with ECT yet. One BL treatment so far. Treatment #8 (#2 BL) on 09/02. No cognitive side effects reported. No side effects with Viibryd. A little more milieu engagement. Denies active SI or intent. Denies AVH. Review of Systems Review of Systems Chronic musculoskeletal pain Pt otherwise has no acute medical complaints Yes all other systems are reviewed and are negative Psychiatric: Reports depression, Reports hopelessness, Reports irritability, Reports anhedonia and Reports suicidal ideation Mental Status Exam Mental Status Exam Narrative: Pt is alert and oriented; behavior is cooperative, calm; dressed in casual attire, balding; adequate hygiene; mood is described as depressed/anxious...tired of trying and affect little constricted eye contact appropriate; Speech is normal rate, volume and prosody and not pressured; psychomotor retardation present; thought process is organized and goal directed; Thought content is on the past, on tx, mothers ; otherwise pertinent to relevant topics and without any delusional content, paranoid ideations or grandiosity; intermittent, passive SI/no HI. There is no evidence of perceptual disturbance. Patients insight and judgment are impaired. Patient Appearance: Fatigued Patient Orientation: Person, Place, Time and Situation Level of Consciousness: Alert Patient Behavior: Talkative and Cooperative Mood Description: Constricted and Depressed Affect Description: Constricted, Depressed, Blunted and Flat Patient Cognition Impaired: No Ability to Follow Directions: Good Speech Pattern: Spontaneous Speech Memory Description: Intact Diagnostics Vital Signs (24Hr): Vital Signs - 24 hr 09/01/22 08:16 09/01/22 16:13 Temperature 97.4 F 97 F Pulse Rate 91 85 Respiratory Rate 16 Blood Pressure 146/92 H 127/83 Pulse Oximetry 96 Oxygen Delivery Method Room Air BMI result Body Mass Index 41.3 Labs 08/10/22 07:04 08/10/22 07:04 Medications Medications Current Medications Acetaminophen (Acetaminophen 325 Mg Tablet) 650 mg PO Q6H PRN PRN Reason: Headache/Pain Mild Scale (1-3) Last Admin: 08/30/22 17:24 Dose: 650 mg Al Hydroxide/Mg Hydroxide (Magnesium Hydrox/Alum Hydrox 30 Ml Oral.Susp) 30 ml PO Q6H PRN PRN Reason: Heartburn/Nausea Hydroxyzine HCl (Hydroxyzine Hcl 25 Mg Tablet) 25 mg PO Q6H PRN PRN Reason: Anxiety Last Admin: 08/29/22 21:04 Dose: 25 mg Lorazepam (Lorazepam 1 Mg Tablet) 1 mg PO BID [facility] Last Admin: 09/01/22 09:05 Dose: 1 mg Magnesium Hydroxide (Milk Of Magnesia 30 Ml Oral.Susp) 30 ml PO DAILY PRN PRN Reason: Constipation Last Admin: 08/21/22 14:12 Dose: 30 ml Propranolol HCl (Propranolol Hcl La 60 Mg Cap.Sa.24h) 120 mg PO DAILY [facility]; Protocol Last Admin: 09/01/22 09:04 Dose: 120 mg Quetiapine Fumarate (Quetiapine Fumarate 200 Mg Tablet) 200 mg PO BID [facility] Last Admin: 09/01/22 09:04 Dose: 200 mg Sumatriptan Succinate (Sumatriptan Succinate 25 Mg Tablet) 25 mg PO DAILY PRN PRN Reason: severe headache Last Admin: 08/23/22 18:00 Dose: 25 mg Trazodone HCl (Trazodone Hcl 50 Mg Tablet) 50 mg PO BEDTIME MRX1 PRN PRN Reason: Insomnia Last Admin: 08/31/22 20:01 Dose: 50 mg Vilazodone HCl (Vilazodone Hcl 10 Mg Tablet) 10 mg PO DAILY [facility] Last Admin: 09/01/22 09:05 Dose: 10 mg Zolpidem Tartrate (Zolpidem Tartrate 5 Mg Tablet) 5 mg PO BEDTIME PRN PRN Reason: Insomnia Allergies Allergies Allergy/AdvReac Type Severity Reaction Status Date / Time No Known Allergies Allergy Verified 08/09/22 16:14 Assessment & Plan Assessment & Plan (1) Severe recurrent major depression: Status: Acute Code(s): F33.2 - Major depressive disorder, recurrent severe without psychotic features (2) Complicated bereavement: Status: Acute Code(s): F43.21 - Adjustment disorder with depressed mood (3) Social anxiety disorder: Status: Acute Code(s): F40.10 - Social phobia, unspecified Plan 32 yo male, scheduled transfer from [facility] for ECT consult and treatment s/p suicide attempt with complex breavement issues. Patient reports numerous medication trials over many years without much effect Plan: CV Q 15 minute checks ECT #1 on 08/14 ECT #2 on 08/16 ECT #3 on 08/21; ECT #4 on 08/23 ECT #5 on 08/26 ECT #6 on 08/28 ECT #7 on 08/30 ECT #8 on 09/02 -NPO after midnight START Viibryd 10mg daily Increased to Propranolol LA 120mg (and dc IR); pt still anxious and also w/ HTN DC nortriptyline out of some concern that medication could interfere with ECT side effects; (at 150mg, -Nortriptyline level therapeutic: 102) Continue Seroquel 200 mg b.i.d.; patient says for anxiety Continue Ativan 1.5 mg b.i.d.; patient recently started on clonazepam 1 mg t.i.d. but it was switched in the ED just prior to this admission Ambien 5 mg q.h.s. HOSPITAL Course: 08/12/22 cont nortrip seroquel reviwed ect scheduled for 08/14/22 s/p suicide attempt denies active si now 08/13 pt cleared for ECT by hospitalist WILL; depressed but SI back to chronic, low level at baseline. 08/14 tolerating ECT; wants to continue. Discussed medication management and will continue current regimen for now other than switching to longer acting propranolol; no known history of MAO'I which could be a possible option; disc ussed hypertension which patient says he has a history of; will see if BP response to propranolol adjustment 08/15 will add social anxiety order to diagnosis; interactions with parents growing up were emotionally traumatic have significantly effected his ability to have interpersonal relationships in his adult life. Started CBT exercise which resonate with patient. Waiting for nortriptyline level. BP a little better perhaps since starting long-acting propranolol; will leave for now 08/16 severe headache after ECT; sumatriptan 25 mg seem to help resolve 08/17: Headache resolved. Continue current plan. 08/18: ECT #3 on 08/21/2208/19: ECT #3 on 08/21/2208/20 remains depressed and anxious; will increase propranolol; continue with ECT 08/22 depressed, anxious; continue with treatment plan; patient hypertensive. He is ambivalent about starting antihypertensive medication but will inquire further 08/23 continue tx plan 08/24 continue treatment plan 08/25 continue treatment plan 08/26 patient remains depressed and anxious; discussed that in order to overcome depression patient has to engage in treatment; that remaining passive, expecting ECT to do all the work is likely part of the problem. Patient seems to agree and consider the reasons he is avoiding engagement. 08/27/2022 Patient would benefit from clear cognitive behavioral strategies. Change ECT to bilateral would consider MAO I Denies active self-harm 08/30 reports still depressed; mostly isolating however patient agrees to start push himself to attend groups; starting Viibryd and discontinue nortriptyline 08/31: Continue current tx plan. 09/01: ECT #8 (#2 BL) tomorrow. Reason for continued inpatient stay Substantial Risk for: harm to self and rapid decompensation Time Spent With Patient Time: Total time managing care of this patient today ____ minutes.
[2022-09-01] MEDS: Zolpidem Tartrate 5 MG TABLET PO (20:27)
[2022-09-01] MEDS: traZODone HCL 50 MG TABLET PO (20:27)
[2022-09-02] VITALS (10 sets, daily range): BP systolic 119–157; BP diastolic 10–99; PULSE 86–104; RESP 13–18; TEMP 36.1–36.6; O2SAT 93–97
--- NOTE | 2022-09-02 07:06 | MHC.SHP ---
Pre-Procedural Eval Section A Date of Service: 09/02/22 The patient is an INPATIENT: Yes Changes since office visit: Yes Cold of Flu in the past 2 weeks, Yes New Medical Problems, Yes Changes in Medication and Yes Patient answered all questions The History & Physical has been completed within 30 days and I have reviewed it.: Yes Section B Chief Complaint: Rec. Major Depression, Complex Bereavement Reacti Allergies: Allergies Allergy/AdvReac Type Severity Reaction Status Date / Time No Known Allergies Allergy Verified 08/09/22 16:14 Plan I have reviewed the history and physical and performed a pertinent physical examination on my patient. No changes have occurred unless specified. Time Spent With Patient Time: Total time managing care of this patient today ____ minutes.
--- NOTE | 2022-09-02 08:34 | P.PNPSI_ITS ---
Subjective Subjective Date of Service: 09/02/22 Reason For Visit: Rec. Major Depression, Complex Bereavement Reacti Interim History: Met with patient; discussed with team ECT did not happen this morning since for some reason anesthesia was unable to sedate him; talked with Dr. Terrell about this who thinks this is an anomaly and that ECT will be able to proceed as usual Patient reports that he is the same however he is with much brighter affect than on admission and has been going to groups. He says he does not like the groups because he is anxious but attends because jingle writer asked him to. He agrees that pushing himself to do things that make him anxious is more likely to help his mood than staying in the room by himself. Patient agrees to re-engage with CBT exercises and will note some of the anxious thoughts he has during groups. Agrees to increase Viibryd dose. Patient says that once in a while he will have a suicidal thought but laughs saying they are absurd and gives an example that once when he did not feel like going to a group he though maybe he'd kill himse lf which he immediately thought was ridiculous and denies any real intent. Mental Status Exam Mental Status Exam Narrative: Pt is alert and oriented; behavior is cooperative, calm; dressed in casual a ttire, balding; adequate hygiene; mood is described as same but affect more relaxed and naturally expressive; eye contact appropriate; Speech is normal rate, volume and prosody and not pressured; some psychomotor retardation present; thought process is organized and goal directed; Thought content is on treatment; otherwise pertinent to relevant topics and without any delusional content, paranoid ideations or grandiosity; intermittent, passive SI/no HI. There is no evidence of perceptual disturbance. Patients insight and judgment are impaired but improving Diagnostics Vital Signs (24Hr): Vital Signs - 24 hr 09/01/22 16:13 09/02/22 05:16 09/02/22 05:27 Temperature 97 F 97 F 97.0 F Pulse Rate 85 93 93 Respiratory Rate 18 18 Blood Pressure 127/83 128/91 H 128/91 H Pulse Oximetry 93 93 Oxygen Delivery Method Room Air 09/02/22 06:18 Temperature Pulse Rate 95 Respiratory Rate 16 Blood Pressure 137/93 H Pulse Oximetry 94 Oxygen Delivery Method Room Air BMI result Body Mass Index 41.3 Labs 08/10/22 07:04 08/10/22 07:04 Medications Medications Current Medications Acetaminophen (Acetaminophen 325 Mg Tablet) 650 mg PO Q6H PRN PRN Reason: Headache/Pain Mild Scale (1-3) Last Admin: 08/30/22 17:24 Dose: 650 mg Al Hydroxide/Mg Hydroxide (Magnesium Hydrox/Alum Hydrox 30 Ml Oral.Susp) 30 ml PO Q6H PRN PRN Reason: Heartburn/Nausea Hydroxyzine HCl (Hydroxyzine Hcl 25 Mg Tablet) 25 mg PO Q6H PRN PRN Reason: Anxiety Last Admin: 08/29/22 21:04 Dose: 25 mg Lorazepam (Lorazepam 1 Mg Tablet) 1 mg PO BID [facility] Last Admin: 09/01/22 20:27 Dose: 1 mg Magnesium Hydroxide (Milk Of Magnesia 30 Ml Oral.Susp) 30 ml PO DAILY PRN PRN Reason: Constipation Last Admin: 08/21/22 14:12 Dose: 30 ml Propranolol HCl (Propranolol Hcl La 60 Mg Cap.Sa.24h) 120 mg PO DAILY [facility]; Protocol Last Admin: 09/01/22 09:04 Dose: 120 mg Quetiapine Fumarate (Quetiapine Fumarate 200 Mg Tablet) 200 mg PO BID [facility] Last Admin: 09/01/22 20:27 Dose: 200 mg Sumatriptan Succinate (Sumatriptan Succinate 25 Mg Tablet) 25 mg PO DAILY PRN PRN Reason: severe headache Last Admin: 08/23/22 18:00 Dose: 25 mg Trazodone HCl (Trazodone Hcl 50 Mg Tablet) 50 mg PO BEDTIME MRX1 PRN PRN Reason: Insomnia Last Admin: 09/01/22 20:27 Dose: 50 mg Vilazodone HCl (Vilazodone Hcl 10 Mg Tablet) 10 mg PO DAILY [facility] Last Admin: 09/01/22 09:05 Dose: 10 mg Zolpidem Tartrate (Zolpidem Tartrate 5 Mg Tablet) 5 mg PO BEDTIME PRN PRN Reason: Insomnia Last Admin: 09/01/22 20:27 Dose: 5 mg Allergies Allergies Allergy/AdvReac Type Severity Reaction Status Date / Time No Known Allergies Allergy Verified 08/09/22 16:14 Assessment & Plan Assessment & Plan (1) Severe recurrent major depression: Status: Acute Code(s): F33.2 - Major depressive disorder, recurrent severe without psychotic features (2) Complicated bereavement: Status: Acute Code(s): F43.21 - Adjustment disorder with depressed mood (3) Social anxiety disorder: Status: Acute Code(s): F40.10 - Social phobia, unspecified Plan 32 yo male, scheduled transfer from [facility] for ECT consult and treatment s/p suicide attempt with complex breavement issues. Patient reports numerous medication trials over many years without much effect Plan: CV Q 15 minute checks ECT #1 on 08/14 ECT #2 on 08/16 ECT #3 on 08/21; ECT #4 on 08/23 ECT #5 on 08/26 ECT #6 on 08/28 ECT #7 on 08/30 (NO ECT on 09/02) ECT #8 on 09/04 -NPO after midnight INCREASE to Viibryd 20mg daily Increased to Propranolol LA 120mg (and dc IR); pt still anxious and also w/ HTN DC nortriptyline out of some concern that medication could interfere with ECT side effects; (at 150mg, -Nortriptyline level therapeutic: 102) Continue Seroquel 200 mg b.i.d.; patient says for anxiety Continue Ativan 1.5 mg b.i.d.; patient recently started on clonazepam 1 mg t.i.d. but it was switched in the ED just prior to this admission Ambien 5 mg q.h.s. HOSPITAL Course: 08/12/22 cont nortrip seroquel reviwed ect scheduled for 08/14/22 s/p suicide attempt denies active si now 08/13 pt cleared for ECT by hospitalist WILL; depressed but SI back to chronic, low level at baseline. 08/14 tolerating ECT; wants to continue. Discussed medication management and will continue current regimen for now other than switching to longer acting propranolol; no known history of MAO'I which could be a possible option; discussed hypertension which patient says he has a history of; will see if BP response to propranolol adjustment 08/15 will add social anxiety order to diagnosis; interactions with parents growing up were emotionally traumatic have significantly effected his ability to have interpersonal relationships in his adult life. Started CBT exercise which resonate with patient. Waiting for nortriptyline level. BP a little better p erhaps since starting long-acting propranolol; will leave for now 08/16 severe headache after ECT; sumatriptan 25 mg seem to help resolve 08/17: Headache resolved. Continue current plan. 08/18: ECT #3 on 08/21/2208/19: ECT #3 on 08/21/2208/20 remains depressed and anxious; will increase propranolol; continue with ECT 08/22 depressed, anxious; continue with treatment plan; patient hypertensive. He is ambivalent about starting antihypertensive medication but will inquire further 08/23 continue tx plan 08/24 continue treatment plan 08/25 continue treatment plan 08/26 patient remains depressed and anxious; discussed that in order to overcome depression patient has to engage in treatment; that remaining passive, expecting ECT to do all the work is likely part of the problem. Patient seems to agree and consider the reasons he is avoiding engagement. 08/27/2022 Patient would benefit from clear cognitive behavioral strategies. Change ECT to bilateral would consider MAO I Denies active self-harm 08/30 reports still depressed; mostly isolating however patient agrees to start push himself to attend groups; starting Viibryd and discontinue nortriptyline 08/31: Continue current tx plan. 09/01: ECT #8 (#2 BL) tomorrow. 09/02 ECT did not happen today for unknown anesthesia reasons; patient reports he is the same however affect is noticeably brighter more relapse next and naturally expressive. Patient is now attending groups. Increasing Viibryd Patient educated on: diagnosis, medication risk/benefits and therapeutic strategies Informed Consent: understands and further education needed Reason for continued inpatient stay Substantial Risk for: rapid decompensation Time Spent With Patient Time: Total time managing care of this patient today ____ minutes.
[2022-09-02] MEDS: Propranolol HCL LA 60 MG CAP.SA.24H 120 MG PO (09:55)
[2022-09-02] MEDS: QUEtiapine Fumarate 200 MG TABLET PO ×2 (09:55→18:53)
[2022-09-02] MEDS: Vilazodone HCL 10 MG TABLET PO (09:56)
[2022-09-02] MEDS: LORazepam 1 MG TABLET PO ×2 (09:56→18:53)
[2022-09-02] MEDS: Zolpidem Tartrate 5 MG TABLET PO (18:53)
[2022-09-02] MEDS: traZODone HCL 50 MG TABLET PO (18:53)
[2022-09-02] MEDS: Acetaminophen 325 MG TABLET 650 MG PO (18:56)
[2022-09-03 09:15] VITALS: BP 153/101; PULSE 86; RESP 16; TEMP 36.1; O2SAT 96
[2022-09-03] MEDS: QUEtiapine Fumarate 200 MG TABLET PO ×2 (09:21→20:28)
[2022-09-03] MEDS: Vilazodone HCL 20 MG TABLET PO (09:21)
[2022-09-03] MEDS: Propranolol HCL LA 60 MG CAP.SA.24H 120 MG PO (09:21)
[2022-09-03] MEDS: LORazepam 1 MG TABLET PO ×2 (09:22→20:29)
[2022-09-03] MEDS: Acetaminophen 325 MG TABLET 650 MG PO (09:36)
--- NOTE | 2022-09-03 14:34 | P.PNPSI_ITS ---
Subjective Subjective Date of Service: 09/03/22 Reason For Visit: Rec. Major Depression, Complex Bereavement Reacti Interim History: met with patient; discussed with team pt continues to say he's the same. 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 He's not sure if he agrees but said he likes the idea that he beat anesthesia the other day. 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 Mental Status Exam Mental Status Exam Narrative: Pt is alert and oriented; behavior is cooperative, calm; dressed in casual attire, balding; adequate hygiene; mood is described as same but affect more relaxed and naturally expressive; eye contact appropriate; Speech is normal rate, volume and prosody and not pressured; some psychomotor retardation present; thought process is organized and goal directed; Thought content is on treatment; otherwise pertinent to relevant topics and without any delusional content, paranoid ideations or grandiosity; intermittent, passive SI/no HI. There is no evidence of perceptual disturbance. Patients insight and judgment are impaired but improving Diagnostics Vital Signs (24Hr): Vital Signs - 24 hr 09/02/22 16:05 09/03/22 09:15 Temperature 97 F Pulse Rate 86 86 Respiratory Rate 16 Blood Pressure 119/56 L 153/101 H Pulse Oximetry 96 Oxygen Delivery Method Room Air BMI result Body Mass Index 41.3 Labs 08/10/22 07:04 08/10/22 07:04 Medications Medications Current Medications Acetaminophen (Acetaminophen 325 Mg Tablet) 650 mg PO Q6H PRN PRN Reason: Headache/Pain Mild Scale (1-3) Last Admin: 09/03/22 09:36 Dose: 650 mg Al Hydroxide/Mg Hydroxide (Magnesium Hydrox/Alum Hydrox 30 Ml Oral.Susp) 30 ml PO Q6H PRN PRN Reason: Heartburn/Nausea Hydroxyzine HCl (Hydroxyzine Hcl 25 Mg Tablet) 25 mg PO Q6H PRN PRN Reason: Anxiety Last Admin: 08/29/22 21:04 Dose: 25 mg Lorazepam (Lorazepam 1 Mg Tablet) 1 mg PO BID JUAN Last Admin: 09/03/22 09:22 Dose: 1 mg Magnesium Hydroxide (Milk Of Magnesia 30 Ml Oral.Susp) 30 ml PO DAILY PRN PRN Reason: Constipation Last Admin: 08/21/22 14:12 Dose: 30 ml Propranolol HCl (Propranolol Hcl La 60 Mg Cap.Sa.24h) 120 mg PO DAILY JUAN; Protocol Last Admin: 09/03/22 09:21 Dose: 120 mg Quetiapine Fumarate (Quetiapine Fumarate 200 Mg Tablet) 200 mg PO BID JUAN Last Admin: 09/03/22 09:21 Dose: 200 mg Sumatriptan Succinate (Sumatriptan Succinate 25 Mg Tablet) 25 mg PO DAILY PRN PRN Reason: severe headache Last Admin: 08/23/22 18:00 Dose: 25 mg Trazodone HCl (Trazodone Hcl 50 Mg Tablet) 50 mg PO BEDTIME MRX1 PRN PRN Reason: Insomnia Last Admin: 09/02/22 18:53 Dose: 50 mg Vilazodone HCl (Vilazodone Hcl 20 Mg Tablet) 20 mg PO DAILY JUAN Last Admin: 09/03/22 09:21 Dose: 20 mg Zolpidem Tartrate (Zolpidem Tartrate 5 Mg Tablet) 5 mg PO BEDTIME PRN PRN Reason: Insomnia Last Admin: 09/02/22 18:53 Dose: 5 mg Allergies Allergies Allergy/AdvReac Type Severity Reaction Status Date / Time No Known Allergies Allergy Verified 08/09/22 16:14 Assessment & Plan Assessment & Plan (1) Severe recurrent major depression: Status: Acute Code(s): F33.2 - Major depressive disorder, recurrent severe without psychotic features (2) Complicated bereavement: Status: Acute Code(s): F43.21 - Adjustment disorder with depressed mood (3) Social anxiety disorder: Status: Acute Code(s): F40.10 - Social phobia, unspecified Plan 32 yo male, scheduled transfer from [facility] for ECT consult and treatment s/p suicide attempt with complex breavement issues. Patient reports numerous medication trials over many years without much effect Plan: CV Q 15 minute checks ECT #1 on 08/14 ECT #2 on 08/16 ECT #3 on 08/21; ECT #4 on 08/23 ECT #5 on 08/26 ECT #6 on 08/28 ECT #7 on 08/30 (NO ECT on 09/02) ECT #8 on 09/04 -NPO after midnight Continue Viibryd 20mg daily Continue Propranolol LA 120mg (and dc IR); pt still anxious and also w/ HTN DC nortriptyline out of some concern that medication could interfere with ECT side effects; (at 150mg, -Nortriptyline level therapeutic: 102) Continue Seroquel 200 mg b.i.d.; patient says for anxiety Continue Ativan 1.5 mg b.i.d.; patient recently started on clonazepam 1 mg t.i.d. but it was switched in the ED just prior to this admission Ambien 5 mg q.h.s. HOSPITAL Course: 08/12/22 cont nortrip seroquel reviwed ect scheduled for 08/14/22 s/p suicide attempt denies active si now 08/13 pt cleared for ECT by hospitalist WILL; depressed but SI back to chronic, low level at baseline. 08/14 tolerating ECT; wants to continue. Discussed medication management and will continue current regimen for now other than switching to longer acting propranolol; no known history of MAO'I which could be a possible option; discussed hypertension which patient says he has a history of; will see if BP response to propranolol adjustment 08/15 will add social anxiety order to diagnosis; interactions with parents growing up were emotionally traumatic have significantly effected his ability to have interpersonal relationships in his adult life. Started CBT exercise which resonate with patient. Waiting for nortriptyline level. BP a little better perhaps since starting long-acting propranolol; will leave for now 08/16 severe headache after ECT; sumatriptan 25 mg seem to help resolve 08/17: Headache resolved. Continue current plan. 08/18: ECT #3 on 08/21/2208/19: ECT #3 on 08/21/2208/20 remains depressed and anxious; will increase propranolol; continue with ECT 08/22 depressed, anxious; continue with treatment plan; patient hypertensive. He is ambivalent about starting antihypertensive medication but will inquire further 08/23 continue tx plan 08/24 continue treatment plan 08/25 continue treatment plan 08/26 patient remains depressed and anxious; discussed that in order to overcome depression patient has to engage in treatment; that remaining passive, expecting ECT to do all the work is likely part of the problem. Patient seems to agree and consider the reasons he is avoiding engagement. 08/27/2022 Patient would benefit from clear cognitive behavioral strategies. Change ECT to bilateral would consider MAO I Denies active self-harm 08/30 reports still depressed; mostly isolating however patient agrees to start push himself to attend groups; starting Viibryd and discontinue nortriptyline 08/31: Continue current tx plan. 09/01: ECT #8 (#2 BL) tomorrow. 09/02 ECT did not happen today for unknown anesthesia reasons; patient reports he is the same however affect is noticeably brighter more relapse next and naturally expressive. Patient is now attending groups. Increasing Viibryd 09/03 continue tx plan Patient educated on: diagnosis, ECT and therapeutic strategies Informed Consent: understands Reason for continued inpatient stay Substantial Risk for: med/psych decompensation Time Spent With Patient Time: Total time managing care of this patient today ____ minutes.
[2022-09-03 18:00] VITALS: BP 128/86; PULSE 95; RESP 16; TEMP 36.4; O2SAT 96
[2022-09-03] MEDS: Zolpidem Tartrate 5 MG TABLET PO (20:42)
[2022-09-03] MEDS: traZODone HCL 50 MG TABLET PO (20:42)
[2022-09-04] VITALS (11 sets, daily range): BP systolic 108–139; BP diastolic 66–94; PULSE 64–92; RESP 12–20; TEMP 36.5–37.2; O2SAT 93–97
--- NOTE | 2022-09-04 08:17 | P.CONAN_ITS ---
[facility] Active Problems Active Problems: All Active Problems (Updated 08/15/22 @ 13:54 by Gerhard Jordan MD) Routine history and physical examination of adult (Acute) Pre-op evaluation (Acute) Social anxiety disorder (Acute) Complicated bereavement (Acute) Severe recurrent major depression (Acute) Past Medical History Medical History Complicated bereavement Severe recurrent major depression Social anxiety disorder Family History Family history of problems with anesthesia: No Surgical History Surgical History (Updated 08/30/22 @ 06:47 by Anisha Bui RN) H/O wrist surgery History of ankle surgery History of Problems with Anesthesia: No Social History Social History Household Members: None Housing: Homeless Patient Tobacco Use Status: Never used Tobacco service: No Sexual orientation: Straight/Heterosexual Meds Allergies Allergy/AdvReac Type Severity Reaction Status Date / Time No Known Allergies Allergy Verified 08/09/22 16:14 Active Medications: Current Medications Acetaminophen (Acetaminophen 325 Mg Tablet) 650 mg PO Q6H PRN PRN Reason: Headache/Pain Mild Scale (1-3) Last Admin: 09/03/22 09:36 Dose: 650 mg Al Hydroxide/Mg Hydroxide (Magnesium Hydrox/Alum Hydrox 30 Ml Oral.Susp) 30 ml PO Q6H PRN PRN Reason: Heartburn/Nausea Hydroxyzine HCl (Hydroxyzine Hcl 25 Mg Tablet) 25 mg PO Q6H PRN PRN Reason: Anxiety Last Admin: 08/29/22 21:04 Dose: 25 mg Lorazepam (Lorazepam 1 Mg Tablet) 1 mg PO BID JUAN Last Admin: 09/03/22 20:29 Dose: 1 mg Magnesium Hydroxide (Milk Of Magnesia 30 Ml Oral.Susp) 30 ml PO DAILY PRN PRN Reason: Constipation Last Admin: 08/21/22 14:12 Dose: 30 ml Propranolol HCl (Propranolol Hcl La 60 Mg Cap.Sa.24h) 120 mg PO DAILY JUAN; Protocol Last Admin: 09/03/22 09:21 Dose: 120 mg Quetiapine Fumarate (Quetiapine Fumarate 200 Mg Tablet) 200 mg PO BID [facility] Last Admin: 09/03/22 20:28 Dose: 200 mg Sumatriptan Succinate (Sumatriptan Succinate 25 Mg Tablet) 25 mg PO DAILY PRN PRN Reason: severe headache Last Admin: 08/23/22 18:00 Dose: 25 mg Trazodone HCl (Trazodone Hcl 50 Mg Tablet) 50 mg PO BEDTIME MRX1 PRN PRN Reason: Insomnia Last Admin: 09/03/22 20:42 Dose: 50 mg Vilazodone HCl (Vilazodone Hcl 20 Mg Tablet) 20 mg PO DAILY JUAN Last Admin: 09/03/22 09:21 Dose: 20 mg Zolpidem Tartrate (Zolpidem Tartrate 5 Mg Tablet) 5 mg PO BEDTIME PRN PRN Reason: Insomnia Last Admin: 09/03/22 20:42 Dose: 5 mg Home Medications Medication Instructions Recorded Confirmed Last Taken Type ibuprofen 600 mg PO Q6H PRN Pain 08/10/22 08/10/22 Unknown History lorazepam 0.5 mg tablet 1.5 mg PO BID 08/10/22 08/10/22 08/09/22 12:15 History nortriptyline 150 mg PO BEDTIME 08/10/22 08/10/22 08/08/22 19:24 History propranolol 20 mg tablet 20 mg PO DAILY 08/10/22 08/10/22 Unknown History propranolol 20 mg tablet 20 mg PO DAILY PRN Anxiety 08/10/22 08/10/22 Unknown History quetiapine 200 mg PO BID 08/10/22 08/10/22 08/09/22 16:06 History zolpidem 10 mg PO BEDTIME PRN Sleep 08/10/22 08/10/22 08/08/22 19:25 History Exam Exam Date and Time: September 04, 2022 0817 Height,Weight and Vital Signs: Height 5 ft 10 in Weight 130.7 kg Last Vital Signs Temp 97.7 F 09/04/22 06:41 Pulse 87 09/04/22 06:41 Resp 20 09/04/22 06:41 BP 139/93 H 09/04/22 06:41 Pulse Ox 95 09/04/22 06:41 O2 Del Method Room Air 09/04/22 06:41 O2 Flow Rate 2 08/30/22 08:42 Pertinent Lab Results Pertinent Lab Results: Laboratory Tests 08/10/22 08/10/22 08/10/22 07:04 07:04 07:04 WBC 7.3 RBC 5.05 Hgb 14.5 Hct 43.8 MCV 86.7 MCH 28.7 MCHC 33.1 RDW 13.5 Plt Count 236 MPV 8.4 L Immature Gran % (Auto) 0.4 Neut % (Auto) 61.4 Lymph % (Auto) 25.1 Ferry % (Auto) 10.1 Eos % (Auto) 2.6 Baso % (Auto) 0.4 Lymph # (Auto) 1.8 Ferry # (Auto) 0.7 Eos # (Auto) 0.2 Baso # (Auto) 0.0 Abs Immat Gran (auto) 0.03 Absolute Neuts (auto) 4.5 Absolute Nucleated RBC 0.000 Nucleated RBC % (auto) 0.0 Sodium 140 Potassium 4.3 Chloride 106 Carbon Dioxide 25 Anion Gap 13 BUN 13 Creatinine 0.86 Estim Creat Clear Calc TNP Estimated GFR > 60 Fasting Glucose 85 Estimat Average Glucose 103 Hemoglobin A1c % 5.2 Calcium 9.0 Magnesium 2.1 Total Bilirubin 0.5 AST 32 ALT 37 Alkaline Phosphatase 79 Total Protein 6.4 L Albumin 4.0 Triglycerides 171 Cholesterol 212 LDL Cholesterol, Calc 141 HDL Cholesterol 37 Vitamin B12 331 Folate 9.0 TSH 2.97 Free T4 0.82 Nortriptyline 08/10/22 07:04 WBC RBC Hgb Hct MCV MCH MCHC RDW Plt Count MPV Immature Gran % (Auto) Neut % (Auto) Lymph % (Auto) Ferry % (Auto) Eos % (Auto) Baso % (Auto) Lymph # (Auto) Ferry # (Auto) Eos # (Auto) Baso # (Auto) Abs Immat Gran (auto) Absolute Neuts (auto) Absolute Nucleated RBC Nucleated RBC % (auto) Sodium Potassium Chloride Carbon Dioxide Anion Gap BUN Creatinine Estim Creat Clear Calc Estimated GFR Fasting Glucose Estimat Average Glucose Hemoglobin A1c % Calcium Magnesium Total Bilirubin AST ALT Alkaline Phosphatase Total Protein Albumin Triglycerides Cholesterol LDL Cholesterol, Calc HDL Cholesterol Vitamin B12 Folate TSH Free T4 Nortriptyline 102 Airway Mallampati Class: II TM Dist: >3cm Neck ROM: Full Heart: rrr Lungs: cta Assessment and Plan Assessment Anesthesia Assessment: Anesthesia Plan Discussed and Chart Reviewed Final Anesthetic Review Family History of Problems with Anesthesia: No History of Problems with Anesthesia: No NPO: Yes ASA Class: III Final Preanesthetic Review: No Changes in Pt Med Stat, Meds/Allgs Chart Reviewed and Consent Obtained/Reviewed Patient Risk: Intermediate Procedure Risk: Intermediate Anesthetic Plan Anesthetic Plan: GA Disposition: Standard PACU
--- NOTE | 2022-09-04 08:56 | MHC.SHP ---
Pre-Procedural Eval Section A Date of Service: 09/04/22 The patient is an INPATIENT: Yes Changes since office visit: Yes Changes in Medication and Yes Patient answered all questions; No Cold of Flu in the past 2 weeks and No New Medical Problems The History & Physical has been completed within 30 days and I have reviewed it.: Yes Section B Chief Complaint: Rec. Major Depression, Complex Bereavement Reacti Allergies: Allergies Allergy/AdvReac Type Severity Reaction Status Date / Time No Known Allergies Allergy Verified 08/09/22 16:14 Plan I have reviewed the history and physical and performed a pertinent physical examination on my patient. No changes have occurred unless specified. Time Spent With Patient Time: Total time managing care of this patient today ____ minutes.
[2022-09-04] MEDS: LORazepam 1 MG TABLET PO ×3 (10:05→19:37)
[2022-09-04] MEDS: Vilazodone HCL 20 MG TABLET PO (10:05)
[2022-09-04] MEDS: Propranolol HCL LA 60 MG CAP.SA.24H 120 MG PO (10:05)
[2022-09-04] MEDS: QUEtiapine Fumarate 200 MG TABLET PO ×2 (10:08→19:38)
--- NOTE | 2022-09-04 11:37 | P.PNPSI_ITS ---
Subjective Subjective Date of Service: 09/04/22 Reason For Visit: Rec. Major Depression, Complex Bereavement Reacti Interim History: Met with patient; discussed with team Patient said he felt really weird today after ECT and just wanted to rest Mental Status Exam Mental Status Exam Narrative: Pt is alert and oriented; behavior is cooperative, calm; dressed in casual attire, balding; adequate hygiene; mood is described as wierd affect congruent; eye contact appropriate; Speech is normal rate, volume and prosody and not pressured; some psychomotor retardation present; thought process is organized and goal directed; Thought content is on treatment; otherwise pertinent to relevant topics and without any delusional content, paranoid ideations or grandiosity; intermittent, passive SI/no HI. There is no evidence of perceptual disturbance. Patients insight and judgment are impaired but improving Diagnostics Vital Signs (24Hr): Vital Signs - 24 hr 09/03/22 18:00 09/04/22 05:49 09/04/22 05:51 Temperature 97.6 F 97.8 F 97.8 F Pulse Rate 95 70 70 Respiratory Rate 16 18 18 Blood Pressure 128/86 132/88 132/88 Pulse Oximetry 96 97 97 Oxygen Delivery Method Room Air Room Air Oxygen Flow Rate 09/04/22 06:41 09/04/22 09:06 09/04/22 09:11 Temperature 97.7 F 98.2 F Pulse Rate 87 90 92 Respiratory Rate 20 19 16 Blood Pressure 139/93 H 121/76 122/78 Pulse Oximetry 95 93 94 Oxygen Delivery Method Room Air Nasal Cannula Nasal Cannula Oxygen Flow Rate 3 2 09/04/22 09:16 09/04/22 09:21 09/04/22 09:36 Temperature 98.2 F Pulse Rate 89 90 88 Respiratory Rate 19 16 12 Blood Pressure 137/94 H 112/77 121/74 Pulse Oximetry 95 95 95 Oxygen Delivery Method Nasal Cannula Room Air Room Air Oxygen Flow Rate 2 09/04/22 09:50 09/04/22 10:11 Temperature 98.2 F 97.7 F Pulse Rate 83 64 Respiratory Rate 16 16 Blood Pressure 108/66 122/84 Pulse Oximetry 96 95 Oxygen Delivery Method Room Air Oxygen Flow Rate BMI result Body Mass Index 41.3 Labs 08/10/22 07:04 08/10/22 07:04 Medications Medications Current Medications Acetaminophen (Acetaminophen 325 Mg Tablet) 650 mg PO Q6H PRN PRN Reason: Headache/Pain Mild Scale (1-3) Last Admin: 09/03/22 09:36 Dose: 650 mg Al Hydroxide/Mg Hydroxide (Magnesium Hydrox/Alum Hydrox 30 Ml Oral.Susp) 30 ml PO Q6H PRN PRN Reason: Heartburn/Nausea Hydroxyzine HCl (Hydroxyzine Hcl 25 Mg Tablet) 25 mg PO Q6H PRN PRN Reason: Anxiety Last Admin: 08/29/22 21:04 Dose: 25 mg Lorazepam (Lorazepam 1 Mg Tablet) 1 mg PO BID [facility] Last Admin: 09/04/22 10:05 Dose: 1 mg Magnesium Hydroxide (Milk Of Magnesia 30 Ml Oral.Susp) 30 ml PO DAILY PRN PRN Reason: Constipation Last Admin: 08/21/22 14:12 Dose: 30 ml Propranolol HCl (Propranolol Hcl La 60 Mg Cap.Sa.24h) 120 mg PO DAILY [facility]; Protocol Last Admin: 09/04/22 10:05 Dose: 120 mg Quetiapine Fumarate (Quetiapine Fumarate 200 Mg Tablet) 200 mg PO BID [facility] Last Admin: 09/04/22 10:08 Dose: 200 mg Sumatriptan Succinate (Sumatriptan Succinate 25 Mg Tablet) 25 mg PO DAILY PRN PRN Reason: severe headache Last Admin: 08/23/22 18:00 Dose: 25 mg Trazodone HCl (Trazodone Hcl 50 Mg Tablet) 50 mg PO BEDTIME MRX1 PRN PRN Reason: Insomnia Last Admin: 09/03/22 20:42 Dose: 50 mg Vilazodone HCl (Vilazodone Hcl 20 Mg Tablet) 20 mg PO DAILY [facility] Last Admin: 09/04/22 10:05 Dose: 20 mg Zolpidem Tartrate (Zolpidem Tartrate 5 Mg Tablet) 5 mg PO BEDTIME PRN PRN Reason: Insomnia Last Admin: 09/03/22 20:42 Dose: 5 mg Allergies Allergies Allergy/AdvReac Type Severity Reaction Status Date / Time No Known Allergies Allergy Verified 08/09/22 16:14 Assessment & Plan Assessment & Plan (1) Severe recurrent major depression: Status: Acute Code(s): F33.2 - Major depressive disorder, recurrent severe without psychotic features (2) Complicated bereavement: Status: Acute Code(s): F43.21 - Adjustment disorder with depressed mood (3) Social anxiety disorder: Status: Acute Code(s): F40.10 - Social phobia, unspecified Plan 32 yo male, scheduled transfer from [facility] [place] for ECT consult and treatment s/p suicide attempt with complex breavement issues. Patient reports numerous medication trials over many years without much effect Plan: CV Q 15 minute checks ECT #1 on 08/14 ECT #2 on 08/16 ECT #3 on 08/21; ECT #4 on 08/23 ECT #5 on 08/26 ECT #6 on 08/28 ECT #7 on 08/30 (NO ECT on 09/02) ECT #8 on 09/04 -NPO after midnight Continue Viibryd 20mg daily Continue Propranolol LA 120mg (and dc IR); pt still anxious and also w/ HTN DC nortriptyline out of some concern that medication could interfere with ECT side effects; (at 150mg, -Nortriptyline level therapeutic: 102) Continue Seroquel 200 mg b.i.d.; patient says for anxiety Continue Ativan 1.5 mg b.i.d.; patient recently started on clonazepam 1 mg t.i.d. but it was switched in the ED just prior to this admission Ambien 5 mg q.h.s. HOSPITAL Course: 08/12/22 cont nortrip seroquel reviwed ect scheduled for 08/14/22 s/p suicide attempt denies active si now 08/13 pt cleared for ECT by hospitalist WILL; depressed but SI back to chronic, low level at baseline. 08/14 tolerating ECT; wants to continue. Discussed medication management and will continue current regimen for now other than switching to longer acting propranolol; no known history of MAO'I which could be a possible option; discussed hypertension which patient says he has a history of; will see if BP response to propranolol adjustment 08/15 will add social anxiety order to diagnosis; interactions with parents growing up were emotionally traumatic have significantly effected his ability to have interpersonal relationships in his adult life. Started CBT exercise which resonate with patient. Waiting for nortriptyline level. BP a little better perhaps since starting long-acting propranolol; will leave for now 08/16 severe headache after ECT; sumatriptan 25 mg seem to help resolve 08/17: Headache resolved. Continue current plan. 08/18: ECT #3 on 08/21/2208/19: ECT #3 on 08/21/2208/20 remains depressed and anxious; will increase propranolol; continue with ECT 08/22 depressed, anxious; continue with treatment plan; patient hypertensive. He is ambivalent about starting antihypertensive medication but will inquire further 08/23 continue tx plan 08/24 continue treatment plan 08/25 continue treatment plan 08/26 patient remains depressed and anxious; discussed that in order to overcome depression patient has to engage in treatment; that remaining passive, expecting ECT to do all the work is likely part of the problem. Patient seems to agree and consider the reasons he is avoiding engagement. 08/27/2022 Patient would benefit from clear cognitive behavioral strategies. Change ECT to bilateral would consider MAO I Denies active self-harm 08/30 reports still depressed; mostly isolating however patient agrees to start push himself to attend groups; starting Viibryd and discontinue nortriptyline 08/31: Continue current tx plan. 09/01: ECT #8 (#2 BL) tomorrow. 09/02 ECT did not happen today for unknown anesthesia reasons; patient reports he is the same however affect is noticeably brighter more relapse next and naturally expressive. Patient is now attending groups. Increasing Viibryd 09/03 continue tx plan 09/04 continue plan Patient educated on: diagnosis and ECT Informed Consent: understands Reason for continued inpatient stay Substantial Risk for: rapid decompensation Time Spent With Patient Time: Total time managing care of this patient today ____ minutes.
[2022-09-04] MEDS: traZODone HCL 50 MG TABLET PO (19:38)
[2022-09-04] MEDS: Zolpidem Tartrate 5 MG TABLET PO (19:38)
--- NOTE | 2022-09-04 23:15 | HO.ECTPROC ---
ECT Procedure Note Diagnosis/Treatment Date of Service: 09/06/22 Diagnosis: Major Depressive Disorder Current Treatment Number: 7 Treatment: Series Interval Clinical Notes: pt had last ect cabceled change to brevital Time: Total time managing care of this patient today ____ minutes. ECT Settings Device: THYMATRON DGx Electrode Placement: Rt temporal/ Lt frontal Program/Pulse Width: 0.50 Energy Percent: 100 Seizure Duration By EEG (in seconds): 52 Medications Administration General Anesthetic: Methohexital (150) Muscle Relaxant: Succinylcholine Ancillary Medications Cardiovascular Medications: Glycopyrrolate Miscillaneous Medications: Propofol Airway Management Airway Management: LMA Treatment Recommendations No Changes Recommended: No change Notes: haldol given 5 mg iv post better with brevital
[2022-09-05 09:30] VITALS: BP 161/100; PULSE 105; RESP 16; TEMP 36.3; O2SAT 95
[2022-09-05] MEDS: Propranolol HCL LA 60 MG CAP.SA.24H 120 MG PO (09:42)
[2022-09-05] MEDS: Vilazodone HCL 20 MG TABLET PO (09:42)
[2022-09-05] MEDS: LORazepam 1 MG TABLET PO ×2 (09:42→18:52)
[2022-09-05] MEDS: QUEtiapine Fumarate 200 MG TABLET PO ×2 (09:42→18:52)
--- NOTE | 2022-09-05 09:58 | HO.PSYCHPN ---
Subjective Subjective Date of Service: 09/05/22 Reason For Visit: Rec. Major Depression, Complex Bereavement Reacti Interim History: Met with patient; discussed with team Patient reports that he went to groups today; said they were boring. Math Interventionist noted that this was a distinct change from his previous feelings about group which he said he used to hate and that it felt torturous to sit there. Patient agreed that this is improvement that his anxiety in this area is a little less intense than it was before; patient expressed hope that if his anxiety could already be a little less, that with time, therapy it could continue to lessen. Math Interventionist and patient discussed CBT work and exposure therapy, and how placing yourself and uncomfortable position allows oneself to learn that they can survive this uncomfortable situation. Discussed some of patient's social anxiety and he shared that he is constantly worried that people are looking at him or think that he is acting odd or weird; he says intellectually he knows they are probably not thinking about him at all but he can not help imagine this. Also he says he just feels so uncomfortable in his own skin that he assumes he is presenting in an odd way. That said patient was able to identify four people in his life with whom he feels comfortable with, able to relax and be himself, 1 of which is his outpatient therapist. Discussed patient's depression and how he presents to typewriter assembler and staff as being within improved mood, more present, more willing to engage, with much more natural and spontaneous expressions and speech; patient was glad to hear this and agrees it is likely true. Discussed how he ECT targets depression but that anxiety will likely have to be worked out in therapy and with medication. Patient agrees to continue titrating both propranolol and Viibryd. Mental Status Exam Mental Status Exam Narrative: Pt is alert and oriented; behavior is cooperative, calm; dressed in casual attire, balding; adequate hygiene; mood is described as same but affect more relaxed and naturally expressive; eye contact appropriate; Speech is normal rate, volume and prosody and not pressured; some psychomotor retardation present; thought process is organized and goal directed; Thought content is on treatment; otherwise pertinent to relevant topics and without any delusional content, paranoid ideations or grandiosity; no SI/no HI. There is no evidence of perceptual disturbance. Patients insight and judgment are impaired but improving Diagnostics Vital Signs (24Hr): Vital Signs - 24 hr 09/04/22 10:11 09/04/22 19:35 Temperature 97.7 F 98.9 F Pulse Rate 64 79 Respiratory Rate 16 Blood Pressure 122/84 121/71 Pulse Oximetry 95 BMI result Body Mass Index 41.3 Labs 08/10/22 07:04 08/10/22 07:04 Medications Medications Current Medications Acetaminophen (Acetaminophen 325 Mg Tablet) 650 mg PO Q6H PRN PRN Reason: Headache/Pain Mild Scale (1-3) Last Admin: 09/03/22 09:36 Dose: 650 mg Al Hydroxide/Mg Hydroxide (Magnesium Hydrox/Alum Hydrox 30 Ml Oral.Susp) 30 ml PO Q6H PRN PRN Reason: Heartburn/Nausea Hydroxyzine HCl (Hydroxyzine Hcl 25 Mg Tablet) 25 mg PO Q6H PRN PRN Reason: Anxiety Last Admin: 08/29/22 21:04 Dose: 25 mg Lorazepam (Lorazepam 1 Mg Tablet) 1 mg PO BID [facility] Last Admin: 09/05/22 09:42 Dose: 1 mg Magnesium Hydroxide (Milk Of Magnesia 30 Ml Oral.Susp) 30 ml PO DAILY PRN PRN Reason: Constipation Last Admin: 08/21/22 14:12 Dose: 30 ml Propranolol HCl (Propranolol Hcl La 60 Mg Cap.Sa.24h) 120 mg PO DAILY [facility]; Protocol Last Admin: 09/05/22 09:42 Dose: 120 mg Quetiapine Fumarate (Quetiapine Fumarate 200 Mg Tablet) 200 mg PO BID [facility] Last Admin: 09/05/22 09:42 Dose: 200 mg Sumatriptan Succinate (Sumatriptan Succinate 25 Mg Tablet) 25 mg PO DAILY PRN PRN Reason: severe headache Last Admin: 08/23/22 18:00 Dose: 25 mg Trazodone HCl (Trazodone Hcl 50 Mg Tablet) 50 mg PO BEDTIME MRX1 PRN PRN Reason: Insomnia Last Admin: 09/04/22 19:38 Dose: 50 mg Vilazodone HCl (Vilazodone Hcl 20 Mg Tablet) 20 mg PO DAILY [facility] Last Admin: 09/05/22 09:42 Dose: 20 mg Zolpidem Tartrate (Zolpidem Tartrate 5 Mg Tablet) 5 mg PO BEDTIME PRN PRN Reason: Insomnia Last Admin: 09/04/22 19:38 Dose: 5 mg Allergies Allergies Allergy/AdvReac Type Severity Reaction Status Date / Time No Known Allergies Allergy Verified 08/09/22 16:14 Assessment & Plan Assessment & Plan (1) Severe recurrent major depression: Status: Acute Code(s): F33.2 - Major depressive disorder, recurrent severe without psychotic features (2) Complicated bereavement: Status: Acute Code(s): F43.21 - Adjustment disorder with depressed mood (3) Social anxiety disorder: Status: Acute Code(s): F40.10 - Social phobia, unspecified Plan 32 yo male, scheduled transfer from [facility] for ECT consult and treatment s/p suicide attempt with complex breavement issues. Patient reports numerous medication trials over many years without much effect Plan: CV Q 15 minute checks ECT #1 on 08/14 ECT #2 on 08/16 ECT #3 on 08/21; ECT #4 on 08/23 ECT #5 on 08/26 ECT #6 on 08/28 ECT #7 on 08/30 (NO ECT on 09/02) ECT #8 on 09/04 ECT #9 on 09/06 -NPO after midnight Continue Viibryd 20mg daily Continue Propranolol LA 120mg (and dc IR); pt still anxious and also w/ HTN DC nortriptyline out of some concern that medication could interfere with ECT side effects; (at 150mg, -Nortriptyline level therapeutic: 102) Continue Seroquel 200 mg b.i.d.; patient says for anxiety Continue Ativan 1.5 mg b.i.d.; patient recently started on clonazepam 1 mg t.i.d. but it was switched in the ED just prior to this admission Ambien 5 mg q.h.s. HOSPITAL Course: 08/12/22 cont nortrip seroquel reviwed ect scheduled for 08/14/22 s/p suicide attempt denies active si now 08/13 pt cleared for ECT by hospitalist WILL; depressed but SI back to chronic, low level at baseline. 08/14 tolerating ECT; wants to continue. Discussed medication management and will continue current regimen for now other than switching to longer acting propranolol; no known history of MAO'I which could be a possible option; discussed hypertension which patient says he has a history of; will see if BP response to propranolol adjustment 08/15 will add social anxiety order to diagnosis; interactions with parents growing up were emotionally traumatic have significantly effected his ability to have interpersonal relationships in his adult life. Started CBT exercise which resonate with patient. Waiting for nortriptyline level. BP a little better perhaps since starting long-acting propranolol; will leave for now 08/16 severe headache after ECT; sumatriptan 25 mg seem to help resolve 08/17: Headache resolved. Continue current plan. 08/18: ECT #3 on 08/21/2208/19: ECT #3 on 08/21/2208/20 remains depressed and anxious; will increase propranolol; continue with ECT 08/22 depressed, anxious; continue with treatment plan; patient hypertensive. He is ambivalent about starting antihypertensive medication but will inquire further 08/23 continue tx plan 08/24 continue treatment plan 08/25 continue treatment plan 08/26 patient remains depressed and anxious; discussed that in order to overcome depression patient has to engage in treatment; that remaining passive, expecting ECT to do all the work is likely part of the problem. Patient seems to agree and consider the reasons he is avoiding engagement. 08/27/2022 Patient would benefit from clear cognitive behavioral strategies. Change ECT to bilateral would consider MAO I Denies active self-harm 08/30 reports still depressed; mostly isolating however patient agrees to start push himself to attend groups; starting Viibryd and discontinue nortriptyline 08/31: Continue current tx plan. 09/01: ECT #8 (#2 BL) tomorrow. 09/02 ECT did not happen today for unknown anesthesia reasons; patient reports he is the same however affect is noticeably brighter more relapse next and naturally expressive. Patient is now attending groups. Increasing Viibryd 09/03 continue tx plan 09/04 continue plan 09/05 patient continues to incrementally improve with slightly less depression and less intense anxiety; affect is noticeably brighter. Patient getting more open about his life and more willing to fully engage in treatment. Patient has been going to groups and through this experiences realizing that despite feeling anxious, he is able to tolerate it and his anxiety is decreasing. Will likely increase Viibryd however he has been on 20 mg for only 3 days so will give it another couple days. May consider increasing propranolol; patient's blood pressure/heart rate is mostly within normal limits but could probably tolerate increased dose. Will consider -otherwise continue with ECT Patient educated on: diagnosis, medication risk/benefits and therapeutic strategies Informed Consent: understands Reason for continued inpatient stay Substantial Risk for: med/psych decompensation Time Spent With Patient Time: Total time managing care of this patient today ____ minutes.
[2022-09-05 11:12] VITALS: BP 139/95; RESP 104
[2022-09-05 15:49] VITALS: BP 139/76; PULSE 87; TEMP 36.6
[2022-09-05] MEDS: traZODone HCL 50 MG TABLET PO (18:52)
[2022-09-05] MEDS: Zolpidem Tartrate 5 MG TABLET PO (18:52)
[2022-09-06] VITALS (11 sets, daily range): BP systolic 109–150; BP diastolic 56–101; PULSE 71–92; RESP 12–18; TEMP 35.5–37.2; O2SAT 90–96
--- NOTE | 2022-09-06 08:17 | MHC.SHP ---
Pre-Procedural Eval Section A Date of Service: 09/06/22 Changes since office visit: Yes Changes in Medication and Yes Patient answered all questions; No Cold of Flu in the past 2 weeks and No New Medical Problems The History & Physical has been completed within 30 days and I have reviewed it.: Yes Section B Chief Complaint: Rec. Major Depression, Complex Bereavement Reacti Allergies: Allergies Allergy/AdvReac Type Severity Reaction Status Date / Time No Known Allergies Allergy Verified 08/09/22 16:14 Plan I have reviewed the history and physical and performed a pertinent physical examination on my patient. No changes have occurred unless specified. Time Spent With Patient Time: Total time managing care of this patient today ____ minutes.
--- NOTE | 2022-09-06 10:18 | P.CONAN_ITS ---
FORMERLY [facility], [facility] Active Problems Active Problems: All Active Problems (Updated 08/15/22 @ 13:54 by Gerhard Jordan MD) Routine history and physical examination of adult (Acute) Pre-op evaluation (Acute) Social anxiety disorder (Acute) Complicated bereavement (Acute) Severe recurrent major depression (Acute) Past Medical History Medical History Complicated bereavement Severe recurrent major depression Social anxiety disorder Family History Family history of problems with anesthesia: No Surgical History Surgical History (Updated 08/30/22 @ 06:47 by Anisha Bui RN) H/O wrist surgery History of ankle surgery History of Problems with Anesthesia: No Social History Social History Household Members: None Housing: Homeless Patient Tobacco Use Status: Never used Tobacco service: No Sexual orientation: Straight/Heterosexual Meds Allergies Allergy/AdvReac Type Severity Reaction Status Date / Time No Known Allergies Allergy Verified 08/09/22 16:14 Active Medications: Current Medications Acetaminophen (Acetaminophen 325 Mg Tablet) 650 mg PO Q6H PRN PRN Reason: Headache/Pain Mild Scale (1-3) Last Admin: 09/03/22 09:36 Dose: 650 mg Al Hydroxide/Mg Hydroxide (Magnesium Hydrox/Alum Hydrox 30 Ml Oral.Susp) 30 ml PO Q6H PRN PRN Reason: Heartburn/Nausea Hydroxyzine HCl (Hydroxyzine Hcl 25 Mg Tablet) 25 mg PO Q6H PRN PRN Reason: Anxiety Last Admin: 08/29/22 21:04 Dose: 25 mg Lactated Ringer's (Lr) 1,000 mls @ 50 mls/hr IVCONT .Q20H [facility] Lorazepam (Lorazepam 1 Mg Tablet) 1 mg PO BID [facility] Last Admin: 09/05/22 18:52 Dose: 1 mg Magnesium Hydroxide (Milk Of Magnesia 30 Ml Oral.Susp) 30 ml PO DAILY PRN PRN Reason: Constipation Last Admin: 08/21/22 14:12 Dose: 30 ml Propranolol HCl (Propranolol Hcl La 60 Mg Cap.Sa.24h) 120 mg PO DAILY [facility]; Protocol Last Admin: 09/05/22 09:42 Dose: 120 mg Quetiapine Fumarate (Quetiapine Fumarate 200 Mg Tablet) 200 mg PO BID [facility] Last Admin: 09/05/22 18:52 Dose: 200 mg Sumatriptan Succinate (Sumatriptan Succinate 25 Mg Tablet) 25 mg PO DAILY PRN PRN Reason: severe headache Last Admin: 08/23/22 18:00 Dose: 25 mg Trazodone HCl (Trazodone Hcl 50 Mg Tablet) 50 mg PO BEDTIME MRX1 PRN PRN Reason: Insomnia Last Admin: 09/05/22 18:52 Dose: 50 mg Vilazodone HCl (Vilazodone Hcl 20 Mg Tablet) 20 mg PO DAILY [facility] Last Admin: 09/05/22 09:42 Dose: 20 mg Zolpidem Tartrate (Zolpidem Tartrate 5 Mg Tablet) 5 mg PO BEDTIME PRN PRN Reason: Insomnia Last Admin: 09/05/22 18:52 Dose: 5 mg Home Medications Medication Instructions Recorded Confirmed Last Taken Type ibuprofen 600 mg PO Q6H PRN Pain 08/10/22 08/10/22 Unknown History lorazepam 0.5 mg tablet 1.5 mg PO BID 08/10/22 08/10/22 08/09/22 12:15 History nortriptyline 150 mg PO BEDTIME 08/10/22 08/10/22 08/08/22 19:24 History propranolol 20 mg tablet 20 mg PO DAILY 08/10/22 08/10/22 Unknown History propranolol 20 mg tablet 20 mg PO DAILY PRN Anxiety 08/10/22 08/10/22 Unknown History quetiapine 200 mg PO BID 08/10/22 08/10/22 08/09/22 16:06 History zolpidem 10 mg PO BEDTIME PRN Sleep 08/10/22 08/10/22 08/08/22 19:25 History Exam Exam Date and Time: September 06, 2022 1018 Height,Weight and Vital Signs: Height 5 ft 10 in Weight 130.7 kg Last Vital Signs Temp 97.3 F 09/06/22 08:27 Pulse 74 09/06/22 08:27 Resp 17 09/06/22 08:27 BP 150/101 H 09/06/22 08:27 Pulse Ox 95 09/06/22 08:27 O2 Del Method Room Air 09/06/22 08:27 O2 Flow Rate 2 09/04/22 09:16 Pertinent Lab Results Pertinent Lab Results: Laboratory Tests 08/10/22 08/10/22 08/10/22 07:04 07:04 07:04 WBC 7.3 RBC 5.05 Hgb 14.5 Hct 43.8 MCV 86.7 MCH 28.7 MCHC 33.1 RDW 13.5 Plt Count 236 MPV 8.4 L Immature Gran % (Auto) 0.4 Neut % (Auto) 61.4 Lymph % (Auto) 25.1 Morris % (Auto) 10.1 Eos % (Auto) 2.6 Baso % (Auto) 0.4 Lymph # (Auto) 1.8 Morris # (Auto) 0.7 Eos # (Auto) 0.2 Baso # (Auto) 0.0 Abs Immat Gran (auto) 0.03 Absolute Neuts (auto) 4.5 Absolute Nucleated RBC 0.000 Nucleated RBC % (auto) 0.0 Sodium 140 Potassium 4.3 Chloride 106 Carbon Dioxide 25 Anion Gap 13 BUN 13 Creatinine 0.86 Estim Creat Clear Calc TNP Estimated GFR > 60 Fasting Glucose 85 Estimat Average Glucose 103 Hemoglobin A1c % 5.2 Calcium 9.0 Magnesium 2.1 Total Bilirubin 0.5 AST 32 ALT 37 Alkaline Phosphatase 79 Total Protein 6.4 L Albumin 4.0 Triglycerides 171 Cholesterol 212 LDL Cholesterol, Calc 141 HDL Cholesterol 37 Vitamin B12 331 Folate 9.0 TSH 2.97 Free T4 0.82 Nortriptyline 08/10/22 07:04 WBC RBC Hgb Hct MCV MCH MCHC RDW Plt Count MPV Immature Gran % (Auto) Neut % (Auto) Lymph % (Auto) Morris % (Auto) Eos % (Auto) Baso % (Auto) Lymph # (Auto) Morris # (Auto) Eos # (Auto) Baso # (Auto) Abs Immat Gran (auto) Absolute Neuts (auto) Absolute Nucleated RBC Nucleated RBC % (auto) Sodium Potassium Chloride Carbon Dioxide Anion Gap BUN Creatinine Estim Creat Clear Calc Estimated GFR Fasting Glucose Estimat Average Glucose Hemoglobin A1c % Calcium Magnesium Total Bilirubin AST ALT Alkaline Phosphatase Total Protein Albumin Triglycerides Cholesterol LDL Cholesterol, Calc HDL Cholesterol Vitamin B12 Folate TSH Free T4 Nortriptyline 102 Airway Mallampati Class: III TM Dist: >3cm Neck ROM: Full Heart: rrr Lungs: cta Assessment and Plan Assessment Anesthesia Assessment: Anesthesia Plan Discussed and Chart Reviewed Final Anesthetic Review Family History of Problems with Anesthesia: No History of Problems with Anesthesia: No NPO: Yes ASA Class: III Final Preanesthetic Review: No Changes in Pt Med Stat, Meds/Allgs Chart Reviewed and Consent Obtained/Reviewed Patient Risk: Intermediate Procedure Risk: Intermediate Anesthetic Plan Anesthetic Plan: GA Disposition: Standard PACU
--- NOTE | 2022-09-06 10:28 | P.PNPSI_ITS ---
Subjective Subjective Date of Service: 09/06/22 Reason For Visit: Rec. Major Depression, Complex Bereavement Reacti Interim History: Briefly Met with patient; discussed with team Patient reports feeling very tired out of sorts following ECT today. Did not want to discuss or talk much; agrees to increasing Viibryd Mental Status Exam Mental Status Exam Narrative: Pt is alert and oriented; behavior is cooperative, calm; dressed in casual attire, balding; adequate hygiene; mood is described as tired but affect more relaxed and naturally expressive; eye contact appropriate; Speech is normal rate, volume and prosody and not pressured; some psychomotor retardation present; thought process is organized and goal directed; Thought content is on treatment; otherwise pertinent to relevant topics and without any delusional content, paranoid ideations or grandiosity; no SI/no HI. There is no evidence of perceptual disturbance. Patients insight and judgment are impaired but improving Diagnostics Vital Signs (24Hr): Vital Signs - 24 hr 09/05/22 11:12 09/05/22 15:49 09/06/22 05:58 Temperature 98 F 98.1 F Pulse Rate 87 79 Respiratory Rate 104 H 16 Blood Pressure 139/95 H 139/76 149/93 H Pulse Oximetry 96 Oxygen Delivery Method Room Air 09/06/22 06:10 09/06/22 08:27 Temperature 98.1 F 97.3 F Pulse Rate 79 74 Respiratory Rate 16 17 Blood Pressure 149/93 H 150/101 H Pulse Oximetry 96 95 Oxygen Delivery Method Room Air BMI result Body Mass Index 41.3 Labs 08/10/22 07:04 08/10/22 07:04 Medications Medications Current Medications Acetaminophen (Acetaminophen 325 Mg Tablet) 650 mg PO Q6H PRN PRN Reason: Headache/Pain Mild Scale (1-3) Last Admin: 09/03/22 09:36 Dose: 650 mg Al Hydroxide/Mg Hydroxide (Magnesium Hydrox/Alum Hydrox 30 Ml Oral.Susp) 30 ml PO Q6H PRN PRN Reason: Heartburn/Nausea Hydroxyzine HCl (Hydroxyzine Hcl 25 Mg Tablet) 25 mg PO Q6H PRN PRN Reason: Anxiety Last Admin: 08/29/22 21:04 Dose: 25 mg Lactated Ringer's (Lr) 1,000 mls @ 50 mls/hr IVCONT .Q20H [facility] Lactated Ringer's (Lr) 1,000 mls @ 50 mls/hr IVCONT .Q20H [facility] Lorazepam (Lorazepam 1 Mg Tablet) 1 mg PO BID [facility] Last Admin: 09/05/22 18:52 Dose: 1 mg Magnesium Hydroxide (Milk Of Magnesia 30 Ml Oral.Susp) 30 ml PO DAILY PRN PRN Reason: Constipation Last Admin: 08/21/22 14:12 Dose: 30 ml Propranolol HCl (Propranolol Hcl La 60 Mg Cap.Sa.24h) 120 mg PO DAILY [facility]; Protocol Last Admin: 09/05/22 09:42 Dose: 120 mg Quetiapine Fumarate (Quetiapine Fumarate 200 Mg Tablet) 200 mg PO BID [facility] Last Admin: 09/05/22 18:52 Dose: 200 mg Sumatriptan Succinate (Sumatriptan Succinate 25 Mg Tablet) 25 mg PO DAILY PRN PRN Reason: severe headache Last Admin: 08/23/22 18:00 Dose: 25 mg Trazodone HCl (Trazodone Hcl 50 Mg Tablet) 50 mg PO BEDTIME MRX1 PRN PRN Reason: Insomnia Last Admin: 09/05/22 18:52 Dose: 50 mg Vilazodone HCl (Vilazodone Hcl 20 Mg Tablet) 20 mg PO DAILY [facility] Last Admin: 09/05/22 09:42 Dose: 20 mg Zolpidem Tartrate (Zolpidem Tartrate 5 Mg Tablet) 5 mg PO BEDTIME PRN PRN Reason: Insomnia Last Admin: 09/05/22 18:52 Dose: 5 mg Allergies Allergies Allergy/AdvReac Type Severity Reaction Status Date / Time No Known Allergies Allergy Verified 08/09/22 16:14 Assessment & Plan Assessment & Plan (1) Severe recurrent major depression: Status: Acute Code(s): F33.2 - Major depressive disorder, recurrent severe without psychotic features (2) Complicated bereavement: Status: Acute Code(s): F43.21 - Adjustment disorder with depressed mood (3) Social anxiety disorder: Status: Acute Code(s): F40.10 - Social phobia, unspecified Plan 32 yo male, scheduled transfer from [facility] for ECT consult and treatment s/p suicide attempt with complex breavement issues. Patient reports numerous medication trials over many years without much effect Plan: CV Q 15 minute checks ECT #1 on 08/14 ECT #2 on 08/16 ECT #3 on 08/21; ECT #4 on 08/23 ECT #5 on 08/26 ECT #6 on 08/28 ECT #7 on 08/30 (NO ECT on 09/02) ECT #8 on 09/04 ECT #9 on 09/06 -NPO after midnight Continue Viibryd 20mg daily; will increase Continue Propranolol LA 120mg (and dc IR); pt still anxious and also w/ HTN DC nortriptyline out of some concern that medication could interfere with ECT side effects; (at 150mg, -Nortriptyline level therapeutic: 102) Continue Seroquel 200 mg b.i.d.; patient says for anxiety Continue Ativan 1.5 mg b.i.d.; patient recently started on clonazepam 1 mg t.i.d. but it was switched in the ED just prior to this admission Ambien 5 mg q.h.s. HOSPITAL Course: 08/12/22 cont nortrip seroquel reviwed ect scheduled for 08/14/22 s/p suicide attempt denies active si now 08/13 pt cleared for ECT by hospitalist WILL; depressed but SI back to chronic, low level at baseline. 08/14 tolerating ECT; wants to continue. Discussed medication management and will continue current regimen for now other than switching to longer acting propranolol; no known history of MAO'I which could be a possible option; discussed hypertension which patient says he has a history of; will see if BP r esponse to propranolol adjustment 08/15 will add social anxiety order to diagnosis; interactions with parents growing up were emotionally traumatic have significantly effected his ability to have interpersonal relationships in his adult life. Started CBT exercise which resonate with patient. Waiting for nortriptyline level. BP a little better perhaps since starting long-acting propranolol; will leave for now 08/16 severe headache after ECT; sumatriptan 25 mg seem to help resolve 08/17: Headache resolved. Continue current plan. 08/18: ECT #3 on 08/21/2208/19: ECT #3 on 08/21/2208/20 remains depressed and anxious; will increase propranolol; continue with ECT 08/22 depressed, anxious; continue with treatment plan; patient hypertensive. He is ambivalent about starting antihypertensive medication but will inquire further 08/23 continue tx plan 08/24 continue treatment plan 08/25 continue treatment plan 08/26 patient remains depressed and anxious; discussed that in order to overcome depression patient has to engage in treatment; that remaining passive, expecting ECT to do all the work is likely part of the problem. Patient seems to agree and consider the reasons he is avoiding engagement. 08/27/2022 Patient would benefit from clear cognitive behavioral strategies. Change ECT to bilateral would consider MAO I Denies active self-harm 08/30 reports still depressed; mostly isolating however patient agrees to start push himself to attend groups; starting Viibryd and discontinue nortriptyline 08/31: Continue current tx plan. 09/01: ECT #8 (#2 BL) tomorrow. 09/02 ECT did not happen today for unknown anesthesia reasons; patient reports he is the same however affect is noticeably brighter more relapse next and naturally expressive. Patient is now attending groups. Increasing Viibryd 09/03 continue tx plan 09/04 continue plan 09/05 patient continues to incrementally improve with slightly less depression and less intense anxiety; affect is noticeably brighter. Patient getting more open about his life and more willing to fully engage in treatment. Patient has been going to groups and through this experiences realizing that despite feeling anxious, he is able to tolerate it and his anxiety is decreasing. Will likely increase Viibryd however he has been on 20 mg for only 3 days so will give it another couple days. May consider increasing propranolol; patient's blood pressure/heart rate is mostly within normal limits but could probably tolerate increased dose. Will consider -otherwise continue with ECT 09/06 will increase Viibryid Patient educated on: diagnosis, medication risk/benefits and ECT Informed Consent: understands Reason for continued inpatient stay Substantial Risk for: med/psych decompensation Time Spent With Patient Time: Total time managing care of this patient today ____ minutes.
--- NOTE | 2022-09-06 11:04 | HO.ECTPROC ---
ECT Procedure Note Diagnosis/Treatment Date of Service: 09/06/22 Previous ECT Date: 09/04/22 Current Treatment Number: 8 Treatment: Series Interval Clinical Notes: some inc range affect noted will give ingrid post Time: Total time managing care of this patient today _35___ minutes. ECT Settings Device: THYMATRON DGx Electrode Placement: Rt temporal/ Lt frontal Program/Pulse Width: 0.50 Energy Percent: 100 Seizure Duration By EEG (in seconds): 38 Medications Administration General Anesthetic: Methohexital (150) Muscle Relaxant: Succinylcholine (120) Ancillary Medications Cardiovascular Medications: Glycopyrrolate (pre) Miscillaneous Medications: Midazolam (2) and Haldol (2.5) Airway Management Airway Management: LMA Treatment Recommendations No Changes Recommended: No change Notes: 10 oxycodone er given pre tx Pt Tolerated Procedure w/o Issue: Yes
[2022-09-06] MEDS: oxyCODONE HCl ER 10 MG TAB.ER.12H PO (11:59)
[2022-09-06] MEDS: Acetaminophen 325 MG TABLET 650 MG PO (12:00)
[2022-09-06] MEDS: LORazepam 1 MG TABLET PO ×2 (12:37→18:53)
[2022-09-06] MEDS: clonazePAM 1 MG TABLET PO (12:37)
[2022-09-06] MEDS: Vilazodone HCL 20 MG TABLET PO (12:37)
[2022-09-06] MEDS: QUEtiapine Fumarate 200 MG TABLET PO ×2 (12:37→18:52)
[2022-09-06] MEDS: Propranolol HCL LA 60 MG CAP.SA.24H 120 MG PO (12:40)
[2022-09-06] MEDS: traZODone HCL 50 MG TABLET PO (18:53)
[2022-09-07 08:50] VITALS: BP 135/78; PULSE 88; RESP 16; TEMP 37.2; O2SAT 95
[2022-09-07] MEDS: QUEtiapine Fumarate 200 MG TABLET PO ×2 (08:56→20:19)
[2022-09-07] MEDS: Vilazodone HCL 20 MG TABLET PO (08:56)
[2022-09-07] MEDS: Propranolol HCL LA 60 MG CAP.SA.24H 120 MG PO (08:56)
[2022-09-07] MEDS: LORazepam 1 MG TABLET PO ×2 (08:56→20:19)
--- NOTE | 2022-09-07 09:58 | HO.PSYCHPN ---
Subjective Subjective Date of Service: 09/07/22 Reason For Visit: Rec. Major Depression, Complex Bereavement Reacti Interim History: met with patient; discussed with team Patient says he does not feel much different but appreciates that staff finds him to be much more expressive, engaged. Agrees to increase Viibryd. Agrees to continue with ECT on Friday Mental Status Exam Mental Status Exam Narrative: Pt is alert and oriented; behavior is cooperative, calm; dressed in casual attire, balding; adequate hygiene; mood is described as same but affect more relaxed and naturally expressive; eye contact appropriate; Speech is normal rate, volume and prosody and not pressured; some psychomotor retardation present; thought process is organized and goal directed; Thought content is on treatment; otherwise pertinent to relevant topics and without any delusional content, paranoid ideations or grandiosity; no SI/no HI. There is no evidence of perceptual disturbance. Patients insight and judgment are impaired but improving and adequate Diagnostics Vital Signs (24Hr): Vital Signs - 24 hr 09/06/22 11:19 09/06/22 11:24 09/06/22 11:29 Temperature 99 F Pulse Rate 89 85 75 Respiratory Rate 16 14 13 Blood Pressure 135/58 L 119/74 109/73 Pulse Oximetry 90 L 91 L 91 L Oxygen Delivery Method Nasal Cannula with ETCO2 Nasal Cannula with ETCO2 Nasal Cannula with ETCO2 Oxygen Flow Rate 6 6 3 09/06/22 11:34 09/06/22 11:52 09/06/22 12:07 Temperature 97.5 F Pulse Rate 82 83 92 Respiratory Rate 12 13 16 Blood Pressure 114/58 L 114/59 L 127/89 Pulse Oximetry 92 94 94 Oxygen Delivery Method Nasal Cannula with ETCO2 Nasal Cannula with ETCO2 Room Air Oxygen Flow Rate 3 3 09/06/22 12:32 09/06/22 16:20 09/07/22 08:50 Temperature 97.3 F 96 F L 98.9 F Pulse Rate 71 88 88 Respiratory Rate 18 16 Blood Pressure 133/91 H 110/56 L 135/78 Pulse Oximetry 96 95 Oxygen Delivery Method Room Air Oxygen Flow Rate BMI result Body Mass Index 41.3 Labs 08/10/22 07:04 08/10/22 07:04 Medications Medications Current Medications Acetaminophen (Acetaminophen 325 Mg Tablet) 650 mg PO Q6H PRN PRN Reason: Headache/Pain Mild Scale (1-3) Last Admin: 09/06/22 12:00 Dose: 650 mg Al Hydroxide/Mg Hydroxide (Magnesium Hydrox/Alum Hydrox 30 Ml Oral.Susp) 30 ml PO Q6H PRN PRN Reason: Heartburn/Nausea Hydroxyzine HCl (Hydroxyzine Hcl 25 Mg Tablet) 25 mg PO Q6H PRN PRN Reason: Anxiety Last Admin: 08/29/22 21:04 Dose: 25 mg Lorazepam (Lorazepam 1 Mg Tablet) 1 mg PO BID [facility] Last Admin: 09/07/22 08:56 Dose: 1 mg Magnesium Hydroxide (Milk Of Magnesia 30 Ml Oral.Susp) 30 ml PO DAILY PRN PRN Reason: Constipation Last Admin: 08/21/22 14:12 Dose: 30 ml Oxycodone HCl (Oxycodone Hcl Immed Release 5 Mg Tablet) 5 mg PO Q6H PRN PRN Reason: Pain, Moderate(Pain Scale 4-6) Stop: 09/07/22 23:59 Propranolol HCl (Propranolol Hcl La 60 Mg Cap.Sa.24h) 120 mg PO DAILY [facility]; Protocol Last Admin: 09/07/22 08:56 Dose: 120 mg Quetiapine Fumarate (Quetiapine Fumarate 200 Mg Tablet) 200 mg PO BID [facility] Last Admin: 09/07/22 08:56 Dose: 200 mg Sumatriptan Succinate (Sumatriptan Succinate 25 Mg Tablet) 25 mg PO DAILY PRN PRN Reason: severe headache Last Admin: 08/23/22 18:00 Dose: 25 mg Trazodone HCl (Trazodone Hcl 50 Mg Tablet) 50 mg PO BEDTIME MRX1 PRN PRN Reason: Insomnia Last Admin: 09/06/22 18:53 Dose: 50 mg Vilazodone HCl (Vilazodone Hcl 20 Mg Tablet) 20 mg PO DAILY [facility] Last Admin: 09/07/22 08:56 Dose: 20 mg Allergies Allergies Allergy/AdvReac Type Severity Reaction Status Date / Time No Known Allergies Allergy Verified 08/09/22 16:14 Assessment & Plan Assessment & Plan (1) Severe recurrent major depression: Status: Acute Code(s): F33.2 - Major depressive disorder, recurrent severe without psychotic features (2) Complicated bereavement: Status: Acute Code(s): F43.21 - Adjustment disorder with depressed mood (3) Social anxiety disorder: Status: Acute Code(s): F40.10 - Social phobia, unspecified Plan 32 yo male, scheduled transfer from [facility] for ECT consult and treatment s/p suicide attempt with complex breavement issues. Patient reports numerous medication trials over many years without much effect Plan: CV Q 15 minute checks INCREASE TO Viibryd 40mg daily; Continue Propranolol LA 120mg (and dc IR); pt still anxious and also w/ HTN DC nortriptyline out of some concern that medication could interfere with ECT side effects; (at 150mg, -Nortriptyline level therapeutic: 102) Continue Seroquel 200 mg b.i.d.; patient says for anxiety Continue Ativan 1.5 mg b.i.d.; patient recently started on clonazepam 1 mg t.i.d. but it was switched in the ED just prior to this admission Ambien 5 mg q.h.s. ECT #1 on 08/14 ECT #2 on 08/16 ECT #3 on 08/21; ECT #4 on 08/23 ECT #5 on 08/26 ECT #6 on 08/28 ECT #7 on 08/30 (NO ECT on 09/02) ECT #8 on 09/04 ECT #9 on 09/06 ECT #10 PENDING 09/09 -NPO after midnight HOSPITAL Course: 08/12/22 cont nortrip seroquel reviwed ect scheduled for 08/14/22 s/p suicide attempt denies active si now 08/13 pt cleared for ECT by hospitalist WILL; depressed but SI back to chronic, low level at baseline. 08/14 tolerating ECT; wants to continue. Discussed medication management and will continue current regimen for now other than switching to longer acting propranolol; no known history of MAO'I which could be a possible option; discussed hypertension which patient says he has a history of; will see if BP response to propranolol adjustment 08/15 will add social anxiety order to diagnosis; interactions with parents growing up were emotionally traumatic have significantly effected his ability to have interpersonal relationships in his adult life. Started CBT exercise which resonate with patient. Waiting for nortriptyline level. BP a little better perhaps since starting long-acting propranolol; will leave for now 08/16 severe headache after ECT; sumatriptan 25 mg seem to help resolve 08/17: Headache resolved. Continue current plan. 5/28: ECT #3 on 08/21/2208/19: ECT #3 on 08/21/2208/20 remains depressed and anxious; will increase propranolol; continue with ECT 08/22 depressed, anxious; continue with treatment plan; patient hypertensive. He is ambivalent about starting antihypertensive medication but will inquire further 08/23 continue tx plan 08/24 continue treatment plan 08/25 continue treatment plan 08/26 patient remains depressed and anxious; discussed that in order to overcome depression patient has to engage in treatment; that remaining passive, expecting ECT to do all the work is likely part of the problem. Patient seems to agree and consider the reasons he is avoiding engagement. 08/27/2022 Patient would benefit from clear cognitive behavioral strategies. Change ECT to bilateral would consider MAO I Denies active self-harm 08/30 reports still depressed; mostly isolating however patient agrees to start push himself to attend groups; starting Viibryd and discontinue nortriptyline 08/31: Continue current tx plan. 09/01: ECT #8 (#2 BL) tomorrow. 09/02 ECT did not happen today for unknown anesthesia reasons; patient reports he is the same however affect is noticeably brighter more relapse next and naturally expressive. Patient is now attending groups. Increasing Viibryd 09/03 continue tx plan 09/04 continue plan 09/05 patient continues to incrementally improve with slightly less depression and less intense anxiety; affect is noticeably brighter. Patient getting more open about his life and more willing to fully engage in treatment. Patient has been going to groups and through this experiences realizing that despite feeling anxious, he is able to tolerate it and his anxiety is decreasing. Will likely increase Viibryd however he has been on 20 mg for only 3 days so will give it another couple days. May consider increasing propranolol; patient's blood pressure/heart rate is mostly within normal limits but could probably tolerate increased dose. Will consider -otherwise continue with ECT 09/06 will increase Viibryid; 09/07 increased Viibryd to 40 mg; continue with ECT on Friday -given that a significant component of patient's struggles are due to anxiety, not addressed by ECT, it remains likely that ECT and medication will only partially improve symptoms; a significant part of patient's ongoing treatment likely remains best addressed by consistent outpatient therapy. Discussed this with patient who agrees Patient educated on: diagnosis, medication risk/benefits and ECT Informed Consent: understands Reason for continued inpatient stay Substantial Risk for: med/psych decompensation Time Spent With Patient Time: Total time managing care of this patient today ____ minutes.
[2022-09-07 18:00] VITALS: BP 137/86; PULSE 77; RESP 18; TEMP 36; O2SAT 95
[2022-09-07] MEDS: traZODone HCL 50 MG TABLET PO (20:19)
[2022-09-07] MEDS: Zolpidem Tartrate 5 MG TABLET PO (20:19)
[2022-09-08 08:05] VITALS: BP 135/93; PULSE 77; RESP 16; TEMP 36.3; O2SAT 94
[2022-09-08] MEDS: QUEtiapine Fumarate 200 MG TABLET PO ×2 (08:09→20:19)
[2022-09-08] MEDS: Vilazodone HCL 40 MG TABLET PO (08:09)
[2022-09-08] MEDS: Propranolol HCL LA 60 MG CAP.SA.24H 120 MG PO (08:09)
[2022-09-08] MEDS: LORazepam 1 MG TABLET PO ×2 (08:09→20:18)
[2022-09-08] MEDS: Acetaminophen 325 MG TABLET 650 MG PO (08:13)
--- NOTE | 2022-09-08 12:11 | HO.PSYCHPN ---
Subjective Subjective Date of Service: 09/08/22 Reason For Visit: Rec. Major Depression, Complex Bereavement Reacti Interim History: met w/ patient; discussed with team pt says he's the same however is in fact more engaged and discussed literature with investigative writer No problems with increasing Viibryd Mental Status Exam Mental Status Exam Narrative: Pt is alert and oriented; behavior is cooperative, calm; dressed in casual attire, balding; adequate hygiene; mood is described as same but affect more relaxed and naturally expressive; eye contact appropriate; Speech is normal rate, volume and prosody and not pressured; some psychomotor retardation present; thought process is organized and goal directed; Thought content is on treatment; otherwise pertinent to relevant topics and without any delusional content, paranoid ideations or grandiosity; no SI/no HI. There is no evidence of perceptual disturbance. Patients insight and judgment are impaired but improving and adequate Diagnostics Vital Signs (24Hr): Vital Signs - 24 hr 09/07/22 18:00 09/08/22 08:05 Temperature 96.8 F 97.4 F Pulse Rate 77 77 Respiratory Rate 18 16 Blood Pressure 137/86 135/93 H Pulse Oximetry 95 94 Oxygen Delivery Method Room Air Room Air BMI result Body Mass Index 41.3 Labs 08/10/22 07:04 08/10/22 07:04 Medications Medications Current Medications Acetaminophen (Acetaminophen 325 Mg Tablet) 650 mg PO Q6H PRN PRN Reason: Headache/Pain Mild Scale (1-3) Last Admin: 09/08/22 08:13 Dose: 650 mg Al Hydroxide/Mg Hydroxide (Magnesium Hydrox/Alum Hydrox 30 Ml Oral.Susp) 30 ml PO Q6H PRN PRN Reason: Heartburn/Nausea Hydroxyzine HCl (Hydroxyzine Hcl 25 Mg Tablet) 25 mg PO Q6H PRN PRN Reason: Anxiety Last Admin: 08/29/22 21:04 Dose: 25 mg Lorazepam (Lorazepam 1 Mg Tablet) 1 mg PO BID [facility] Last Admin: 09/08/22 08:09 Dose: 1 mg Magnesium Hydroxide (Milk Of Magnesia 30 Ml Oral.Susp) 30 ml PO DAILY PRN PRN Reason: Constipation Last Admin: 08/21/22 14:12 Dose: 30 ml Propranolol HCl (Propranolol Hcl La 60 Mg Cap.Sa.24h) 120 mg PO DAILY [facility]; Protocol Last Admin: 09/08/22 08:09 Dose: 120 mg Quetiapine Fumarate (Quetiapine Fumarate 200 Mg Tablet) 200 mg PO BID [facility] Last Admin: 09/08/22 08:09 Dose: 200 mg Sumatriptan Succinate (Sumatriptan Succinate 25 Mg Tablet) 25 mg PO DAILY PRN PRN Reason: severe headache Last Admin: 08/23/22 18:00 Dose: 25 mg Trazodone HCl (Trazodone Hcl 50 Mg Tablet) 50 mg PO BEDTIME MRX1 PRN PRN Reason: Insomnia Last Admin: 09/07/22 20:19 Dose: 50 mg Vilazodone HCl (Vilazodone Hcl 40 Mg Tablet) 40 mg PO DAILY [facility] Last Admin: 09/08/22 08:09 Dose: 40 mg Zolpidem Tartrate (Zolpidem Tartrate 5 Mg Tablet) 5 mg PO BEDTIME PRN PRN Reason: Insomnia Last Admin: 09/07/22 20:19 Dose: 5 mg Allergies Allergies Allergy/AdvReac Type Severity Reaction Status Date / Time No Known Allergies Allergy Verified 08/09/22 16:14 Assessment & Plan Assessment & Plan (1) Severe recurrent major depression: Status: Acute Code(s): F33.2 - Major depressive disorder, recurrent severe without psychotic features (2) Complicated bereavement: Status: Acute Code(s): F43.21 - Adjustment disorder with depressed mood (3) Social anxiety disorder: Status: Acute Code(s): F40.10 - Social phobia, unspecified Plan 32 yo male, scheduled transfer from [facility] for ECT consult and treatment s/p suicide attempt with complex breavement issues. Patient reports numerous medication trials over many years without much effect Plan: CV Q 15 minute checks INCREASE TO Viibryd 40mg daily; Continue Propranolol LA 120mg (and dc IR); pt still anxious and also w/ HTN DC nortriptyline out of some concern that medication could interfere with ECT side effects; (at 150mg, -Nortriptyline level therapeutic: 102) Continue Seroquel 200 mg b.i.d.; patient says for anxiety Continue Ativan 1.5 mg b.i.d.; patient recently started on clonazepam 1 mg t.i.d. but it was switched in the ED just prior to this admission Ambien 5 mg q.h.s. ECT #1 on 08/14 ECT #2 on 08/16 ECT #3 on 08/21; ECT #4 on 08/23 ECT #5 on 08/26 ECT #6 on 08/28 ECT #7 on 08/30 (NO ECT on 09/02) ECT #8 on 09/04 ECT #9 on 09/06 ECT #10 PENDING 09/09 -NPO after midnight HOSPITAL Course: 08/12/22 cont nortrip seroquel reviwed ect scheduled for 08/14/22 s/p suicide attempt denies active si now 08/13 pt cleared for ECT by hospitalist WILL; depressed but SI back to chronic, low level at baseline. 08/14 tolerating ECT; wants to continue. Discussed medication management and will continue current regimen for now other than switching to longer acting propranolol; no known history of MAO'I which could be a possible option; discussed hypertension which patient says he has a history of; will see if BP response to propranolol adjustment 08/15 will add social anxiety order to diagnosis; interactions with parents growing up were emotionally traumatic have significantly effected his ability to have interpersonal relationships in his adult life. Started CBT exercise which resonate with patient. Waiting for nortriptyline level. BP a little better perhaps since starting long-acting propranolol; will leave for now 08/16 severe headache after ECT; sumatriptan 25 mg seem to help resolve 08/17: Headache resolved. Continue current plan. 08/18: ECT #3 on 08/21/2208/19: ECT #3 on 08/21/2208/20 remains depressed and anxious; will increase propranolol; continue with ECT 08/22 depressed, anxious; continue with treatment plan; patient hypertensive. He is ambivalent about starting antihypertensive medication but will inquire further 08/23 continue tx plan 08/24 continue treatment plan 08/25 continue treatment plan 08/26 patient remains depressed and anxious; discussed that in order to overcome depression patient has to engage in treatment; that remaining passive, expecting ECT to do all the work is likely part of the problem. Patient seems to agree and consider the reasons he is avoiding engagement. 08/27/2022 Patient would benefit from clear cognitive behavioral strategies. Change ECT to bilateral would consider MAO I Denies active self-harm 08/30 reports still depressed; mostly isolating however patient agrees to start push himself to attend groups; starting Viibryd and discontinue nortriptyline 08/31: Continue current tx plan. 09/01: ECT #8 (#2 BL) tomorrow. 09/02 ECT did not happen today for unknown anesthesia reasons; patient reports he is the same however affect is noticeably brighter more relapse next and naturally expressive. Patient is now attending groups. Increasing Viibryd 09/03 continue tx plan 09/04 continue plan 09/05 patient continues to incrementally improve with slightly less depression and less intense anxiety; affect is noticeably brighter. Patient getting more open about his life and more willing to fully engage in treatment. Patient has been going to groups and through this experiences realizing that despite feeling anxious, he is able to tolerate it and his anxiety is decreasing. Will likely increase Viibryd however he has been on 20 mg for only 3 days so will give it another couple days. May consider increasing propranolol; patient's blood pressure/heart rate is mostly within normal limits but could probably tolerate increased dose. Will consider -otherwise continue with ECT 09/06 will increase Viibryid; 09/07 increased Viibryd to 40 mg; continue with ECT on Friday -given that a significant component of patient's struggles are due to anxiety, not addressed by ECT, it remains likely that ECT and medication will only partially improve symptoms; a significant part of patient's ongoing treatment likely remains best addressed by consistent outpatient therapy. Discussed this with patient who agrees 09/08 Viibryd increased to 40 mg; continue with plan for ECT tomorrow. Patient is in fact improved though he seems to be the last person to recognize it. Patient educated on: diagnosis, medication risk/benefits, ECT and therapeutic strategies Informed Consent: understands Reason for continued inpatient stay Substantial Risk for: med/psych decompensation Time Spent With Patient Time: Total time managing care of this patient today ____ minutes.
[2022-09-08 16:05] VITALS: BP 128/81; PULSE 74; RESP 16; TEMP 37.1; O2SAT 98
[2022-09-08] MEDS: Zolpidem Tartrate 5 MG TABLET PO (20:18)
[2022-09-08] MEDS: traZODone HCL 50 MG TABLET PO (20:18)
[2022-09-09] VITALS (11 sets, daily range): BP systolic 95–144; BP diastolic 53–94; PULSE 60–92; RESP 12–18; TEMP 36.2–37.3; O2SAT 90–96
--- NOTE | 2022-09-09 07:06 | P.CONAN_ITS ---
[facility] Active Problems Active Problems: All Active Problems (Updated 08/15/22 @ 13:54 by Gerhard Jordan MD) Routine history and physical examination of adult (Acute) Pre-op evaluation (Acute) Social anxiety disorder (Acute) Complicated bereavement (Acute) Severe recurrent major depression (Acute) Past Medical History Medical History Complicated bereavement Severe recurrent major depression Social anxiety disorder Family History Family history of problems with anesthesia: No Surgical History Surgical History (Updated 08/30/22 @ 06:47 by Anisha Bui RN) H/O wrist surgery History of ankle surgery History of Problems with Anesthesia: No Social History Social History Household Members: None Housing: Homeless Patient Tobacco Use Status: Never used Tobacco service: No Sexual orientation: Straight/Heterosexual Meds Allergies Allergy/AdvReac Type Severity Reaction Status Date / Time No Known Allergies Allergy Verified 08/09/22 16:14 Active Medications: Current Medications Acetaminophen (Acetaminophen 325 Mg Tablet) 650 mg PO Q6H PRN PRN Reason: Headache/Pain Mild Scale (1-3) Last Admin: 09/08/22 08:13 Dose: 650 mg Al Hydroxide/Mg Hydroxide (Magnesium Hydrox/Alum Hydrox 30 Ml Oral.Susp) 30 ml PO Q6H PRN PRN Reason: Heartburn/Nausea Hydroxyzine HCl (Hydroxyzine Hcl 25 Mg Tablet) 25 mg PO Q6H PRN PRN Reason: Anxiety Last Admin: 08/29/22 21:04 Dose: 25 mg Lorazepam (Lorazepam 1 Mg Tablet) 1 mg PO BID [facility] Last Admin: 09/08/22 20:18 Dose: 1 mg Magnesium Hydroxide (Milk Of Magnesia 30 Ml Oral.Susp) 30 ml PO DAILY PRN PRN Reason: Constipation Last Admin: 08/21/22 14:12 Dose: 30 ml Propranolol HCl (Propranolol Hcl La 60 Mg Cap.Sa.24h) 120 mg PO DAILY [facility]; Protocol Last Admin: 09/08/22 08:09 Dose: 120 mg Quetiapine Fumarate (Quetiapine Fumarate 200 Mg Tablet) 200 mg PO BID [facility] Last Admin: 09/08/22 20:19 Dose: 200 mg Sumatriptan Succinate (Sumatriptan Succinate 25 Mg Tablet) 25 mg PO DAILY PRN PRN Reason: severe headache Last Admin: 08/23/22 18:00 Dose: 25 mg Trazodone HCl (Trazodone Hcl 50 Mg Tablet) 50 mg PO BEDTIME MRX1 PRN PRN Reason: Insomnia Last Admin: 09/08/22 20:18 Dose: 50 mg Vilazodone HCl (Vilazodone Hcl 40 Mg Tablet) 40 mg PO DAILY [facility] Last Admin: 09/08/22 08:09 Dose: 40 mg Zolpidem Tartrate (Zolpidem Tartrate 5 Mg Tablet) 5 mg PO BEDTIME PRN PRN Reason: Insomnia Last Admin: 09/08/22 20:18 Dose: 5 mg Home Medications Medication Instructions Recorded Confirmed Last Taken Type ibuprofen 600 mg PO Q6H PRN Pain 08/10/22 08/10/22 Unknown History lorazepam 0.5 mg tablet 1.5 mg PO BID 08/10/22 08/10/22 08/09/22 12:15 History nortriptyline 150 mg PO BEDTIME 08/10/22 08/10/22 08/08/22 19:24 History propranolol 20 mg tablet 20 mg PO DAILY 08/10/22 08/10/22 Unknown History propranolol 20 mg tablet 20 mg PO DAILY PRN Anxiety 08/10/22 08/10/22 Unknown History quetiapine 200 mg PO BID 08/10/22 08/10/22 08/09/22 16:06 History zolpidem 10 mg PO BEDTIME PRN Sleep 08/10/22 08/10/22 08/08/22 19:25 History Exam Exam Date and Time: September 09, 2022 0706 Height,Weight and Vital Signs: Height 5 ft 10 in Weight 130.7 kg Last Vital Signs Temp 97.4 F 09/09/22 06:46 Pulse 79 09/09/22 06:46 Resp 14 09/09/22 06:46 BP 144/94 H 09/09/22 06:46 Pulse Ox 96 09/09/22 06:46 O2 Del Method Room Air 09/09/22 06:46 O2 Flow Rate 3 09/06/22 11:52 Pertinent Lab Results Pertinent Lab Results: Laboratory Tests 08/10/22 08/10/22 08/10/22 07:04 07:04 07:04 WBC 7.3 RBC 5.05 Hgb 14.5 Hct 43.8 MCV 86.7 MCH 28.7 MCHC 33.1 RDW 13.5 Plt Count 236 MPV 8.4 L Immature Gran % (Auto) 0.4 Neut % (Auto) 61.4 Lymph % (Auto) 25.1 [place] % (Auto) 10.1 Eos % (Auto) 2.6 Baso % (Auto) 0.4 Lymph # (Auto) 1.8 [place] # (Auto) 0.7 Eos # (Auto) 0.2 Baso # (Auto) 0.0 Abs Immat Gran (auto) 0.03 Absolute Neuts (auto) 4.5 Absolute Nucleated RBC 0.000 Nucleated RBC % (auto) 0.0 Sodium 140 Potassium 4.3 Chloride 106 Carbon Dioxide 25 Anion Gap 13 BUN 13 Creatinine 0.86 Estim Creat Clear Calc TNP Estimated GFR > 60 Fasting Glucose 85 Estimat Average Glucose 103 Hemoglobin A1c % 5.2 Calcium 9.0 Magnesium 2.1 Total Bilirubin 0.5 AST 32 ALT 37 Alkaline Phosphatase 79 Total Protein 6.4 L Albumin 4.0 Triglycerides 171 Cholesterol 212 LDL Cholesterol, Calc 141 HDL Cholesterol 37 Vitamin B12 331 Folate 9.0 TSH 2.97 Free T4 0.82 Nortriptyline 08/10/22 07:04 WBC RBC Hgb Hct MCV MCH MCHC RDW Plt Count MPV Immature Gran % (Auto) Neut % (Auto) Lymph % (Auto) [place] % (Auto) Eos % (Auto) Baso % (Auto) Lymph # (Auto) [place] # (Auto) Eos # (Auto) Baso # (Auto) Abs Immat Gran (auto) Absolute Neuts (auto) Absolute Nucleated RBC Nucleated RBC % (auto) Sodium Potassium Chloride Carbon Dioxide Anion Gap BUN Creatinine Estim Creat Clear Calc Estimated GFR Fasting Glucose Estimat Average Glucose Hemoglobin A1c % Calcium Magnesium Total Bilirubin AST ALT Alkaline Phosphatase Total Protein Albumin Triglycerides Cholesterol LDL Cholesterol, Calc HDL Cholesterol Vitamin B12 Folate TSH Free T4 Nortriptyline 102 Airway Mallampati Class: III TM Dist: >3cm Neck ROM: Full Heart: rrr Lungs: cta Assessment and Plan Assessment Anesthesia Assessment: Anesthesia Plan Discussed and Chart Reviewed Final Anesthetic Review Family History of Problems with Anesthesia: No History of Problems with Anesthesia: No NPO: Yes ASA Class: III Final Preanesthetic Review: No Changes in Pt Med Stat, Meds/Allgs Chart Reviewed and Consent Obtained/Reviewed Patient Risk: Intermediate Procedure Risk: Intermediate Anesthetic Plan Anesthetic Plan: GA Disposition: Standard PACU
--- NOTE | 2022-09-09 07:09 | MHC.SHP ---
Pre-Procedural Eval Section A Date of Service: 09/09/22 The patient is an INPATIENT: Yes Changes since office visit: No Cold of Flu in the past 2 weeks, No New Medical Problems, No Changes in Medication and No Patient answered all questions The History & Physical has been completed within 30 days and I have reviewed it.: Yes Section B Chief Complaint: Rec. Major Depression, Complex Bereavement Reacti Allergies: Allergies Allergy/AdvReac Type Severity Reaction Status Date / Time No Known Allergies Allergy Verified 08/09/22 16:14 Plan I have reviewed the history and physical and performed a pertinent physical examination on my patient. No changes have occurred unless specified. Time Spent With Patient Time: Total time managing care of this patient today ____ minutes.
--- NOTE | 2022-09-09 07:10 | HO.ECTPROC ---
ECT Procedure Note Diagnosis/Treatment Date of Service: 09/09/22 Diagnosis: Major Depressive Disorder Previous ECT Date: 09/06/22 Current Treatment Number: 9 Treatment: Series Interval Clinical Notes: The patient reported no major improvement on his depression. Calm and cooperative on pre-procedure assessment. Time: Total time managing care of this patient today _30___ minutes. ECT Settings Device: THYMATRON DGx Electrode Placement: Rt temporal/ Lt frontal Program/Pulse Width: 0.50 Energy Percent: 100 Seizure Duration By EEG (in seconds): 35 By Motor Observation (in seconds): 31 Medications Administration General Anesthetic: Methohexital (150) Muscle Relaxant: Succinylcholine (120) Ancillary Medications Analgesics: Torodol - Pre ECT Anti-emetics: Zofran - Pre ECT Miscillaneous Medications: Midazolam (2) and Haldol (2.5) Airway Management Airway Management: LMA Treatment Recommendations No Changes Recommended: No change Pt Tolerated Procedure w/o Issue: Yes
[2022-09-09] MEDS: QUEtiapine Fumarate 200 MG TABLET PO ×2 (09:36→18:47)
[2022-09-09] MEDS: Propranolol HCL LA 60 MG CAP.SA.24H 120 MG PO (09:37)
[2022-09-09] MEDS: LORazepam 1 MG TABLET PO ×2 (09:37→18:47)
[2022-09-09] MEDS: Vilazodone HCL 40 MG TABLET PO (09:37)
--- NOTE | 2022-09-09 09:41 | P.PNPSI_ITS ---
Subjective Subjective Date of Service: 09/09/22 Reason For Visit: Rec. Major Depression, Complex Bereavement Reacti Interim History: Met with patient; discussed with team Patient reports that he is still open to getting ECT but wants to think about it. Initially he said he does not feel any better but then agrees he possibly feels somewhat better, but that it is hard to tell since he was expecting more. Patient says he just can not tell really. Necktie Stitcher again shared behaviors that have changed and patient agrees that change in this area has occurred, it is just that he does not feel better. He denies any suicidality at all. Mental Status Exam Mental Status Exam Narrative: Pt is alert and oriented; behavior is cooperative, calm; dressed in casual attire, balding; adequate hygiene; mood is described as same but affect more relaxed and naturally expressive; eye contact appropriate; Speech is normal rate, volume and prosody and not pressured; some psychomotor retardation p resent; thought process is organized and goal directed; Thought content is on treatment; otherwise pertinent to relevant topics and without any delusional content, paranoid ideations or grandiosity; no SI/no HI. There is no evidence of perceptual disturbance. Patients insight and judgment are impaired but improving and adequate Diagnostics Vital Signs (24Hr): Vital Signs - 24 hr 09/08/22 16:05 09/09/22 06:23 09/09/22 06:46 Temperature 98.7 F 97.3 F 97.4 F Pulse Rate 74 88 79 Respiratory Rate 16 17 14 Blood Pressure 128/81 132/92 H 144/94 H Pulse Oximetry 98 96 96 Oxygen Delivery Method Room Air Room Air Oxygen Flow Rate 09/09/22 08:21 09/09/22 08:26 09/09/22 08:31 Temperature 99.1 F Pulse Rate 85 92 87 Respiratory Rate 16 15 12 Blood Pressure 95/53 L 107/69 113/71 Pulse Oximetry 92 90 L 93 Oxygen Delivery Method Nasal Cannula with ETCO2 Nasal Cannula with ETCO2 Nasal Cannula Oxygen Flow Rate 5 5 3 09/09/22 08:36 09/09/22 08:51 09/09/22 09:06 Temperature 97.7 F Pulse Rate 82 69 60 Respiratory Rate 15 15 12 Blood Pressure 135/74 120/63 126/72 Pulse Oximetry 93 94 95 Oxygen Delivery Method Nasal Cannula Nasal Cannula Room Air Oxygen Flow Rate 3 2 BMI result Body Mass Index 41.3 Labs 08/10/22 07:04 08/10/22 07:04 Medications Medications Current Medications Acetaminophen (Acetaminophen 325 Mg Tablet) 650 mg PO Q6H PRN PRN Reason: Headache/Pain Mild Scale (1-3) Last Admin: 09/08/22 08:13 Dose: 650 mg Al Hydroxide/Mg Hydroxide (Magnesium Hydrox/Alum Hydrox 30 Ml Oral.Susp) 30 ml PO Q6H PRN PRN Reason: Heartburn/Nausea Hydroxyzine HCl (Hydroxyzine Hcl 25 Mg Tablet) 25 mg PO Q6H PRN PRN Reason: Anxiety Last Admin: 08/29/22 21:04 Dose: 25 mg Lorazepam (Lorazepam 1 Mg Tablet) 1 mg PO BID [facility] Last Admin: 09/09/22 09:37 Dose: 1 mg Magnesium Hydroxide (Milk Of Magnesia 30 Ml Oral.Susp) 30 ml PO DAILY PRN PRN Reason: Constipation Last Admin: 08/21/22 14:12 Dose: 30 ml Propranolol HCl (Propranolol Hcl La 60 Mg Cap.Sa.24h) 120 mg PO DAILY [facility]; Protocol Last Admin: 09/09/22 09:37 Dose: 120 mg Quetiapine Fumarate (Quetiapine Fumarate 200 Mg Tablet) 200 mg PO BID [facility] Last Admin: 09/09/22 09:36 Dose: 200 mg Sumatriptan Succinate (Sumatriptan Succinate 25 Mg Tablet) 25 mg PO DAILY PRN PRN Reason: severe headache Last Admin: 08/23/22 18:00 Dose: 25 mg Trazodone HCl (Trazodone Hcl 50 Mg Tablet) 50 mg PO BEDTIME MRX1 PRN PRN Reason: Insomnia Last Admin: 09/08/22 20:18 Dose: 50 mg Vilazodone HCl (Vilazodone Hcl 40 Mg Tablet) 40 mg PO DAILY [facility] Last Admin: 09/09/22 09:37 Dose: 40 mg Zolpidem Tartrate (Zolpidem Tartrate 5 Mg Tablet) 5 mg PO BEDTIME PRN PRN Reason: Insomnia Last Admin: 09/08/22 20:18 Dose: 5 mg Allergies Allergies Allergy/AdvReac Type Severity Reaction Status Date / Time No Known Allergies Allergy Verified 08/09/22 16:14 Assessment & Plan Assessment & Plan (1) Severe recurrent major depression: Status: Acute Code(s): F33.2 - Major depressive disorder, recurrent severe without psychotic features (2) Complicated bereavement: Status: Acute Code(s): F43.21 - Adjustment disorder with depressed mood (3) Social anxiety disorder: Status: Acute Code(s): F40.10 - Social phobia, unspecified Plan 32 yo male, scheduled transfer from [facility] for ECT consult and treatment s/p suicide attempt with complex breavement issues. Patient reports numerous medication trials over many years without much effect Plan: CV Q 15 minute checks INCREASE TO Viibryd 40mg daily; Continue Propranolol LA 120mg (and dc IR); pt still anxious and also w/ HTN DC nortriptyline out of some concern that medication could interfere with ECT side effects; (at 150mg, -Nortriptyline level therapeutic: 102) Continue Seroquel 200 mg b.i.d.; patient says for anxiety Continue Ativan 1.5 mg b.i.d.; patient recently started on clonazepam 1 mg t.i.d. but it was switched in the ED just prior to this admission Ambien 5 mg q.h.s. ECT #1 on 08/14 ECT #2 on 08/16 ECT #3 on 08/21; ECT #4 on 08/23 ECT #5 on 08/26 ECT #6 on 08/28 ECT #7 on 08/30 (NO ECT on 09/02) ECT #8 on 09/04 ECT #9 on 09/06 ECT #10 PENDING 09/09 -NPO after midnight HOSPITAL Course: 08/12/22 cont nortrip seroquel reviwed ect scheduled for 08/14/22 s/p suicide attempt denies active si now 08/13 pt cleared for ECT by hospitalist WILL; depressed but SI back to chronic, low level at baseline. 08/14 tolerating ECT; wants to continue. Discussed medication management and will continue current regimen for now other than switching to longer acting propranolol; no known history of MAO'I which could be a possible option; discussed hypertension which patient says he has a history of; will see if BP response to propranolol adjustment 08/15 will add social anxiety order to diagnosis; interactions with parents growing up were emotionally traumatic have significantly effected his ability to have interpersonal relationships in his adult life. Started CBT exercise which resonate with patient. Waiting for nortriptyline level. BP a little better perhaps since starting long-acting propranolol; will leave for now 08/16 severe headache after ECT; sumatriptan 25 mg seem to help resolve 08/17: Headache resolved. Continue current plan. 08/18: ECT #3 on 08/21/2208/19: ECT #3 on 08/21/2208/20 remains depressed and anxious; will increase propranolol; continue with ECT 08/22 depressed, anxious; continue with treatment plan; patient hypertensive. He is ambivalent about starting antihypertensive medication but will inquire further 08/23 continue tx plan 08/24 continue treatment plan 08/25 continue treatment plan 08/26 patient remains depressed and anxious; discussed that in order to overcome depression patient has to engage in treatment; that remaining passive, expecting ECT to do all the work is likely part of the problem. Patient seems to agree and consider the reasons he is avoiding engagement. 08/27/2022 Patient would benefit from clear cognitive behavioral strategies. Change ECT to bilateral would consider MAO I Denies active self-harm 08/30 reports still depressed; mostly isolating however patient agrees to start push himself to attend groups; starting Viibryd and discontinue nortriptyline 08/31: Continue current tx plan. 09/01: ECT #8 (#2 BL) tomorrow. 09/02 ECT did not happen today for unknown anesthesia reasons; patient reports he is the same however affect is noticeably brighter more relapse next and naturally expressive. Patient is now attending groups. Increasing Viibryd 09/03 continue tx plan 09/04 continue plan 09/05 patient continues to incrementally improve with slightly less depression and less intense anxiety; affect is noticeably brighter. Patient getting more open about his life and more willing to fully engage in treatment. Patient has been going to groups and through this experiences realizing that despite feeling anxious, he is able to tolerate it and his anxiety is decreasing. Will likely increase Viibryd however he has been on 20 mg for only 3 days so will give it another couple days. May consider increasing propranolol; patient's blood pressure/heart rate is mostly within normal limits but could probably tolerate increased dose. Will consider -otherwise continue with ECT 09/06 will increase Viibryid; 09/07 increased Viibryd to 40 mg; continue with ECT on Friday -given that a significant component of patient's struggles are due to anxiety, not addressed by ECT, it remains likely that ECT and medication will only partially improve symptoms; a significant part of patient's ongoing treatment likely remains best addressed by consistent outpatient therapy. Discussed this with patient who agrees 09/08 Viibryd increased to 40 mg; continue with plan for ECT tomorrow. Patient is in fact improved though he seems to be the last person to recognize it. 09/09 patient ambivalent about continuing ECT; acknowledges that his behaviors joya ve improved that he is more open, interactive, tolerating situations much more easily and he also says that he is overall more hopeful about continuing to get better; denies any SI at all. He wishes he felt internally better. -speech writer reached out to Dr. Terrell to discuss treatment plan further Patient educated on: diagnosis, medication risk/benefits and ECT Informed Consent: understands Reason for continued inpatient stay Substantial Risk for: stable for discharge Time Spent With Patient Time: Total time managing care of this patient today ____ minutes.
[2022-09-09] MEDS: traZODone HCL 50 MG TABLET PO (18:47)
[2022-09-09] MEDS: Zolpidem Tartrate 5 MG TABLET PO (18:47)
[2022-09-10 09:30] VITALS: BP 143/95; PULSE 94; RESP 14; TEMP 36.5; O2SAT 97
[2022-09-10] MEDS: Vilazodone HCL 40 MG TABLET PO (09:48)
[2022-09-10] MEDS: LORazepam 1 MG TABLET PO ×2 (09:48→20:04)
[2022-09-10] MEDS: QUEtiapine Fumarate 200 MG TABLET PO ×2 (09:48→20:04)
[2022-09-10] MEDS: Propranolol HCL LA 60 MG CAP.SA.24H 120 MG PO (09:48)
--- NOTE | 2022-09-10 18:04 | HO.PSYCHPN ---
Subjective Subjective Date of Service: 09/10/22 Reason For Visit: Rec. Major Depression, Complex Bereavement Reacti Interim History: Met with patient; discussed with team; family meeting with patient and his aunt Patient agrees that he has made some significant changes and though he does not feel any where near as good as he wanted to, he agrees things are better. Initially patient was wanting to continue ECT however ultimately decided not to have any more treatments, doubtful he will have any additional benefit and not wanting to indoor the discomfort following treatments. Discussed need for continued therapy which patient is eager to pursue and how this will likely be an essential part to his continued recovery. Patient is future oriented and looking for apartments with his aunt. He also liked the idea of volunteering at a library since he enjoys books. Discussed possibly going to an outpatient treatment program with intensive group therapy which patient agrees would probably be beneficial. Otherwise will continue current medication regimen Mental Status Exam Mental Status Exam Narrative: Pt is alert and oriented; behavior is cooperative, calm; dressed in casual attire, balding; adequate hygiene; mood is described as ok but affect more relaxed and naturally expressive; eye contact appropriate; Speech is normal rate, volume and prosody and not pressured; some psychomotor retardation present; thought process is organized and goal directed; Thought content is on treatment; otherwise pertinent to relevant topics and without any delusional content, paranoid ideations or grandiosity; no SI/no HI. There is no evidence of perceptual disturbance. Patients insight and judgment are fair and adequate Diagnostics Vital Signs (24Hr): Vital Signs - 24 hr 09/10/22 09:30 Temperature 97.7 F Pulse Rate 94 Respiratory Rate 14 Blood Pressure 143/95 H Pulse Oximetry 97 Oxygen Delivery Method Room Air BMI result Body Mass Index 41.3 Labs 08/10/22 07:04 08/10/22 07:04 Medications Medications Current Medications Acetaminophen (Acetaminophen 325 Mg Tablet) 650 mg PO Q6H PRN PRN Reason: Headache/Pain Mild Scale (1-3) Last Admin: 09/08/22 08:13 Dose: 650 mg Al Hydroxide/Mg Hydroxide (Magnesium Hydrox/Alum Hydrox 30 Ml Oral.Susp) 30 ml PO Q6H PRN PRN Reason: Heartburn/Nausea Hydroxyzine HCl (Hydroxyzine Hcl 25 Mg Tablet) 25 mg PO Q6H PRN PRN Reason: Anxiety Last Admin: 08/29/22 21:04 Dose: 25 mg Lorazepam (Lorazepam 1 Mg Tablet) 1 mg PO BID [facility] Last Admin: 09/10/22 09:48 Dose: 1 mg Magnesium Hydroxide (Milk Of Magnesia 30 Ml Oral.Susp) 30 ml PO DAILY PRN PRN Reason: Constipation Last Admin: 08/21/22 14:12 Dose: 30 ml Propranolol HCl (Propranolol Hcl La 60 Mg Cap.Sa.24h) 120 mg PO DAILY [facility]; Protocol Last Admin: 09/10/22 09:48 Dose: 120 mg Quetiapine Fumarate (Quetiapine Fumarate 200 Mg Tablet) 200 mg PO BID [facility] Last Admin: 09/10/22 09:48 Dose: 200 mg Sumatriptan Succinate (Sumatriptan Succinate 25 Mg Tablet) 25 mg PO DAILY PRN PRN Reason: severe headache Last Admin: 08/23/22 18:00 Dose: 25 mg Trazodone HCl (Trazodone Hcl 50 Mg Tablet) 50 mg PO BEDTIME MRX1 PRN PRN Reason: Insomnia Last Admin: 09/09/22 18:47 Dose: 50 mg Vilazodone HCl (Vilazodone Hcl 40 Mg Tablet) 40 mg PO DAILY [facility] Last Admin: 09/10/22 09:48 Dose: 40 mg Zolpidem Tartrate (Zolpidem Tartrate 5 Mg Tablet) 5 mg PO BEDTIME PRN PRN Reason: Insomnia Last Admin: 09/09/22 18:47 Dose: 5 mg Allergies Allergies Allergy/AdvReac Type Severity Reaction Status Date / Time No Known Allergies Allergy Verified 08/09/22 16:14 Assessment & Plan Assessment & Plan (1) Severe recurrent major depression: Status: Acute Code(s): F33.2 - Major depressive disorder, recurrent severe without psychotic features (2) Complicated bereavement: Status: Acute Code(s): F43.21 - Adjustment disorder with depressed mood (3) Social anxiety disorder: Status: Acute Code(s): F40.10 - Social phobia, unspecified Plan 32 yo male, scheduled transfer from [facility] for ECT consult and treatment s/p suicide attempt with complex breavement issues. Patient reports numerous medication trials over many years without much effect Plan: CV Q 15 minute checks INCREASE TO Viibryd 40mg daily; Continue Propranolol LA 120mg (and dc IR); pt still anxious and also w/ HTN DC nortriptyline out of some concern that medication could interfere with ECT side effects; (at 150mg, -Nortriptyline level therapeutic: 102) Continue Seroquel 200 mg b.i.d.; patient says for anxiety Continue Ativan 1.5 mg b.i.d.; patient recently started on clonazepam 1 mg t.i.d. but it was switched in the ED just prior to this admission Ambien 5 mg q.h.s. ECT #1 on 08/14 ECT #2 on 08/16 ECT #3 on 08/21; ECT #4 on 08/23 ECT #5 on 08/26 ECT #6 on 08/28 ECT #7 on 08/30 (NO ECT on 09/02) ECT #8 on 09/04 ECT #9 on 09/06 ECT #10 on 09/09 ECT TREATMENTS COMPLETE [facility] Course: 08/12/22 cont nortrip seroquel reviwed ect scheduled for 08/14/22 s/p suicide attempt denies active si now 08/13 pt cleared for ECT by hospitalist WILL; depressed but SI back to chronic, low level at baseline. 08/14 tolerating ECT; wants to continue. Discussed medication management and will continue current regimen for now other than switching to longer acting propranolol; no known history of MAO'I which could be a possible option; discussed hypertension which patient says he has a history of; will see if BP response to propranolol adjustment 08/15 will add social anxiety order to diagnosis; interactions with parents growing up were emotionally traumatic have significantly effected his ability to have interpersonal relationships in his adult life. Started CBT exercise which resonate with patient. Waiting for nortriptyline level. BP a little better perhaps since starting long-acting propranolol; will leave for now 08/16 severe headache after ECT; sumatriptan 25 mg seem to help resolve 08/17: Headache resolved. Continue current plan. 08/18: ECT #3 on 08/21/2208/19: ECT #3 on 08/21/2208/20 remains depressed and anxious; will increase propranolol; continue with ECT 08/22 depressed, anxious; continue with treatment plan; patient hypertensive. He is ambivalent about starting antihypertensive medication but will inquire further 08/23 continue tx plan 08/24 continue treatment plan 08/25 continue treatment plan 6/5 patient remains depressed and anxious; discussed that in order to overcome depression patient has to engage in treatment; that remaining passive, expecting ECT to do all the work is likely part of the problem. Patient seems to agree and consider the reasons he is avoiding engagement. 08/27/2022 Patient would benefit from clear cognitive behavioral strategies. Change ECT to bilateral would consider MAO I Denies active self-harm 08/30 reports still depressed; mostly isolating however patient agrees to start push himself to attend groups; starting Viibryd and discontinue nortriptyline 08/31: Continue current tx plan. 09/01: ECT #8 (#2 BL) tomorrow. 09/02 ECT did not happen today for unknown anesthesia reasons; patient reports he is the same however affect is noticeably brighter more relapse next and naturally expressive. Patient is now attending groups. Increasing Viibryd 09/03 continue tx plan 09/04 continue plan 09/05 patient continues to incrementally improve with slightly less depression and less intense anxiety; affect is noticeably brighter. Patient getting more open about his life and more willing to fully engage in treatment. Patient has been going to groups and through this experiences realizing that despite feeling anxious, he is able to tolerate it and his anxiety is decreasing. Will likely increase Viibryd however he has been on 20 mg for only 3 days so will give it another couple days. May consider increasing propranolol; patient's blood pressure/heart rate is mostly within normal limits but could probably tolerate increased dose. Will consider -otherwise continue with ECT 09/06 will increase Viibryid; 09/07 increased Viibryd to 40 mg; continue with ECT on Friday -given that a significant component of patient's struggles are due to anxiety, not addressed by ECT, it remains likely that ECT and medication will only partially improve symptoms; a significant part of patient's ongoing treatment likely remains best addressed by consistent outpatient therapy. Discussed this with patient who agrees 09/08 Viibryd increased to 40 mg; continue with plan for ECT tomorrow. Patient is in fact improved though he seems to be the last person to recognize it. 09/09 patient ambivalent about continuing ECT; acknowledges that his behaviors have improved that he is more open, interactive, tolerating situations much more easily and he also says that he is overall more hopeful about continuing to get better; denies any SI at all. He wishes he felt internally better. -justowriter operator reached out to Dr. Terrell to discuss treatment plan further 09/10 NO MORE ECT TREATMENTS; will continue with medication regimen for now. Patient discussing dispo plans which include possibly going to an outpatient treatment program with intensive group therapy followed up by resuming outpatient therapy. Patient accepting that his expectations for improvement were not met but agreeing that his symptoms have significantly improved; 1 example was that he use to sweat profusely during groups since he was so anxious and now not at all. Patient clearly with brighter affect and with renewed hope that he can continue to progress Patient educated on: diagnosis, medication risk/benefits, ECT and therapeutic strategies Informed Consent: understands Reason for continued inpatient stay Substantial Risk for: stable for discharge Time Spent With Patient Time: Total time managing care of this patient today ____ minutes.
[2022-09-10 18:16] VITALS: BP 133/86; PULSE 76; TEMP 36.5; O2SAT 97
[2022-09-10] MEDS: traZODone HCL 50 MG TABLET PO ×2 (20:04→22:10)
[2022-09-10] MEDS: Zolpidem Tartrate 5 MG TABLET PO (20:04)
[2022-09-11] MEDS: Propranolol HCL LA 60 MG CAP.SA.24H 120 MG PO (08:59)
[2022-09-11] MEDS: QUEtiapine Fumarate 200 MG TABLET PO ×2 (08:59→19:57)
[2022-09-11] MEDS: LORazepam 1 MG TABLET PO ×2 (08:59→19:56)
[2022-09-11] MEDS: Vilazodone HCL 40 MG TABLET PO (08:59)
[2022-09-11 09:02] VITALS: BP 151/99; PULSE 88; RESP 18; O2SAT 96
--- NOTE | 2022-09-11 09:59 | HO.PSYCHPN ---
Subjective Subjective Date of Service: 09/11/22 Reason For Visit: Rec. Major Depression, Complex Bereavement Reacti Interim History: Met with patient; discussed with team; again talked with patient and his aunt Patient said that he is doing okay and actually said that he is indeed feeling a little bit better, 1st time he has ever said during this admission. Patient shared that he remains focused on going to outpatient treatment program at [facility]; continues to look for apartments with his aunt and is open to volunteering. Patient acknowledges that he enjoys doing nothing and likes the freedom of being able to the not have to do anything; patient agrees that there remains a comfortability in staying depressed since it's something he is familiar with and that depression can even feel preferable to pushing oneself to engage in activities that might trigger anxiety, even if those activities might be therapeutic. Patient agrees that he is going to have to push himself to engage which he says he is willing to do. Mental Status Exam Mental Status Exam Narrative: Pt is alert and oriented; behavior is cooperative, calm; dressed in casual attire, balding; adequate hygiene; mood is described as feeling a little better and affect congruent, more relaxed and naturally expressive; eye contact appropriate; Speech is normal rate, volume and prosody and not pressured; some psychomotor retardation present; thought process is organized and goal directed; Thought content is on treatment; otherwise pertinent to relevant topics and without any delusional content, paranoid ideations or grandiosity; no SI/no HI. There is no evidence of perceptual disturbance. Patients insight and judgment are fair and adequate Diagnostics Vital Signs (24Hr): Vital Signs - 24 hr 09/10/22 18:16 09/11/22 09:02 Temperature 97.7 F Pulse Rate 76 88 Respiratory Rate 18 Blood Pressure 133/86 151/99 H Pulse Oximetry 97 96 Oxygen Delivery Method Room Air Room Air BMI result Body Mass Index 41.3 Labs 08/10/22 07:04 08/10/22 07:04 Medications Medications Current Medications Acetaminophen (Acetaminophen 325 Mg Tablet) 650 mg PO Q6H PRN PRN Reason: Headache/Pain Mild Scale (1-3) Last Admin: 09/08/22 08:13 Dose: 650 mg Al Hydroxide/Mg Hydroxide (Magnesium Hydrox/Alum Hydrox 30 Ml Oral.Susp) 30 ml PO Q6H PRN PRN Reason: Heartburn/Nausea Hydroxyzine HCl (Hydroxyzine Hcl 25 Mg Tablet) 25 mg PO Q6H PRN PRN Reason: Anxiety Last Admin: 08/29/22 21:04 Dose: 25 mg Lorazepam (Lorazepam 1 Mg Tablet) 1 mg PO BID [facility] Last Admin: 09/11/22 08:59 Dose: 1 mg Magnesium Hydroxide (Milk Of Magnesia 30 Ml Oral.Susp) 30 ml PO DAILY PRN PRN Reason: Constipation Last Admin: 08/21/22 14:12 Dose: 30 ml Propranolol HCl (Propranolol Hcl La 60 Mg Cap.Sa.24h) 120 mg PO DAILY [facility]; Protocol Last Admin: 09/11/22 08:59 Dose: 120 mg Quetiapine Fumarate (Quetiapine Fumarate 200 Mg Tablet) 200 mg PO BID [facility] Last Admin: 09/11/22 08:59 Dose: 200 mg Sumatriptan Succinate (Sumatriptan Succinate 25 Mg Tablet) 25 mg PO DAILY PRN PRN Reason: severe headache Last Admin: 08/23/22 18:00 Dose: 25 mg Trazodone HCl (Trazodone Hcl 50 Mg Tablet) 50 mg PO BEDTIME MRX1 PRN PRN Reason: Insomnia Last Admin: 09/10/22 22:10 Dose: 50 mg Vilazodone HCl (Vilazodone Hcl 40 Mg Tablet) 40 mg PO DAILY [facility] Last Admin: 09/11/22 08:59 Dose: 40 mg Zolpidem Tartrate (Zolpidem Tartrate 5 Mg Tablet) 5 mg PO BEDTIME PRN PRN Reason: Insomnia Last Admin: 09/10/22 20:04 Dose: 5 mg Allergies Allergies Allergy/AdvReac Type Severity Reaction Status Date / Time No Known Allergies Allergy Verified 08/09/22 16:14 Assessment & Plan Assessment & Plan (1) Severe recurrent major depression: Status: Acute Code(s): F33.2 - Major depressive disorder, recurrent severe without psychotic features (2) Complicated bereavement: Status: Acute Code(s): F43.21 - Adjustment disorder with depressed mood (3) Social anxiety disorder: Status: Acute Code(s): F40.10 - Social phobia, unspecified Plan 32 yo male, scheduled transfer from [facility] for ECT consult and treatment s/p suicide attempt with complex breavement issues. Patient reports numerous medication trials over many years without much effect Plan: CV Q 15 minute checks INCREASE TO Viibryd 40mg daily; Continue Propranolol LA 120mg (and dc IR); pt still anxious and also w/ HTN DC nortriptyline out of some concern that medication could interfere with ECT side effects; (at 150mg, -Nortriptyline level therapeutic: 102) Continue Seroquel 200 mg b.i.d.; patient says for anxiety Continue Ativan 1.5 mg b.i.d.; patient recently started on clonazepam 1 mg t.i.d. but it was switched in the ED just prior to this admission Ambien 5 mg q.h.s. ECT #1 on 08/14 ECT #2 on 08/16 ECT #3 on 08/21; ECT #4 on 08/23 ECT #5 on 08/26 ECT #6 on 08/28 ECT #7 on 08/30 (NO ECT on 09/02) ECT #8 on 09/04 ECT #9 on 09/06 ECT #10 on 09/09 [facility] Course: 08/12/22 cont nortrip seroquel reviwed ect scheduled for 08/14/22 s/p suicide attempt denies active si now 08/13 pt cleared for ECT by hospitalist WILL; depressed but SI back to chronic, low level at baseline. 08/14 tolerating ECT; wants to continue. Discussed medication management and will continue current regimen for now other than switching to longer acting propranolol; no known history of MAO'I which could be a possible option; discussed hypertension which patient says he has a history of; will see if BP response to propranolol adjustment 08/15 will add social anxiety order to diagnosis; interactions with parents growing up were emotionally traumatic have significantly effected his ability to have interpersonal relationships in his adult life. Started CBT exercise which resonate with patient. Waiting for nortriptyline level. BP a little better perhaps since starting long-acting propranolol; will leave for now 08/16 severe headache after ECT; sumatriptan 25 mg seem to help resolve 08/17: Headache resolved. Continue current plan. 08/18: ECT #3 on 08/21/2208/19: ECT #3 on 08/21/2208/20 remains depressed and anxious; will increase propranolol; continue with ECT 08/22 depressed, anxious; continue with treatment plan; patient hypertensive. He is ambivalent about starting antihypertensive medication but will inquire further 08/23 continue tx plan 08/24 continue treatment plan 08/25 continue treatment plan 08/26 patient remains depressed and anxious; discussed that in order to overcome depression patient has to engage in treatment; that remaining passive, expecting ECT to do all the work is likely part of the problem. Patient seems to agree and consider the reasons he is avoiding engagement. 08/27/2022 Patient would benefit from clear cognitive behavioral strategies. Change ECT to bilateral would consider MAO I Denies active self-harm 08/30 reports still depressed; mostly isolating however patient agrees to start push himself to attend groups; starting Viibryd and discontinue nortriptyline 08/31: Continue current tx plan. 09/01: ECT #8 (#2 BL) tomorrow. 09/02 ECT did not happen today for unknown anesthesia reasons; patient reports he is the same however affect is noticeably brighter more relapse next and naturally expressive. Patient is now attending groups. Increasing Viibryd 09/03 continue tx plan 09/04 continue plan 09/05 patient continues to incrementally improve with slightly less depression and less intense anxiety; affect is noticeably brighter. Patient getting more open about his life and more willing to fully engage in treatment. Patient has been going to groups and through this experiences realizing that despite feeling anxious, he is able to tolerate it and his anxiety is decreasing. Will likely increase Viibryd however he has been on 20 mg for only 3 days so will give it another couple days. May consider increasing propranolol; patient's blood pressure/heart rate is mostly within normal limits but could probably tolerate increased dose. Will consider -otherwise continue with ECT 09/06 will increase Viibryid; 09/07 increased Viibryd to 40 mg; continue with ECT on Friday -given that a significant component of patient's struggles are due to anxiety, not addressed by ECT, it remains likely that ECT and medication will only partially improve symptoms; a significant part of patient's ongoing treatment likely remains best addressed by consistent outpatient therapy. Discussed this with patient who agrees 09/08 Viibryd increased to 40 mg; continue with plan for ECT tomorrow. Patient is in fact improved though he seems to be the last person to recognize it. 09/09 patient ambivalent about continuing ECT; acknowledges that his behaviors have improved that he is more open, interactive, tolerating situations much more easily and he also says that he is overall more hopeful about continuing to get better; denies any SI at all. He wishes he felt internally better. -conventional underwriter reached out to Dr. Terrell to discuss treatment plan further 09/10 NO MORE ECT TREATMENTS; will continue with medication regimen for now. Patient discussing dispo plans which include possibly going to an outpatient treatment program with intensive group therapy followed up by resuming outpatient therapy. Patient accepting that his expectations for improvement were not met but agreeing that his symptoms have significantly improved; 1 example was that he use to sweat profusely during groups since he was so anxious and now not at all. Patient clearly with brighter affect and with renewed hope that he can continue to progress 09/11 Patient said that he is doing okay and actually said that he is indeed feeling a little bit better, 1st time he has ever said during this admission. Patient shared that he remains focused on going to outpatient treatment program at [facility]; continues to look for apartments with his aunt and is open to volunteering. Patient acknowledges that he enjoys doing nothing and likes the freedom of being able to the not have to do anything; patient agrees that there remains a comfortability in staying depressed since it's something he is familiar with and that depression can even feel preferable to pushing oneself to engage in activities that might trigger anxiety, even if those activities might be therapeutic. Patient agrees that he is going to have to push himself to engage which he says he is willing to do. Patient educated on: diagnosis, medication risk/benefits and therapeutic strategies Informed Consent: understands Reason for continued inpatient stay Substantial Risk for: stable for discharge Time Spent With Patient Time: Total time managing care of this patient today ____ minutes.
[2022-09-11 18:37] VITALS: BP 118/71; PULSE 75; TEMP 36.4; O2SAT 96
[2022-09-11] MEDS: Zolpidem Tartrate 5 MG TABLET PO (19:56)
[2022-09-11] MEDS: traZODone HCL 50 MG TABLET PO (19:57)
[2022-09-12 08:10] VITALS: BP 159/101; PULSE 77; RESP 16; TEMP 36.8; O2SAT 97
[2022-09-12] MEDS: QUEtiapine Fumarate 200 MG TABLET PO ×2 (08:17→21:14)
[2022-09-12] MEDS: Propranolol HCL LA 60 MG CAP.SA.24H 120 MG PO (08:17)
[2022-09-12] MEDS: Vilazodone HCL 40 MG TABLET PO (08:17)
[2022-09-12] MEDS: LORazepam 1 MG TABLET PO ×2 (08:17→21:13)
--- NOTE | 2022-09-12 17:26 | HO.PSYCHPN ---
Subjective Subjective Date of Service: 09/12/22 Reason For Visit: Rec. Major Depression, Complex Bereavement Reacti Interim History: Met with patient; discussed with team Patient reports overall he is feeling a little bit better; agrees with treatment plan is looking forward to attending outpatient program. Agrees to continue medication regimen. Talked about intermittent hypertension and as it is not consistent will not start antihypertensive at this time Mental Status Exam Mental Status Exam Narrative: Pt is alert and oriented; behavior is cooperative, calm; dressed in casual attire, balding; adequate hygiene; mood is described as ok and affect congruent, more relaxed and naturally expressive; eye contact appropriate; Speech is normal rate, volume and prosody and not pressured; some psychomotor retardation present; thought process is organized and goal directed; Thought content is on treatment; otherwise pertinent to relevant topics and without any delusional content, paranoid ideations or grandiosity; no SI/no HI. There is no evidence of perceptual disturbance. Patients insight and judgment are fair and adequate Diagnostics Vital Signs (24Hr): Vital Signs - 24 hr 09/11/22 18:37 09/12/22 08:10 Temperature 97.5 F 98.2 F Pulse Rate 75 77 Respiratory Rate 16 Blood Pressure 118/71 159/101 H Pulse Oximetry 96 97 Oxygen Delivery Method Room Air Room Air BMI result Body Mass Index 41.3 Labs 08/10/22 07:04 08/10/22 07:04 Medications Medications Current Medications Acetaminophen (Acetaminophen 325 Mg Tablet) 650 mg PO Q6H PRN PRN Reason: Headache/Pain Mild Scale (1-3) Last Admin: 09/08/22 08:13 Dose: 650 mg Al Hydroxide/Mg Hydroxide (Magnesium Hydrox/Alum Hydrox 30 Ml Oral.Susp) 30 ml PO Q6H PRN PRN Reason: Heartburn/Nausea Hydroxyzine HCl (Hydroxyzine Hcl 25 Mg Tablet) 25 mg PO Q6H PRN PRN Reason: Anxiety Last Admin: 08/29/22 21:04 Dose: 25 mg Lorazepam (Lorazepam 1 Mg Tablet) 1 mg PO BID [facility] Last Admin: 09/12/22 08:17 Dose: 1 mg Magnesium Hydroxide (Milk Of Magnesia 30 Ml Oral.Susp) 30 ml PO DAILY PRN PRN Reason: Constipation Last Admin: 08/21/22 14:12 Dose: 30 ml Propranolol HCl (Propranolol Hcl La 60 Mg Cap.Sa.24h) 120 mg PO DAILY [facility]; Protocol Last Admin: 09/12/22 08:17 Dose: 120 mg Quetiapine Fumarate (Quetiapine Fumarate 200 Mg Tablet) 200 mg PO BID [facility] Last Admin: 09/12/22 08:17 Dose: 200 mg Sumatriptan Succinate (Sumatriptan Succinate 25 Mg Tablet) 25 mg PO DAILY PRN PRN Reason: severe headache Last Admin: 08/23/22 18:00 Dose: 25 mg Trazodone HCl (Trazodone Hcl 50 Mg Tablet) 50 mg PO BEDTIME MRX1 PRN PRN Reason: Insomnia Last Admin: 09/11/22 19:57 Dose: 50 mg Vilazodone HCl (Vilazodone Hcl 40 Mg Tablet) 40 mg PO DAILY [facility] Last Admin: 09/12/22 08:17 Dose: 40 mg Zolpidem Tartrate (Zolpidem Tartrate 5 Mg Tablet) 5 mg PO BEDTIME PRN PRN Reason: Insomnia Last Admin: 09/11/22 19:56 Dose: 5 mg Allergies Allergies Allergy/AdvReac Type Severity Reaction Status Date / Time No Known Allergies Allergy Verified 08/09/22 16:14 Assessment & Plan Assessment & Plan (1) Severe recurrent major depression: Status: Acute Code(s): F33.2 - Major depressive disorder, recurrent severe without psychotic features (2) Complicated bereavement: Status: Acute Code(s): F43.21 - Adjustment disorder with depressed mood (3) Social anxiety disorder: Status: Acute Code(s): F40.10 - Social phobia, unspecified Plan 32 yo male, scheduled transfer from [facility] for ECT consult and treatment s/p suicide attempt with complex breavement issues. Patient reports numerous medication trials over many years without much effect Plan: CV Q 15 minute checks INCREASE TO Viibryd 40mg daily; Continue Propranolol LA 120mg (and dc IR); pt still anxious and also w/ HTN DC nortriptyline out of some concern that medication could interfere with ECT side effects; (at 150mg, -Nortriptyline level therapeutic: 102) Continue Seroquel 200 mg b.i.d.; patient says for anxiety Continue Ativan 1.5 mg b.i.d.; patient recently started on clonazepam 1 mg t.i.d. but it was switched in the ED just prior to this admission Ambien 5 mg q.h.s. ECT #1 on 08/14 ECT #2 on 08/16 ECT #3 on 08/21; ECT #4 on 08/23 ECT #5 on 08/26 ECT #6 on 08/28 ECT #7 on 08/30 (NO ECT on 09/02) ECT #8 on 09/04 ECT #9 on 09/06 ECT #10 on 09/09 [facility] Course: 08/12/22 cont nortrip seroquel reviwed ect scheduled for 08/14/22 s/p suicide attempt denies active si now 08/13 pt cleared for ECT by hospitalist WILL; depressed but SI back to chronic, low level at baseline. 08/14 tolerating ECT; wants to continue. Discussed medication management and will continue current regimen for now other than switching to longer acting propranolol; no known history of MAO'I which could be a possible option; discussed hypertension which patient says he has a history of; will see if BP response to propranolol adjustment 08/15 will add social anxiety order to diagnosis; interactions with parents growing up were emotionally traumatic have significantly effected his ability to have interpersonal relationships in his adult life. Started CBT exercise which resonate with patient. Waiting for nortriptyline level. BP a little better perhaps since starting long-acting propranolol; will leave for now 08/16 severe headache after ECT; sumatriptan 25 mg seem to help resolve 08/17: Headache resolved. Continue current plan. 08/18: ECT #3 on 08/21/2208/19: ECT #3 on 08/21/2208/20 remains depressed and anxious; will increase propranolol; continue with ECT 08/22 depressed, anxious; continue with treatment plan; patient hypertensive. He is ambivalent about starting antihypertensive medication but will inquire further 08/23 continue tx plan 08/24 continue treatment plan 08/25 continue treatment plan 08/26 patient remains depressed and anxious; discussed that in order to overcome depression patient has to engage in treatment; that remaining passive, expecting ECT to do all the work is likely part of the problem. Patient seems to agree and consider the reasons he is avoiding engagement. 08/27/2022 Patient would benefit from clear cognitive behavioral strategies. Change ECT to bilateral would consider MAO I Denies active self-harm 08/30 reports still depressed; mostly isolating however patient agrees to start push himself to attend groups; starting Viibryd and discontinue nortriptyline 08/31: Continue current tx plan. 09/01: ECT #8 (#2 BL) tomorrow. 09/02 ECT did not happen today for unknown anesthesia reasons; patient reports he is the same however affect is noticeably brighter more relapse next and naturally expressive. Patient is now attending groups. Increasing Viibryd 09/03 continue tx plan 09/04 continue plan 09/05 patient continues to incrementally improve with slightly less depression and less intense anxiety; affect is noticeably brighter. Patient getting more open about his life and more willing to fully engage in treatment. Patient has been going to groups and through this experiences realizing that despite feeling anxious, he is able to tolerate it and his anxiety is decreasing. Will likely increase Viibryd however he has been on 20 mg for only 3 days so will give it another couple days. May consider increasing propranolol; patient's blood pressure/heart rate is mostly within normal limits but could probably tolerate increased dose. Will consider -otherwise continue with ECT 09/06 will increase Viibryid; 09/07 increased Viibryd to 40 mg; continue with ECT on Friday -given that a significant component of patient's struggles are due to anxiety, not addressed by ECT, it remains likely that ECT and medication will only partially improve symptoms; a significant part of patient's ongoing treatment likely remains best addressed by consistent outpatient therapy. Discussed this with patient who agrees 09/08 Viibryd increased to 40 mg; continue with plan for ECT tomorrow. Patient is in fact improved though he seems to be the last person to recognize it. 09/09 patient ambivalent about continuing ECT; acknowledges that his behaviors have improved that he is more open, interactive, tolerating situations much more easily and he also says that he is overall more hopeful about continuing to get better; denies any SI at all. He wishes he felt internally better. -caption writer reached out to Dr. Terrell to discuss treatment plan further 09/10 NO MORE ECT TREATMENTS; will continue with medication regimen for now. Patient discussing dispo plans which include possibly going to an outpatient treatment program with intensive group therapy followed up by resuming outpatient therapy. Patient accepting that his expectations for improvement were not met but agreeing that his symptoms have significantly improved; 1 example was that he use to sweat profusely during groups since he was so anxious and now not at all. Patient clearly with brighter affect and with renewed hope that he can continue to progress 09/11 Patient said that he is doing okay and actually said that he is indeed feeling a little bit better, 1st time he has ever said during this admission. Patient shared that he remains focused on going to outpatient treatment program at [facility]; continues to look for apartments with his aunt and is open to volunteering. Patient acknowledges that he enjoys doing nothing and likes the freedom of being able to the not have to do anything; patient agrees that there remains a comfortability in staying depressed since it's something he is familiar with and that depression can even feel preferable to pushing oneself to engage in activities that might trigger anxiety, even if those activities might be therapeutic. Patient agrees that he is going to have to push himself to engage which he says he is willing to do. 09/12 remains stable; still depressed and anxious but overall symptoms are reduced current treatment plan. Patient's plan is to discharge to outpatient program sometime early next week. Patient is not in imminent risk for harm to self or others and appropriate to continue treatment in the community. Patient educated on: diagnosis and medical condition Informed Consent: understands Reason for continued inpatient stay Substantial Risk for: stable for discharge Time Spent With Patient Time: Total time managing care of this patient today ____ minutes.
[2022-09-12 18:00] VITALS: BP 140/87; PULSE 69; RESP 18; TEMP 36; O2SAT 96
[2022-09-12] MEDS: traZODone HCL 50 MG TABLET PO (21:14)
[2022-09-12] MEDS: Zolpidem Tartrate 5 MG TABLET PO (21:48)
[2022-09-13 08:45] VITALS: BP 143/96; PULSE 92; RESP 16; TEMP 37.2; O2SAT 96
[2022-09-13] MEDS: Propranolol HCL LA 60 MG CAP.SA.24H 120 MG PO (08:48)
[2022-09-13] MEDS: LORazepam 1 MG TABLET PO ×2 (08:48→21:54)
[2022-09-13] MEDS: QUEtiapine Fumarate 200 MG TABLET PO ×2 (08:48→21:54)
[2022-09-13] MEDS: Vilazodone HCL 40 MG TABLET PO (08:48)
[2022-09-13] MEDS: Acetaminophen 325 MG TABLET 650 MG PO (09:07)
--- NOTE | 2022-09-13 09:37 | P.PNPSI_ITS ---
Subjective Subjective Date of Service: 09/13/22 Reason For Visit: Rec. Major Depression, Complex Bereavement Reacti Subjective Notes: Conditional Voluntary Interim History: Met with patient; discussed with team Pt reports feeling better, less depressed. No SI/HI. No psychosis. No physical concerns. Pt has been visible on the unit, has attended some groups. He reports he is looking forward to transition to dual dx programming. Per nursing, pt slept through the night. No behavioral concerns. Medication Compliance: Yes Review of Systems Review of Systems Chronic musculoskeletal pain Pt otherwise has no acute medical complaints Yes all other systems are reviewed and are negative Psychiatric: Reports depression, Reports hopelessness, Reports irritability, Reports anhedonia and Reports suicidal ideation Mental Status Exam Mental Status Exam Narrative: Pt is alert and oriented; behavior is cooperative, calm; dressed in casual attire, balding; adequate hygiene; mood is described as ok and affect congruent, more relaxed and naturally expressive; eye contact appropriate; Speech is normal rate, volume and prosody and not pressured; some psychomotor retardation present; thought process is organized and goal directed; Thought content is on treatment; otherwise pertinent to relevant topics and without any delusional content, paranoid ideations or grandiosity; no SI/no HI. There is no evidence of perceptual disturbance. Patients insight and judgment are fair and adequate Diagnostics Vital Signs (24Hr): Vital Signs - 24 hr 09/12/22 18:00 Temperature 96.8 F Pulse Rate 69 Respiratory Rate 18 Blood Pressure 140/87 H Pulse Oximetry 96 Oxygen Delivery Method Room Air BMI result Body Mass Index 41.3 Labs 08/10/22 07:04 08/10/22 07:04 Medications Medications Current Medications Acetaminophen (Acetaminophen 325 Mg Tablet) 650 mg PO Q6H PRN PRN Reason: Headache/Pain Mild Scale (1-3) Last Admin: 09/13/22 09:07 Dose: 650 mg Al Hydroxide/Mg Hydroxide (Magnesium Hydrox/Alum Hydrox 30 Ml Oral.Susp) 30 ml PO Q6H PRN PRN Reason: Heartburn/Nausea Hydroxyzine HCl (Hydroxyzine Hcl 25 Mg Tablet) 25 mg PO Q6H PRN PRN Reason: Anxiety Last Admin: 08/29/22 21:04 Dose: 25 mg Lorazepam (Lorazepam 1 Mg Tablet) 1 mg PO BID [facility] Last Admin: 09/13/22 08:48 Dose: 1 mg Magnesium Hydroxide (Milk Of Magnesia 30 Ml Oral.Susp) 30 ml PO DAILY PRN PRN Reason: Constipation Last Admin: 08/21/22 14:12 Dose: 30 ml Propranolol HCl (Propranolol Hcl La 60 Mg Cap.Sa.24h) 120 mg PO DAILY [facility]; Protocol Last Admin: 09/13/22 08:48 Dose: 120 mg Quetiapine Fumarate (Quetiapine Fumarate 200 Mg Tablet) 200 mg PO BID [facility] Last Admin: 09/13/22 08:48 Dose: 200 mg Sumatriptan Succinate (Sumatriptan Succinate 25 Mg Tablet) 25 mg PO DAILY PRN PRN Reason: severe headache Last Admin: 08/23/22 18:00 Dose: 25 mg Trazodone HCl (Trazodone Hcl 50 Mg Tablet) 50 mg PO BEDTIME MRX1 PRN PRN Reason: Insomnia Last Admin: 09/12/22 21:14 Dose: 50 mg Vilazodone HCl (Vilazodone Hcl 40 Mg Tablet) 40 mg PO DAILY [facility] Last Admin: 09/13/22 08:48 Dose: 40 mg Zolpidem Tartrate (Zolpidem Tartrate 5 Mg Tablet) 5 mg PO BEDTIME [facility] Last Admin: 09/12/22 21:48 Dose: 5 mg Allergies Allergies Allergy/AdvReac Type Severity Reaction Status Date / Time No Known Allergies Allergy Verified 08/09/22 16:14 Assessment & Plan Assessment & Plan (1) Severe recurrent major depression: Status: Acute Code(s): F33.2 - Major depressive disorder, recurrent severe without psychotic features (2) Complicated bereavement: Status: Acute Code(s): F43.21 - Adjustment disorder with depressed mood (3) Social anxiety disorder: Status: Acute Code(s): F40.10 - Social phobia, unspecified Plan 32 yo male, scheduled transfer from [facility] for ECT consult and treatment s/p suicide attempt with complex breavement issues. Patient reports numerous medication trials over many years without much effect Plan: CV Q 15 minute checks INCREASE TO Viibryd 40mg daily; Continue Propranolol LA 120mg (and dc IR); pt still anxious and also w/ HTN DC nortriptyline out of some concern that medication could interfere with ECT side effects; (at 150mg, -Nortriptyline level therapeutic: 102) Continue Seroquel 200 mg b.i.d.; patient says for anxiety Continue Ativan 1.5 mg b.i.d.; patient recently started on clonazepam 1 mg t.i.d. but it was switched in the ED just prior to this admission Ambien 5 mg q.h.s. ECT #1 on 08/14 ECT #2 on 08/16 ECT #3 on 08/21; ECT #4 on 08/23 ECT #5 on 08/26 ECT #6 on 08/28 ECT #7 on 08/30 (NO ECT on 09/02) ECT #8 on 09/04 ECT #9 on 09/06 ECT #10 on 09/09 [facility] Course: 08/12/22 cont nortrip seroquel reviwed ect scheduled for 08/14/22 s/p suicide attempt denies active si now 08/13 pt cleared for ECT by hospitalist WILL; depressed but SI back to chronic, low level at baseline. 08/14 tolerating ECT; wants to continue. Discussed medication management and will continue current regimen for now other than switching to longer acting propranolol; no known history of MAO'I which could be a possible option; discussed hypertension which patient says he has a history of; will see if BP response to propranolol adjustment 08/15 will add social anxiety order to diagnosis; interactions with parents growing up were emotionally traumatic have significantly effected his ability to have interpersonal relationships in his adult life. Started CBT exercise which resonate with patient. Waiting for nortriptyline level. BP a little better perhaps since starting long-acting propranolol; will leave for now 08/16 severe headache after ECT; sumatriptan 25 mg seem to help resolve 08/17: Headache resolved. Continue current plan. 08/18: ECT #3 on 08/21/2208/19: ECT #3 on 08/21/2208/20 remains depressed and anxious; will increase propranolol; continue with ECT 08/22 depressed, anxious; continue with treatment plan; patient hypertensive. He is ambivalent about starting antihypertensive medication but will inquire further 08/23 continue tx plan 08/24 continue treatment plan 08/25 continue treatment plan 08/26 patient remains depressed and anxious; discussed that in order to overcome depression patient has to engage in treatment; that remaining passive, expecting ECT to do all the work is likely part of the problem. Patient seems to agree and consider the reasons he is avoiding engagement. 08/27/2022 Patient would benefit from clear cognitive behavioral strategies. Change ECT to bilateral would consider MAO I Denies active self-harm 08/30 reports still depressed; mostly isolating however patient agrees to start push himself to attend groups; starting Viibryd and discontinue nortriptyline 08/31: Continue current tx plan. 09/01: ECT #8 (#2 BL) tomorrow. 09/02 ECT did not happen today for unknown anesthesia reasons; patient reports he is the same however affect is noticeably brighter more relapse next and naturally expressive. Patient is now attending groups. Increasing Viibryd 09/03 continue tx plan 09/04 continue plan 09/05 patient continues to incrementally improve with slightly less depression and less intense anxiety; affect is noticeably brighter. Patient getting more open about his life and more willing to fully engage in treatment. Patient has been going to groups and through this experiences realizing that despite feeling anxious, he is able to tolerate it and his anxiety is decreasing. Will likely increase Viibryd however he has been on 20 mg for only 3 days so will give it another couple days. May consider increasing propranolol; patient's blood pressure/heart rate is mostly within normal limits but could probably tolerate increased dose. Will consider -otherwise continue with ECT 09/06 will increase Viibryid; 09/07 increased Viibryd to 40 mg; continue with ECT on Friday -given that a significant component of patient's struggles are due to anxiety, not addressed by ECT, it remains likely that ECT and medication will only partially improve symptoms; a significant part of patient's ongoing treatment likely remains best addressed by consistent outpatient therapy. Discussed this with patient who agrees 09/08 Viibryd increased to 40 mg; continue with plan for ECT tomorrow. Patient is in fact improved though he seems to be the last person to recognize it. 09/09 patient ambivalent about continuing ECT; acknowledges that his behaviors have improved that he is more open, interactive, tolerating situations much more easily and he also says that he is overall more hopeful about continuing to get better; denies any SI at all. He wishes he felt internally better. -telegraphic typewriter operator chief reached out to Dr. Terrell to discuss treatment plan further 09/10 NO MORE ECT TREATMENTS; will continue with medication regimen for now. Patient discussing dispo plans which include possibly going to an outpatient treatment program with intensive group therapy followed up by resuming outpatient therapy. Patient accepting that his expectations for improvement were not met but agreeing that his symptoms have significantly improved; 1 example was that he use to sweat profusely during groups since he was so anxious and now not at all. Patient clearly with brighter affect and with renewed hope that he can continue to progress 09/11 Patient said that he is doing okay and actually said that he is indeed feeling a little bit better, 1st time he has ever said during this admission. Patient shared that he remains focused on going to outpatient treatment program at [facility]; continues to look for apartments with his aunt and is open to volunteering. Patient acknowledges that he enjoys doing nothing and likes the freedom of being able to the not have to do anything; patient agrees that there remains a comfortability in staying depressed since it's something he is kavya r with and that depression can even feel preferable to pushing oneself to engage in activities that might trigger anxiety, even if those activities might be therapeutic. Patient agrees that he is going to have to push himself to engage which he says he is willing to do. 09/12 remains stable; still depressed and anxious but overall symptoms are reduced current treatment plan. Patient's plan is to discharge to outpatient program sometime early next week. Patient is not in imminent risk for harm to self or others and appropriate to continue treatment in the community. 09/13 continue tx. Reason for continued inpatient stay Substantial Risk for: inability to function Time Spent With Patient Time: Total time managing care of this patient today ____ minutes.
[2022-09-13 21:45] VITALS: BP 134/88; PULSE 77; TEMP 35.8; O2SAT 97
[2022-09-13] MEDS: traZODone HCL 50 MG TABLET PO (21:54)
[2022-09-13] MEDS: Zolpidem Tartrate 5 MG TABLET PO (21:54)
[2022-09-14 06:00] VITALS: BP 145/97; PULSE 78; RESP 18
[2022-09-14] MEDS: Propranolol HCL LA 60 MG CAP.SA.24H 120 MG PO (08:14)
[2022-09-14] MEDS: LORazepam 1 MG TABLET PO ×2 (08:14→20:11)
[2022-09-14] MEDS: Vilazodone HCL 40 MG TABLET PO (08:14)
[2022-09-14] MEDS: QUEtiapine Fumarate 200 MG TABLET PO ×2 (08:14→20:11)
[2022-09-14] MEDS: SUMAtriptan succinate 25 MG TABLET PO (08:17)
[2022-09-14] MEDS: Acetaminophen 325 MG TABLET 650 MG PO (09:26)
--- NOTE | 2022-09-14 11:36 | P.PNPSI_ITS ---
Subjective Subjective Date of Service: 09/14/22 Reason For Visit: Rec. Major Depression, Complex Bereavement Reacti Interim History: Met with patient; discussed with team Pt reports feeling better, less depressed. No SI/HI. No psychosis. No physical concerns. Pt has been visible on the unit, has attended some groups. He reports he is looking forward to transition to dual dx programming. Per nursing, pt slept through the night. No behavioral concerns. Review of Systems Review of Systems Chronic musculoskeletal pain Pt otherwise has no acute medical complaints Yes all other systems are reviewed and are negative Psychiatric: Reports depression, Reports hopelessness, Reports irritability, Reports anhedonia and Reports suicidal ideation Mental Status Exam Mental Status Exam Narrative: Pt is alert and oriented; behavior is cooperative, calm; dressed in casual attire, balding; adequate hygiene; mood is described as ok and affect congruent, more relaxed and naturally expressive; eye contact appropriate; Speech is normal rate, volume and prosody and not pressured; some psychomotor retardation present; thought process is organized and goal directed; Thought content is on treatment; otherwise pertinent to relevant topics and without any delusional content, paranoid ideations or grandiosity; no SI/no HI. There is no evidence of perceptual disturbance. Patients insight and judgment are fair and adequate Patient Appearance: Fatigued Patient Orientation: Person, Place, Time and Situation Level of Consciousness: Alert Patient Behavior: Talkative and Cooperative Mood Description: Constricted and Depressed Affect Description: Constricted, Depressed, Blunted and Flat Patient Cognition Impaired: No Ability to Follow Directions: Good Speech Pattern: Spontaneous Speech Memory Description: Intact Diagnostics Vital Signs (24Hr): Vital Signs - 24 hr 09/13/22 21:45 09/14/22 06:00 Temperature 96.4 F L Pulse Rate 77 78 Respiratory Rate 18 Blood Pressure 134/88 145/97 H Pulse Oximetry 97 Oxygen Delivery Method Room Air BMI result Body Mass Index 41.3 Labs 08/10/22 07:04 08/10/22 07:04 Medications Medications Current Medications Acetaminophen (Acetaminophen 325 Mg Tablet) 650 mg PO Q6H PRN PRN Reason: Headache/Pain Mild Scale (1-3) Last Admin: 09/14/22 09:26 Dose: 650 mg Al Hydroxide/Mg Hydroxide (Magnesium Hydrox/Alum Hydrox 30 Ml Oral.Susp) 30 ml PO Q6H PRN PRN Reason: Heartburn/Nausea Hydroxyzine HCl (Hydroxyzine Hcl 25 Mg Tablet) 25 mg PO Q6H PRN PRN Reason: Anxiety Last Admin: 08/29/22 21:04 Dose: 25 mg Lorazepam (Lorazepam 1 Mg Tablet) 1 mg PO BID [facility] Last Admin: 09/14/22 08:14 Dose: 1 mg Magnesium Hydroxide (Milk Of Magnesia 30 Ml Oral.Susp) 30 ml PO DAILY PRN PRN Reason: Constipation Last Admin: 08/21/22 14:12 Dose: 30 ml Propranolol HCl (Propranolol Hcl La 60 Mg Cap.Sa.24h) 120 mg PO DAILY [facility]; Protocol Last Admin: 09/14/22 08:14 Dose: 120 mg Quetiapine Fumarate (Quetiapine Fumarate 200 Mg Tablet) 200 mg PO BID [facility] Last Admin: 09/14/22 08:14 Dose: 200 mg Sumatriptan Succinate (Sumatriptan Succinate 25 Mg Tablet) 25 mg PO DAILY PRN PRN Reason: severe headache Last Admin: 09/14/22 08:17 Dose: 25 mg Trazodone HCl (Trazodone Hcl 50 Mg Tablet) 50 mg PO BEDTIME MRX1 PRN PRN Reason: Insomnia Last Admin: 09/13/22 21:54 Dose: 50 mg Vilazodone HCl (Vilazodone Hcl 40 Mg Tablet) 40 mg PO DAILY [facility] Last Admin: 09/14/22 08:14 Dose: 40 mg Zolpidem Tartrate (Zolpidem Tartrate 5 Mg Tablet) 5 mg PO BEDTIME [facility] Last Admin: 09/13/22 21:54 Dose: 5 mg Allergies Allergies Allergy/AdvReac Type Severity Reaction Status Date / Time No Known Allergies Allergy Verified 08/09/22 16:14 Assessment & Plan Assessment & Plan (1) Severe recurrent major depression: Status: Acute Code(s): F33.2 - Major depressive disorder, recurrent severe without psychotic features (2) Complicated bereavement: Status: Acute Code(s): F43.21 - Adjustment disorder with depressed mood (3) Social anxiety disorder: Status: Acute Code(s): F40.10 - Social phobia, unspecified Plan 32 yo male, scheduled transfer from [facility] for ECT consult and treatment s/p suicide attempt with complex breavement issues. Patient reports numerous medication trials over many years without much effect Plan: CV Q 15 minute checks INCREASE TO Viibryd 40mg daily; Continue Propranolol LA 120mg (and dc IR); pt still anxious and also w/ HTN DC nortriptyline out of some concern that medication could interfere with ECT side effects; (at 150mg, -Nortriptyline level therapeutic: 102) Continue Seroquel 200 mg b.i.d.; patient says for anxiety Continue Ativan 1.5 mg b.i.d.; patient recently started on clonazepam 1 mg t.i.d. but it was switched in the ED just prior to this admission Ambien 5 mg q.h.s. ECT #1 on 08/14 ECT #2 on 08/16 ECT #3 on 08/21; ECT #4 on 08/23 ECT #5 on 08/26 ECT #6 on 08/28 ECT #7 on 08/30 (NO ECT on 09/02) ECT #8 on 09/04 ECT #9 on 09/06 ECT #10 on 09/09 [facility] Course: 08/12/22 cont nortrip seroquel reviwed ect scheduled for 08/14/22 s/p suicide attempt denies active si now 08/13 pt cleared for ECT by hospitalist WILL; depressed but SI back to chronic, low level at baseline. 08/14 tolerating ECT; wants to continue. Discussed medication management and will continue current regimen for now other than switching to longer acting p ropranolol; no known history of MAO'I which could be a possible option; discussed hypertension which patient says he has a history of; will see if BP response to propranolol adjustment 08/15 will add social anxiety order to diagnosis; interactions with parents growing up were emotionally traumatic have significantly effected his ability to have interpersonal relationships in his adult life. Started CBT exercise which resonate with patient. Waiting for nortriptyline level. BP a little better pe rhaps since starting long-acting propranolol; will leave for now 08/16 severe headache after ECT; sumatriptan 25 mg seem to help resolve 08/17: Headache resolved. Continue current plan. 08/18: ECT #3 on 08/21/2208/19: ECT #3 on 08/21/2208/20 remains depressed and anxious; will increase propranolol; continue with ECT 08/22 depressed, anxious; continue with treatment plan; patient hypertensive. He is ambivalent about starting antihypertensive medication but will inquire further 08/23 continue tx plan 08/24 continue treatment plan 08/25 continue treatment plan 08/26 patient remains depressed and anxious; discussed that in order to overcome depression patient has to engage in treatment; that remaining passive, expecting ECT to do all the work is likely part of the problem. Patient seems to agree and consider the reasons he is avoiding engagement. 08/27/2022 Patient would benefit from clear cognitive behavioral strategies. Change ECT to bilateral would consider MAO I Denies active self-harm 08/30 reports still depressed; mostly isolating however patient agrees to start push himself to attend groups; starting Viibryd and discontinue nortriptyline 08/31: Continue current tx plan. 09/01: ECT #8 (#2 BL) tomorrow. 09/02 ECT did not happen today for unknown anesthesia reasons; patient reports he is the same however affect is noticeably brighter more relapse next and naturally expressive. Patient is now attending groups. Increasing Viibryd 09/03 continue tx plan 09/04 continue plan 09/05 patient continues to incrementally improve with slightly less depression and less intense anxiety; affect is noticeably brighter. Patient getting more open about his life and more willing to fully engage in treatment. Patient has been going to groups and through this experiences realizing that despite feeling anxious, he is able to tolerate it and his anxiety is decreasing. Will likely increase Viibryd however he has been on 20 mg for only 3 days so will give it another couple days. May consider increasing propranolol; patient's blood pressure/heart rate is mostly within normal limits but could probably tolerate increased dose. Will consider -otherwise continue with ECT 09/06 will increase Viibryid; 09/07 increased Viibryd to 40 mg; continue with ECT on Friday -given that a significant component of patient's struggles are due to anxiety, not addressed by ECT, it remains likely that ECT and medication will only partially improve symptoms; a significant part of patient's ongoing treatment likely remains best addressed by consistent outpatient therapy. Discussed this with patient who agrees 09/08 Viibryd increased to 40 mg; continue with plan for ECT tomorrow. Patient is in fact improved though he seems to be the last person to recognize it. 09/09 patient ambivalent about continuing ECT; acknowledges that his behaviors have improved that he is more open, interactive, tolerating situations much more easily and he also says that he is overall more hopeful about continuing to get better; denies any SI at all. He wishes he felt internally better. -automatic typewriter inspector reached out to Dr. Terrell to discuss treatment plan further 09/10 NO MORE ECT TREATMENTS; will continue with medication regimen for now. Patient discussing dispo plans which include possibly going to an outpatient treatment program with intensive group therapy followed up by resuming outpatient therapy. Patient accepting that his expectations for improvement were not met but agreeing that his symptoms have significantly improved; 1 example was that he use to sweat profusely during groups since he was so anxious and now not at all. Patient clearly with brighter affect and with renewed hope that he can continue to progress 09/11 Patient said that he is doing okay and actually said that he is indeed feeling a little bit better, 1st time he has ever said during this admission. Patient shared that he remains focused on going to outpatient treatment program at [facility]; continues to look for apartments with his aunt and is open to volunteering. Patient acknowledges that he enjoys doing nothing and likes the freedom of being able to the not have to do anything; patient agrees that there remains a comfortability in staying depressed since it's something he is familiar with and that depression can even feel preferable to pushing oneself to engage in activities that might trigger anxiety, even if those activities might be therapeutic. Patient agrees that he is going to have to push himself to engage which he says he is willing to do. 09/12 remains stable; still depressed and anxious but overall symptoms are reduced current treatment plan. Patient's plan is to discharge to outpatient program sometime early next week. Patient is not in imminent risk for harm to self or others and appropriate to continue treatment in the community. 09/13 continue tx. 09/14: Completed ECT course. Feels improved. Continue current plan. Reason for continued inpatient stay Substantial Risk for: harm to self Time Spent With Patient Time: Total time managing care of this patient today ____ minutes.
[2022-09-14 18:49] VITALS: BP 149/90; PULSE 75; TEMP 36.6; O2SAT 73
[2022-09-14] MEDS: traZODone HCL 50 MG TABLET PO (20:10)
[2022-09-14] MEDS: Zolpidem Tartrate 5 MG TABLET PO (20:11)
[2022-09-15 06:00] VITALS: BP 142/74; PULSE 90; RESP 18
[2022-09-15] MEDS: Propranolol HCL LA 60 MG CAP.SA.24H 120 MG PO (08:02)
[2022-09-15] MEDS: QUEtiapine Fumarate 200 MG TABLET PO ×2 (08:02→20:12)
[2022-09-15] MEDS: Vilazodone HCL 40 MG TABLET PO (08:02)
[2022-09-15] MEDS: LORazepam 1 MG TABLET PO ×2 (08:02→20:12)
[2022-09-15] MEDS: SUMAtriptan succinate 25 MG TABLET PO (08:09)
[2022-09-15 18:36] VITALS: BP 140/91; PULSE 71; TEMP 36.6
--- NOTE | 2022-09-15 19:42 | HO.PSYCHPN ---
Subjective Subjective Date of Service: 09/15/22 Reason For Visit: Rec. Major Depression, Complex Bereavement Reacti Interim History: Met with patient; discussed with team Continues isolative. Poor engagement in the milieu but says that he is more introverted by nature. Says his mood is better. Told RN I can live with this level of depression and anxiety. He reports feeling better, less depressed. No SI/HI. No psychosis. No physical concerns. Per nursing, pt slept through the night. No behavioral concerns. Review of Systems Review of Systems Chronic musculoskeletal pain Pt otherwise has no acute medical complaints Yes all other systems are reviewed and are negative Psychiatric: Reports depression, Reports hopelessness, Reports irritability, Reports anhedonia and Reports suicidal ideation Mental Status Exam Mental Status Exam Narrative: Pt is alert and oriented; behavior is cooperative, calm; dressed in casual attire, balding; adequate hygiene; mood is described as ok and affect congruent, more relaxed and naturally expressive; eye contact appropriate; Speech is normal rate, volume and prosody and not pressured; some psychomotor retardation present; thought process is organized and goal directed; Thought content is on treatment; otherwise pertinent to relevant topics and without any delusional content, paranoid ideations or grandiosity; no SI/no HI. There is no evidence of perceptual disturbance. Patients insight and judgment are fair and adequate Patient Appearance: Fatigued Patient Orientation: Person, Place, Time and Situation Level of Consciousness: Alert Patient Behavior: Talkative and Cooperative Mood Description: Constricted and Depressed Affect Description: Constricted, Depressed, Blunted and Flat Patient Cognition Impaired: No Ability to Follow Directions: Good Speech Pattern: Spontaneous Speech Memory Description: Intact Diagnostics Vital Signs (24Hr): Vital Signs - 24 hr 09/15/22 06:00 09/15/22 18:36 Temperature 97.8 F Pulse Rate 90 71 Respiratory Rate 18 Blood Pressure 142/74 H 140/91 H BMI result Body Mass Index 41.3 Labs 08/10/22 07:04 08/10/22 07:04 Medications Medications Current Medications Acetaminophen (Acetaminophen 325 Mg Tablet) 650 mg PO Q6H PRN PRN Reason: Headache/Pain Mild Scale (1-3) Last Admin: 09/14/22 09:26 Dose: 650 mg Al Hydroxide/Mg Hydroxide (Magnesium Hydrox/Alum Hydrox 30 Ml Oral.Susp) 30 ml PO Q6H PRN PRN Reason: Heartburn/Nausea Hydroxyzine HCl (Hydroxyzine Hcl 25 Mg Tablet) 25 mg PO Q6H PRN PRN Reason: Anxiety Last Admin: 08/29/22 21:04 Dose: 25 mg Lorazepam (Lorazepam 1 Mg Tablet) 1 mg PO BID [facility] Magnesium Hydroxide (Milk Of Magnesia 30 Ml Oral.Susp) 30 ml PO DAILY PRN PRN Reason: Constipation Last Admin: 08/21/22 14:12 Dose: 30 ml Propranolol HCl (Propranolol Hcl La 60 Mg Cap.Sa.24h) 120 mg PO DAILY [facility]; Protocol Last Admin: 09/15/22 08:02 Dose: 120 mg Quetiapine Fumarate (Quetiapine Fumarate 200 Mg Tablet) 200 mg PO BID [facility] Last Admin: 09/15/22 08:02 Dose: 200 mg Sumatriptan Succinate (Sumatriptan Succinate 25 Mg Tablet) 25 mg PO DAILY PRN PRN Reason: severe headache Last Admin: 09/15/22 08:09 Dose: 25 mg Trazodone HCl (Trazodone Hcl 50 Mg Tablet) 50 mg PO BEDTIME MRX1 PRN PRN Reason: Insomnia Last Admin: 09/14/22 20:10 Dose: 50 mg Vilazodone HCl (Vilazodone Hcl 40 Mg Tablet) 40 mg PO DAILY [facility] Last Admin: 09/15/22 08:02 Dose: 40 mg Zolpidem Tartrate (Zolpidem Tartrate 5 Mg Tablet) 5 mg PO BEDTIME [facility] Last Admin: 09/14/22 20:11 Dose: 5 mg Allergies Allergies Allergy/AdvReac Type Severity Reaction Status Date / Time No Known Allergies Allergy Verified 08/09/22 16:14 Assessment & Plan Assessment & Plan (1) Severe recurrent major depression: Status: Acute Code(s): F33.2 - Major depressive disorder, recurrent severe without psychotic features (2) Complicated bereavement: Status: Acute Code(s): F43.21 - Adjustment disorder with depressed mood (3) Social anxiety disorder: Status: Acute Code(s): F40.10 - Social phobia, unspecified Plan 32 yo male, scheduled transfer from [facility] for ECT consult and treatment s/p suicide attempt with complex breavement issues. Patient reports numerous medication trials over many years without much effect Plan: CV Q 15 minute checks INCREASE TO Viibryd 40mg daily; Continue Propranolol LA 120mg (and dc IR); pt still anxious and also w/ HTN DC nortriptyline out of some concern that medication could interfere with ECT side effects; (at 150mg, -Nortriptyline level therapeutic: 102) Continue Seroquel 200 mg b.i.d.; patient says for anxiety Continue Ativan 1.5 mg b.i.d.; patient recently started on clonazepam 1 mg t.i.d. but it was switched in the ED just prior to this admission Ambien 5 mg q.h.s. ECT #1 on 08/14 ECT #2 on 08/16 ECT #3 on 08/21; ECT #4 on 08/23 ECT #5 on 08/26 ECT #6 on 08/28 ECT #7 on 08/30 (NO ECT on 09/02) ECT #8 on 09/04 ECT #9 on 09/06 ECT #10 on 09/09 [facility] Course: 08/12/22 cont nortrip seroquel reviwed ect scheduled for 08/14/22 s/p suicide attempt denies active si now 08/13 pt cleared for ECT by hospitalist WILL; depressed but SI back to chronic, low level at baseline. 08/14 tolerating ECT; wants to continue. Discussed medication management and will continue current regimen for now other than switching to longer acting propranolol; no known history of MAO'I which could be a possible option; discussed hypertension which patient says he has a history of; will see if BP response to propranolol adjustment 08/15 will add social anxiety order to diagnosis; interactions with parents growing up were emotionally traumatic have significantly effected his ability to have interpersonal relationships in his adult life. Started CBT exercise which resonate with patient. Waiting for nortriptyline level. BP a little better perhaps since starting long-acting propranolol; will leave for now 08/16 severe headache after ECT; sumatriptan 25 mg seem to help resolve 08/17: Headache resolved. Continue current plan. 08/18: ECT #3 on 08/21/2208/19: ECT #3 on 08/21/2208/20 remains depressed and anxious; will increase propranolol; continue with ECT 08/22 depressed, anxious; continue with treatment plan; patient hypertensive. He is ambivalent about starting antihypertensive medication but will inquire further 08/23 continue tx plan 08/24 continue treatment plan 08/25 continue treatment plan 08/26 patient remains depressed and anxious; discussed that in order to overcome depression patient has to engage in treatment; that remaining passive, expecting ECT to do all the work is likely part of the problem. Patient seems to agree and consider the reasons he is avoiding engagement. 08/27/2022 Patient would benefit from clear cognitive behavioral strategies. Change ECT to bilateral would consider MAO I Denies active self-harm 08/30 reports still depressed; mostly isolating however patient agrees to start push himself to attend groups; starting Viibryd and discontinue nortriptyline 08/31: Continue current tx plan. 09/01: ECT #8 (#2 BL) tomorrow. 09/02 ECT did not happen today for unknown anesthesia reasons; patient reports he is the same however affect is noticeably brighter more relapse next and naturally expressive. Patient is now attending groups. Increasing Viibryd 09/03 continue tx plan 09/04 continue plan 09/05 patient continues to incrementally improve with slightly less depression and less intense anxiety; affect is noticeably brighter. Patient getting more open about his life and more willing to fully engage in treatment. Patient has been going to groups and through this experiences realizing that despite feeling anxious, he is able to tolerate it and his anxiety is decreasing. Will likely increase Viibryd however he has been on 20 mg for only 3 days so will give it another couple days. May consider increasing propranolol; patient's blood pressure/heart rate is mostly within normal limits but could probably tolerate increased dose. Will consider -otherwise continue with ECT 09/06 will increase Viibryid; 09/07 increased Viibryd to 40 mg; continue with ECT on Friday -given that a significant component of patient's struggles are due to anxiety, not addressed by ECT, it remains likely that ECT and medication will only partially improve symptoms; a significant part of patient's ongoing treatment likely remains best addressed by consistent outpatient therapy. Discussed this with patient who agrees 09/08 Viibryd increased to 40 mg; continue with plan for ECT tomorrow. Patient is in fact improved though he seems to be the last person to recognize it. 09/09 patient ambivalent about continuing ECT; acknowledges that his behaviors have improved that he is more open, interactive, tolerating situations much more easily and he also says that he is overall more hopeful about continuing to get better; denies any SI at all. He wishes he felt internally better. -junior technical writer reached out to Dr. Terrell to discuss treatment plan further 09/10 NO MORE ECT TREATMENTS; will continue with medication regimen for now. Patient discussing dispo plans which include possibly going to an outpatient treatment program with intensive group therapy followed up by resuming outpatient therapy. Patient accepting that his expectations for improvement were not met but agreeing that his symptoms have significantly improved; 1 example was that he use to sweat profusely during groups since he was so anxious and now not at all. Patient clearly with brighter affect and with renewed hope that he can continue to progress 09/11 Patient said that he is doing okay and actually said that he is indeed feeling a little bit better, 1st time he has ever said during this admission. Patient shared that he remains focused on going to outpatient treatment program at [facility]; continues to look for apartments with his aunt and is open to volunteering. Patient acknowledges that he enjoys doing nothing and likes the freedom of being able to the not have to do anything; patient agrees that there remains a comfortability in staying depressed since it's something he is familiar with and that depression can even feel preferable to pushing oneself to engage in activities that might trigger anxiety, even if those activities might be therapeutic. Patient agrees that he is going to have to push himself to engage which he says he is willing to do. 09/12 remains stable; still depressed and anxious but overall symptoms are reduced current treatment plan. Patient's plan is to discharge to outpatient program sometime early next week. Patient is not in imminent risk for harm to self or others and appropriate to continue treatment in the community. 09/13 continue tx. 09/14: Completed ECT course. Feels improved. Continue current plan. 09/15: Completed ECT course. Feels improved. Continue current plan. Reason for continued inpatient stay Substantial Risk for: harm to self, inability to function and rapid decompensation Time Spent With Patient Time: Total time managing care of this patient today ____ minutes.
[2022-09-15] MEDS: traZODone HCL 50 MG TABLET PO (20:11)
[2022-09-15] MEDS: Zolpidem Tartrate 5 MG TABLET PO (20:11)
[2022-09-16 08:15] VITALS: BP 140/98; PULSE 80; RESP 18; TEMP 36.4; O2SAT 95
[2022-09-16] MEDS: Vilazodone HCL 40 MG TABLET PO (08:32)
[2022-09-16] MEDS: LORazepam 1 MG TABLET PO ×2 (08:32→19:31)
[2022-09-16] MEDS: QUEtiapine Fumarate 200 MG TABLET PO ×2 (08:32→19:30)
[2022-09-16] MEDS: Propranolol HCL LA 60 MG CAP.SA.24H 120 MG PO (08:32)
[2022-09-16] MEDS: SUMAtriptan succinate 25 MG TABLET PO (08:32)
--- NOTE | 2022-09-16 17:17 | P.PNPSI_ITS ---
Subjective Subjective Date of Service: 09/16/22 Reason For Visit: Rec. Major Depression, Complex Bereavement Reacti Interim History: met with patient; discussed with team pt reports that he does feel better; he says that the fogginess of ECT has cleared and he can tell he feels less depressed and less anxious. Pt said it was especially obvious to him once he started remembering what he felt like on Admission in comparison to know. Pt continues to want to go to [facility] for after care and waiting for bed. Mental Status Exam Mental Status Exam Narrative: Pt is alert and oriented; behavior is cooperative, calm; dressed in casual attire, balding; adequate hygiene; mood is described as better and affect congruent, more relaxed and naturally expressive; eye contact appropriate; S peech is normal rate, volume and prosody and not pressured; no psychomotor retardation present; thought process is organized and goal directed; Thought content is on treatment, aftercare; otherwise pertinent to relevant topics and without any delusional content, paranoid ideations or grandiosity; no SI/no HI. There is no evidence of perceptual disturbance. Patients insight and judgment are fair and adequate Diagnostics Vital Signs (24Hr): Vital Signs - 24 hr 09/15/22 18:36 09/16/22 08:15 Temperature 97.8 F 97.6 F Pulse Rate 71 80 Respiratory Rate 18 Blood Pressure 140/91 H 140/98 H Pulse Oximetry 95 Oxygen Delivery Method Room Air BMI result Body Mass Index 41.3 Labs 08/10/22 07:04 08/10/22 07:04 Medications Medications Current Medications Acetaminophen (Acetaminophen 325 Mg Tablet) 650 mg PO Q6H PRN PRN Reason: Headache/Pain Mild Scale (1-3) Last Admin: 09/14/22 09:26 Dose: 650 mg Al Hydroxide/Mg Hydroxide (Magnesium Hydrox/Alum Hydrox 30 Ml Oral.Susp) 30 ml PO Q6H PRN PRN Reason: Heartburn/Nausea Hydroxyzine HCl (Hydroxyzine Hcl 25 Mg Tablet) 25 mg PO Q6H PRN PRN Reason: Anxiety Last Admin: 08/29/22 21:04 Dose: 25 mg Lorazepam (Lorazepam 1 Mg Tablet) 1 mg PO BID [facility] Last Admin: 09/16/22 08:32 Dose: 1 mg Magnesium Hydroxide (Milk Of Magnesia 30 Ml Oral.Susp) 30 ml PO DAILY PRN PRN Reason: Constipation Last Admin: 08/21/22 14:12 Dose: 30 ml Propranolol HCl (Propranolol Hcl La 60 Mg Cap.Sa.24h) 120 mg PO DAILY [facility]; Protocol Last Admin: 09/16/22 08:32 Dose: 120 mg Quetiapine Fumarate (Quetiapine Fumarate 200 Mg Tablet) 200 mg PO BID [facility] Last Admin: 09/16/22 08:32 Dose: 200 mg Sumatriptan Succinate (Sumatriptan Succinate 25 Mg Tablet) 25 mg PO DAILY PRN PRN Reason: severe headache Last Admin: 09/16/22 08:32 Dose: 25 mg Trazodone HCl (Trazodone Hcl 50 Mg Tablet) 50 mg PO BEDTIME MRX1 PRN PRN Reason: Insomnia Last Admin: 09/15/22 20:11 Dose: 50 mg Vilazodone HCl (Vilazodone Hcl 40 Mg Tablet) 40 mg PO DAILY [facility] Last Admin: 09/16/22 08:32 Dose: 40 mg Zolpidem Tartrate (Zolpidem Tartrate 5 Mg Tablet) 5 mg PO BEDTIME [facility] Last Admin: 09/15/22 20:11 Dose: 5 mg Allergies Allergies Allergy/AdvReac Type Severity Reaction Status Date / Time No Known Allergies Allergy Verified 08/09/22 16:14 Assessment & Plan Assessment & Plan (1) Severe recurrent major depression: Status: Acute Code(s): F33.2 - Major depressive disorder, recurrent severe without psychotic features (2) Complicated bereavement: Status: Acute Code(s): F43.21 - Adjustment disorder with depressed mood (3) Social anxiety disorder: Status: Acute Code(s): F40.10 - Social phobia, unspecified Plan 32 yo male, scheduled transfer from [facility] for ECT consult and treatment s/p suicide attempt with complex breavement issues. Patient reports numerous medication trials over many years without much effect Plan: CV Q 15 minute checks INCREASE TO Viibryd 40mg daily; Continue Propranolol LA 120mg (and dc IR); pt still anxious and also w/ HTN DC nortriptyline out of some concern that medication could interfere with ECT side effects; (at 150mg, -Nortriptyline level therapeutic: 102) Continue Seroquel 200 mg b.i.d.; patient says for anxiety Continue Ativan 1.5 mg b.i.d.; patient recently started on clonazepam 1 mg t.i.d. but it was switched in the ED just prior to this admission Ambien 5 mg q.h.s. ECT #1 on 08/14 ECT #2 on 08/16 ECT #3 on 08/21; ECT #4 on 08/23 ECT #5 on 08/26 ECT #6 on 08/28 ECT #7 on 08/30 (NO ECT on 09/02) ECT #8 on 09/04 ECT #9 on 09/06 ECT #10 on 09/09 [facility] Course: 08/12/22 cont nortrip seroquel reviwed ect scheduled for 08/14/22 s/p suicide attempt denies active si now 08/13 pt cleared for ECT by hospitalist WILL; depressed but SI back to chronic, low level at baseline. 08/14 tolerating ECT; wants to continue. Discussed medication management and will continue current regimen for now other than switching to longer acting propranolol; no known history of MAO'I which could be a possible option; discussed hypertension which patient says he has a history of; will see if BP response to propranolol adjustment 08/15 will add social anxiety order to diagnosis; interactions with parents growing up were emotionally traumatic have significantly effected his ability to have interpersonal relationships in his adult life. Started CBT exercise which resonate with patient. Waiting for nortriptyline level. BP a little better perhaps since starting long-acting propranolol; will leave for now 08/16 severe headache after ECT; sumatriptan 25 mg seem to help resolve 08/17: Headache resolved. Continue current plan. 08/18: ECT #3 on 08/21/2208/19: ECT #3 on 08/21/2208/20 remains depressed and anxious; will increase propranolol; continue with ECT 08/22 depressed, anxious; continue with treatment plan; patient hypertensive. He is ambivalent about starting antihypertensive medication but will inquire further 08/23 continue tx plan 08/24 continue treatment plan 08/25 continue treatment plan 08/26 patient remains depressed and anxious; discussed that in order to overcome depression patient has to engage in treatment; that remaining passive, expecting ECT to do all the work is likely part of the problem. Patient seems to agree and consider the reasons he is avoiding engagement. 08/27/2022 Patient would benefit from clear cognitive behavioral strategies. Change ECT to bilateral would consider MAO I Denies active self-harm 08/30 reports still depressed; mostly isolating however patient agrees to start push himself to attend groups; starting Viibryd and discontinue nortriptyline 08/31: Continue current tx plan. 09/01: ECT #8 (#2 BL) tomorrow. 09/02 ECT did not happen today for unknown anesthesia reasons; patient reports he is the same however affect is noticeably brighter more relapse next and naturally expressive. Patient is now attending groups. Increasing Viibryd 09/03 continue tx plan 09/04 continue plan 09/05 patient continues to incrementally improve with slightly less depression and less intense anxiety; affect is noticeably brighter. Patient getting more open about his life and more willing to fully engage in treatment. Patient has been going to groups and through this experiences realizing that despite feeling anxious, he is able to tolerate it and his anxiety is decreasing. Will likely increase Viibryd however he has been on 20 mg for only 3 days so will give it another couple days. May consider increasing propranolol; patient's blood pressure/heart rate is mostly within normal limits but could probably tolerate increased dose. Will consider -otherwise continue with ECT 09/06 will increase Viibryid; 09/07 increased Viibryd to 40 mg; continue with ECT on Friday -given that a significant component of patient's struggles are due to anxiety, not addressed by ECT, it remains likely that ECT and medication will only partially improve symptoms; a significant part of patient's ongoing treatment likely remains best addressed by consistent outpatient therapy. Discussed this with patient who agrees 09/08 Viibryd increased to 40 mg; continue with plan for ECT tomorrow. Patient is in fact improved though he seems to be the last person to recognize it. 09/09 patient ambivalent about continuing ECT; acknowledges that his behaviors have improved that he is more open, interactive, tolerating situations much more easily and he also says that he is overall more hopeful about continuing to get better; denies any SI at all. He wishes he felt internally better. -policy writer typist reached out to Dr. Terrell to discuss treatment plan further 09/10 NO MORE ECT TREATMENTS; will continue with medication regimen for now. Patient discussing dispo plans which include possibly going to an outpatient treatment program with intensive group therapy followed up by resuming outpatient therapy. Patient accepting that his expectations for improvement were not met but agreeing that his symptoms have significantly improved; 1 example was that he use to sweat profusely during groups since he was so anxious and now not at all. Patient clearly with brighter affect and with renewed hope that he can continue to progress 09/11 Patient said that he is doing okay and actually said that he is indeed feeling a little bit better, 1st time he has ever said during this admission. Patient shared that he remains focused on going to outpatient treatment program at [facility]; continues to look for apartments with his aunt and is open to volunteering. Patient acknowledges that he enjoys doing nothing and likes the freedom of being able to the not have to do anything; patient agrees that there remains a comfortability in staying depressed since it's something he is fam iliar with and that depression can even feel preferable to pushing oneself to engage in activities that might trigger anxiety, even if those activities might be therapeutic. Patient agrees that he is going to have to push himself to engage which he says he is willing to do. 09/12 remains stable; still depressed and anxious but overall symptoms are reduced current treatment plan. Patient's plan is to discharge to outpatient program sometime early next week. Patient is not in imminent risk for harm to self or others and appropriate to continue treatment in the community. 09/13 continue tx. 09/14: Completed ECT course. Feels improved. Continue current plan. 09/15: Completed ECT course. Feels improved. Continue current plan. 09/16 feeling better; continue current tx plan Patient educated on: diagnosis and ECT Informed Consent: understands Reason for continued inpatient stay Substantial Risk for: med/psych decompensation Time Spent With Patient Time: Total time managing care of this patient today ____ minutes.
[2022-09-16 17:54] VITALS: BP 140/86; PULSE 79; TEMP 36.6; O2SAT 95
[2022-09-16] MEDS: Zolpidem Tartrate 5 MG TABLET PO (19:30)
[2022-09-16] MEDS: traZODone HCL 50 MG TABLET PO (19:36)
[2022-09-17 09:30] VITALS: BP 136/85; PULSE 99; RESP 18; TEMP 36.3; O2SAT 96
[2022-09-17] MEDS: Propranolol HCL LA 60 MG CAP.SA.24H 120 MG PO (09:40)
[2022-09-17] MEDS: LORazepam 1 MG TABLET PO ×2 (09:40→21:39)
[2022-09-17] MEDS: QUEtiapine Fumarate 200 MG TABLET PO ×2 (09:40→21:35)
[2022-09-17] MEDS: Vilazodone HCL 40 MG TABLET PO (09:40)
[2022-09-17] MEDS: SUMAtriptan succinate 25 MG TABLET PO (09:44)
[2022-09-17 16:58] VITALS: BP 129/78; PULSE 90; RESP 18; TEMP 36.4; O2SAT 95
--- NOTE | 2022-09-17 17:11 | P.PNPSI_ITS ---
Subjective Subjective Date of Service: 09/17/22 Reason For Visit: Rec. Major Depression, Complex Bereavement Reacti Interim History: met with patient; discussed in team pt reports depression is low and anxiety manageable. No other complaints; attending groups. Hoping for a bed at [facility] Mental Status Exam Mental Status Exam Narrative: Pt is alert and oriented; behavior is cooperative, calm; dressed in casual attire, balding; adequate hygiene; mood is described as good and affect congruent, more relaxed and naturally expressive; eye contact appropriate; Speech is normal rate, volume and prosody and not pressured; no psychomotor retardation present; thought process is organized and goal directed; Thought content is on treatment, aftercare; otherwise pertinent to relevant topics and without any delusional content, paranoid ideations or grandiosity; no SI/no HI. There is no evidence of perceptual disturbance. Patients insight and judgment are fair and adequate Diagnostics Vital Signs (24Hr): Vital Signs - 24 hr 09/16/22 17:54 09/17/22 09:30 09/17/22 16:58 Temperature 98 F 97.4 F 97.6 F Pulse Rate 79 99 90 Respiratory Rate 18 18 Blood Pressure 140/86 H 136/85 129/78 Pulse Oximetry 95 96 95 Oxygen Delivery Method Room Air Room Air Room Air BMI result Body Mass Index 41.3 Labs 08/10/22 07:04 08/10/22 07:04 Medications Medications Current Medications Acetaminophen (Acetaminophen 325 Mg Tablet) 650 mg PO Q6H PRN PRN Reason: Headache/Pain Mild Scale (1-3) Last Admin: 09/14/22 09:26 Dose: 650 mg Al Hydroxide/Mg Hydroxide (Magnesium Hydrox/Alum Hydrox 30 Ml Oral.Susp) 30 ml PO Q6H PRN PRN Reason: Heartburn/Nausea Hydroxyzine HCl (Hydroxyzine Hcl 25 Mg Tablet) 25 mg PO Q6H PRN PRN Reason: Anxiety Last Admin: 08/29/22 21:04 Dose: 25 mg Lorazepam (Lorazepam 1 Mg Tablet) 1 mg PO BID JUAN Last Admin: 09/17/22 09:40 Dose: 1 mg Magnesium Hydroxide (Milk Of Magnesia 30 Ml Oral.Susp) 30 ml PO DAILY PRN PRN Reason: Constipation Last Admin: 08/21/22 14:12 Dose: 30 ml Propranolol HCl (Propranolol Hcl La 60 Mg Cap.Sa.24h) 120 mg PO DAILY JUAN; Protocol Last Admin: 09/17/22 09:40 Dose: 120 mg Quetiapine Fumarate (Quetiapine Fumarate 200 Mg Tablet) 200 mg PO BID JUAN Last Admin: 09/17/22 09:40 Dose: 200 mg Sumatriptan Succinate (Sumatriptan Succinate 25 Mg Tablet) 25 mg PO DAILY PRN PRN Reason: severe headache Last Admin: 09/17/22 09:44 Dose: 25 mg Trazodone HCl (Trazodone Hcl 50 Mg Tablet) 50 mg PO BEDTIME MRX1 PRN PRN Reason: Insomnia Last Admin: 09/16/22 19:36 Dose: 50 mg Vilazodone HCl (Vilazodone Hcl 40 Mg Tablet) 40 mg PO DAILY [facility] Last Admin: 09/17/22 09:40 Dose: 40 mg Zolpidem Tartrate (Zolpidem Tartrate 5 Mg Tablet) 5 mg PO BEDTIME JUAN Last Admin: 09/16/22 19:30 Dose: 5 mg Allergies Allergies Allergy/AdvReac Type Severity Reaction Status Date / Time No Known Allergies Allergy Verified 08/09/22 16:14 Assessment & Plan Assessment & Plan (1) Severe recurrent major depression: Status: Acute Code(s): F33.2 - Major depressive disorder, recurrent severe without psychotic features (2) Complicated bereavement: Status: Acute Code(s): F43.21 - Adjustment disorder with depressed mood (3) Social anxiety disorder: Status: Acute Code(s): F40.10 - Social phobia, unspecified Plan 32 yo male, scheduled transfer from [facility] for ECT consult and treatment s/p suicide attempt with complex breavement issues. Patient reports numerous medication trials over many years without much effect Plan: CV Q 15 minute checks INCREASE TO Viibryd 40mg daily; Continue Propranolol LA 120mg (and dc IR); pt still anxious and also w/ HTN DC nortriptyline out of some concern that medication could interfere with ECT side effects; (at 150mg, -Nortriptyline level therapeutic: 102) Continue Seroquel 200 mg b.i.d.; patient says for anxiety Continue Ativan 1.5 mg b.i.d.; patient recently started on clonazepam 1 mg t.i.d. but it was switched in the ED just prior to this admission Ambien 5 mg q.h.s. ECT #1 on 08/14 ECT #2 on 08/16 ECT #3 on 08/21; ECT #4 on 08/23 ECT #5 on 08/26 ECT #6 on 08/28 ECT #7 on 08/30 (NO ECT on 09/02) ECT #8 on 09/04 ECT #9 on 09/06 ECT #10 on 09/09 [facility] Course: 08/12/22 cont nortrip seroquel reviwed ect scheduled for 08/14/22 s/p suicide attempt denies active si now 08/13 pt cleared for ECT by hospitalist WILL; depressed but SI back to chronic, low level at baseline. 08/14 tolerating ECT; wants to continue. Discussed medication management and will continue current regimen for now other than switching to longer acting propranolol; no known history of MAO'I which could be a possible option; discussed hypertension which patient says he has a history of; will see if BP response to propranolol adjustment 08/15 will add social anxiety order to diagnosis; interactions with parents growing up were emotionally traumatic have significantly effected his ability to have interpersonal relationships in his adult life. Started CBT exercise which resonate with patient. Waiting for nortriptyline level. BP a little better perhaps since starting long-acting propranolol; will leave for now 08/16 severe headache after ECT; sumatriptan 25 mg seem to help resolve 08/17: Headache resolved. Continue current plan. 08/18: ECT #3 on 08/21/2208/19: ECT #3 on 08/21/2208/20 remains depressed and anxious; will increase propranolol; continue with ECT 08/22 depressed, anxious; continue with treatment plan; patient hypertensive. He is ambivalent about starting antihypertensive medication but will inquire further 08/23 continue tx plan 08/24 continue treatment plan 08/25 continue treatment plan 08/26 patient remains depressed and anxious; discussed that in order to overcome depression patient has to engage in treatment; that remaining passive, expecting ECT to do all the work is likely part of the problem. Patient seems to agree and consider the reasons he is avoiding engagement. 08/27/2022 Patient would benefit from clear cognitive behavioral strategies. Change ECT to bilateral would consider MAO I Denies active self-harm 08/30 reports still depressed; mostly isolating however patient agrees to start push himself to attend groups; starting Viibryd and discontinue nortriptyline 08/31: Continue current tx plan. 09/01: ECT #8 (#2 BL) tomorrow. 09/02 ECT did not happen today for unknown anesthesia reasons; patient reports he is the same however affect is noticeably brighter more relapse next and naturally expressive. Patient is now attending groups. Increasing Viibryd 09/03 continue tx plan 09/04 continue plan 09/05 patient continues to incrementally improve with slightly less depression and less intense anxiety; affect is noticeably brighter. Patient getting more open about his life and more willing to fully engage in treatment. Patient has been going to groups and through this experiences realizing that despite feeling anxious, he is able to tolerate it and his anxiety is decreasing. Will likely increase Viibryd however he has been on 20 mg for only 3 days so will give it another couple days. May consider increasing propranolol; patient's blood pressure/heart rate is mostly within normal limits but could probably tolerate increased dose. Will consider -otherwise continue with ECT 09/06 will increase Viibryid; 09/07 increased Viibryd to 40 mg; continue with ECT on Friday -given that a significant component of patient's struggles are due to anxiety, not addressed by ECT, it remains likely that ECT and medication will only pa rtially improve symptoms; a significant part of patient's ongoing treatment likely remains best addressed by consistent outpatient therapy. Discussed this with patient who agrees 09/08 Viibryd increased to 40 mg; continue with plan for ECT tomorrow. Patient is in fact improved though he seems to be the last person to recognize it. 09/09 patient ambivalent about continuing ECT; acknowledges that his behaviors have improved that he is more open, interactive, tolerating situations much more easily and he also says that he is overall more hopeful about continuing to get better; denies any SI at all. He wishes he felt internally better. -video game script writer reached out to Dr. Terrell to discuss treatment plan further 09/10 NO MORE ECT TREATMENTS; will continue with medication regimen for now. Patient discussing dispo plans which include possibly going to an outpatient treatment program with intensive group therapy followed up by resuming outpatient therapy. Patient accepting that his expectations for improvement were not met but agreeing that his symptoms have significantly improved; 1 example was that he use to sweat profusely during groups since he was so anxious and now not at all. Patient clearly with brighter affect and with renewed hope that he can continue to progress 09/11 Patient said that he is doing okay and actually said that he is indeed feeling a little bit better, 1st time he has ever said during this admission. Patient shared that he remains focused on going to outpatient treatment program at [facility]; continues to look for apartments with his aunt and is open to volunteering. Patient acknowledges that he enjoys doing nothing and likes the freedom of being able to the not have to do anything; patient agrees that there remains a comfortability in staying depressed since it's something he is familiar with and that depression can even feel preferable to pushing oneself to engage in activities that might trigger anxiety, even if those activities might be therapeutic. Patient agrees that he is going to have to push himself to engage which he says he is willing to do. 09/12 remains stable; still depressed and anxious but overall symptoms are reduced current treatment plan. Patient's plan is to discharge to outpatient program sometime early next week. Patient is not in imminent risk for harm to self or others and appropriate to continue treatment in the community. 09/13 continue tx. 09/14: Completed ECT course. Feels improved. Continue current plan. 09/15: Completed ECT course. Feels improved. Continue current plan. 09/16 feeling better; continue current tx plan Patient educated on: diagnosis Informed Consent: understands Reason for continued inpatient stay Substantial Risk for: stable for discharge Time Spent With Patient Time: Total time managing care of this patient today ____ minutes.
[2022-09-17] MEDS: Ibuprofen 600 MG TABLET PO (21:35)
[2022-09-17] MEDS: traZODone HCL 50 MG TABLET PO (21:39)
[2022-09-17] MEDS: Zolpidem Tartrate 5 MG TABLET PO (21:43)
[2022-09-18 08:05] VITALS: BP 139/96; PULSE 70; RESP 16; TEMP 36.3; O2SAT 96
[2022-09-18] MEDS: LORazepam 1 MG TABLET PO ×2 (08:17→20:27)
[2022-09-18] MEDS: QUEtiapine Fumarate 200 MG TABLET PO ×2 (08:17→20:27)
[2022-09-18] MEDS: Vilazodone HCL 40 MG TABLET PO (08:17)
[2022-09-18] MEDS: Propranolol HCL LA 60 MG CAP.SA.24H 120 MG PO (08:17)
--- NOTE | 2022-09-18 09:28 | P.PNPSI_ITS ---
Subjective Subjective Date of Service: 09/18/22 Reason For Visit: Rec. Major Depression, Complex Bereavement Reacti Interim History: met with patient; discussed with team pt reports he's doing well; optimistic; some anxiety about discharge but feels ready to go. Asks about maintenance ECT in case his mood dips again, and about Ketamine. Wants to continue current meds Mental Status Exam Mental Status Exam Narrative: Pt is alert and oriented; behavior is cooperative, calm; dressed in casual attire, balding; adequate hygiene; mood is described as good and affect congruent, more relaxed and naturally expressive; eye contact appropriate; Speech is normal rate, volume and prosody and not pressured; no psychomotor retardation present; thought process is organized and goal directed; Thought content is on treatment, aftercare; otherwise pertinent to relevant topics and without any delusional content, paranoid ideations or grandiosity; no SI/no HI. There is no evidence of perceptual disturbance. Patients insight and judgment are fair and adequate Diagnostics Vital Signs (24Hr): Vital Signs - 24 hr 09/17/22 09:30 09/17/22 16:58 09/18/22 08:05 Temperature 97.4 F 97.6 F 97.3 F Pulse Rate 99 90 70 Respiratory Rate 18 18 16 Blood Pressure 136/85 129/78 139/96 H Pulse Oximetry 96 95 96 Oxygen Delivery Method Room Air Room Air Room Air BMI result Body Mass Index 41.3 Labs 08/10/22 07:04 08/10/22 07:04 Medications Medications Current Medications Acetaminophen (Acetaminophen 325 Mg Tablet) 650 mg PO Q6H PRN PRN Reason: Headache/Pain Mild Scale (1-3) Last Admin: 09/14/22 09:26 Dose: 650 mg Al Hydroxide/Mg Hydroxide (Magnesium Hydrox/Alum Hydrox 30 Ml Oral.Susp) 30 ml PO Q6H PRN PRN Reason: Heartburn/Nausea Hydroxyzine HCl (Hydroxyzine Hcl 25 Mg Tablet) 25 mg PO Q6H PRN PRN Reason: Anxiety Last Admin: 08/29/22 21:04 Dose: 25 mg Lorazepam (Lorazepam 1 Mg Tablet) 1 mg PO BID JUAN Last Admin: 09/18/22 08:17 Dose: 1 mg Magnesium Hydroxide (Milk Of Magnesia 30 Ml Oral.Susp) 30 ml PO DAILY PRN PRN Reason: Constipation Last Admin: 08/21/22 14:12 Dose: 30 ml Propranolol HCl (Propranolol Hcl La 60 Mg Cap.Sa.24h) 120 mg PO DAILY JUAN; Protocol Last Admin: 09/18/22 08:17 Dose: 120 mg Quetiapine Fumarate (Quetiapine Fumarate 200 Mg Tablet) 200 mg PO BID JUAN Last Admin: 09/18/22 08:17 Dose: 200 mg Sumatriptan Succinate (Sumatriptan Succinate 25 Mg Tablet) 25 mg PO DAILY PRN PRN Reason: severe headache Last Admin: 09/17/22 09:44 Dose: 25 mg Trazodone HCl (Trazodone Hcl 50 Mg Tablet) 50 mg PO BEDTIME MRX1 PRN PRN Reason: Insomnia Last Admin: 09/17/22 21:39 Dose: 50 mg Vilazodone HCl (Vilazodone Hcl 40 Mg Tablet) 40 mg PO DAILY JUAN Last Admin: 09/18/22 08:17 Dose: 40 mg Allergies Allergies Allergy/AdvReac Type Severity Reaction Status Date / Time No Known Allergies Allergy Verified 08/09/22 16:14 Assessment & Plan Assessment & Plan (1) Severe recurrent major depression: Status: Acute Code(s): F33.2 - Major depressive disorder, recurrent severe without psychotic features (2) Complicated bereavement: Status: Acute Code(s): F43.21 - Adjustment disorder with depressed mood (3) Social anxiety disorder: Status: Acute Code(s): F40.10 - Social phobia, unspecified Plan 32 yo male, scheduled transfer from [facility] for ECT consult and treatment s/p suic saud attempt with complex breavement issues. Patient reports numerous medication trials over many years without much effect Plan: CV Q 15 minute checks INCREASE TO Viibryd 40mg daily; Continue Propranolol LA 120mg (and dc IR); pt still anxious and also w/ HTN DC nortriptyline out of some concern that medication could interfere with ECT side effects; (at 150mg, -Nortriptyline level therapeutic: 102) Continue Seroquel 200 mg b.i.d.; patient says for anxiety Continue Ativan 1.5 mg b.i.d.; patient recently started on clonazepam 1 mg t.i.d. but it was switched in the ED just prior to this admission Ambien 5 mg q.h.s. ECT #1 on 08/14 ECT #2 on 08/16 ECT #3 on 08/21; ECT #4 on 08/23 ECT #5 on 08/26 ECT #6 on 08/28 ECT #7 on 08/30 (NO ECT on 09/02) ECT #8 on 09/04 ECT #9 on 09/06 ECT #10 on 09/09 [facility] Course: 08/12/22 cont nortrip seroquel reviwed ect scheduled for 08/14/22 s/p suicide attempt denies active si now 08/13 pt cleared for ECT by hospitalist WILL; depressed but SI back to chronic, low level at baseline. 08/14 tolerating ECT; wants to continue. Discussed medication management and will continue current regimen for now other than switching to longer acting propranolol; no known history of MAO'I which could be a possible option; discussed hypertension which patient says he has a history of; will see if BP re sponse to propranolol adjustment 08/15 will add social anxiety order to diagnosis; interactions with parents growing up were emotionally traumatic have significantly effected his ability to have interpersonal relationships in his adult life. Started CBT exercise which resonate with patient. Waiting for nortriptyline level. BP a little better perhaps since starting long-acting propranolol; will leave for now 08/16 severe headache after ECT; sumatriptan 25 mg seem to help resolve 08/17: Headache resolved. Continue current plan. 08/18: ECT #3 on 08/21/2208/19: ECT #3 on 08/21/2208/20 remains depressed and anxious; will increase propranolol; continue with ECT 08/22 depressed, anxious; continue with treatment plan; patient hypertensive. He is ambivalent about starting antihypertensive medication but will inquire further 08/23 continue tx plan 08/24 continue treatment plan 08/25 continue treatment plan 08/26 patient remains depressed and anxious; discussed that in order to overcome depression patient has to engage in treatment; that remaining passive, expecting ECT to do all the work is likely part of the problem. Patient seems to agree and consider the reasons he is avoiding engagement. 08/27/2022 Patient would benefit from clear cognitive behavioral strategies. Change ECT to bilateral would consider MAO I Denies active self-harm 08/30 reports still depressed; mostly isolating however patient agrees to start push himself to attend groups; starting Viibryd and discontinue nortriptyline 08/31: Continue current tx plan. 09/01: ECT #8 (#2 BL) tomorrow. 09/02 ECT did not happen today for unknown anesthesia reasons; patient reports he is the same however affect is noticeably brighter more relapse next and naturally expressive. Patient is now attending groups. Increasing Viibryd 09/03 continue tx plan 09/04 continue plan 09/05 patient continues to incrementally improve with slightly less depression and less intense anxiety; affect is noticeably brighter. Patient getting more open about his life and more willing to fully engage in treatment. Patient has been going to groups and through this experiences realizing that despite feeling anxious, he is able to tolerate it and his anxiety is decreasing. Will likely increase Viibryd however he has been on 20 mg for only 3 days so will give it another couple days. May consider increasing propranolol; patient's blood pressure/heart rate is mostly within normal limits but could probably tolerate increased dose. Will consider -otherwise continue with ECT 09/06 will increase Viibryid; 09/07 increased Viibryd to 40 mg; continue with ECT on Friday -given that a significant component of patient's struggles are due to anxiety, not addressed by ECT, it remains likely that ECT and medication will only partially improve symptoms; a significant part of patient's ongoing treatment likely remains best addressed by consistent outpatient therapy. Discussed this with patient who agrees 09/08 Viibryd increased to 40 mg; continue with plan for ECT tomorrow. Patient is in fact improved though he seems to be the last person to recognize it. 09/09 patient ambivalent about continuing ECT; acknowledges that his behaviors have improved that he is more open, interactive, tolerating situations much more easily and he also says that he is overall more hopeful about continuing to get better; denies any SI at all. He wishes he felt internally better. -feature writer reached out to Dr. Terrell to discuss treatment plan further 09/10 NO MORE ECT TREATMENTS; will continue with medication regimen for now. Patient discussing dispo plans which include possibly going to an outpatient treatment program with intensive group therapy followed up by resuming o utpatient therapy. Patient accepting that his expectations for improvement were not met but agreeing that his symptoms have significantly improved; 1 example was that he use to sweat profusely during groups since he was so anxious and now not at all. Patient clearly with brighter affect and with renewed hope that he can continue to progress 09/11 Patient said that he is doing okay and actually said that he is indeed feeling a little bit better, 1st time he has ever said during this admission. Patient shared that he remains focused on going to outpatient treatment program at [facility]; continues to look for apartments with his aunt and is open to volunteering. Patient acknowledges that he enjoys doing nothing and likes the freedom of being able to the not have to do anything; patient agrees that there remains a comfortability in staying depressed since it's something he is familiar with and that depression can even feel preferable to pushing oneself to engage in activities that might trigger anxiety, even if those activities might be therapeutic. Patient agrees that he is going to have to push himself to engage which he says he is willing to do. 09/12 remains stable; still depressed and anxious but overall symptoms are reduced current treatment plan. Patient's plan is to discharge to outpatient program sometime early next week. Patient is not in imminent risk for harm to self or others and appropriate to continue treatment in the community. 09/13 continue tx. 09/14: Completed ECT course. Feels improved. Continue current plan. 09/15: Completed ECT course. Feels improved. Continue current plan. 09/16 feeling better; continue current tx plan 09/18 good mood, anxiety low; feels ready for discharge; discussed maintenance ECT; future oriented; not at risk for harm to self/others and appropriate for dc to continue tx in community Patient educated on: diagnosis, medication risk/benefits and ECT Informed Consent: understands Reason for continued inpatient stay Substantial Risk for: stable for discharge Time Spent With Patient Time: Total time managing care of this patient today ____ minutes.
[2022-09-18 18:25] VITALS: BP 152/80; PULSE 71; TEMP 36.2; O2SAT 96
[2022-09-18] MEDS: traZODone HCL 50 MG TABLET PO (20:27)
[2022-09-18] MEDS: Zolpidem Tartrate 5 MG TABLET PO (20:27)
--- NOTE | 2022-09-18 20:46 | P.DS_ITS ---
DS: Providers Provider Date of Service: 09/19/22 Date of admission: 08/09/22 17:45 Date of discharge: 09/19/22 Primary care physician: Unknown Physician Admitting clinician: Sandy Christian Attending physician on discharge: Gerhard Jordan DS: Diagnosis Discharge Diagnosis (1) Severe recurrent major depression: Status: Acute (2) Complicated bereavement: Status: Resolved (3) Social anxiety disorder: Status: Acute DS: Medications Discharge Medications Home Medications: Previous Rx's Medication Instructions Recorded lorazepam 1 mg tablet 1 mg PO BID PRN anxiety 30 days 09/18/22 #60 tabs propranolol 60 mg capsule,24 120 mg PO DAILY 30 days #60 caps 09/18/22 hr,extended release quetiapine 200 mg tablet 200 mg PO BID 30 days #60 tabs 09/18/22 sumatriptan succinate 25 mg tablet 25 mg PO DAILY PRN severe headache 09/18/22 30 days #10 tabs trazodone 50 mg tablet 50 mg PO BEDTIME PRN Insomnia 30 09/18/22 days #30 tabs vilazodone 40 mg tablet (Viibryd) 40 mg PO DAILY 30 days #30 tabs 09/18/22 zolpidem 5 mg tablet 5 mg PO BEDTIME PRN Insomnia 30 09/18/22 days #30 tabs Mental Status Exam Mental Status Exam Narrative: Pt is alert and oriented; behavior is cooperative, calm; dressed in casual attire, balding; adequate hygiene; mood is described as good and affect congruent, more relaxed and naturally expressive; eye contact appropriate; Speech is normal rate, volume and prosody and not pressured; no psychomotor retardation present; thought process is organized and goal directed; Thought content is on treatment, aftercare; otherwise pertinent to relevant topics and without any delusional content, paranoid ideations or grandiosity; no SI/no HI. There is no evidence of perceptual disturbance. Patients insight and judgment are fair and adequate DS: Summary Hospital Course Hospital Course: 32 yo male, with history of depression, PTSD who presents for SI in the face of worsening depression following anniversary of his mother's and scheduled transfer from [facility] for ECT. On admission patient was depressed with SI; affect was flat and he remained isolated in bed most of the time. Reported many failed medication trials however is unclear if they were at therapeutic doses; just recently starting to engage in therapy. Patient was started on Viibryd which was titrated over time; he was also started on propranolol which was helpful for anxiety. His Seroquel and Ativan were continued. Nortriptyline however was eventually tapered and discontinued since there was some concern it was interfering with ECT and there was no clear indication that it was benefiting his depression. Patient began ECT and completed 10 treatments. Patient had significant headaches following ECT and would come out of a treatment with fleeting but intense agitation. Patient's SI fully resolved. Slowly his depression also abated as did his anxiety. He remained anxious but where he was unable to leave his room due to anxiety, he was eventually able to attend groups and even participate. Towards the end of his admission, Patient's affect was noticeably brighter and more calm and he was able to casually interact with staff and peers, sometimes joking and even laughing; patients beloved Aunt who visited agreed. For a while patient felt as though he received no effect from medications/ECT, despite his reduction in symptoms (reduction of psychomotor retardation, brighter affect, spontaneous speech and consistent willingness to engage...); however by the end of admission he was very clear that he was doing much better than when he 1st came in, actually felt better, felt the depression was less and for the 1st time in a long while felt hopeful. Patient and leader writer agreed that it is not totally clear if it was the ECT, the medication or the combination that cause the most change, however patient did ultimately felt that ECT plated at a significant role. Patient acknowledged that to some degree being depressed had become a comfortable normative for him, familiar and even preferable to pushing himself to engage in activities even if those activities were therapeutic. He agreed that therapy was in the central part of continued recovery and that he would need to push himself to remain consistent and forthcoming, which he was willing to do. Patient felt ready for discharge. He was accepted into an outpatient program that focused on group therapy. He remained without any SI, brighter affect and future oriented. He was not in imminent risk for harm to self or others and appropriate to continue treatment in the community. Time spent discussing smoking cessation with patient: 3 to 10 minutes Status at Discharge Functional status at discharge: independent ambulation Overall status at discharge: patient is back to baseline (beyond baseline) Time Spent with Patient Time attestation: Total time managing care of this patient today ____ minutes. Time spent: Less than 30 minutes Discharge Plan Discharge Anticipated Discharge Date/Time: 09/19/22 11:30 Patient Disposition: [facility] Discharge Diagnosis: MDD, recurrent, severe w/out psychosis in full remission Referrals: [facility]: Dain Hartley (Psychiatrist) [Other] - 09/25/22 3:15 pm (Follow-up discharge appointment with psychiatrist Appointment is in person at [facility] in [place]) [facility] [Other] - 1 Week (You have been referred and accepted to [facility] for mental health treatment Follow-up with [facility] after discharge to assess disposition for admission date) [facility] [employer]: [facility] (Therapist) [Other] - 1 Week (Patient will have to follow-up with outpatient therapist after discharge to schedule appointment as therapist did not provide appointment prior to discharge.) [facility] Respite (JULISSA Naylor) [Other] - 09/19/22 (Referral for Respite Step-down for continued mood stabilization.) [facility] [Other] (Walk in if needed) Discharge Medications: New propranolol 60 mg Capsule,Extended Release 24 Hr 120 mg PO DAILY 30 Days Qty: 60 1RF Protocol: Hold for SBP/HR < HOLD for SBP < : 90 HOLD for HR < : 60 quetiapine 200 mg Tablet 200 mg PO BID 30 Days Qty: 60 1RF sumatriptan succinate 25 mg Tablet 25 mg PO DAILY PRN (Reason: severe headache ) 30 Days Qty: 10 1RF trazodone 50 mg Tablet 50 mg PO BEDTIME PRN (Reason: Insomnia) 30 Days Qty: 30 1RF zolpidem 5 mg Tablet 5 mg PO BEDTIME PRN (Reason: Insomnia) 30 Days Qty: 30 1RF vilazodone [Viibryd] 40 mg tablet 40 mg PO DAILY 30 Days Qty: 30 1RF Rx Instructions: must administer with a meal/food Changed lorazepam 1 mg tablet 1 mg PO BID PRN (Reason: anxiety) 30 Days Qty: 60 1RF Discontinued nortriptyline 75 mg capsule 150 mg PO BEDTIME propranolol 20 mg Tablet 20 mg PO DAILY propranolol 20 mg Tablet 20 mg PO DAILY PRN (Reason: Anxiety) ibuprofen 600 mg tablet 600 mg PO Q6H PRN (Reason: Pain) quetiapine 200 mg tablet 200 mg PO BID zolpidem 10 mg 10 mg PO BEDTIME PRN (Reason: Sleep) Discharge Orders: Discharge Order (Routine); Ordered 09/19/22 Ordered By: Gerhard Jordan Diet: Regular diet Activity on Discharge: As tolerated Stand Alone Forms: Patient Portal Discharge page, Community Support Care Plan Goals: Maintain mood and safe behaviors Take medications as prescribed Practice coping skills Continue with outpatient providers and reach out to them as needed Health Concerns: Mood stability and behaviors Plan of Treatment: Follow up with your PCP, psychiatric provider and other outpatient providers regarding above concerns Take medications as prescribed Assessment: Risk assessment at time of discharge:? Patient was interviewed prior to discharge and found to be fully oriented and without any SI or HI. Patient has insight and demonstrates good judgment in terms of wanting to pursue treatment. Patient is not in imminent risk of harm to self or others and has a safety plan that includes presenting to the closest ER or calling 911 if feeling unsafe.? Patient has been observed closely by nursing and unit staff throughout admission; patient has not engaged in any behaviors that suggest dangerousness to self or others and has demonstrated appropriate behaviors and impulse control Discharge Date/Time: 09/19/22 12:33
[2022-09-19 08:00] VITALS: BP 156/101; PULSE 84; RESP 16; TEMP 35.9; O2SAT 96
[2022-09-19] MEDS: Propranolol HCL LA 60 MG CAP.SA.24H 120 MG PO (08:17)
[2022-09-19] MEDS: QUEtiapine Fumarate 200 MG TABLET PO (08:18)
[2022-09-19] MEDS: LORazepam 1 MG TABLET PO (08:18)
[2022-09-19] MEDS: Vilazodone HCL 40 MG TABLET PO (08:18)
== END 2022-09-19 12:33 | disposition home or self-care (01) | DRG 751 ==
PROVIDERS: Clinical Nurse Specialist Psychiatric/Mental Health, Adult; Psychiatry & Neurology Psychiatry; Admitting Provider Psychiatry & Neurology Psychiatry; Visit Provider Psychiatry & Neurology Psychiatry
PROC: GZB4ZZZ Other Electroconvulsive Therapy (ICD-10-PCS; CPT 90870; principal; 2022-08-14 07:00)
PROC: (CPT 90870; principal; 2022-09-02 08:00)
DX: F33.2 Major depressive disorder, recurrent severe without psychotic features (principal); F40.10 Social phobia, unspecified; Z91.51 Personal history of suicidal behavior; F43.21 Adjustment disorder with depressed mood; Z79.899 Other long term (current) drug therapy
CPT/HCPCS: 36415; 80053; 80061; 80335; 82607; 82746; 83036; 83735; 84439; 84443; 85025; 90870; 93005; J0330; J1885; J2250; J2405

== ENCOUNTER → 2022-08-09 17:45 | Outpatient (BNV) | payer OTHER, SELFPAY | PROVIDERS: Admitting Provider Psychiatry & Neurology Psychiatry; Visit Provider Clinical Nurse Specialist Psychiatric/Mental Health, Adult | DX: F33.2 Major depressive disorder, recurrent severe without psychotic features (principal); F43.21 Adjustment disorder with depressed mood; F40.10 Social phobia, unspecified | CPT/HCPCS: 90792; 90870; 99231; 99232; 99238 ==